=== PATIENT | female | born 1995 | race American Indian/Alaskan Native ===

== ENCOUNTER 2023-10-20 09:48 | Outpatient (OUT) | payer MEDICAID, SELFPAY ==
--- NOTE | 2023-10-20 | US_ITS ---
[address] [address] Patient Name: SERGIO JONES MRN: [id number] date: 1995 Sex: F Assigned Patient Location: [facility] Current Patient Location: [facility] Accession/Order Number: [id number] Exam Date: 10/20/2023 09:55 Report Date: 10/20/2023 10:36 At the request of: FAMILIA LAWRENCE Procedure: US OB transvaginal EXAMINATION: US OB transvaginal HISTORY: MISSED MENSES COMPARISON: No relevant comparison available. FINDINGS: GESTATIONAL SAC: Present and normal appearing. YOLK SAC: Present and normal appearing. POLE: Present and normal appearing. CARDIAC: Present. UTERUS: Small subchorionic hematoma. OVARIES: Right: Normal. Left: Normal. CERVIX: 4.0 cm in length and closed. CUL-DE-SAC: Normal. OTHER: None. AGE BY LMP: 8 weeks 0 days ELVIE BY LMP: 05/31/2024 AGE BY US CRL: 8 weeks 4 days ELVIE BY US CRL: 05/27/2024 US/US OB transvaginal IMPRESSION: 1. Single live intrauterine . Electronically authenticated by: LUIS ENRIQUE JACKSON Date: 10/20/2023 10:36
== END 2023-10-20 09:49 | disposition home or self-care (01) ==
LOC: NOMS 09:49
PROVIDERS: PCP Family Medicine; Visit Provider Obstetrics & Gynecology
DX: Z34.91 Encounter for supervision of normal pregnancy, unspecified, first trimester (principal); Z3A.08 8 weeks gestation of pregnancy; N92.6 Irregular menstruation, unspecified
CPT/HCPCS: 76817

== ENCOUNTER 2023-10-27 15:45 | Outpatient (OUT) | payer MEDICAID, SELFPAY ==
--- OUTSIDE RECORDS SUMMARY | 2023-10-27 15:52 | XMS_ITS ---
Patient Summarization (C-CDA 2.1 CCD) Created on: October 27, 2023 ROBERTSERGIO : 1995 Sex: Female Author Organization Sample organization Care Team Providers Care Dog Raiser Name Role Phone PASTORA BARRON Admitting Unavailable PASTORA BARRON Attending Unavailable PASTORA BARRON Primary Care Unavailable PASTORA BARRON Consulting Unavailable Conrado Calle Attending Unavailab Conrado Jefferson Admitting Unavailab PASTORA Walsh Primary Care Unavailable LAWRENCE JOSE Attending Unavailable FLORA GUZMÁN Attending FLORA Singh Referring PASTORA Blancas Primary Care Unavailable Pastora Barron MD Primary Care Provider JORGE CAMARA Attending Unavailable PUMP, FLORA Attending Unavailable FAMILIA LAWRENCE Attending Unavailable PASTORA BARRON Attending Unavailable Allergies Allergy Classification Reported Allergen(s) Allergy Type Date of Onset Reaction(s) Facility (3 sources) Ethinyl Estradiol / norelgestromin Drug Allergy [facility] Encounters Encounter Date Encounter Type Care Provider Facility Start: 10-20-2023 End: 10-20-2023 ambulatory JORGE CAMARA Not Available Start: 10-16-2023 End: 10-16-2023 ambulatory PASTORA Ortiz WONDERLY Not Available Start: 07-10-2023 End: 07-10-2023 ambulatory FLORA PUMP Not Available Start: 06-26-2023 Telephone encounter Jorge Camara NP Work Phone: [facility] Comment on above: Results Start: 06-26-2023 End: 06-26-2023 ambulatory JORGE CAMARA Not Available Start: 06-26-2023 End: 06-26-2023 Office outpatient visit 25 minutes Jorge Camara NP Work Phone: [facility] Comment on above: Pyelonephritis (Prim nicko Dx); Elevated liver function tests; Hypokalemia; Diarrhea, unspecified type; Nausea; Left lower quadrant abdominal tenderness with rebound tenderness; Gastroesophageal reflux disease without esophagitis Start: 06-21-2023 End: 06-22-2023 Emergency department patient visit FLORA GUZMÁN [facility] Start: 06-21-2023 End: 06-21-2023 Emergency department patient visit PASTORA BARRON [facility] Start: 04-17-2023 End: 04-17-2023 ambulatory FAMILIA HOWARD Not Available Start: 12-28-2022 ambulatory Conrado Banks acility:[facility] Start: 11-14-2019 End: 11-15-2019 Patient encounter procedure PASTORA BARRON Facility:H1 Immunizations Immunization Date Immunization Notes Care Provider [facility] 03-11-2016 influenza, injectabl e, quadrivalent, preservative free Jorge Camara [employer] Work Phone: [facility] 03-11-2016 influenza virus vacc ine, unspecified formulation Jorge Camara [employer] Work Phone: [facility] 02-04-2015 tetanus toxoid, redu yenny diphtheria toxoid, and acellular pertussis vaccine, adsorbed Jorge Camara [employer] Work Phone: [facility] 12-17-2001 diphtheria, tetanus toxoids and acellular pertussis vaccine, unspecified formulation Jorge Camara [employer] Work Phone: [facility] 12-17-2001 measles, mumps and rubella virus vaccine Jorge Camara [employer] Work Phone: [facility] 12-17-2001 poliovirus vaccine, inactivated Jorge Camara [employer] Work Phone: [facility] 06-04-1997 diphtheria, tetanus toxoids and acellular pertussis vaccine, unspecified formulation Jorge Camara [employer] Work Phone: [facility] 06-04-1997 haemophilus influenz ae type b vaccine, conjugate unspecified formulation Jorge Camara [employer] Work Phone: [facility] 06-04-1997 measles, mumps and rubella virus vaccine Jorge Camara [employer] Work Phone: [facility] 1995 DTP-Haemophilus influenzae type b conjugate vaccine Jorge Camara [employer] Work Phone: [facility] 1995 hepatitis B vaccine, pediatric or pediatric/adolescent dosage Jorge Camara [employer] Work Phone: [facility] 1995 trivalent poliovirus vaccine, live, oral Jorge Camara [employer] Work Phone: [facility] 1995 DTP-Haemophilus influenzae type b conjugate vaccine Jorge Camara [employer] Work Phone: [facility] 1995 trivalent poliovirus vaccine, live, oral Jorge Camara [employer] Work Phone: [facility] 1995 DTP-Haemophilus influenzae type b conjugate vaccine Jorge Camara [employer] Work Phone: [facility] 1995 hepatitis B vaccine, pediatric or pediatric/adolescent dosage Jorge Camara [employer] Work Phone: [facility] 1995 trivalent poliovirus vaccine, live, oral Jorge Camara [employer] Work Phone: [facility] 1996 hepatitis B vaccine, pediatric or pediatric/adolescent dosage Jorge Camara [employer] Work Phone: [facility] Medications Current Medications Medication Drug Class(es) Dates Sig (Normalized) Sig (Original) sulfamethoxazole 800 mg / trimethoprim 160 mg oral tablet (3 sources) Dihydrofolate Reductase Inhibitor Antibacterial, Sulfonamide Antimicrobial Start: 06-21-2023 End: 06-28-2023 take 1 tablet by mouth once in the morning, then take 1 tablet by mouth once in the evening sulfamethoxazol e-trimethoprim (Bactrim DS) 800-160 MG per tablet Take 1 tablet by mouth in the morning and 1 tablet in the evening. 0 06/21/2023 06/28/2023 Active Payers Date Payer Category Payer Self-pay 2022 Medicaid [place] [id number] 2022-Present [address] [place] [address] [id number] 2019 Unknown [id number] 2019 Medicaid [id number] 1995 Unknown [id number] 1995 Unknown [id number] 1995 Unknown [id number] 1995 Unknown [id number] 1995 Unknown [id number] 1996 Unknown [id number] 1996 Unknown [id number] Plan of Treatment Date Care Activity Detail Author Start: 11-12-2023 Influenza vaccination Influenza Vacc ine (#1) [facility] Comment on above: Postponed from 01/13 (Patient Refused) Start: 07-25-2023 End: 06-26-2024 Hepatic function 2000 panel - Serum or Plasma Hepatic function panel Lab Routine Elevated liver function tests Pyelonephritis Expected: 07/25/2023 (Approximate), Expires: 06/26/2024 [facility] Work Phone: Comment on above: Expected: 07/25/2023 (Approximate), Expires: 06/26/2024 Start: 07-13-2023 End: 07-13-2023 Patient encounter procedure 07/13/2023 2:00 PM EST Office Visit [facility] [address] [place] [address] Jorge Camara, PAM [address] [facility] [place] [address] ZELDADeisy ELIECER Start: 06-26-2023 End: 06-26-2024 Comprehensive metabolic 2000 panel - Serum or Plasma Comprehensive metabolic panel Lab Routine Elevated liver function tests Pyelonephritis Hypokalemia Diarrhea, unspecified type Expected: 06/26/2023 (Approximate), Expires: 06/26/2024 [facility] Work Phone: Comment on above: Expected: 06/26/2023 (Approximate), Expires: 06/26/2024 Problems Problem Classification Problem Date Documented Da te Episodic/Chronic Abdominal pain (3 sources) Abdominal pain; Translations: [Abdominal tenderness of left lower quadrant] Onset: 4 06-26-2023 Episodic Anxiety disorders (3 sources) Anxiety; Translations: [Anxiety disorder, unspecified] Onset: 4 06-23-2023 Chronic Esophageal disorders (5 sources) Gastroesophageal reflux disease without esophagitis; Translations: [Gastro-esophageal reflux disease without esophagitis] Onset: 4 06-26-2023 Chronic Fluid and electrolyte disorders (2 sources) Hypokalemia; Translations: [Hypokalemia] 06-26-2023 Episodic Headache; including migraine (3 sources) Headache disorder; Translations: [Other headache syndrome] Onset: 4 06-23-2023 Episodic Immunizations and screening for infectious disease (4 sources) Contact with and (suspected) exposure to other viral communicable diseases; Translations: [CONTCT EXPS OTH VIRL COMMUNICABL DZ] Onset: 0 Episodic Nausea and vomiting (4 sources) Nausea; Translations: [Vomiting] Onset: 4 06-26-2023 Episodic Other gastrointestinal disorders (2 sources) Diarrhea; Translations: [Diarrhea, unspecified] 06-26-2023 Episodic Other nutritional; endocrine; and metabolic disorders (3 sources) Overweight; Translations: [Overweight] Onset: 4 06-23-2023 Episodic Other screening for suspected conditions (not mental disorders or infectious disease) (3 sources) Other specified abnormal findings of blood chemistry; Translations: [Other abnormal blood chemistry] 06-26-2023 Episodic Other upper respiratory infections (3 sources) Frontal sinusitis; Translations: [Chronic frontal sinusitis] Onset: 4 06-23-2023 Chronic Thyroid disorders (3 sources) Goiter; Translations: [Nontoxic goiter, unspecified] Onset: 4 06-23-2023 Chronic Urinary tract infections (4 sources) Tubulo-interstitial nephritis, not specified as acute or chronic; Translations: [Pyelonephritis] Onset: 4 06-26-2023 Episodic Results Test Name Value Interpretation Reference Range Facil ity CBC AND AUTO DIFFon 06-21-19 24 ABSOLUTE BASOPHIL 0.0 X10E9/L Normal 0.0-0.2 [facility] Comment on above: Performed By: #### Michelle SANCHEZ CMP, 32230-3 #### [facility] ([id number]) [address] [place] [address] 92472 ABSOLUTE NEUTROPHIL 5.2 X10E9/L Normal 1.5-6.6 [facility] Comment on above: Performed By: #### Michelle SANCHEZ CMP, 70233-7 #### [facility] ([id number]) [address] [place] [address] 50792 Basophils/100 WBC (Bld) 0.5 % Normal [facility] Comment on above: Performed By: #### Michelle SANCHEZ CMP, 10676-2 #### [facility] ([id number]) [address] [place] [address] 91188 Eosinophils (Bld) [#/Vol] 0.0 10*3/uL Normal 0.0-0.4 [facility] Comment on above: Performed By: #### Michelle SANCHEZ CMP, #### [facility] ([id number]) [address] [place] [address] 19201 Eosinophils/100 WBC (Bld) 0.4 % Normal [facility] Comment on above: Performed By: #### Michelle SANCHEZ CMP, #### [facility] ([id number]) [address] [place] [address] 11448 Erythrocyte distribution width (RBC) [Ratio] 12.7 % Normal 11.5-15.0 [facility] Comment on above: Performed By: #### Michelle SANCHEZ CMP, #### [facility] ([id number]) [address] [place] [address] 73257 Hematocrit (Bld) [Volume fraction] 41.4 % Normal 35-47 [facility] Comment on above: Performed By: #### Michelle SANCHEZ [facility], #### [facility] ([id number]) [address] [place] [address] 76921 Hemoglobin (Bld) [Mass/Vol] 14.2 g/dL Normal 11.7-15.5 [facility] Comment on above: Performed By: #### Michelle SANCHEZ [facility], #### [facility] ([id number]) [address] [place] [address] 55303 Lymphocytes (Bld) [#/Vol] 1.3 10*3/uL Normal 1.0-3.5 [facility] Comment on above: Performed By: #### Michelle SANCHEZ [facility], 11939-0 #### [facility] ([id number]) [address] [place] [address] 43450 Lymphocytes/100 WBC (Bld) 18.4 % Normal [facility] Comment on above: Performed By: #### Michelle SANCHEZ [facility], 24110-8 #### [facility] ([id number]) [address] [place] [address] 22276 MCH (RBC) [Entitic mass] 30.3 pg Normal 27-34 [facility] Comment on above: Performed By: #### Michelle SANCHEZ [facility], #### [facility] ([id number]) [address] [place] [address] 83648 MCHC (RBC) [Mass/Vol] 34.3 g/dL Normal 32-36 [facility] Comment on above: Performed By: #### Michelle SANCHEZ CMP, 18376-7 #### [facility] ([id number]) [address] [place] [address] 96906 MCV (RBC) [Entitic vol] 88 fL Normal 80-100 [facility] Comment on above: Performed By: #### Michelle SANCHEZ CMP, 45582-2 #### [facility] ([id number]) [address] [place] [address] 50558 Monocytes (Bld) [#/Vol] 0.6 10*3/uL Normal 0-0.9 [facility] Comment on above: Performed By: #### Michelle SANCHEZ CMP, #### [facility] ([id number]) [address] [place] [address] 26920 Monocytes/100 WBC (Bld) 8.8 % Normal [facility] Comment on above: Performed By: #### Michelle SANCHEZ [facility], 61059-9 #### [facility] ([id number]) [address] [place] [address] 90684 Neutrophils/100 WBC (Bld) 71.9 % Normal [facility] Comment on above: Performed By: #### Michelle SANCHEZ [facility], 56700-0 #### [facility] ([id number]) [address] [place] [address] 99915 Platelet mean volume (Bld) [Entitic vol] 8.9 fL Normal 7-12 [facility] Comment on above: Performed By: #### Michelle SANCHEZ CMP, 11128-0 #### [facility] ([id number]) [address] [place] [address] 59980 Platelets (Bld) [#/Vol] 267 10*3/uL Normal 150-450 [facility] Comment on above: Performed By: #### C BCA, CMP, 89773-8 #### [facility] ([id number]) [address] [place] [address] 15630 RBC COUNT 4.68 X10E12/L Normal 3.80-5.20 [facility] Comment on above: Performed By: #### C BCA, CMP, 00206-2 #### [facility] ([id number]) [address] [place] [address] 25246 WBC (Bld) [#/Vol] 7.2 10*3/uL Normal 4.0-11.0 [facility] Comment on above: Performed By: #### C BCA, CMP, 63633-4 #### [facility] ([id number]) [address] [place] [address] 65913 COMPREHENSIVE METABOLIC PANE Chucky 06-21-2023 Albumin [Mass/Vol] 4.2 g/dL Normal 3.2-5.3 [facility] Comment on above: Performed By: #### C BCA, CMP, 12133-8 #### [facility] ([id number]) [address] [place] [address] 49726 ALP [Catalytic activity/Vol] 76 U/L Normal 39-130 [facility] Comment on above: Performed By: #### C BCA, CMP, #### [facility] ([id number]) [address] [place] [address] 82126 ALT [Catalytic activity/Vol] 114 U/L High 0-31 [facility] Comment on above: Performed By: #### C BCA, CMP, 00923-0 #### [facility] ([id number]) [address] [place] [address] 87822 Anion gap [Moles/Vol] 11 mmol/L Normal 5-15 [facility] Comment on above: Performed By: #### C BCA, CMP, #### [facility] ([id number]) [address] [place] [address] 98824 AST [Catalytic activity/Vol] 83 U/L High 0-41 [facility] Comment on above: Performed By: #### C BCA, CMP, #### [facility] ([id number]) [address] [place] [address] 09995 Bilirubin [Mass/Vol] 1.1 mg/dL Normal 0.3-1.2 [facility] Comment on above: Performed By: #### C BCA, CMP, #### [facility] ([id number]) [address] [place] [address] 53914 Calcium [Mass/Vol] 8.9 mg/dL Normal 8.5-10.5 [facility] Comment on above: Performed By: #### C BCA, CMP, #### [facility] ([id number]) [address] [place] [address] 72845 Chloride [Moles/Vol] 98 mmol/L Normal 98-109 [facility] Comment on above: Performed By: #### C BCA, CMP, #### [facility] ([id number]) [address] [place] [address] 16137 CO2 [Moles/Vol] 23 mmol/L Normal 22-32 [facility] Comment on above: Performed By: #### C BCA, CMP, 41893-0 #### [facility] ([id number]) [address] [place] [address] 89581 Creatinine [Mass/Vol] 0.77 mg/dL Normal 0.40-1.00 [facility] Comment on above: Result Comment: METH OD TRACEABLE TO IDMS STANDARD Performed By: #### C BCA, CMP, #### [facility] ([id number]) [address] [place] [address] 75490 eGFR (CKD-EPI) NON-RACE DEPENDENT >90 Normal >59 [facility] Comment on above: Result Comment: Reported eGFR is based on the CKD-EPI 2020 equation that does not use a race coefficient. Performed By: #### C SONDRA SANCHEZ, 87958-6 #### [facility] ([id number]) [address] [place] [address] 56059 Glucose [Mass/Vol] 116 mg/dL High 65-99 [facility] Comment on above: Performed By: #### C SONDRA SANCHEZ, 10245-5 #### [facility] ([id number]) [address] [place] [address] 74505 Potassium [Moles/Vol] 3.1 mmol/L Low 3.5-5.0 [facility] Comment on above: Performed By: #### Michelle SANCHEZ [facility], #### [facility] ([id number]) [address] [place] [address] 05170 Protein [Mass/Vol] 8.1 g/dL High 6.0-8.0 [facility] Comment on above: Performed By: #### C DANIEL [facility], 31055-0 #### [facility] ([id number]) [address] [place] [address] 44360 Sodium [Moles/Vol] 132 mmol/L Low 134-146 [facility] Comment on above: Performed By: #### C SONDRA SANCHEZ, 36496-0 #### [facility] ([id number]) [address] [place] [address] 06610 Urea nitrogen [Mass/Vol] 10 mg/dL Normal 5-23 [facility] Comment on above: Performed By: #### C SONDRA SANCHEZ, 25191-0 #### [facility] ([id number]) [address] [place] [address] ABDOMEN AND PELVIS W CONT on 06-21-2023 CT ABDOMEN AND PELVIS W CONT CT ABDOMEN AND PELVIS W CONT CT ABDOMEN AND PELVIS HISTORY: Abdominal pain, acute, nonlocalized COMPARISON STUDY: r. TECHNIQUE: CT scan of the abdomen and pelvis performed with IV no oral contrast. 100 mL of Omnipaque 300 was injected intravenously without complication. Coronal and sagittal reformats generated and reviewed. FINDINGS: LOWER THORAX: Unremarkable. HEPATOBILIARY: Focal fatty infiltration about the falciform. No focal aggressive appearing hepatic lesions. Mild dilatation of the common bile duct, with upstream tapering of the intrahepatic biliary tree, in a pattern suggestive of reservoir effect. Gallbladder surgically absent. SPLEEN: Unremarkable. PANCREAS: No focal masses or ductal dilatation. ADRENALS: No large adrenal nodules. KIDNEYS/URETERS: Striated bilateral renal nephrograms No aggressive appearing mass lesion. Nonaggressive appearing subcentimeter hypodensities, too small for characterization. No obstructive renal calculus. No collecting system dilatation. Bladder: Within normal limits. PELVIC ORGANS: Within normal limits. GI TRACT: No acute bowel obstruction. The appendix is normal. PERITONEUM/RETROPERIT ONEUM: Small volume free pelvic fluid, likely physiologic. LYMPH NODES: No enlarged lymph nodes. VESSELS: No acute thrombus. No abdominal aortic aneurysm. BONES AND SOFT TISSUES: No suspicious osseous lesion. IMPRESSION: Striated bilateral renal nephrograms, suggestive of pyelonephritis in the appropriate clinical setting. All CT scans at this facility use dose modulation, iterative reconstruction, and/or weight based dosing when appropriate to reduce radiation dose to as low as reasonably achievable. Finalized by Bill Albrecht on 06/21/2023 3:57 PM Normal [facility] HCG ( test) Ql (U)o n 06-21-2023 Beta HCG ( test) Ql (U) Negative Normal NEG [facility] Comment on above: Performed By: #### 2 106-3 #### [facility] ([id number]) [address] [place] [address], [place] [address] MAGNESIUMon 06-21-2023 Magnesium [Mass/Vol] 2.1 mg/dL Normal 1.8-2.6 [facility] Comment on above: Performed By: #### C BANNER, [facility], 02430-8 #### [facility] ([id number]) [address] [facility] [place] [address] SARS/FLU A+B/RSV by NAAT/Mol ecularon 06-21-2023 SARS/FLU A+B/RSV by NAAT/Molecular FLU A PCR Negative (qualifier value) FLU B PCR Negative (qualifier value) RSV by PCR Negative (qualifier value) SARS CoV 2 Not detected (qualifier value) NOTE The Xpert Xpress SARS-CoV-2/Flu/RSV Plus test is a rapid, multiplexed real-time RT-PCR test intended for the simultaneous qualitative detection and differentiation of SARS-CoV-2, influenza A, influenza B and respiratory syncytial virus (RSV) viral RNA from individuals suspected of respiratory viral infection consistent with COVID-19 by their healthcare provider. This test has not been validated in asymptomatic patients. The Xpert Xpress SARS-CoV-2 test is intended for use by qualified and trained operators who are performing tests using either iyzico DX or Arrogene systems and is limited to laboratories that meet the CLIA requirements to perform high and moderate complexity tests. The Xpert Xpress SARS-CoV-2/Flu/RSV Plus is only for use under the Food and Drug Administration's Emergency Use Authorization. Results are for the simultaneous detection and differentiation of SARS-CoV-2, influenza A, influenza B and RSV nucleic acids in clinical specimens. SARS-CoV-2, influenza A, influenza B and RSV RNA identified by this test are generally detectable in upper respiratory samples during the acute phase of infection. Positive results are indicative of the presence of the identified virus, but do not rule out bacterial infection or co-infection with other pathogens not detected by this test. Clinical correlation with patient history and other diagnostic information is necessary to determine patient infection status. The agent detected may not be the definite cause of disease. Negative results do not preclude SARS-CoV-2, influenza A, influenza B and RSV infection and should not be used as the sole basis for treatment or other patient management decisions. Negative results must be combined with clinical observations, patient history and epidemiological information. An Invalid result may occur with specimen-associated inhibition unable to be resolved with specimen repeat. Fact Sheet for Healthcare Providers: https://www.fda.gov/m edia/970378/download Fact Sheet for Patients: https://www.fda.gov/m edia/834206/download Normal [facility] Comment on above: Performed By: #### C OVFLR #### [facility] ([id number]) [address] [place] [address] 96742 URINE CULTUREon 06-21-2023 Bacteria identified Cx Nom (U) CULTURE RESULTS 50,000 to 100,000 ORGANISMS/mL ESCHERICHIA COLI [ S = SUSCEPTIBLE R = RESISTANT I = INTERMEDIATE S-DO = Susceptible-dose dependent NS = Non-suscceptible NO = No Interpretation ] Organism: ESCHERICHIA COLI Antibiotic Interpretation RITA Status AMPICILLIN R >=32 F AMP/SULBACTAM I 16/8 F CEFAZOLIN S <=4 F CEFTRIAXONE S <=1 F CIPROFLOXACIN S <=0.25 F GENTAMICIN S <=1 F LEVOFLOXACIN S <=0.12 F NITROFURANTOIN S <=16 F PIPERACIL/TAZOBACTAM S <=4 F TOBRAMYCIN S <=1 F TRIMETH/SULFAMETHOXAZ OLE S <=1/19 F Susceptible [facility] Comment on above: Performed By: #### 6 30-4 #### [facility] ([id number]) [address], [address] [place] [address] URN MACROSCOPIC NURon 2023 BILIRUBIN ALMA Negative Normal NEG [facility] Comment on above: Performed By: #### N UM #### [facility] ([id number]) [address] [place] [address] 62525 BLOOD/HGB ALMA Trace Abnormal NEG [facility] Comment on above: Performed By: #### N UM #### [facility] ([id number]) [address] [place] [address] [id number] GLUCOSE ALMA Negative Normal NEG [facility] Comment on above: Performed By: #### N UM #### [facility] ([id number]) [address] [place] [address] 49279 KETONES ALMA Trace Abnormal NEG [facility] Comment on above: Performed By: #### N UM #### [facility] ([id number]) [address] [place] [address] [id number] LEUKOCYTE ESTERASE ALMA Negative Normal NEG [facility] Comment on above: Performed By: #### N UM #### [facility] ([id number]) [address] [place] [address] 46154 NITRITE ALMA Positive Abnormal NEG [facility] Comment on above: Performed By: #### N UM #### [facility] ([id number]) [address] [place] [address] 96638 PH ALMA 6.0 Normal 5.0-8.5 [facility] Comment on above: Performed By: #### N UM #### [facility] ([id number]) [address] [place] [address] 90932 PROTEIN ALMA Trace Abnormal NEG [facility] Comment on above: Performed By: #### N UM #### [facility] ([id number]) [address] [place] [address] 49287 SPECIFIC GRAVITY ALMA >=1.030 Normal 1.003-1.035 [facility] Comment on above: Performed By: #### N UM #### [facility] ([id number]) [address] [place] [address] 88460 UROBILINOGEN ALMA 0.2 eu/dL Normal <1.1 [facility] Comment on above: Performed By: #### N UM #### [facility] ([id number]) [address] [place] [address] [id number] COVID-19 PCRon 11-15-2019 SARS-CoV-2, RENETTA Not Detected Normal Not Detected [facility] Comment on above: Result Comment: This test was developed and its performance characteristics determined by [employer]. This test has not been FDA cleared or approved. This test has been authorized by FDA under an Emergency Use Authorization (EUA). This test is only authorized for the duration of time the declaration that circumstances exist justifying the authorization of the emergency use of in vitro diagnostic tests for detection of SARS-CoV-2 virus and/or diagnosis of COVID-19 infection under section 564(b)(1) of the Act, 21 U.S.C. 360bbb-3(b)(1), unless the authorization is terminated or revoked sooner. When diagnostic testing is negative, the possibility of a false negative result should be considered in the context of a patient's recent exposures and the presence of clinical signs and symptoms consistent with COVID-19. An individual without symptoms of COVID-19 and who is not shedding SARS-CoV-2 virus would expect to have a negative (not detected) result in this assay. Performed By: #### C VDPCR #### [facility] [address] [place] [address] Raymond Deleon Social History Date Type Detail Facility Start: 06-26-2023 Tobacco smoking status NHIS Ex-smoke r [facility] Start: 06-26-2023 Tobacco use and exposure Smoke less tobacco non-user [facility] Start: 06-26-2023 Alcohol intake Current drinke r of alcohol (finding) [facility] Start: 06-26-2023 Alcohol intake [facility] Start: 06-26-2023 Humiliation, Afraid, Rape, and Kick questionnaire [HARK] [facility] Start: 04-04-2023 Gender identity Identifies as female gender (finding) [facility] Start: 04-04-2023 Sexual orientation Heterosexual (fin ding) [facility] Start: 1995 Sex Assigned At Female [facility] History of tobacco use Current smoker [facility] History of tobacco use Cigarette Smoker [facility] Within the last year , have you been afraid of your partner or ex-partner? No [facility] Are you now , , , , never or living with a partner? Never [facility] How often to you hav e a drink containing alcohol? Monthly or less [facility] How many standard dr inks containing alcohol do you have on a typical day? 3 or 4 [facility] How often do you hav e 6 or more drinks on 1 occasion? Never [facility] How hard is it for y ou to pay for the very basics like food, housing, medical care, and heating Not very hard [facility] Do you feel stress - tense, restless, nervous, or anxious, or unable to sleep at night because your mind is troubled all the time - these days [OSQ] To some extent [facility] (I/We) worried [facility] (my/our) food would run out before (I/we) got money to buy more. Never true [facility] In the past 12 month s, has lack of transportation kept you from medical appointments or from getting medications? No [facility] Vital Signs Date Time Vital Sign Value Performing Clinician Faci imelda 06-26-2023 08:39-0500 Body mass index (BMI) [Ratio] 30.81 kg/m2 Jorge Camara NP Work Phone: [facility] 06-26-2023 08:39-0500 Body weight 77.66 kg Jorge Camara NP Work Phone: [facility] 06-26-2023 08:39-0500 Diastolic blood pressure 80 mm[Hg] Jorge Camara [employer] Work Phone: [facility] 06-26-2023 08:39-0500 Heart rate 72 /min Jorge Camara NP Work Phone: [facility] 06-26-2023 08:39-0500 Systolic blood pressure 102 mm[Hg] Jorge Camara [employer] Work Phone: [facility] Telephone encounter Note 06-26-2023 Telephone Encounter - Jorge Camara NP - 06/26/2023 3:59 PM EST Note Date & Type Note Facility 06-26-2023 Telephone encount er Note Please let patient know labs are improving. Potassium level is WNL. AST and ALT are still high but better compared to what it was in the hospital. I would like to repeat AST/ALT levels in 4 weeks. Order placed. AST 10 - 30 U/L 43 High ALT 6 - 29 U/L 86 High [facility] Note 06-26-2023 Telephone Encounter - Jorge Camara NP - 06/26/2023 3:59 PM EST Note Date & Type Note Facility 06-26-2023 Miscellaneous Notes Formattin g of this note is different from the original. Please let patient know labs are improving. Potassium level is WNL. AST and ALT are still high but better compared to what it was in the hospital. I would like to repeat AST/ALT levels in 4 weeks. Order placed. AST 10 - 30 U/L 43 High ALT 6 - 29 U/L 86 High documented in this encounter [facility] History of Present illness Narrative 06-26-2023 Jorge Camara NP - 06/26/2023 8:30 AM EST Note Date & Type Note Facility 06-26-2023 History of Presen t illness Narrative Images from the original note were not included. Sergio Lisa is a 28 y.o. female presents with chief complaint of ER Follow-up (Abd pain,diarrhea. Left side pain comes and goes started this morning, nausea better, continued diarrhea.) HPI: HPI Patient presents to the office today for ER follow up. Patient had went to the ER on 06/21 for vomiting and diarrhea. UA was positive for nitrates and CT showed pyelonephritis. IV rocephin was given and Bactrim started. Labs are off, potassium was slightly low, ALT and AST elevated. Patient continues to have diarrhea. Nausea improving. Having some abdominal discomfort to her left side. Taking Bactrim for a total of 7 days. Woke up at 3am with left sided abdominal pain. Admits to having diarrhea when this occurred. Needed to walk around, felt like contractions. Pain is better now, it comes and goes. Has motrin if needed but has not taken since yesterday. Denies fever, body aches or chills. Does feel warm at times. Appetite has been decreased. Admits to drinking 2 bottles of water per day and sips of gatorade throughout the day. Has been drinking chicken noodle soup. Had hot wings and then developed worsening epigastric upset. Potassium was low in the ER which it was replaced. She admits that she is feeling better compared to last week. Planning to return to work tomorrow. SUBJECTIVE: MEDICATIONS: Current Outpatient Medications Medication Instructions sulfamethoxazole-trimethoprim (Bactrim DS) 800-160 MG per tablet 1 tablet, Oral, 2 times daily ALLERGIES: Allergies Allergen Reactions Norelgestromin-Eth Estradiol Other Reaction(s): GI upset REVIEW OF SYMPTOMS: Review of Systems Constitutional: Positive for appetite change. Negative for activity change and fatigue. HENT: Negative. Respiratory: Negative for cough, shortness of breath and wheezing. Cardiovascular: Negative for chest pain and palpitations. Gastrointestinal: Positive for abdominal pain (left side), diarrhea and nausea. Negative for vomiting. Genitourinary: Negative. Musculoskeletal: Negative. Skin: Negative for color change, rash and wound. Psychiatric/Behavioral: Negative. OBJECTIVE: Predictive Model Details Model is not released. No score information can be retrieved 04/24/2019 12:00 PM 07/29/2019 12:00 PM 01/25/2021 12:00 PM 06/16/2021 12:00 PM 06/30/2021 12:00 PM 04/17/2023 3:03 PM 06/26/2023 8:39 AM Vitals BMI 27.54 kg/m2 28.01 kg/m2 28.01 kg/m2 28.94 kg/m2 29.01 kg/m2 31.1 kg/m2 30.81 kg/m2 BSA (m2) 1.75 m2 1.76 m2 1.76 m2 1.79 m2 1.8 m2 1.86 m2 1.85 m2 Systolic 92 122 104 100 110 102 Diastolic 60 84 70 60 78 80 Heart Rate 72 Height (in) 5' 2.5 5' 2.5 5' 2.5 5' 2.5 5' 2.5 Weight (lb) 153 155.6 160.8 161.2 172.8 171.2 Visit Report Report COMPREHENSIVE METABOLIC PANEL Order: [id number] Component Ref Range & Units 5 d ago Sodium 134 - 146 mmol/L 132 Low Potassium, Bld 3.5 - 5.0 mmol/L 3.1 Low Chloride 98 - 109 mmol/L 98 CO2 22 - 32 mmol/L 23 Anion gap 5 - 15 mmol/L 11 BUN 5 - 23 mg/dL 10 Creatinine 0.40 - 1.00 mg/dL 0.77 Comment: METHOD TRACEABLE TO IDMS STANDARD Glucose 65 - 99 mg/dL 116 High Calcium 8.5 - 10.5 mg/dL 8.9 Total Protein 6.0 - 8.0 g/dL 8.1 High Albumin 3.2 - 5.3 g/dL 4.2 Alkaline Phosphatase 39 - 130 U/L 76 AST 0 - 41 U/L 83 High ALT 0 - 31 U/L 114 High Total bilirubin 0.3 - 1.2 mg/dL 1.1 eGFR (CKD-EPI)non-race dependent >59 ml/min/1.73sq.m >90 Comment: Reported eGFR is based on the CKD-EPI 2020 equation that does not use a race coefficient. CT abdomen pelvis w IV contrast Order: [id number] Narrative CT ABDOMEN AND PELVIS HISTORY: Abdominal pain, acute, nonlocalized COMPARISON STUDY: r. TECHNIQUE: CT scan of the abdomen and pelvis performed with IV no oral contrast. 100 mL of Omnipaque 300 was injected intravenously without complication. Coronal and sagittal reformats generated and reviewed. FINDINGS: LOWER THORAX: Unremarkable. HEPATOBILIARY: Focal fatty infiltration about the falciform. No focal aggressive appearing hepatic lesions. Mild dilatation of the common bile duct, with upstream tapering of the intrahepatic biliary tree, in a pattern suggestive of reservoir effect. Gallbladder surgically absent. SPLEEN: Unremarkable. PANCREAS: No focal masses or ductal dilatation. ADRENALS: No large adrenal nodules. KIDNEYS/URETERS: Striated bilateral renal nephrograms No aggressive appearing mass lesion. Nonaggressive appearing subcentimeter hypodensities, too small for characterization. No obstructive renal calculus. No collecting system dilatation. Bladder: Within normal limits. PELVIC ORGANS: Within normal limits. GI TRACT: No acute bowel obstruction. The appendix is normal. PERITONEUM/RETROPERITONEUM: Small volume free pelvic fluid, likely physiologic. LYMPH NODES: No enlarged lymph nodes. VESSELS: No acute thrombus. No abdominal aortic aneurysm. BONES AND SOFT TISSUES: No suspicious osseous lesion. IMPRESSION: Striated bilateral renal nephrograms, suggestive of pyelonephritis in the appropriate clinical setting. All CT scans at this facility use dose modulation, iterative reconstruction, and/or weight based dosing when appropriate to reduce radiation dose to as low as reasonably achievable. Physical Exam Vitals reviewed. Constitutional: General: She is not in acute distress. Appearance: Normal appearance. Cardiovascular: Rate and Rhythm: Normal rate and regular rhythm. Heart sounds: No murmur heard. Pulmonary: Effort: Pulmonary effort is normal. No respiratory distress. Breath sounds: Normal breath sounds. No wheezing or rhonchi. Abdominal: General: Bowel sounds are normal. There is no distension. Palpations: Abdomen is soft. Tenderness: There is abdominal tenderness (to LLQ). Musculoskeletal: Right lower leg: No edema. Left lower leg: No edema. Skin: General: Skin is warm and dry. Findings: No rash. Neurological: Mental Status: She is alert. Psychiatric: Mood and Affect: Mood normal. Behavior: Behavior normal. ASSESSMENT AND PLAN: Assessment/Plan Diagnoses and all orders for this visit: Pyelonephritis Comments: Doing well overall. Finish bactrim and increase water intake to at least 5 bottles or water per day. Follow up if symptoms do not continue to improve. Orders: - Comprehensive metabolic panel; Future Elevated liver function tests Comments: Likely related to pyelo, will repeat labs today. Orders: - Comprehensive metabolic panel; Future Hypokalemia Comments: Replaced in ER, will repeat labs today. Orders: - Comprehensive metabolic panel; Future Diarrhea, unspecified type Comments: Recommended BRAT diet, avoiding foods that are irritating like spicy foods and increasing water intake. Orders: - Comprehensive metabolic panel; Future Nausea Comments: Improving. Left lower quadrant abdominal tenderness with rebound tenderness Comments: Correlates to having diarrhea. Will continue to monitor and notify if pain does not improve or if pain worsens. PVU. Gastroesophageal reflux disease without esophagitis Comments: Discussed triggers and handout given to patient. Recommend TUMs PRN. If not improving, may need to discuss daily antacid. Increase water intake. PVU. Follow up if symptoms worsen or fail to improve, for due for wellness to schedule - PLEASE provide work note monday and today . documented in this encounter [facility] Evaluation note Note Date & Type Note Facility Evaluation note Diagnosis Pyelonephritis- Primary Unspecified pyelonephritis Elevated liver function tests Other abnormal blood chemistry Hypokalemia Hypopotassemia Diarrhea, unspecified type Nausea Nausea alone Left lower quadrant abdominal tenderness with rebound tenderness Gastroesophageal reflux disease without esophagitis Esophageal reflux documented in this encounter [facility] Evaluation note Note Date & Type Note Facility Evaluation note Diagnosis Elevated liver function tests- Primary Other abnormal blood chemistry Pyelonephritis Unspecified pyelonephritis documented in this encounter [facility] Summary Purpose Family History No Family History Records FoundNo Family History Records FoundNo Family History Records FoundNo Family History Records Found Advance Directives No Advanced Directives Records FoundNo Advanced Directives Records FoundNo Advanced Directives Records FoundNo Advanced Directives Records Found Additional Source Comments INFORMATION SOURCE (unrecogn ized section and content) DATE CREATED AUTHOR [facility]2019 [facility] DATE CREATED AUTHOR AUTHOR'S ORGANIZ ATION 04/21/2023 [facility] DATE CREATED AUTHOR AUTHOR'S ORGANIZ ATION 06/26/2023 [facility] DATE CREATED AUTHOR AUTHOR'S ORGANIZ ATION 10/21/2023 [facility] EPIC Reason for Visit (unrecogniz ed section and content) Reason Comments ER Follow-up Abd pain,diarrhea. L eft side pain comes and goes started this morning, nausea better, continued diarrhea. Reason Onset Date Comments Results 06/26/2023 Care Teams (unrecognized sec tion and content) [facility] [employer] Relationship Specialty Start Date End Date Pastora Barron MD [address] [place] [address] PCP - General Family Medicine 09/20/22 [employer] Relationship Specialty Start Date End Date Pastora Barron MD [address] [place] [address] PCP - General Family Medicine 09/20/22 FOR RECORDS PERTAINING TO PATIENTS WHO ARE OR HAVE BEEN ENROLLED IN A CHEMICAL DEPENDENCY/SUBSTANCEABUSE PROGRAM, SOME INFORMATION MAY BE OMITTED. This clinical summary was aggregated from multiple sources. Caution should be exercised in using it in the provision of clinical care. This summary normalizes information from multiple sources, and as a consequence, information in this document may materially change the coding, format and clinical context of patient data. In addition, data may be omitted in some cases. CLINICAL DECISIONS SHOULD BE BASED ON THE PRIMARY CLINICAL RECORDS. [facility] [facility]. provides no warranty or guarantee of the accuracy or completeness of information in this document.
[2023-10-27 16:17] LABS: Basophils Percent Auto 0.3 % (0.2-2.0); Eosinophils Absolute Auto 0.1 10^3/uL (0.0-0.7); Eosinophils Percent Auto 0.5 % (0.9-7.0); Hematocrit 34.6 % (36.0-48.0); Hemoglobin 11.7 g/dL (12.0-16.0); Immature Granulocytes Abs Auto 0.03 10^3/uL (0.00-0.03); Immature Granulocytes Pct Auto 0.3 % (0.0-0.5); Lymphocytes Absolute Auto 3.2 10^3/uL (1.2-3.8); Lymphocytes Percent Auto 27.8 % (20.5-60.0); Mean Corpuscular HGB Conc 33.8 g/dL (29.9-35.2); Mean Corpuscular Hemoglobin 29.8 pg (26.7-34.0); Mean Corpuscular Volume 88.3 fL (81.0-99.0); Mean Platelet Volume 11.3 fL (9.5-13.5); Monocytes Absolute Auto 0.5 10^3/uL (0.3-0.8); Monocytes Percent Auto 4.5 % (1.7-12.0); Neutrophils Absolute Auto 7.7 10^3/uL (1.4-6.5); Neutrophils Percent Auto 66.6 % (43.0-75.0); Platelet Count 297 10^3/uL (150-450); Red Blood Count 3.92 10^6/uL (4.20-5.40); Red Cell Distribution Width 12.3 % (11.0-15.0); White Blood Count 11.6 10^3/uL (4.0-11.0)
[2023-10-27 16:42] LABS: Estimated Average Glucose 108 mg/dL; Glycohemoglobin A1C 5.4 % (4.5-6.2)
[2023-10-27 17:05] LABS: BOX Test Sent Out Y
[2023-10-29 08:08] LABS: HBsAg Screen Negative (Negative); HCV Ab Non Reactive (Non Reactive); HIV Ab/p24 Ag Screen Non Reactive (Non Reactive); Rubella Antibodies, IgG <0.90 index (Immune >0.99)
[2023-10-29 11:16] LABS: Rapid Plasma Reagin, Quant Non Reactive titer (NonRea<1:1)
== END 2023-10-27 15:46 | disposition home or self-care (01) ==
LOC: LAB 15:45
PROVIDERS: PCP Family Medicine; Visit Provider Obstetrics & Gynecology
DX: Z36.0 Encounter for antenatal screening for chromosomal anomalies (principal); N92.6 Irregular menstruation, unspecified
CPT/HCPCS: 36415; 83036; 85025; 86592; 86762; 86803; 86850; 86900; 86901; 87086; 87340; 87389

== ENCOUNTER 2023-11-03 16:26 | Outpatient (OUT) | payer MEDICAID, SELFPAY ==
--- OUTSIDE RECORDS SUMMARY | 2023-11-03 16:45 | XMS_ITS | CCD ---
Author Organization [facility] Care Team Providers Care Tensioning Machine Operator Name Role Phone PASTORA BARRON Admitting Unavailable PASTORA BARRON Attending Unavailable PASTORA BARRON Primary Care Unavailable PASTORA BARRON Consulting Unavailable Conrado Calle Attending Unavailab Conrado Jefferson Admitting UnavailPASTORA Doe Primary Care Unavailable LAWRENCE JOSE Attending Unavailable FLORA GUZMÁN Attending Unavailable FLORA GUZMÁN Referring PASTORA Blancas Primary Care Unavailable Pastora Barron MD Primary Care Provider JORGE CAMARA Attending Unavailable PUMP, FLORA Attending Unavailable FAMILIA LAWRENCE Attending Unavailable PASTORA BARRON Attending Unavailable Allergies Allergy Classification Reported Allergen(s) Allergy Type Date of Onset Reaction(s) Facility (3 sources) Ethinyl Estradiol / norelgestromin Drug Allergy 4 [facility] Medications Current Medications Medication Drug Class(es) Dates [...] in the evening. 0 06/21/2023 06/28/2023 Active Problems Problem Classification Problem Date Documented Da [...] 24 ABSOLUTE BASOPHIL 0.0 X10E9/L Normal 0.0-0.2 [facility] Comment on above: Performed By: #### C BCA, CMP, 96996-2 #### [facility] ([id number]) [address] [place] [address] 70070 ABSOLUTE NEUTROPHIL 5.2 X10E9/L Normal 1.5-6.6 [facility] Comment on above: Performed By: #### Michelle SANCHEZ CMP, 01089-2 #### [facility] ([id number]) [address] [place] [address] 30316 Basophils/100 WBC (Bld) 0.5 % Normal [facility] Comment on above: Performed By: #### Michelle SANCHEZ CMP, 89554-1 #### [facility] ([id number]) [address] [place] [address] 25726 Eosinophils (Bld) [#/Vol] 0.0 10*3/uL Normal 0.0-0.4 [facility] Comment on above: Performed By: #### Michelle SANCHEZ CMP, #### [facility] ([id number]) [address] [place] [address] 51896 Eosinophils/100 WBC (Bld) 0.4 % Normal [facility] Comment on above: Performed By: #### Michelle SANCHEZ [facility], 85062-7 #### [facility] ([id number]) [address] [place] [address] 40978 Erythrocyte distribution width (RBC) [Ratio] 12.7 % Normal 11.5-15.0 [facility] Comment on above: Performed By: #### Michelle SANCHEZ CMP, 28128-3 #### [facility] ([id number]) [address] [place] [address] 23974 Hematocrit (Bld) [Volume fraction] 41.4 % Normal 35-47 [facility] Comment on above: Performed By: #### Michelle SANCHEZ CMP, 59654-5 #### [facility] ([id number]) [address] [place] [address] 24803 Hemoglobin (Bld) [Mass/Vol] 14.2 g/dL Normal 11.7-15.5 [facility] Comment on above: Performed By: #### C SONDRA SANCHEZ, #### [facility] ([id number]) [address] [place] [address] 84962 Lymphocytes (Bld) [#/Vol] 1.3 10*3/uL Normal 1.0-3.5 [facility] Comment on above: Performed By: #### Michelle SANCHEZ CMP, #### [facility] ([id number]) [address] [place] [address] 46085 Lymphocytes/100 WBC (Bld) 18.4 % Normal [facility] Comment on above: Performed By: #### Michelle SANCHEZ CMP, #### [facility] ([id number]) [address] [place] [address] 57520 MCH (RBC) [Entitic mass] 30.3 pg Normal 27-34 [facility] Comment on above: Performed By: #### Michelle SANCHEZ CMP, #### [facility] ([id number]) [address] [place] [address] 63976 MCHC (RBC) [Mass/Vol] 34.3 g/dL Normal 32-36 [facility] Comment on above: Performed By: #### Michelle SANCHEZ CMP, #### [facility] ([id number]) [address] [place] [address] 20816 MCV (RBC) [Entitic vol] 88 fL Normal 80-100 [facility] Comment on above: Performed By: #### Michelle SANCHEZ CMP, #### [facility] ([id number]) [address] [place] [address] 95524 Monocytes (Bld) [#/Vol] 0.6 10*3/uL Normal 0-0.9 [facility] Comment on above: Performed By: #### C DANIEL CMP, 97129-5 #### [facility] ([id number]) [address] [place] [address] 85947 Monocytes/100 WBC (Bld) 8.8 % Normal [facility] Comment on above: Performed By: #### C BCA, CMP, 52711-0 #### [facility] ([id number]) [address] [place] [address] 38091 Neutrophils/100 WBC (Bld) 71.9 % Normal [facility] Comment on above: Performed By: #### C BCA, CMP, 91646-1 #### [facility] ([id number]) [address] [place] [address] 72671 Platelet mean volume (Bld) [Entitic vol] 8.9 fL Normal 7-12 [facility] Comment on above: Performed By: #### Michelle BCA, CMP, 07484-0 #### [facility] ([id number]) [address] [place] [address] 98951 Platelets (Bld) [#/Vol] 267 10*3/uL Normal 150-450 [facility] Comment on above: Performed By: #### Michelle BCA, CMP, 71906-0 #### [facility] ([id number]) [address] [place] [address] 99371 RBC COUNT 4.68 X10E12/L Normal 3.80-5.20 [facility] Comment on above: Performed By: #### C BCA, CMP, 27073-8 #### [facility] ([id number]) [address] [place] [address] 16709 WBC (Bld) [#/Vol] 7.2 10*3/uL Normal 4.0-11.0 [facility] Comment on above: Performed By: #### C BCA, CMP, 74347-9 #### [facility] ([id number]) [address] [place] [address] 37655 COMPREHENSIVE METABOLIC PANE Chucky 06-21-2023 Albumin [Mass/Vol] 4.2 g/dL Normal 3.2-5.3 [facility] Comment on above: Performed By: #### C BCA, CMP, 56881-2 #### [facility] ([id number]) [address] [place] [address] 55098 ALP [Catalytic activity/Vol] 76 U/L Normal 39-130 [facility] Comment on above: Performed By: #### C DANIEL, CMP, #### [facility] ([id number]) [address] [place] [address] 96408 ALT [Catalytic activity/Vol] 114 U/L High 0-31 [facility] Comment on above: Performed By: #### C DANIEL, CMP, #### [facility] ([id number]) [address] [place] [address] 00889 Anion gap [Moles/Vol] 11 mmol/L Normal 5-15 [facility] Comment on above: Performed By: #### C DANIEL, CMP, #### [facility] ([id number]) [address] [place] [address] 29114 AST [Catalytic activity/Vol] 83 U/L High 0-41 [facility] Comment on above: Performed By: #### C BCA, CMP, 77451-7 #### [facility] ([id number]) [address] [place] [address] 18064 Bilirubin [Mass/Vol] 1.1 mg/dL Normal 0.3-1.2 [facility] Comment on above: Performed By: #### C BCA, CMP, 90232-1 #### [facility] ([id number]) [address] [place] [address] 54076 Calcium [Mass/Vol] 8.9 mg/dL Normal 8.5-10.5 [facility] Comment on above: Performed By: #### C SONDRA SANCHEZ, 84680-2 #### [facility] ([id number]) [address] [place] [address] 69180 Chloride [Moles/Vol] 98 mmol/L Normal 98-109 [facility] Comment on above: Performed By: #### C DANIEL [facility], 48654-3 #### [facility] ([id number]) [address] [place] [address] 39688 CO2 [Moles/Vol] 23 mmol/L Normal 22-32 [facility] Comment on above: Performed By: #### C SONDRA SANCHEZ, 14263-8 #### [facility] ([id number]) [address] [place] [address] 58448 Creatinine [Mass/Vol] 0.77 mg/dL Normal 0.40-1.00 [facility] Comment on above: Result Comment: METH OD TRACEABLE TO IDMS STANDARD Performed By: #### C DANIEL [facility], 39601-7 #### [facility] ([id number]) [address] [place] [address] 85070 eGFR (CKD-EPI) NON-RACE DEPENDENT >90 Normal >59 [facility] Comment on above: Result Comment: Reported eGFR is based on the CKD-EPI 2020 equation that does not use a race coefficient. Performed By: #### C SONDRA SANCHEZ, 00977-1 #### [facility] ([id number]) [address] [place] [address] 65830 Glucose [Mass/Vol] 116 mg/dL High 65-99 [facility] Comment on above: Performed By: #### C SONDRA SANCHEZ, 37459-8 #### [facility] ([id number]) [address] [place] [address] 87828 Potassium [Moles/Vol] 3.1 mmol/L Low 3.5-5.0 [facility] Comment on above: Performed By: #### C BCA, [facility], 46234-0 #### [facility] ([id number]) [address] [place] [address] 94303 Protein [Mass/Vol] 8.1 g/dL High 6.0-8.0 [facility] Comment on above: Performed By: #### C BCA, [facility], 18981-8 #### [facility] ([id number]) [address] [place] [address] 00865 Sodium [Moles/Vol] 132 mmol/L Low 134-146 [facility] Comment on above: Performed By: #### C BCA, [facility], 61148-8 #### [facility] ([id number]) [address] [place] [address] 83048 Urea nitrogen [Mass/Vol] 10 mg/dL Normal 5-23 [facility] Comment on above: Performed By: #### C BCA, [facility], 05630-3 #### [facility] ([id number]) [address] [place] [address] ABDOMEN AND PELVIS W CONT on [...] Bill Albrecht on 06/21/2023 3:57 PM Normal [facility] HCG ( test) Ql (U)o n 06-21-2023 Beta HCG ( test) Ql (U) Negative Normal NEG [facility] Comment on above: Performed By: #### 2 106-3 #### [facility] ([id number]) [address] [place] [address] 58448 MAGNESIUMon 06-21-2023 Magnesium [Mass/Vol] 2.1 mg/dL Normal 1.8-2.6 [facility] Comment on above: Performed By: #### C BCA, CMP, 58275-9 #### [facility] ([id number]) [address] [place] [address] 73830 SARS/FLU A+B/RSV by NAAT/Mol ecularon 06-21-2023 SARS/FLU [...] operators who are performing tests using either [facility] or [employer] systems and is limited to laboratories that [...] repeat. Fact Sheet for Healthcare Providers: https://www.fda.gov/m edia/077870/download Fact Sheet for Patients: https://www.fda.gov/m edia/117222/download Normal [facility] Comment on above: Performed By: #### C OVFLR #### [facility] ([id number]) [address] [place] [address], [place] [address] URINE CULTUREon 06-21-2023 Bacteria identified Cx Nom [...] F TRIMETH/SULFAMETHOXAZ OLE S <=1/19 F Susceptible [facility] Comment on above: Performed By: #### 6 30-4 #### [facility] ([id number]) [address] [place] [address], [address] [place] [address] URN MACROSCOPIC NURon 2023 BILIRUBIN ALMA Negative Normal NEG [facility] Comment on above: Performed By: #### N UM #### [facility] ([id number]) [address] [place] [address] 11420 BLOOD/HGB ALMA Trace Abnormal NEG [facility] Comment on above: Performed By: #### N UM #### [facility] ([id number]) [address] [place] [address] 55454 GLUCOSE ALMA Negative Normal NEG [facility] Comment on above: Performed By: #### N UM #### [facility] ([id number]) [address] [place] [address] 28838 KETONES ALMA Trace Abnormal NEG [facility] Comment on above: Performed By: #### N UM #### [facility] ([id number]) [address] [place] [address] 14132 LEUKOCYTE ESTERASE ALMA Negative Normal NEG [facility] Comment on above: Performed By: #### N UM #### [facility] ([id number]) [address] [place] [address] 40692 NITRITE ALMA Positive Abnormal NEG [facility] Comment on above: Performed By: #### N UM #### [facility] ([id number]) [address] [place] [address] 08108 PH ALMA 6.0 Normal 5.0-8.5 [facility] Comment on above: Performed By: #### N UM #### [facility] ([id number]) [address] [place] [address] PROTEIN ALMA Trace Abnormal NEG [facility] Comment on above: Performed By: #### N UM #### [facility] ([id number]) [address] [place] [address] SPECIFIC GRAVITY ALMA >=1.030 Normal 1.003-1.035 [facility] Comment on above: Performed By: #### N UM #### [facility] ([id number]) [address] [place] [address] UROBILINOGEN ALMA 0.2 eu/dL Normal <1.1 [facility] Comment on above: Performed By: #### N UM #### [facility] ([id number]) [address] [place] [address] 05160 COVID-19 PCRon 11-15-2019 SARS-CoV-2, RENETTA Not Detected Normal Not Detected [facility] Comment on above: Result Comment: This test was developed and its performance characteristics determined by [employer]. This test has not been FDA cleared [...] assay. Performed By: #### C VDPCR #### [facility] [address] [address] Raymond Deleon Vital Signs Date Time Vital Sign Value Performing Clinician James imelda 06-26-2023 08:39-0500 Body mass index (BMI) [Ratio] 30.81 kg/m2 Jorge Camara NP Work Phone: [facility] 06-26-2023 08:39-0500 Body weight 77.66 kg Jorge Camara NP Work Phone: [facility] 06-26-2023 08:39-0500 Diastolic blood pressure 80 mm[Hg] Jorge Camara NP Work Phone: [facility] 06-26-2023 08:39-0500 Heart rate 72 /min Jorge Camara REVENUE SPECIALIST Work Phone: [facility] 06-26-2023 08:39-0500 Systolic blood pressure 102 mm[Hg] Jorge Camara NP Work Phone: [facility] Healthcare Encounters Encounter Date Encounter Type Care Provider Facility Start: 10-20-2023 End: 10-20-2023 ambulatory JORGE CAMARA Not Available Start: 10-16-2023 End: 10-16-2023 ambulatory PASTORA Ortiz WONDERLY Not Available Start: 07-10-2023 End: 07-10-2023 ambulatory FLORA PUMP Not Available Start: 06-26-2023 Telephone encounter Jorge Camara NP Work Phone: [facility] Comment on above: Results Start: 06-26-2023 End: 06-26-2023 ambulatory JORGE CAMARA Not Available Start: 06-26-2023 End: 06-26-2023 Office outpatient visit 25 minutes Jorge Camara NP Work Phone: [facility] Comment on above: Pyelonephritis (Prim nicko Dx); Elevated liver function tests; Hypokalemia; Diarrhea, unspecified type; Nausea; Left lower quadrant abdominal tenderness with rebound tenderness; Gastroesophageal reflux disease without esophagitis Start: 06-21-2023 End: 06-22-2023 Emergency department patient visit FLORA GUZMÁN [facility] Start: 06-21-2023 End: 06-21-2023 Emergency department patient visit PASTORA BARRON [facility] Start: 04-17-2023 End: 04-17-2023 ambulatory FAMILIA LAWRENCE Not Available Start: 12-28-2022 ambulatory Conrado Calle Darren acility:[facility] Start: 11-14-2019 End: 11-15-2019 Patient encounter procedure PASTORA BARRON Facility:H1 Plan of Treatment Date Care Activity Detail Author Start: 11-12-2023 Influenza vaccination Influenza Vacc ine (#1) [facility] Comment on above: Postponed from 01/13 (Patient Refused) Start: 07-25-2023 End: 06-26-2024 Hepatic function 2000 panel - Serum or Plasma Hepatic function panel Lab Routine Elevated liver function tests Pyelonephritis Expected: 07/25/2023 (Approximate), Expires: 06/26/2024 [facility] Work Phone: Comment on above: Expected: 07/25/2023 (Approximate), Expires: 06/26/2024 Start: 07-13-2023 End: 07-13-2023 Patient encounter procedure 07/13/2023 2:00 PM EST [facility] [address] [place] [id number] Jorge Camara NP [address] [place] [address] [facility] Start: 06-26-2023 End: 06-26-2024 Comprehensive metabolic 2000 panel - Serum or Plasma Comprehensive metabolic panel Lab Routine Elevated liver function tests Pyelonephritis Hypokalemia Diarrhea, unspecified type Expected: 06/26/2023 (Approximate), Expires: 06/26/2024 [facility] Work Phone: Comment on above: Expected: 06/26/2023 (Approximate), Expires: 06/26/2024 Immunizations Immunization Date Immunization Notes Care Provider Fa cili 03-11-2016 influenza, injectabl e, quadrivalent, preservative free Jorge Camara REVENUE SPECIALIST Work Phone: [facility] 03-11-2016 influenza virus vacc ine, unspecified formulation Jorge Camara REVENUE SPECIALIST Work Phone: [facility] 02-04-2015 tetanus toxoid, redu yenny diphtheria toxoid, and acellular pertussis vaccine, adsorbed Jorge Camara REVENUE SPECIALIST Work Phone: [facility] 12-17-2001 diphtheria, tetanus toxoids and acellular pertussis vaccine, unspecified formulation Jorge Camara REVENUE SPECIALIST Work Phone: [facility] 12-17-2001 measles, mumps and rubella virus vaccine Jorge Magdy REVENUE SPECIALIST Work Phone: [facility] 12-17-2001 poliovirus vaccine, inactivated Jorge Camara REVENUE SPECIALIST Work Phone: [facility] 06-04-1997 diphtheria, tetanus toxoids and acellular pertussis vaccine, unspecified formulation Jorge Camara REVENUE SPECIALIST Work Phone: [facility] 06-04-1997 haemophilus influenz ae type b vaccine, conjugate unspecified formulation Jorge Camara REVENUE SPECIALIST Work Phone: [facility] 06-04-1997 measles, mumps and rubella virus vaccine Jorge Camara REVENUE SPECIALIST Work Phone: [facility] 1996 DTP-Haemophilus influenzae type b conjugate vaccine Jorge Camara REVENUE SPECIALIST Work Phone: [facility] 1996 hepatitis B vaccine, pediatric or pediatric/adolescent dosage Jorge Camara REVENUE SPECIALIST Work Phone: [facility] 1996 trivalent poliovirus vaccine, live, oral Jorge Camara REVENUE SPECIALIST Work Phone: [facility] 1996 DTP-Haemophilus influenzae type b conjugate vaccine Jorge Camara REVENUE SPECIALIST Work Phone: [facility] 1996 trivalent poliovirus vaccine, live, oral Jorge Camara REVENUE SPECIALIST Work Phone: [facility] 1996 DTP-Haemophilus influenzae type b conjugate vaccine Jorge Camara REVENUE SPECIALIST Work Phone: [facility] Healthcare 1996 hepatitis B vaccine, pediatric or pediatric/adolescent dosage Jorge Camara NP Work Phone: [facility] 1996 trivalent poliovirus vaccine, live, oral Jorge Camara NP Work Phone: [facility] 1996 hepatitis B vaccine, pediatric or pediatric/adolescent dosage Jorge Camara NP Work Phone: [facility] Healthcare Payers Date Payer Category Payer Self-pay 2022 Medicaid [place] [id number] 2022-Present [address] [place] [address] [id number] 2019 Unknown [id number] 2019 Medicaid [id number] 1996 Unknown [id number] 1996 Unknown [id number] 1996 Unknown [id number] 1996 Unknown [id number] 1996 Unknown [id number] 1996 Unknown [id number] 1996 Unknown [id number] Social History Date Type Detail Facility Start: 06-26-2023 Tobacco smoking status NHIS Ex-smoke r [facility] History of tobacco use Current smoker [facility] History of tobacco use Cigarette Smoker [facility] Start: 06-26-2023 Tobacco use and exposure Smoke less tobacco non-user [facility] Start: 06-26-2023 Alcohol intake Current drinke r of alcohol (finding) [facility] Start: 06-26-2023 Alcohol intake [facility] Start: 06-26-2023 Humiliation, Afraid, Rape, and Kick questionnaire [HARK] [facility] Within the last year , have [...] To some extent [facility] (I/We) worried whe er (my/our) food would run out before (I/we) got money to buy more. Never true [facility] In the past 12 month s, has lack of transportation kept you from medical appointments or from getting medications? No [facility] Start: 1995 Sex Assigned At Female [facility] Start: 04-04-2023 Gender identity Identifies as female gender (finding) [facility] Start: 04-04-2023 Sexual orientation Heterosexual (fredis sexton) [facility] Telephone encounter Note 06-26-2023 Telephone Encounter - [...] U/L 86 High documented in this encounter [facility] Healthcare History of Present illness Narrative 06-26-2023 [...] Visit Report Report COMPREHENSIVE METABOLIC PANEL Order: [id number] Component Ref Range & Units 5 d [...] Reported eGFR is based on the CKD-EPI 2021 equation that does not use a race coefficient. CT abdomen pelvis w IV contrast Order: [id number] Narrative CT ABDOMEN AND PELVIS HISTORY: Abdominal [...] and content) DATE CREATED AUTHOR 12/13/2019 [facility] DATE CREATED AUTHOR AUTHOR'S ORGANIZ ATION 04/21/2023 [facility] DATE CREATED AUTHOR AUTHOR'S ORGANIZ ATION 06/26/2023 [facility] DATE CREATED AUTHOR AUTHOR'S ORGANIZ ATION 10/21/2023 [facility] EPIC Reason for Visit (unrecogniz ed section and content) Reason Comments ER Follow-up Abd pain,diarrhea. L eft side pain comes and goes started this morning, nausea better, continued diarrhea. Reason Onset Date Comments Results 06/26/2023 Care Teams (unrecognized sec tion and content) Tensioning Machine Operator Relationship Specialty Start Date End Date Pastora Barron MD [address] [place] [address] PCP - General Family Medicine 09/20/22 Tensioning Machine Operator Relationship Specialty Start Date End Date Pastora Barron MD [address] [place] [address] PCP - General Family Medicine 09/20/22 FOR [...] BE BASED ON THE PRIMARY CLINICAL RECORDS. [facility]. provides no warranty or guarantee of the accuracy or completeness of information in this document.
== END 2023-11-03 16:27 | disposition home or self-care (01) ==
LOC: LAB 16:27
PROVIDERS: PCP Family Medicine; Visit Provider Obstetrics & Gynecology
DX: Z34.80 Encounter for supervision of other normal pregnancy, unspecified trimester (principal)
CPT/HCPCS: 36415

== ENCOUNTER 2023-12-20 21:35 | Outpatient (REF) | payer MEDICAID, SELFPAY ==
--- OUTSIDE RECORDS SUMMARY | 2023-12-20 21:41 | XMS_ITS | CCD ---
Author Organization [facility] Care Team Providers Care Sheet Metal Duct Installer Apprentice Name Role Phone PASTORA BARRON Admitting Unavailable [...] Ethinyl Estradiol / norelgestromin Drug Allergy 4 [employer] Healthcare Medications Current Medications Medication Drug Class(es) [...] ABSOLUTE BASOPHIL 0.0 X10E9/L Normal 0.0-0.2 [facility] Comment on above: Performed By: #### C BCA, CMP, 33589-2 #### [facility] ([id number]) [address] [place] [address] 91268 ABSOLUTE NEUTROPHIL 5.2 X10E9/L Normal 1.5-6.6 [facility] Comment on above: Performed By: #### Michelle SANCHEZ CMP, 84863-3 #### [facility] ([id number]) [address] [place] [address] 65330 Basophils/100 WBC (Bld) 0.5 % Normal [facility] Comment on above: Performed By: #### Michelle SANCHEZ CMP, 45770-0 #### [facility] ([id number]) [address] [place] [address] 13476 Eosinophils (Bld) [#/Vol] 0.0 10*3/uL Normal 0.0-0.4 [facility] Comment on above: Performed By: #### Michelle SANCHEZ CMP, #### [facility] ([id number]) [address] [place] [address] 87480 Eosinophils/100 WBC (Bld) 0.4 % Normal [facility] Comment on above: Performed By: #### Michelle SANCHEZ [facility], 46205-6 #### [facility] ([id number]) [address] [place] [address] 93151 Erythrocyte distribution width (RBC) [Ratio] 12.7 % Normal 11.5-15.0 [facility] Comment on above: Performed By: #### Michelle SANCHEZ CMP, 18687-7 #### [facility] ([id number]) [address] [place] [address] 94431 Hematocrit (Bld) [Volume fraction] 41.4 % Normal 35-47 [facility] Comment on above: Performed By: #### Michelle SANCHEZ CMP, 71448-5 #### [facility] ([id number]) [address] [place] [address] 59703 Hemoglobin (Bld) [Mass/Vol] 14.2 g/dL Normal 11.7-15.5 [facility] Comment on above: Performed By: #### C SONDRA SANCHEZ, #### [facility] ([id number]) [address] [place] [address] 21497 Lymphocytes (Bld) [#/Vol] 1.3 10*3/uL Normal 1.0-3.5 [facility] Comment on above: Performed By: #### Michelle SANCHEZ CMP, #### [facility] ([id number]) [address] [place] [address] 74035 Lymphocytes/100 WBC (Bld) 18.4 % Normal [facility] Comment on above: Performed By: #### Michelle SANCHEZ CMP, #### [facility] ([id number]) [address] [place] [address] 16897 MCH (RBC) [Entitic mass] 30.3 pg Normal 27-34 [facility] Comment on above: Performed By: #### Michelle SANCHEZ CMP, #### [facility] ([id number]) [address] [place] [address] 79896 MCHC (RBC) [Mass/Vol] 34.3 g/dL Normal 32-36 [facility] Comment on above: Performed By: #### Michelle SANCHEZ CMP, #### [facility] ([id number]) [address] [place] [address] 30359 MCV (RBC) [Entitic vol] 88 fL Normal 80-100 [facility] Comment on above: Performed By: #### Michelle SANCHEZ CMP, #### [facility] ([id number]) [address] [place] [address] 33470 Monocytes (Bld) [#/Vol] 0.6 10*3/uL Normal 0-0.9 [facility] Comment on above: Performed By: #### C DANIEL CMP, 13070-8 #### [facility] ([id number]) [address] [place] [address] 51965 Monocytes/100 WBC (Bld) 8.8 % Normal [facility] Comment on above: Performed By: #### C BCA, CMP, 32933-2 #### [facility] ([id number]) [address] [place] [address] 75188 Neutrophils/100 WBC (Bld) 71.9 % Normal [facility] Comment on above: Performed By: #### C BCA, CMP, 42617-8 #### [facility] ([id number]) [address] [place] [address] 18400 Platelet mean volume (Bld) [Entitic vol] 8.9 fL Normal 7-12 [facility] Comment on above: Performed By: #### Michelle BCA, CMP, 59524-8 #### [facility] ([id number]) [address] [place] [address] 43413 Platelets (Bld) [#/Vol] 267 10*3/uL Normal 150-450 [facility] Comment on above: Performed By: #### Michelle BCA, CMP, 78514-6 #### [facility] ([id number]) [address] [place] [address] 17131 RBC COUNT 4.68 X10E12/L Normal 3.80-5.20 [facility] Comment on above: Performed By: #### C BCA, CMP, 32297-5 #### [facility] ([id number]) [address] [place] [address] 71421 WBC (Bld) [#/Vol] 7.2 10*3/uL Normal 4.0-11.0 [facility] Comment on above: Performed By: #### C BCA, CMP, 10118-3 #### [facility] ([id number]) [address] [place] [address] 87484 COMPREHENSIVE METABOLIC PANE Chucky 06-21-2023 Albumin [Mass/Vol] 4.2 g/dL Normal 3.2-5.3 [facility] Comment on above: Performed By: #### C BCA, CMP, 73103-7 #### [facility] ([id number]) [address] [place] [address] 23285 ALP [Catalytic activity/Vol] 76 U/L Normal 39-130 [facility] Comment on above: Performed By: #### C DANIEL, CMP, #### [facility] ([id number]) [address] [place] [address] 79342 ALT [Catalytic activity/Vol] 114 U/L High 0-31 [facility] Comment on above: Performed By: #### C DANIEL, CMP, #### [facility] ([id number]) [address] [place] [address] 55594 Anion gap [Moles/Vol] 11 mmol/L Normal 5-15 [facility] Comment on above: Performed By: #### C DANIEL, CMP, #### [facility] ([id number]) [address] [place] [address] 07212 AST [Catalytic activity/Vol] 83 U/L High 0-41 [facility] Comment on above: Performed By: #### C BCA, CMP, 11535-8 #### [facility] ([id number]) [address] [place] [address] 48584 Bilirubin [Mass/Vol] 1.1 mg/dL Normal 0.3-1.2 [facility] Comment on above: Performed By: #### C BCA, CMP, 44483-8 #### [facility] ([id number]) [address] [place] [address] 34502 Calcium [Mass/Vol] 8.9 mg/dL Normal 8.5-10.5 [facility] Comment on above: Performed By: #### C SONDRA SANCHEZ, 10554-0 #### [facility] ([id number]) [address] [place] [address] 82908 Chloride [Moles/Vol] 98 mmol/L Normal 98-109 [facility] Comment on above: Performed By: #### C DANIEL [facility], 68381-0 #### [facility] ([id number]) [address] [place] [address] 44560 CO2 [Moles/Vol] 23 mmol/L Normal 22-32 [facility] Comment on above: Performed By: #### C SONDRA SANCHEZ, 81517-9 #### [facility] ([id number]) [address] [place] [address] 88278 Creatinine [Mass/Vol] 0.77 mg/dL Normal 0.40-1.00 [facility] Comment on above: Result Comment: METH OD TRACEABLE TO IDMS STANDARD Performed By: #### C DANIEL [facility], 36233-5 #### [facility] ([id number]) [address] [place] [address] 68054 eGFR (CKD-EPI) NON-RACE DEPENDENT >90 Normal >59 [facility] Comment on above: Result Comment: Reported eGFR is based on the CKD-EPI 2020 equation that does not use a race coefficient. Performed By: #### C SONDRA SANCHEZ, 21070-8 #### [facility] ([id number]) [address] [place] [address] 85468 Glucose [Mass/Vol] 116 mg/dL High 65-99 [facility] Comment on above: Performed By: #### C SONDRA SANCHEZ, 77641-2 #### [facility] ([id number]) [address] [place] [address] 60527 Potassium [Moles/Vol] 3.1 mmol/L Low 3.5-5.0 [facility] Comment on above: Performed By: #### C BCA, [facility], 42162-7 #### [facility] ([id number]) [address] [place] [address] 67950 Protein [Mass/Vol] 8.1 g/dL High 6.0-8.0 [facility] Comment on above: Performed By: #### C BCA, [facility], 59093-0 #### [facility] ([id number]) [address] [place] [address] 29469 Sodium [Moles/Vol] 132 mmol/L Low 134-146 [facility] Comment on above: Performed By: #### C BCA, [facility], 23275-4 #### [facility] ([id number]) [address] [place] [address] 96654 Urea nitrogen [Mass/Vol] 10 mg/dL Normal 5-23 [facility] Comment on above: Performed By: #### C BCA, [facility], 07324-1 #### [facility] ([id number]) [address] [place] [address] ABDOMEN AND PELVIS W CONT on [...] Bill Albrecht on 06/21/2023 3:57 PM Normal [facility] HCG ( test) Ql (U)o n 06-21-2023 Beta HCG ( test) Ql (U) Negative Normal NEG [facility] Comment on above: Performed By: #### 2 106-3 #### [facility] ([id number]) [address] [place] [address] 27887 MAGNESIUMon 06-21-2023 Magnesium [Mass/Vol] 2.1 mg/dL Normal 1.8-2.6 [facility] Comment on above: Performed By: #### C BCA, CMP, 27947-9 #### [facility] ([id number]) [address] [place] [address] 92515 SARS/FLU A+B/RSV by NAAT/Mol ecularon 06-21-2023 SARS/FLU [...] operators who are performing tests using either [employer] or [employer] systems and is limited to laboratories that [...] repeat. Fact Sheet for Healthcare Providers: https://www.fda.gov/m edia/909604/download Fact Sheet for Patients: https://www.fda.gov/m edia/541160/download Normal [facility] Comment on above: Performed By: #### C OVFLR #### [facility] ([id number]) [address] [place] [address], [place] [address] URINE CULTUREon 06-21-2023 Bacteria identified Cx Nom [...] F TRIMETH/SULFAMETHOXAZ OLE S <=1/19 F Susceptible [facility] Comment on above: Performed By: #### 6 30-4 #### [facility] ([id number]) [address] [place] [address], [address] [place] [address] URN MACROSCOPIC NURon 2023 BILIRUBIN ALMA Negative Normal NEG [facility] Comment on above: Performed By: #### N UM #### [facility] ([id number]) [address] [place] [address] 57855 BLOOD/HGB ALMA Trace Abnormal NEG [facility] Comment on above: Performed By: #### N UM #### [facility] ([id number]) [address] [place] [address] 48680 GLUCOSE ALMA Negative Normal NEG [facility] Comment on above: Performed By: #### N UM #### [facility] ([id number]) [address] [place] [address] 63773 KETONES ALMA Trace Abnormal NEG [facility] Comment on above: Performed By: #### N UM #### [facility] ([id number]) [address] [place] [address] 43393 LEUKOCYTE ESTERASE ALMA Negative Normal NEG [facility] Comment on above: Performed By: #### N UM #### [facility] ([id number]) [address] [place] [address] 82590 NITRITE ALMA Positive Abnormal NEG [facility] Comment on above: Performed By: #### N UM #### [facility] ([id number]) [address] [place] [address] 73062 PH ALMA 6.0 Normal 5.0-8.5 [facility] Comment on above: Performed By: #### N UM #### [facility] ([id number]) [address] [place] [address] PROTEIN ALMA Trace Abnormal NEG [facility] Comment on above: Performed By: #### N UM #### [facility] ([id number]) [address] [place] [address] SPECIFIC GRAVITY ALMA >=1.030 Normal 1.003-1.035 [facility] Comment on above: Performed By: #### N UM #### [facility] ([id number]) [address] [place] [address] UROBILINOGEN ALMA 0.2 eu/dL Normal <1.1 [facility] Comment on above: Performed By: #### N UM #### [facility] ([id number]) [address] [place] [address] 36376 COVID-19 PCRon 11-15-2019 SARS-CoV-2, RENETTA Not Detected Normal Not Detected [facility] Comment on above: Result Comment: This test was developed and its performance characteristics determined by [employer]. This test has not been FDA cleared [...] assay. Performed By: #### C VDPCR #### [facility] [address] [address] Raymond Deleon Vital Signs Date Time Vital Sign Value Performing Clinician James segura 06-26-2023 08:39-0500 Body mass index (BMI) [Ratio] 30.81 kg/m2 Jorge Camara NP Work Phone: [facility] 06-26-2023 08:39-0500 Body weight 77.66 kg Jorge Camara NP Work Phone: [facility] 06-26-2023 08:39-0500 Diastolic blood pressure 80 mm[Hg] Jorge Camara NP Work Phone: [facility] 06-26-2023 08:39-0500 Heart rate 72 /min Jorge Camara REVERSE UNIT OPERATOR Work Phone: [facility] 06-26-2023 08:39-0500 Systolic blood pressure 102 mm[Hg] Jorge Camara NP Work Phone: [facility] Encounters Encounter Date Encounter Type Care Provider Facility Start: 11-07-2023 End: 11-07-2023 ambulatory JORGE CAMARA Not Available Start: 10-20-2023 End: 10-20-2023 ambulatory JORGE CAMARA Not Available Start: 10-16-2023 End: 10-16-2023 ambulatory PASTORA Ortiz WONDERLY Not Available Start: 07-10-2023 End: 07-10-2023 ambulatory FLORA PUMP Not Available Start: 06-26-2023 Telephone encounter Jorge Camara REVERSE UNIT OPERATOR Work Phone: [facility] Comment on above: Results Start: 06-26-2023 End: 06-26-2023 ambulatory JORGE CAMARA Not Available Start: 06-26-2023 End: 06-26-2023 Office outpatient visit 25 minutes Jorge Camara REVERSE UNIT OPERATOR Work Phone: [facility] Comment on above: Pyelonephritis (Prim nicko Dx); Elevated liver function tests; Hypokalemia; Diarrhea, unspecified type; Nausea; Left lower quadrant abdominal tenderness with rebound tenderness; Gastroesophageal reflux disease without esophagitis Start: 06-21-2023 End: 06-22-2023 Emergency department patient visit FLORA GUZMÁN [facility] Start: 06-21-2023 End: 06-21-2023 Emergency department patient visit PASTORA BARRON [facility] Start: 04-17-2023 End: 04-17-2023 ambulatory FAMILIA HOWARD Not Available Start: 12-28-2022 ambulatory Conrado Banks acility:[facility] Start: 11-14-2019 End: 11-15-2019 Patient encounter procedure PASTORA BARRON Facility:[facility]1 Plan of Treatment Date Care Activity Detail Author Start: 11-12-2023 Influenza vaccination Influenza Vacc ine (#1) [facility] Comment on above: Postponed from 01/13 (Patient Refused) Start: 07-25-2023 End: 06-26-2024 Hepatic function 2000 panel - Serum or Plasma Hepatic function panel Lab Routine Elevated liver function tests Pyelonephritis Expected: 07/25/2023 (Approximate), Expires: 06/26/2024 [facility] Work Phone: Comment on above: Expected: 07/25/2023 (Approximate), Expires: 06/26/2024 Start: 07-13-2023 End: 07-13-2023 Patient encounter procedure 07/13/2023 2:00 PM EST Office Visit [facility] [address] [place] [id number] Jorge Camara, PAM [address] [place] [address] [facility] Start: 06-26-2023 End: 06-26-2024 Comprehensive metabolic 2000 panel - Serum or Plasma Comprehensive metabolic panel Lab Routine Elevated liver function tests Pyelonephritis Hypokalemia Diarrhea, unspecified type Expected: 06/26/2023 (Approximate), Expires: 06/26/2024 [facility] Work Phone: Comment on above: Expected: 06/26/2023 (Approximate), Expires: 06/26/2024 Immunizations Immunization Date Immunization Notes Care Provider Fa briseida 03-11-2016 influenza, injectabl e, quadrivalent, preservative free Jorge Camara REVERSE UNIT OPERATOR Work Phone: [facility] 03-11-2016 influenza virus vacc ine, unspecified formulation Jorge Camara REVERSE UNIT OPERATOR Work Phone: [facility] 02-04-2015 tetanus toxoid, redu yenny diphtheria toxoid, and acellular pertussis vaccine, adsorbed Jorge Camara REVERSE UNIT OPERATOR Work Phone: [facility] 12-17-2001 diphtheria, tetanus toxoids and acellular pertussis vaccine, unspecified formulation Jorge Camara REVERSE UNIT OPERATOR Work Phone: [facility] 12-17-2001 measles, mumps and rubella virus vaccine Jorge Camara REVERSE UNIT OPERATOR Work Phone: [facility] 12-17-2001 poliovirus vaccine, inactivated Jorge Camara REVERSE UNIT OPERATOR Work Phone: [facility] 06-04-1997 diphtheria, tetanus toxoids and acellular pertussis vaccine, unspecified formulation Jorge Camara REVERSE UNIT OPERATOR Work Phone: [facility] 06-04-1997 haemophilus influenz ae type b vaccine, conjugate unspecified formulation Jorge Camara REVERSE UNIT OPERATOR Work Phone: [facility] 06-04-1997 measles, mumps and rubella virus vaccine Jorge Camara REVERSE UNIT OPERATOR Work Phone: [facility] 1996 DTP-Haemophilus influenzae type b conjugate vaccine Jorge Camara REVERSE UNIT OPERATOR Work Phone: [facility] 1996 hepatitis B vaccine, pediatric or pediatric/adolescent dosage Jorge Camara REVERSE UNIT OPERATOR Work Phone: [facility] 1996 trivalent poliovirus vaccine, live, oral Jorge Camara REVERSE UNIT OPERATOR Work Phone: [facility] 1996 DTP-Haemophilus influenzae type b conjugate vaccine Jorge Camara REVERSE UNIT OPERATOR Work Phone: [facility] 1996 trivalent poliovirus vaccine, live, oral Jorge Camara REVERSE UNIT OPERATOR Work Phone: [facility] 1996 DTP-Haemophilus influenzae type b conjugate vaccine Jorge Camara NP Work Phone: [facility] 1996 hepatitis B vaccine, pediatric or pediatric/adolescent dosage Jorge Camara NP Work Phone: [facility] 1996 trivalent poliovirus vaccine, live, oral Jorge Camara NP Work Phone: [facility] 1996 hepatitis B vaccine, pediatric or pediatric/adolescent dosage Jorge Camara NP Work Phone: [facility] Payers Date Payer Category Payer Self-pay 2022 Medicaid [employer] [employer] [id number] 2022-Present [address] [place] [address] [id number] 2019 Unknown [id number] 2019 Medicaid [id number] 1996 Unknown [id number] 1996 Unknown [id number] 1996 Unknown [id number] 1996 Unknown [id number] 1996 Unknown [id number] 1996 Unknown [id number] 1996 Unknown [id number] 1996 Unknown [id number] Social History Date Type Detail Facility Start: 06-26-2023 Tobacco smoking status NHIS Ex-smoke r [facility] History of tobacco use Current smoker [...] To some extent [facility] (I/We) worried wheth er (my/our) food would run out before [...] ALT 6 - 29 U/L 86 High [facility] Healthcare Note 06-26-2023 Telephone Encounter - Jorge [...] U/L 86 High documented in this encounter [facility] History of Present illness Narrative 06-26-2023 Jorge Camara NP - 06/26/2023 8:30 AM EST Note Date & Type Note Facility 06-26-2023 History of Presen t illness Narrative Images from the original note were not included. Sergio Jones is a 28 y.o. female presents with [...] Visit Report Report COMPREHENSIVE METABOLIC PANEL Order: [id number] Component Ref Range & Units 5 d [...] Reported eGFR is based on the CKD-EPI 1 equation that does not use a race coefficient. CT abdomen pelvis w IV contrast Order: [id number] Narrative CT ABDOMEN AND PELVIS HISTORY: Abdominal [...] and content) DATE CREATED AUTHOR 12/13/[address] [facility] DATE CREATED AUTHOR AUTHOR'S ORGANIZ ATION 04/21/2023 [facility] DATE CREATED AUTHOR AUTHOR'S ORGANIZ ATION 06/26/2023 [facility] DATE CREATED AUTHOR AUTHOR'S ORGANIZ ATION 11/08/2023 [facility] EPIC Reason for Visit (unrecogniz ed section and content) Reason Comments ER Follow-up Abd pain,diarrhea. L eft side pain comes and goes started this morning, nausea better, continued diarrhea. Reason Onset Date Comments Results 06/26/2023 Care Teams (unrecognized sec tion and content) Sheet Metal Duct Installer Apprentice Relationship Specialty Start Date End Date Pastora Barron MD [address] [place] [address] PCP - General Family Medicine 09/20/22 Sheet Metal Duct Installer Apprentice Relationship Specialty Start Date End Date Pastora Barron MD [address] [place] [address] PCP - General Family Medicine 09/20/22 FOR [...] BE BASED ON THE PRIMARY CLINICAL RECORDS. [facility]. provides no warranty or guarantee of the accuracy or completeness of information in this document.
[2023-12-26 14:10] LABS: Age Gdln ACOG Testing Note (.); IGP, rfx Aptima HPV ASCU Note (.)
== END 2023-12-20 21:36 | disposition home or self-care (01) ==
LOC: LAB 21:35
PROVIDERS: PCP Family Medicine; Visit Provider Physician Assistant
DX: Z01.419 Encounter for gynecological examination (general) (routine) without abnormal findings (principal)
CPT/HCPCS: 88175

== ENCOUNTER 2024-01-08 16:17 | Outpatient (OUT) | payer MEDICAID, SELFPAY ==
[2024-01-11 02:07] LABS: AFP Value 104.8 ng/mL (.); Gest. Age on Collection Date 19.4 weeks (.); Insulin Dep Diabetes No (.); Maternal Age At EDD 28.3 yr (.); OSBR Risk 1 IN 569 (.); Results Report (.)
== END 2024-01-08 16:18 | disposition home or self-care (01) ==
LOC: LAB 16:18
PROVIDERS: PCP Family Medicine; Visit Provider Obstetrics & Gynecology
DX: Z34.92 Encounter for supervision of normal pregnancy, unspecified, second trimester (principal); Z36.1 Encounter for antenatal screening for raised alphafetoprotein level
CPT/HCPCS: 36415; 82105

== ENCOUNTER 2024-01-16 13:39 | Outpatient (OUT) | payer MEDICAID, SELFPAY ==
--- NOTE | 2024-01-16 13:42 | US_ITS ---
[address] [address] Patient Name: SERGIO JONES MRN: [id number] date: 1995 Sex: F Assigned Patient Location: [facility] Current Patient Location: [facility] Accession/Order Number: [id number] Exam Date: 01/16/2024 13:50 Report Date: 01/16/2024 15:01 At the request of: FAMILIA LAWRENCE Procedure: US OB anatomy EXAMINATION: US OB anatomy, US OB cervical length HISTORY: anatomic survey COMPARISON: No relevant comparison available. TECHNIQUE: Transabdominal sonographic examination was performed for obstetrical and evaluation. FINDINGS: Number: 1 Heart Rate: 161.68 bpm H.B. /min Amniotic Fluid Volume: Subjectively normal Placental Location: Posterior with lower margin 3.1 cm from os. Cervix Length: 4.95 cm , closed. ANATOMY: Normal Structures -cerebellum, choroid plexus, cisterna magna, lateral cerebral ventricles, orbits, midline falx, hard palate, four-chamber heart, RVOT, LVOT, stomach, kidneys, bladder, umbilical cord insertion into abdomen, three-vessel cord, right upper extremity, left upper extremity, right lower extremity, left lower extremity. SUBOPTIMALLY SEEN: Spine ABNORMALITIES: None BIOMETRY: BPD: 4.59 cm; 19 weeks 6 days; 22.30 % HC: 18.17 cm; 20 weeks 4 days; 41.10 % AC: 15.72 cm; 20 weeks 6 days; 53.70 % FL: 3.19 cm; 19 weeks 6 days; 21 % EFW:353.47 g; 37.30 % FL/AC: 20.31 FL/BPD: 69.50 HC/AC: 1.16 GESTATIONAL AGE: Age by EDC: 20 weeks 4 days Age by current US: 20 weeks 2 days ELVIE by current US: 2024-06-02 ELVIE by EDC: 2024-05-31 US/US OB anatomy IMPRESSION: 1. Single live intrauterine with growth detailed above. 2. Suboptimal visualization of the spine due to position. 3. Posterior placenta bordering on low-lying (3.1 cm from os). Electronically authenticated by: LUIS ENRIQUE JACKSON Date: 01/16/2024 15:01
--- NOTE | 2024-01-16 13:42 | US_ITS ---
[address] [address] Patient Name: SERGIO JONES MRN: [id number] date: 1995 Sex: F Assigned Patient Location: [facility] Current Patient Location: [facility] Accession/Order Number: [id number] Exam Date: 01/16/2024 13:50 Report Date: 01/16/2024 15:01 At the request of: FAMILIA LAWRENCE Procedure: US OB cervical length EXAMINATION: US OB anatomy, US OB cervical length HISTORY: anatomic survey COMPARISON: No relevant comparison available. TECHNIQUE: Transabdominal sonographic examination was performed for obstetrical and evaluation. FINDINGS: Number: 1 Heart Rate: 161.68 bpm H.B. /min Amniotic Fluid Volume: Subjectively normal Placental Location: Posterior with lower margin 3.1 cm from os. Cervix Length: 4.95 cm , closed. ANATOMY: Normal Structures -cerebellum, choroid plexus, cisterna magna, lateral cerebral ventricles, orbits, midline falx, hard palate, four-chamber heart, RVOT, LVOT, stomach, kidneys, bladder, umbilical cord insertion into abdomen, three-vessel cord, right upper extremity, left upper extremity, right lower extremity, left lower extremity. SUBOPTIMALLY SEEN: Spine ABNORMALITIES: None BIOMETRY: BPD: 4.59 cm; 19 weeks 6 days; 22.30 % HC: 18.17 cm; 20 weeks 4 days; 41.10 % AC: 15.72 cm; 20 weeks 6 days; 53.70 % FL: 3.19 cm; 19 weeks 6 days; 21 % EFW:353.47 g; 37.30 % FL/AC: 20.31 FL/BPD: 69.50 HC/AC: 1.16 GESTATIONAL AGE: Age by EDC: 20 weeks 4 days Age by current US: 20 weeks 2 days ELVIE by current US: 2024-06-02 ELVIE by EDC: 2024-05-31 US/US OB cervical length IMPRESSION: 1. Single live intrauterine with growth detailed above. 2. Suboptimal visualization of the spine due to position. 3. Posterior placenta bordering on low-lying (3.1 cm from os). Electronically authenticated by: LUIS ENRIQUE JACKSON Date: 01/16/2024 15:01
== END 2024-01-16 13:40 | disposition home or self-care (01) ==
LOC: NOMS 13:40
PROVIDERS: PCP Family Medicine; Visit Provider Obstetrics & Gynecology
DX: Z36.89 Encounter for other specified antenatal screening (principal); Z3A.20 20 weeks gestation of pregnancy
CPT/HCPCS: 76805; 76817

== ENCOUNTER 2024-02-19 08:05 | Outpatient (OUT) | payer MEDICAID, SELFPAY ==
--- NOTE | 2024-02-19 | US_ITS ---
[address] [address] Patient Name: SERGIO JONES MRN: [id number] date: 1995 Sex: F Assigned Patient Location: [facility] Current Patient Location: [facility] Accession/Order Number: [id number] Exam Date: 02/19/2024 08:09 Report Date: 02/19/2024 09:05 At the request of: JIMY DILLARD Procedure: US OB follow up EXAMINATION: US OB follow up HISTORY: INCOMPLETE ANATOMY COMPARISON: No relevant comparison available. FINDINGS: Heart Rate: 134 bpm Amniotic Fluid Volume: Subjectively normal Number: 1 Position: Breech presentation, longitudinal lie Normal observed anatomy: Spine GESTATIONAL AGE: Age by EDC: 25 weeks 3 days ELVIE by EDC: 2024-05-31 US/US OB follow up IMPRESSION: Normal spine Electronically authenticated by: DAJUAN LORENZANA Date: 02/19/2024 09:05
--- OUTSIDE RECORDS SUMMARY | 2024-02-19 08:09 | XMS_ITS | CCD ---
Author Organization [facility] Care Team Providers Care Semiconductor Manufacturing Technician Name Role Phone PASTORA BARRON Admitting Unavailable PASTORA BARRON Attending Unavailable PASTORA BARRON Primary Care Unavailable PASTORA BARRON Consulting Unavailable Conrado Calle Attending Unavailab Conrado Jefferson Admitting Unavailab PASTORA Walsh Primary Care Unavailable LAWRENCE JOSE Attending Unavailable FLORA GUZMÁN Attending Unavailable FLORA GUZMÁN Referring Unavailable PASTORA BARRON Primary Care Unavailable Pastora Barron MD Primary Care Provider JORGE CAMARA Attending Unavailable FLORA JEAN BAPTISTE Attending Unavailable FAMILIA LAWRENCE Attending Unavailable PASTORA BARRON Attending Unavailable FAMILIA LAWRENCE Attending Unavailable JIMY DILLARD Attending Unavailable PASTORA BARRON Attending Unavailable JORGE CAMARA Attending Unavailable PASTORA BARRON Referring Unavailable FAMILIA LAWRENCE Attending Unavailable JIMY DILLARD Attending Unavailable Allergies Allergy Classification Reported Allergen(s) Allergy Type Date of Onset Reaction(s) Facility (3 sources) Ethinyl Estradiol / norelgestromin Drug Allergy 4 [facility] Medications Current Medications Medication Drug Class(es) [...] Name Value Interpretation Reference Range Facil ity US RENAL COMPLETEon 12-27-19 US RENAL COMPLETE EXAM: Renal Ultrasound: REASON FOR EXAM: Left flank pain. COMPARISON: None. TECHNIQUE: Transabdominal scanning was performed, including color Doppler. FINDINGS: Right kidney: Normal renal cortical echogenicity. No stone, mass or hydronephrosis. Blood flow is intact with color Doppler. No cysts are identified. Left kidney: Normal renal cortical echogenicity. No stone, mass or hydronephrosis. Blood flow is intact with color Doppler. No cysts are identified. Bladder: No wall thickening or mass. Bilateral ureteral jets are noted with color Doppler. Aorta: Normal. Inferior vena cava: Normal. Other: Hyperdense hepatic parenchyma consistent with fatty infiltration. Measurements: Right Kidney: 10.42 x 5.20 x 4.94 cm Left Kidney: 12.48 x 6.12 x 6.38 cm Bladder Pre-void: 475.25 mL Postvoid: 56.66 mL IMPRESSION: Normal retroperitoneal ultrasound. Hepatic steatosis is incidentally noted. *This report is generated using voice recognition reporting (Thounds). On occasion Thounds erroneously drops words from the report or replaces the spoken word with similar sounding words. Please call with any questions/concerns regarding this report.* Dictated and transcribed 12/29/2023/carine This report has been electronically signed and approved by the interpreting radiologist. Electronically Signed Kevin Garland M.D. 2023-12-29 16:01:12 Normal Not Available CBC AND AUTO DIFFon 06-21-19 24 ABSOLUTE BASOPHIL 0.0 X10E9/L Normal 0.0-0.2 [facility] Comment on above: Performed By: #### C SONDRA SANCHEZ, 11359-7 #### [facility] ([id number]) [address] [place] [address] 66909 ABSOLUTE NEUTROPHIL 5.2 X10E9/L Normal 1.5-6.6 [facility] Comment on above: Performed By: #### C SONDRA SANCHEZ, 10695-7 #### [facility] ([id number]) [address] [place] [address] 55553 Basophils/100 WBC (Bld) 0.5 % Normal [facility] Comment on above: Performed By: #### C SONDRA SANCHEZ, #### [facility] ([id number]) [address] [place] [address] 58463 Eosinophils (Bld) [#/Vol] 0.0 10*3/uL Normal 0.0-0.4 [facility] Comment on above: Performed By: #### Michelle SANCHEZ CMP, #### [facility] ([id number]) [address] [place] [address] 24024 Eosinophils/100 WBC (Bld) 0.4 % Normal [facility] Comment on above: Performed By: #### Michelle SANCHEZ CMP, #### [facility] ([id number]) [address] [place] [address] 55629 Erythrocyte distribution width (RBC) [Ratio] 12.7 % Normal 11.5-15.0 [facility] Comment on above: Performed By: #### Michelle SANCHEZ [facility], #### [facility] ([id number]) [address] [place] [address] 64039 Hematocrit (Bld) [Volume fraction] 41.4 % Normal 35-47 [facility] Comment on above: Performed By: #### Michelle SANCHEZ CMP, #### [facility] ([id number]) [address] [place] [address] 77559 Hemoglobin (Bld) [Mass/Vol] 14.2 g/dL Normal 11.7-15.5 [facility] Comment on above: Performed By: #### Michelle SANCHEZ CMP, #### [facility] ([id number]) [address] [place] [address] 82057 Lymphocytes (Bld) [#/Vol] 1.3 10*3/uL Normal 1.0-3.5 [facility] Comment on above: Performed By: #### Michelle SANCHEZ CMP, #### [facility] ([id number]) [address] [place] [address] 98073 Lymphocytes/100 WBC (Bld) 18.4 % Normal [facility] Comment on above: Performed By: #### Michelle SANCHEZ CMP, #### [facility] ([id number]) [address] [place] [address] 38648 MCH (RBC) [Entitic mass] 30.3 pg Normal 27-34 [facility] Comment on above: Performed By: #### C SONDRA SANCHEZ, #### [facility] ([id number]) [address] [place] [address] 59679 MCHC (RBC) [Mass/Vol] 34.3 g/dL Normal 32-36 [facility] Comment on above: Performed By: #### Michelle SANCHEZ CMP, #### [facility] ([id number]) [address] [place] [address] 45969 MCV (RBC) [Entitic vol] 88 fL Normal 80-100 [facility] Comment on above: Performed By: #### Michelle SANCHEZ, SONDRA, #### [facility] ([id number]) [address] [place] [address] 17527 Monocytes (Bld) [#/Vol] 0.6 10*3/uL Normal 0-0.9 [facility] Comment on above: Performed By: #### Michelle SANCHEZ, CMP, #### [facility] ([id number]) [address] [place] [address] 18451 Monocytes/100 WBC (Bld) 8.8 % Normal [facility] Comment on above: Performed By: #### Michelle SANCHEZ, CMP, #### [facility] ([id number]) [address] [place] [address] 71247 Neutrophils/100 WBC (Bld) 71.9 % Normal [facility] Comment on above: Performed By: #### Michelle SANCHEZ CMP, 68863-6 #### [facility] ([id number]) [address] [place] [address] 40513 Platelet mean volume (Bld) [Entitic vol] 8.9 fL Normal 7-12 [facility] Comment on above: Performed By: #### Michelle SANCHEZ CMP, 73157-9 #### [facility] ([id number]) [address] [place] [address] 36179 Platelets (Bld) [#/Vol] 267 10*3/uL Normal 150-450 [facility] Comment on above: Performed By: #### Michelle SANCHEZ, CMP, 30606-3 #### [facility] ([id number]) [address] [place] [address] 74037 RBC COUNT 4.68 X10E12/L Normal 3.80-5.20 [facility] Comment on above: Performed By: #### Michelle SANCHEZ, CMP, 05382-9 #### [facility] ([id number]) [address] [place] [address] 08082 WBC (Bld) [#/Vol] 7.2 10*3/uL Normal 4.0-11.0 [facility] Comment on above: Performed By: #### Michelle SANCHEZ, CMP, 07581-2 #### [facility] ([id number]) [address] [place] [address] 87182 COMPREHENSIVE METABOLIC PANE Chucky 06-21-2023 Albumin [Mass/Vol] 4.2 g/dL Normal 3.2-5.3 [facility] Comment on above: Performed By: #### Michelle BCA, CMP, 60686-6 #### [facility] ([id number]) [address] [place] [address] 94870 ALP [Catalytic activity/Vol] 76 U/L Normal 39-130 [facility] Comment on above: Performed By: #### C BCA, CMP, #### [facility] ([id number]) [address] [place] [address] 45411 ALT [Catalytic activity/Vol] 114 U/L High 0-31 [facility] Comment on above: Performed By: #### C BCA, CMP, #### [facility] ([id number]) [address] [place] [address] 99873 Anion gap [Moles/Vol] 11 mmol/L Normal 5-15 [facility] Comment on above: Performed By: #### C BCA, CMP, #### [facility] ([id number]) [address] [place] [address] 23789 AST [Catalytic activity/Vol] 83 U/L High 0-41 [facility] Comment on above: Performed By: #### C BCA, CMP, #### [facility] ([id number]) [address] [place] [address] 39991 Bilirubin [Mass/Vol] 1.1 mg/dL Normal 0.3-1.2 [facility] Comment on above: Performed By: #### C BCA, CMP, #### [facility] ([id number]) [address] [place] [address] 71185 Calcium [Mass/Vol] 8.9 mg/dL Normal 8.5-10.5 [facility] Comment on above: Performed By: #### C BCA, CMP, #### [facility] ([id number]) [address] [place] [address] 97770 Chloride [Moles/Vol] 98 mmol/L Normal 98-109 [facility] Comment on above: Performed By: #### C BCA, CMP, #### [facility] ([id number]) [address] [place] [address] 43778 CO2 [Moles/Vol] 23 mmol/L Normal 22-32 [facility] Comment on above: Performed By: #### C DANIEL [facility], 00731-6 #### [facility] ([id number]) [address] [place] [address] 45444 Creatinine [Mass/Vol] 0.77 mg/dL Normal 0.40-1.00 [facility] Comment on above: Result Comment: METH OD TRACEABLE TO IDMS STANDARD Performed By: #### C SONDRA SANCHEZ, 40425-1 #### [facility] ([id number]) [address] [place] [address] 91801 eGFR (CKD-EPI) NON-RACE DEPENDENT >90 Normal >59 [facility] Comment on above: Result Comment: Reported eGFR is based on the CKD-EPI 2020 equation that does not use a race coefficient. Performed By: #### C DANIEL [facility], 30703-3 #### [facility] ([id number]) [address] [place] [address] 38731 Glucose [Mass/Vol] 116 mg/dL High 65-99 [facility] Comment on above: Performed By: #### C DANIEL [facility], 71392-3 #### [facility] ([id number]) [address] [place] [address] 83931 Potassium [Moles/Vol] 3.1 mmol/L Low 3.5-5.0 [facility] Comment on above: Performed By: #### C DANIEL [facility], 06116-8 #### [facility] ([id number]) [address] [place] [address] 95230 Protein [Mass/Vol] 8.1 g/dL High 6.0-8.0 [facility] Comment on above: Performed By: #### C SONDRA SANCHEZ, 02031-3 #### [facility] ([id number]) [address] [place] [address] [place] [address] Sodium [Moles/Vol] 132 mmol/L Low 134-146 [facility] Comment on above: Performed By: #### C DANIEL [facility], 44372-2 #### [facility] ([id number]) [address] [place] [address] Urea nitrogen [Mass/Vol] 10 mg/dL Normal 5-23 [facility] Comment on above: Performed By: #### C DANIEL [facility], 28739-5 #### [facility] ([id number]) [address] [place] [address] CT ABDOMEN AND PELVIS W CONT on [...] Bill Albrecht on 06/21/2023 3:57 PM Normal [facility] HCG ( test) Ql (U)o n 06-21-2023 Beta HCG ( test) Ql (U) Negative Normal NEG [facility] Comment on above: Performed By: #### 2 106-3 #### [facility] ([id number]) [address] [place] [address] MAGNESIUMon 06-21-2023 Magnesium [Mass/Vol] 2.1 mg/dL Normal 1.8-2.6 [facility] Comment on above: Performed By: #### C BCA, CMP, 64442-3 #### [facility] ([id number]) [address] [place] [address] 27260 SARS/FLU A+B/RSV by NAAT/Mol ecularon 06-21-2023 SARS/FLU [...] operators who are performing tests using either [employer] or [employer] systems and is limited to laboratories that [...] repeat. Fact Sheet for Healthcare Providers: https://www.fda.gov/m edia/523482/download Fact Sheet for Patients: https://www.fda.gov/m edia/501390/download Normal [facility] Comment on above: Performed By: #### C OVFLR #### [facility] ([id number]) [address] [place] [address], [place] [address] URINE CULTUREon 06-21-2023 Bacteria identified Cx Nom [...] F TRIMETH/SULFAMETHOXAZ OLE S <=1/19 F Susceptible [facility] Comment on above: Performed By: #### 6 30-4 #### [facility] ([id number]) [address] [place] [address], [address] [place] [address] URN MACROSCOPIC NURon 2023 BILIRUBIN ALMA Negative Normal NEG [facility] Comment on above: Performed By: #### N UM #### [facility] ([id number]) [address] [place] [address] [place] [address] BLOOD/HGB ALMA Trace Abnormal NEG [facility] Comment on above: Performed By: #### N UM #### [facility] ([id number]) [address] [place] [address] [place] [address] GLUCOSE ALMA Negative Normal NEG [facility] Comment on above: Performed By: #### N UM #### [facility] ([id number]) [address] [place] [address] [place] [address] KETONES ALMA Trace Abnormal NEG [facility] Comment on above: Performed By: #### N UM #### [facility] ([id number]) [address] [place] [address] [place] [address] LEUKOCYTE ESTERASE ALMA Negative Normal NEG [facility] Comment on above: Performed By: #### N UM #### [facility] ([id number]) [address] [place] [address] [place] [address] NITRITE ALMA Positive Abnormal NEG [facility] Comment on above: Performed By: #### N UM #### [facility] ([id number]) [address] [place] [address] [place] [address] PH ALMA 6.0 Normal 5.0-8.5 [facility] Comment on above: Performed By: #### N UM #### [facility] ([id number]) [address] [place] [address] [place] [address] PROTEIN ALMA Trace Abnormal NEG [facility] Comment on above: Performed By: #### N UM #### [facility] ([id number]) [address] [place] [address] [place] [address] SPECIFIC GRAVITY ALMA >=1.030 Normal 1.003-1.035 [facility] Comment on above: Performed By: #### N UM #### [facility] ([id number]) [address] [facility] [facility], [place] [address] UROBILINOGEN ALMA 0.2 eu/dL Normal <1.1 [facility] Comment on above: Performed By: #### N UM #### [facility] ([id number]) [address] [place] [address] COVID-19 PCRon 11-15-2019 SARS-CoV-2, RENETTA Not Detected Normal Not Detected [facility] Comment on above: Result Comment: This test was developed and its performance characteristics determined by [employer]. This test has not been FDA cleared [...] assay. Performed By: #### C VDPCR #### [facility] [address] [place] [address] Raymond Deleon Vital Signs Date Time Vital Sign Value Performing Clinician James segura 06-26-2023 08:39-0500 Body mass index (BMI) [Ratio] 30.81 kg/m2 Jorge Camara NP Work Phone: [facility] 06-26-2023 08:39-0500 Body weight 77.66 kg Jorge Camara NP Work Phone: [facility] 06-26-2023 08:39-0500 Diastolic blood pressure 80 mm[Hg] Jorge Camara [employer]ER Work Phone: [facility] 06-26-2023 08:39-0500 Heart rate 72 /min Jorge Camara [employer] Work Phone: [facility] 06-26-2023 08:39-0500 Systolic blood pressure 102 mm[Hg] Jorge Camara [employer] LEADER Work Phone: [facility] Healthcare Encounters Encounter Date Encounter Type Care Provider Facility Start: 02-14-2024 End: 02-14-2024 ambulatory JIMY NISHANT Not Available Start: 01-16-2024 End: 01-16-2024 ambulatory FAMILIA HOWARD Not Available Start: 12-27-2023 End: 12-27-2023 ambulatory PASTORA B WONDERLY Not Available Start: 12-25-2023 End: 12-25-2023 ambulatory JORGE Chay CAMARA Not Available Start: 12-21-2023 End: 12-21-2023 ambulatory PASTORA B WONDERLY Not Available Start: 12-20-2023 End: 12-20-2023 ambulatory JIMY NISHANT Not Available Start: 11-21-2023 End: 11-21-2023 ambulatory FAMILIA HOWARD Not Available Start: 11-07-2023 End: 11-07-2023 ambulatory JORGE HOA Not Available Start: 10-20-2023 End: 10-20-2023 ambulatory JORGE HOA Not Available Start: 10-16-2023 End: 10-16-2023 ambulatory PASTORA B WONDERLY Not Available Start: 07-10-2023 End: 07-10-2023 ambulatory FLORA PUMP Not Available Start: 06-26-2023 Telephone encounter Jorge Camara [employer] Work Phone: [facility] Comment on above: Results Start: 06-26-2023 End: 06-26-2023 ambulatory JORGE CAMARA Not Available Start: 06-26-2023 End: 06-26-2023 Office outpatient visit 25 minutes Jorge Camara [employer]ER Work Phone: [facility] Comment on above: Pyelonephritis (Prim nicko Dx); Elevated liver function tests; Hypokalemia; Diarrhea, unspecified type; Nausea; Left lower quadrant abdominal tenderness with rebound tenderness; Gastroesophageal reflux disease without esophagitis Start: 06-21-2023 End: 06-22-2023 Emergency department patient visit FLORA GUZMÁN [facility] Start: 06-21-2023 End: 06-21-2023 Emergency department patient visit PASTORA BARRON [facility] Start: 04-17-2023 End: 04-17-2023 ambulatory FAMILIA LAWRENCE Not Available Start: 12-28-2022 ambulatory Conrado Banks acility:[facility] Start: 11-14-2019 End: 11-15-2019 Patient encounter procedure PASTORA BARRON Facility:H1 Plan of Treatment Date Care Activity Detail Author Start: 11-12-2023 Influenza vaccination Influenza Vacc ine (#1) [facility] Comment on above: Postponed from 01/13 (Patient Refused) Start: 07-25-2023 End: 06-26-2024 Hepatic function 2000 panel - Serum or Plasma Hepatic function panel Lab Routine Elevated liver function tests Pyelonephritis Expected: 07/25/2023 (Approximate), Expires: 06/26/2024 [facility] Work Phone: Comment on above: Expected: 07/25/2023 (Approximate), Expires: 06/26/2024 Start: 07-13-2023 End: 07-13-2023 Patient encounter procedure 07/13/2023 2:00 PM EST Office Visit [facility] [address] [place] [id number] Jorge Camara NP [address] [place] [address] [facility] Start: 06-26-2023 End: 06-26-2024 Comprehensive metabolic 2000 panel - Serum or Plasma Comprehensive metabolic panel Lab Routine Elevated liver function tests Pyelonephritis Hypokalemia Diarrhea, unspecified type Expected: 06/26/2023 (Approximate), Expires: 06/26/2024 [facility] Work Phone: Comment on above: Expected: 06/26/2023 (Approximate), Expires: 06/26/2024 Immunizations Immunization Date Immunization Notes Care Provider Fa jessica 03-11-2016 influenza, injectabl e, quadrivalent, preservative free Jorge Camara [employer]ER Work Phone: [facility] 03-11-2016 influenza virus vacc ine, unspecified formulation Jorge Camara [employer] LE[employer]ER Work Phone: [facility] 02-04-2015 tetanus toxoid, redu yenny diphtheria toxoid, and acellular pertussis vaccine, adsorbed Jorge Camara [employer] LEADER Work Phone: [facility] 12-17-2001 diphtheria, tetanus toxoids and acellular pertussis vaccine, unspecified formulation Jorge Camara [employer]ER Work Phone: [facility] 12-17-2001 measles, mumps and rubella virus vaccine Jorge Camara [employer] LEADER Work Phone: [facility] 12-17-2001 poliovirus vaccine, inactivated Jorge Camara [employer] LEADER Work Phone: [facility] 06-04-1997 diphtheria, tetanus toxoids and acellular pertussis vaccine, unspecified formulation Jorge Camara [employer] LE[employer]ER Work Phone: [facility] 06-04-1997 haemophilus influenz ae type b vaccine, conjugate unspecified formulation Jorge Camara [employer] LEADER Work Phone: [facility] 06-04-1997 measles, mumps and rubella virus vaccine Jorge Camara [employer] LEADER Work Phone: [facility] 1996 DTP-Haemophilus influenzae type b conjugate vaccine Jorge Camara [employer] LEADER Work Phone: [facility] 1996 hepatitis B vaccine, pediatric or pediatric/adolescent dosage Jorge Camara [employer] LEADER Work Phone: [facility] 1996 trivalent poliovirus vaccine, live, oral Jorge Camara RET[employer] LEADER Work Phone: [facility] 1996 DTP-Haemophilus influenzae type b conjugate vaccine Jorge Camara RET[employer] SH[employer] LEADER Work Phone: [facility] 1996 trivalent poliovirus vaccine, live, oral Jorge Camara RET[employer] LEADER Work Phone: [facility] 1996 DTP-Haemophilus influenzae type b conjugate vaccine Jorge Dooleyman RET[employer] LEADER Work Phone: [facility] 1996 hepatitis B vaccine, pediatric or pediatric/adolescent dosage Jorge Camara RET[employer] LEADER Work Phone: [facility] 1996 trivalent poliovirus vaccine, live, oral Jorge Camara RET[employer] LEADER Work Phone: [facility] 1996 hepatitis B vaccine, pediatric or pediatric/adolescent dosage Jorge Camara RETAIL SH[employer] LEADER Work Phone: [facility] Payers Date Payer Category Payer Self-pay 2022 Medicaid [place] [employer] [id number] 2022-Present [address] [place] [address] [id number] 2019 Unknown [id number] 2019 Medicaid [id number] 1996 Unknown [id number] [id number] 1996 Unknown [id number] 2.16.840.1.084968.3.579.2.1286 1996 Unknown [id number] 2.16.840.1.596767.3.579.2.1259 1996 Unknown [id number] 2.16.840.1.983846.3.579.2.1259 1996 Unknown [id number] 2.16.840.1.039343.3.579.2.1259 1996 Unknown [id number] 2.16.840.1.734879.3.579.2.1259 1996 Unknown [id number] 2.16.840.1.372772.3.579.2.1259 1996 Unknown [id number] 2.16.840.1.769787.3.579.2.1258 1996 Unknown [id number] 2.16.840.1.205359.3.579.2.1258 1996 Unknown [id number] 2.16840.1.035082.3.579.2.1258 1996 Unknown [id number] 2.16.840.1.262982.3.579.2.1258 1996 Unknown [id number] 2.16840.1.024958.3.579.2.1258 1996 Unknown [id number] 2.16840.1.714873.3.579.2.1258 1996 Unknown [id number] 2.16840.1.068204.3.579.2.1258 1996 Unknown [id number] 2.16840.1.174786.3.579.2.9 Social History Date Type Detail Facility Start: 06-26-2023 Tobacco smoking status MIIS Ex-smoke r [facility] History of tobacco [...] To some extent [facility] (I/We) worried [facility] (my/our) food would run out before [...] U/L 86 High documented in this encounter [facility] History of Present illness Narrative 06-26-2023 Jorge Camara, PAM - 06/26/2023 8:30 AM EST Note Date [...] Visit Report Report COMPREHENSIVE METABOLIC PANEL Order: [id number] Component Ref Range & Units 5 d [...] CT abdomen pelvis w IV contrast Order: [id number] Narrative CT ABDOMEN AND PELVIS HISTORY: Abdominal [...] and today . documented in this encounter [facility] Healthcare Evaluation note Note Date & Type [...] Pyelonephritis Unspecified pyelonephritis documented in this encounter [facility] Healthcare Summary Purpose Family History No Family History Records FoundNo Family History Records FoundNo Family History Records FoundNo Family History Records Found Advance Directives No Advanced Directives Records FoundNo Advanced Directives Records FoundNo Advanced Directives Records FoundNo Advanced Directives Records Found Additional Source Comments INFORMATION SOURCE (unrecogn ized section and content) DATE CREATED AUTHOR 12/13/2019 [facility] DATE CREATED AUTHOR AUTHOR'S ORGANIZ ATION 04/21/2023 [facility] DATE CREATED AUTHOR AUTHOR'S ORGANIZ ATION 06/26/2023 [facility] DATE CREATED AUTHOR AUTHOR'S ORGANMARY LOU ATION 02/16/2024 [facility] EPIC Reason for Visit (unrecogniz ed section and content) Reason Comments ER Follow-up Abd pain,diarrhea. L eft side pain comes and goes started this morning, nausea better, continued diarrhea. Reason Onset Date Comments Results 06/26/2023 Care Teams (unrecognized sec tion and content) [employer] Relationship Specialty Start Date End Date WonderPastora rolon MD [address] [place] [address] PCP - General Family Medicine 09/20/22 [employer] Relationship Specialty Start Date End Date Namanly, Pastora Ortiz MD [address] [place] [address] PCP - General Family Medicine 09/20/22 FOR [...] BE BASED ON THE PRIMARY CLINICAL RECORDS. [facility]. provides no warranty or guarantee of the accuracy or completeness of information in this document.
== END 2024-02-19 08:06 | disposition home or self-care (01) ==
LOC: NOMS 08:06
PROVIDERS: PCP Family Medicine; Visit Provider Physician Assistant
DX: Z36.2 Encounter for other antenatal screening follow-up (principal); Z3A.25 25 weeks gestation of pregnancy
CPT/HCPCS: 76816

== ENCOUNTER 2024-02-26 13:03 | Outpatient (OUT) | payer MEDICAID, SELFPAY ==
--- OUTSIDE RECORDS SUMMARY | 2024-02-26 13:23 | XMS_ITS | CCD ---
Author Organization [facility] Care Team Providers Care Cleaning Maid Name Role Phone PASTORA BARRON Admitting Unavailable PASTORA BARRON Attending Unavailable PASTORA BARRON Primary Care Unavailable PASTORA BARRON Consulting Unavailable Conrado Calle Attending Unavailab Conrado Jefferson Admitting Unavailab PASTORA Walsh Primary Care Unavailable LAWRENCE JOSE Attending Unavailable FLORA GUZMÁN Attending Unavailable FLORA GUZMÁN Referring Unavailable PASTORA BARRON Primary Care Unavailable Pastora Barron MD Primary Care Provider JORGE CAMARA Attending Unavailable ITA, FLORA Attending Unavailable FAMILIA LAWRENCE Attending Unavailable PASTORA BARRON Attending Unavailable FAMILIA LAWRENCE Attending Unavailable MIKAYLA DILLARD Attending Unavailable PASTORA BARRON Attending Unavailable JORGE CAMARA Attending Unavailable PASTORA BARRON Referring Unavailable FAMILIA LAWRENCE Attending Unavailable MIKAYLA DILLARD Attending Unavailable Allergies Allergy Classification Reported Allergen(s) Allergy Type Date of Onset Reaction(s) Facility (6 sources) Ethinyl Estradiol / norelgestromin Drug Allergy 4 [facility] Healthcare Medications Current Medications Medication Drug Class(es) Dates Sig (Normalized) Sig (Original) metoclopramide 10 mg oral tablet (3 sources) Dopamine-2 Receptor Antagonist Start: 11-21-2023 metoclopramide (Reglan) 10 MG tablet Indications: Nausea and vomiting in Take 1 tablet (10 mg) by mouth 3 (three) times a day as needed (30 min prior to meals) for up to 10 days 1 tablet 11/21/2023 Active omeprazole 20 mg delayed release oral capsule (2 sources) Proton Pump Inhibitor Start: 02-14-2024 End: 06-13-2024 take 1 capsule by mouth before mealtime omeprazole (PriLOSEC) [address] capsule Indications: Gastroesophageal Reflux Disease , Heartburn Take 1 capsule (20 mg) by mouth in the morning. Take before meals. Do not crush or chew.. 30 capsule 3 02/14/2024 06/13/2024 Active ondansetron 4 mg oral tablet (3 sources) Serotonin-3 Receptor Antagonist End: 02-14-2024 ondansetron (Zofran) 4 MG tablet Take by mouth 02/14/2024 Discontinued MV-Min-Fe Fum-FA-DHA ( 1 PO) (3 sources) MV-Min- Fe Fum-FA-DHA ( 1 PO) Take by mouth Active sulfamethoxazole 800 mg / trimethoprim 160 mg oral tablet (3 sources) Dihydrofolate Reductase Inhibitor Antibacterial, Sulfonamide Antimicrobial Start: 06-21-2023 End: 06-28-2023 take 1 tablet by mouth once in the morning, then take 1 tablet by mouth once in the evening sulfamethoxazole-tri methoprim (Bactrim DS) 800-160 MG per tablet Take 1 tablet by mouth in the morning and 1 tablet in the evening. 0 06/21/2023 06/28/2023 Active Problems Active Problems Problem Classification Problem Date Documented Da te Episodic/Chronic Abdominal pain (3 sources) Abdominal pain; Translations: [Abdominal tenderness of left lower quadrant] Onset: 4 06-26-2023 Episodic Anxiety disorders (6 sources) Anxiety; Translations: [Anxiety disorder, unspecified] Onset: 4 06-23-2023 Chronic Esophageal disorders (8 sources) Gastroesophageal reflux disease without esophagitis; Translations: [Gastro-esophageal reflux disease without esophagitis] Onset: 4 06-26-2023 Chronic Fluid and electrolyte disorders (2 sources) Hypokalemia; Translations: [Hypokalemia] 06-26-2023 Episodic Immunizations and screening for infectious disease (4 sources) Contact with and (suspected) exposure to other viral communicable diseases; Translations: [CONTCT EXPS OTH VIRL COMMUNICABL DZ] Onset: 0 Episodic Nausea and vomiting (4 sources) Nausea; Translations: [Vomiting] Onset: 4 06-26-2023 Episodic Other complications of (3 sources) Steatosis of liver; Translations: [Liver and biliary tract disorders in , unspecified trimester] Onset: 4 01-01-2024 Episodic Other complications of (2 sources) Gastroesophageal reflux disease in ; Translations: [Diseases of the digestive system complicating , unspecified trimester] 02-14-2024 Episodic Other diseases of kidney and ureters (3 sources) Infectious disorder of kidney; 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, unspecified] Onset: 4 07-11-2023 Chronic Other gastrointestinal disorders (2 sources) Diarrhea; Translations: [Diarrhea, unspecified] 06-26-2023 Episodic Other liver diseases (3 sources) Steatosis of liver; Translations: [Fatty (change of) liver, not elsewhere classified] Onset: 4 01-01-2024 Chronic Other and delivery including normal (2 sources) Second trimester ; Translations: [Encounter for supervision of normal , unspecified, second trimester] 02-14-2024 Episodic Other screening for suspected conditions (not mental disorders or infectious disease) (7 sources) Other specified abnormal findings of blood chemistry; Translations: [Other abnormal blood chemistry] 06-26-2023 Episodic Residual codes; unclassified (2 sources) Gestation period, 24 weeks; Translations: [24 weeks gestation of ] 02-14-2024 Episodic Thyroid disorders (6 sources) Goiter; Translations: [Nontoxic goiter, unspecified] Onset: 4 06-23-2023 Chronic Unclassified (3 sources) OB Reminders Onset: 4 12-29-2023 Urinary tract infections (4 sources) Tubulo-interstitial nephritis, not specified as acute or chronic; Translations: [Pyelonephritis] Onset: 4 06-26-2023 Episodic Past or Other Problems Problem Classification Problem Date Documented Da te Episodic/Chronic Headache; including migraine (6 sources) Headache disorder; Translations: [Other headache syndrome] Onset: 06-23-2023 06-23-2023 Episodic Other nutritional; endocrine; and metabolic disorders (6 sources) Overweight; Translations: [Overweight] Onset: 06-23-2023 06-23-2023 Episodic Other upper respiratory infections (6 sources) Frontal sinusitis; Translations: [Chronic frontal sinusitis] Onset: 06-23-2023 Resolved: 12-25-2023 06-23-2023 Chronic Results Test Name Value Interpretation Reference Range Facility Urinalysis macro (dipstick) panel (U)on 02-14-2024 Bilirubin, UA Positive Negative - 4(70) +++ mg/dL [facility] Comment on above: small Blood, UA Negative Negative - 50 Robson/mcL [facility] Clarity, UA Clear [facility], [facility]A Yellow [facility] Glucose, UA Negative Negative - 2000(110) ++++ mg/dL [facility] Interpretation and review of laboratory results Abnormal [facility] Ketones, UA Positive Negative - 160(16) ++++ mg/dL [facility] Comment on above: 15 Leukocytes, UA Negative Negative - 500+++ Jesus Manuel/mcL [facility] Nitrite, UA Negative Negative - Positive [facility] pH, UA 6.0 5 - 9 [facility] e Protein, UA Negative Negative - 2000(20) ++++ mg/dL [facility] Spec Grav, UA 1.030 1 - 1.03 [facility] Urobilinogen, UA 0.2 0.2 - 12 mg/dL [facility] RENAL COMPLETEon 12-27-19 24 US RENAL COMPLETE EXAM: Renal Ultrasound: REASON [...] report is generated using voice recognition reporting (Sympoz (dba Craft[employer])). On occasion Volof[employer] erroneously drops words from the report or replaces the spoken word with similar sounding words. Please call with any questions/concerns regarding this report.* Dictated and transcribed 12/29/2023/ This report has been electronically signed and approved by the interpreting radiologist. Electronically Signed Kevin Garland M.D. 2023-12-29 16:01:12 Normal Not Available CBC AND AUTO DIFFon 06-21-19 24 ABSOLUTE BASOPHIL 0.0 X10E9/L Normal 0.0-0.2 [facility] Comment on above: Performed By: #### Michelle SANCHEZ [facility], 13752-1 #### [facility] ([id number]) [address] [place] [address] 44727 ABSOLUTE NEUTROPHIL 5.2 X10E9/L Normal 1.5-6.6 [facility] Comment on above: Performed By: #### Michelle SANCHEZ [facility], 40859-4 #### [facility] ([id number]) [address] [place] [address] 94809 Basophils/100 WBC (Bld) 0.5 % Normal [facility] Comment on above: Performed By: #### Michelle SANCHEZ [facility], 02444-6 #### [facility] ([id number]) [address] [place] [address] 56410 Eosinophils (Bld) [#/Vol] 0.0 10*3/uL Normal 0.0-0.4 [facility] Comment on above: Performed By: #### Michelle SANCHEZ [facility], 55424-5 #### [facility] ([id number]) [address] [place] [address] 15874 Eosinophils/100 WBC (Bld) 0.4 % Normal [facility] Comment on above: Performed By: #### Michelle SANCHEZ [facility], 24788-6 #### [facility] ([id number]) [address] [place] [address] 47496 Erythrocyte distribution width (RBC) [Ratio] 12.7 % Normal 11.5-15.0 [facility] Comment on above: Performed By: #### C SONDRA SANCHEZ, #### [facility] ([id number]) [address] [place] [address] 48180 Hematocrit (Bld) [Volume fraction] 41.4 % Normal 35-47 [facility] Comment on above: Performed By: #### Michelle SANCHEZ CMP, #### [facility] ([id number]) [address] [place] [address] 10609 Hemoglobin (Bld) [Mass/Vol] 14.2 g/dL Normal 11.7-15.5 [facility] Comment on above: Performed By: #### Michelle SANCHEZ CMP, #### [facility] ([id number]) [address] [place] [address] 87388 Lymphocytes (Bld) [#/Vol] 1.3 10*3/uL Normal 1.0-3.5 [facility] Comment on above: Performed By: #### Michelle SANCHEZ [facility], #### [facility] ([id number]) [address] [place] [address] 22263 Lymphocytes/100 WBC (Bld) 18.4 % Normal [facility] Comment on above: Performed By: #### Michelle SANCHEZ CMP, #### [facility] ([id number]) [address] [place] [address] 38739 MCH (RBC) [Entitic mass] 30.3 pg Normal 27-34 [facility] Comment on above: Performed By: #### Michelle SANCHEZ CMP, #### [facility] ([id number]) [address] [place] [address] 94878 MCHC (RBC) [Mass/Vol] 34.3 g/dL Normal 32-36 [facility] Comment on above: Performed By: #### Michelle SANCHEZ CMP, #### [facility] ([id number]) [address] [place] [address] 11962 MCV (RBC) [Entitic vol] 88 fL Normal 80-100 [facility] Comment on above: Performed By: #### Michelle SANCHEZ CMP, 80733-5 #### [facility] ([id number]) [address] [place] [address] 22658 Monocytes (Bld) [#/Vol] 0.6 10*3/uL Normal 0-0.9 [facility] Comment on above: Performed By: #### Michelle SANCHEZ CMP, 17719-4 #### [facility] ([id number]) [address] [place] [address] 90402 Monocytes/100 WBC (Bld) 8.8 % Normal [facility] Comment on above: Performed By: #### Michelle SANCHEZ CMP, 33378-2 #### [facility] ([id number]) [address] [place] [address] 68624 Neutrophils/100 WBC (Bld) 71.9 % Normal [facility] Comment on above: Performed By: #### Michelle SANCHEZ, [facility], 78774-8 #### [facility] ([id number]) [address] [place] [address] 46588 Platelet mean volume (Bld) [Entitic vol] 8.9 fL Normal 7-12 [facility] Comment on above: Performed By: #### Michelle SANCHEZ, CMP, 80144-7 #### [facility] ([id number]) [address] [place] [address] 11363 Platelets (Bld) [#/Vol] 267 10*3/uL Normal 150-450 [facility] Comment on above: Performed By: #### Michelle SANCHEZ, CMP, #### [facility] ([id number]) [address] [place] [address] 65410 RBC COUNT 4.68 X10E12/L Normal 3.80-5.20 [facility] Comment on above: Performed By: #### C DANIEL CMP, 39704-4 #### [facility] ([id number]) [address] [place] [address] 18009 WBC (Bld) [#/Vol] 7.2 10*3/uL Normal 4.0-11.0 [facility] Comment on above: Performed By: #### C DANIEL, CMP, 90736-1 #### [facility] ([id number]) [address] [place] [address] 60997 COMPREHENSIVE METABOLIC PANE Chucky 06-21-2023 Albumin [Mass/Vol] 4.2 g/dL Normal 3.2-5.3 [facility] Comment on above: Performed By: #### C DANIEL, CMP, 73677-5 #### [facility] ([id number]) [address] [place] [address] 62788 ALP [Catalytic activity/Vol] 76 U/L Normal 39-130 [facility] Comment on above: Performed By: #### C DANIEL CMP, 45072-0 #### [facility] ([id number]) [address] [place] [address] 58683 ALT [Catalytic activity/Vol] 114 U/L High 0-31 [facility] Comment on above: Performed By: #### C DANIEL CMP, 20562-7 #### [facility] ([id number]) [address] [place] [address] 45411 Anion gap [Moles/Vol] 11 mmol/L Normal 5-15 [facility] Comment on above: Performed By: #### C DANIEL CMP, 49119-9 #### [facility] ([id number]) [address] [place] [address] 71299 AST [Catalytic activity/Vol] 83 U/L High 0-41 [facility] Comment on above: Performed By: #### C DANIEL [facility], 96807-9 #### [facility] ([id number]) [address] [place] [address] 94519 Bilirubin [Mass/Vol] 1.1 mg/dL Normal 0.3-1.2 [facility] Comment on above: Performed By: #### C DANIEL [facility], #### [facility] ([id number]) [address] [place] [address] 29265 Calcium [Mass/Vol] 8.9 mg/dL Normal 8.5-10.5 [facility] Comment on above: Performed By: #### C DANIEL [facility], #### [facility] ([id number]) [address] [place] [address] 23738 Chloride [Moles/Vol] 98 mmol/L Normal 98-109 [facility] Comment on above: Performed By: #### C DANIEL [facility], 95110-9 #### [facility] ([id number]) [address] [place] [address] 20807 CO2 [Moles/Vol] 23 mmol/L Normal 22-32 [facility] Comment on above: Performed By: #### C DANIEL [facility], 85678-1 #### [facility] ([id number]) [address] [place] [address] 56405 Creatinine [Mass/Vol] 0.77 mg/dL Normal 0.40-1.00 [facility] Comment on above: Result Comment: METH OD TRACEABLE TO IDMS STANDARD Performed By: #### C DANIEL [facility], 57867-6 #### [facility] ([id number]) [address] [place] [address] 24993 eGFR (CKD-EPI) NON-RACE DEPENDENT >90 Normal >59 [facility] Comment on above: Result Comment: Reported eGFR is based on the CKD-EPI 2020 equation that does not use a race coefficient. Performed By: #### C DANIEL [facility], 74645-2 #### [facility] ([id number]) [address] [place] [address] 72331 Glucose [Mass/Vol] 116 mg/dL High 65-99 [facility] Comment on above: Performed By: #### C DANIEL, [facility], 53370-9 #### [facility] ([id number]) [address] [place] [address] 50605 Potassium [Moles/Vol] 3.1 mmol/L Low 3.5-5.0 [facility] Comment on above: Performed By: #### C DANIEL, [facility], 34516-6 #### [facility] ([id number]) [address] [place] [address] 11930 Protein [Mass/Vol] 8.1 g/dL High 6.0-8.0 [facility] Comment on above: Performed By: #### C DANIEL, [facility], 32141-6 #### [facility] ([id number]) [address] [place] [address] 48070 Sodium [Moles/Vol] 132 mmol/L Low 134-146 [facility] Comment on above: Performed By: #### C DANIEL, [facility], 67447-0 #### [facility] ([id number]) [address] [place] [address] 43457 Urea nitrogen [Mass/Vol] 10 mg/dL Normal 5-23 [facility] Comment on above: Performed By: #### C BCA, [facility], 34677-8 #### [facility] ([id number]) [address] [place] [address] ABDOMEN AND PELVIS W CONT on [...] Bill Albrecht on 06/21/2023 3:57 PM Normal [facility] HCG ( test) Ql (U)o n 06-21-2023 Beta HCG ( test) Ql (U) Negative Normal NEG [facility] Comment on above: Performed By: #### 2 106-3 #### [facility] ([id number]) [address] [place] [address] MAGNESIUMon 06-21-2023 Magnesium [Mass/Vol] 2.1 mg/dL Normal 1.8-2.6 [facility] Comment on above: Performed By: #### C BCA, CMP, 54172-1 #### [facility] ([id number]) [address] [place] [address] SARS/FLU A+B/RSV by NAAT/Mol ecularon 06-21-2023 SARS/FLU [...] operators who are performing tests using either [employer] or [employer] systems and is limited to laboratories that [...] repeat. Fact Sheet for Healthcare Providers: https://www.fda.gov/m edia/705000/download Fact Sheet for Patients: https://www.fda.gov/m edia/181868/download [facility] Comment on above: Performed By: #### C OVFLR #### [facility] ([id number]) [address] [place] [address] 80975 URINE CULTUREon 06-21-2023 Bacteria identified Cx Nom [...] F TRIMETH/SULFAMETHOXAZ OLE S <=1/19 F Susceptible [facility] Comment on above: Performed By: #### 6 30-4 #### [facility] ([id number]) [address] [place] [address], [address] [place] [address] URN MACROSCOPIC NURon 2023 BILIRUBIN ALMA Negative Normal [facility] Comment on above: Performed By: #### N UM #### [facility] ([id number]) [address] [place] [address] 61453 BLOOD/HGB ALMA Trace Abnormal NEG [facility] Comment on above: Performed By: #### N UM #### [facility] ([id number]) [address] [place] [address] 33037 GLUCOSE ALMA Negative Normal [facility] Comment on above: Performed By: #### N UM #### [facility] ([id number]) [address] [place] [address] 19197 KETONES ALMA Trace Abnormal [facility] Comment on above: Performed By: #### N UM #### [facility] ([id number]) [address] [place] [address] 30989 LEUKOCYTE ESTERASE ALMA Negative Normal NEG [facility] Comment on above: Performed By: #### N UM #### [facility] ([id number]) [address] [place] [address] 99380 NITRITE ALMA Positive Abnormal NEG [facility] Comment on above: Performed By: #### N UM #### [facility] ([id number]) [address] [place] [address] 56513 PH ALMA 6.0 Normal 5.0-8.5 [facility] Comment on above: Performed By: #### N UM #### [facility] ([id number]) [address] [place] [address] 92127 PROTEIN ALMA Trace Abnormal NEG [facility] Comment on above: Performed By: #### N UM #### [facility] ([id number]) [address] [place] [address] 15971 SPECIFIC GRAVITY ALMA >=1.030 Normal 1.003-1.035 [facility] Comment on above: Performed By: #### N UM #### [facility] ([id number]) [address] [place] [address] 31916 UROBILINOGEN ALMA 0.2 eu/dL Normal <1.1 [facility] Comment on above: Performed By: #### N UM #### [facility] ([id number]) [address] [place] [address] 51945 COVID-19 PCRon 11-15-2019 SARS-CoV-2, RENETTA Not Detected Normal Not Detected [facility] Comment on above: Result Comment: This test was developed and its performance characteristics determined by [employer]. This test has not been FDA cleared [...] assay. Performed By: #### C VDPCR #### [facility] [address] [place] [address] Raymond Deleon Vital Signs Date Time Vital Sign Value Performing Clinician James segura 02-14-2024 10:27-0400 Body mass index (BMI) [Ratio] 29.83 kg/m2 Mikayla COTTO Work Phone: [facility] 02-14-2024 10:27-0400 Body weight 75.18 kg Mikayla COTTO Work Phone: [facility] 02-14-2024 10:27-0400 Diastolic blood pressure 76 mm[Hg] Mikayla COTTO Work Phone: [facility] 02-14-2024 10:27-0400 Systolic blood pressure 106 mm[Hg] Mikayla COTTO Work Phone: [facility] 06-26-2023 08:39-0500 Body mass index (BMI) [Ratio] 30.81 kg/m2 Jorge Camraa NP Work Phone: [facility] 06-26-2023 08:39-0500 Body weight 77.66 kg Jorge Camara NP Work Phone: [facility] 06-26-2023 08:39-0500 Diastolic blood pressure 80 mm[Hg] Jorge Camara NP Work Phone: [facility] 06-26-2023 08:39-0500 Heart rate 72 /min Jorge Camara NP Work Phone: [facility] 06-26-2023 08:39-0500 Systolic blood pressure 102 mm[Hg] Jorge Camara NP Work Phone: [facility] Encounters Encounter Date Encounter Type Care Provider Facility Start: 02-14-2024 End: 02-14-2024 Bamboo flowsheet Mikayla COTTO Work Phone: [facility] Start: 02-14-2024 End: 02-14-2024 Bamboo flowsheet Mikayla COTTO Work Phone: [facility] Start: 02-14-2024 End: 02-14-2024 Office outpatient visit 15 minutes Mikayla COTTO Work Phone: [facility] Comment on above: 24 weeks gestation o f ; Second trimester ; Diabetes mellitus screening; Encounter for follow-up ultrasound of anatomy; Gastroesophageal reflux in Start: 02-14-2024 End: 02-14-2024 ambulatory MIKAYLA DILLARD Not Available Start: 01-16-2024 End: 01-16-2024 ambulatory FAMILIA HOWARD Not Available Start: 12-27-2023 End: 12-27-2023 ambulatory PASTORA B WONDERLY Not Available Start: 12-25-2023 End: 12-25-2023 ambulatory JORGE CAMARA Not Available Start: 12-21-2023 End: 12-21-2023 ambulatory PASTORA B WONDERLY Not Available Start: 12-20-2023 End: 12-20-2023 ambulatory MIKAYLA DILLARD Not Available Start: 11-21-2023 End: 11-21-2023 ambulatory FAMILIA HOWARD Not Available Start: 11-07-2023 End: 11-07-2023 ambulatory JORGE CAMARA Not Available Start: 10-20-2023 End: 10-20-2023 ambulatory JORGE CAMARA Not Available Start: 10-16-2023 End: 10-16-2023 ambulatory PASTORA B WONDERLY Not Available Start: 07-10-2023 End: 07-10-2023 ambulatory FLORA PUMP Not Available Start: 06-26-2023 Telephone encounter Jorge Camara LINE [employer]AD Work Phone: [facility] Comment on above: Results Start: 06-26-2023 End: 06-26-2023 ambulatory JORGE CAMARA Not Available Start: 06-26-2023 End: 06-26-2023 Office outpatient visit 25 minutes Jorge Camara LINE LEAD Work Phone: [facility] Comment on above: Pyelonephritis (Prim nicko Dx); Elevated liver function tests; Hypokalemia; Diarrhea, unspecified type; Nausea; Left lower quadrant abdominal tenderness with rebound tenderness; Gastroesophageal reflux disease without esophagitis Start: 06-21-2023 End: 06-22-2023 Emergency department patient visit FLORA GUZMÁN [facility] Start: 06-21-2023 End: 06-21-2023 Emergency department patient visit PASTORA BARRON [facility] Start: 04-17-2023 End: 04-17-2023 ambulatory FAMILIA HOWARD Not Available Start: 12-28-2022 ambulatory Conrado Banks acility:[facility] Start: 11-14-2019 End: 11-15-2019 Patient encounter procedure PASTORA BARRON Facility:[facility]1 Procedures Date Procedure Procedure Detail Performing Clinician Start: 02-14-2024 Urnls dip stick/tabl et rgnt non-auto w/o micrscp Mikayla COTTO Work Phone: Plan of Treatment Date Care Activity Detail Author Start: 03-13-2024 End: 03-13-2024 Patient encounter procedure 03/13/2024 10:30 AM EDT Routine [facility] [address] [place] [address] Mikayla Dillard PA [address] [place] [address] [facility] Start: 02-19-2024 End: 02-19-2024 Professional / ancillary services management 02/19/2024 8:00 AM EDT Ancillary Procedure [facility] [address] [place] [address] [facility] Start: 02-14-2024 End: 02-13-2025 CBC panel - Blood by Automated count CBC Lab Routine Diabetes mellitus screening Expected: 02/14/2024 (Approximate), Expires: 02/13/2025 [facility] Work Phone: Comment on above: Expected: 02/14/2024 (Approximate), Expires: 02/13/2025 Start: 02-14-2024 End: 02-13-2025 Measurement of glucose 1 hour after glucose challenge for glucose tolerance test Glucose tolerance, 1 hour Lab Routine Diabetes mellitus screening Expected: 02/14/2024 (Approximate), Expires: 02/13/2025 [facility] Comment on above: Expected: 02/14/2024 (Approximate), Expires: 02/13/2025 Start: 02-14-2024 End: 02-13-2025 US for US OB INCOMPLETE ANATOMY Imaging Routine Encounter for follow-up ultrasound of anatomy Expected: 02/14/2024 (Approximate), Expires: 02/13/2025 [facility] Comment on above: Expected: 02/14/2024 (Approximate), Expires: 02/13/2025 Start: 02-14-2024 End: 02-14-2024 Patient encounter procedure 02/14/2024 10:30 AM EDT Routine [facility] [address] [place] [address] Mikayla Dillard PA [address] [facility] [address] [place], [place] [id number] Arrived [facility] Comment on above: Arrived Start: 01-14-2024 Influenza vaccination Influenza Vacc ine (#1) [facility] Start: 11-12-2023 Influenza vaccination Influenza Vacc ine (#1) [facility] Comment on above: Postponed from 01/13 (Patient Refused) Start: 07-25-2023 End: 06-26-2024 Hepatic function 2000 panel - Serum or Plasma Hepatic function panel Lab Routine Elevated liver function tests Pyelonephritis Expected: 07/25/2023 (Approximate), Expires: 06/26/2024 [facility] Work Phone: Comment on above: Expected: 07/25/2023 (Approximate), Expires: 06/26/2024 Start: 07-13-2023 End: 07-13-2023 Patient encounter procedure 07/13/2023 2:00 PM EST Office Visit [facility] [address] [place] [address] Jorge Camara NP [address] [place] [address] [facility] Start: 06-26-2023 End: 06-26-2024 Comprehensive metabolic 2000 panel - Serum or Plasma Comprehensive metabolic panel Lab Routine Elevated liver function tests Pyelonephritis Hypokalemia Diarrhea, unspecified type Expected: 06/26/2023 (Approximate), Expires: 06/26/2024 [facility] Work Phone: Comment on above: Expected: 06/26/2023 (Approximate), Expires: 06/26/2024 Immunizations Immunization Date Immunization Notes Care Provider Fa cili 03-11-2016 influenza, injectabl e, quadrivalent, preservative free Jorge Camara LINE LEAD Work Phone: [facility] 03-11-2016 influenza virus vacc ine, unspecified formulation Jorge Camara LINE LEAD Work Phone: [facility] 02-04-2015 tetanus toxoid, redu yenny diphtheria toxoid, and acellular pertussis vaccine, adsorbed Jorge Camara LINE LEAD Work Phone: [facility] 12-17-2001 diphtheria, tetanus toxoids and acellular pertussis vaccine, unspecified formulation Jorge Camara LINE LEAD Work Phone: [facility] 12-17-2001 measles, mumps and rubella virus vaccine Jorge Magdy LINE LEAD Work Phone: [facility] 12-17-2001 poliovirus vaccine, inactivated Jorge Camara LINE LEAD Work Phone: [facility] 06-04-1997 diphtheria, tetanus toxoids and acellular pertussis vaccine, unspecified formulation Jorge Camara LINE LEAD Work Phone: [facility] 06-04-1997 haemophilus influenz ae type b vaccine, conjugate unspecified formulation Jorge Camara LINE LEAD Work Phone: [facility] 06-04-1997 measles, mumps and rubella virus vaccine Jorge Camara LINE LEAD Work Phone: [facility] 1996 DTP-Haemophilus influenzae type b conjugate vaccine Jorge Camara LINE LEAD Work Phone: [facility] 1996 hepatitis B vaccine, pediatric or pediatric/adolescent dosage Jorge Camara LINE LEAD Work Phone: [facility] 1996 trivalent poliovirus vaccine, live, oral Jorge Camara LINE LEAD Work Phone: [facility] 1996 DTP-Haemophilus influenzae type b conjugate vaccine Jorge Dooleyman LINE LEAD Work Phone: [facility] 1996 trivalent poliovirus vaccine, live, oral Jorge Camara LINE LEAD Work Phone: [facility] 1996 DTP-Haemophilus influenzae type b conjugate vaccine Jorge Camara LINE LEAD Work Phone: [facility] 1996 hepatitis B vaccine, pediatric or pediatric/adolescent dosage Jorge Camara LINE LEAD Work Phone: [facility] 1996 trivalent poliovirus vaccine, live, oral Jorge Dooleyman LINE LEAD Work Phone: [facility] 1996 hepatitis B vaccine, pediatric or pediatric/adolescent dosage Jorge Camara LINE LEAD Work Phone: [facility] Payers Date Payer Category Payer Self-pay 2022 Medicaid [id number] 2019 Unknown [id number] 2019 Medicaid [id number] 1996 Unknown [id number] 2.16.84 [id number] 1996 Unknown [id number] 2.16.8 [id number] 1996 Unknown [id number] 2.16.84 [id number] 1996 Unknown [id number] 2.16.84 0.1.631351.3.579.2.1258 1996 Unknown [id number] 2.16.84 0.1.035946.3.579.2.1258 1996 Unknown [id number] 2.16.84 0.1.590591.3.579.2.1258 1996 Unknown [id number] 2.16.84 0.1.711304.3.579.2.1258 1996 Unknown [id number] 2.16.84 0.1.058152.3.579.2.1258 1996 Unknown [id number] 2.16.84 0.1.121587.3.579.2.1258 1996 Unknown [id number] 2.16.84 0.1.975575.3.579.2.1258 1996 Unknown [id number] 2.16.84 0.1.398572.3.579.2.1258 1996 Unknown [id number] 2.16.84 0.1.501463.3.579.2.1258 1996 Unknown [id number] 2.16.84 0.1.775580.3.579.2.1258 1996 Unknown [id number] 2.16.84 0.1.286165.3.579.2.1258 1996 Unknown [id number] 2.16.840 .[id number] Social History Date Type Detail Facility Start: 06-26-2023 End: 12-25-2023 Tobacco smoking status MSIS Ex-smoker [facility] History of tobacco use Current smoker [facility] History of tobacco use Cigarette Smoker N [facility] Start: 06-26-2023 End: 12-25-2023 Tobacco use and exposure Smokeless tobacco non-user [facility] Start: 06-26-2023 End: 02-14-2024 Alcohol intake Current drinker of alcohol (finding) [facility] Start: 06-26-2023 End: 12-25-2023 Alcohol intake [facility] Start: 06-26-2023 End: 12-25-2023 Humiliation, Afraid, Rape, and Kick questionnaire [HARK] [...] Start: 04-04-2023 Sexual orientation Heterosexual (fin ding) [facility] Start: 09-08-2023 [facility] Goals Date Patient Goal Desired Activity /State Personal health goal History of Present illness Narrative 02-14-2024 KIRTI Beltrán - 02/14/2024 10:30 AM EDT Note Date & Type Note Facility 02-14-2024 History of Presen t illness Narrative Reason for Appointment: Patient ID: Jaja Lisa is a 29 y.o. female who presents for Routine Visit Patient presents today for Return OB appointment. MEDICATIONS Current Outpatient Medications Medication Instructions metoclopramide (REGLAN) 10 mg, Oral, 3 times daily PRN omeprazole (PRILOSEC) 20 mg, Oral, Daily before breakfast, Do not crush or chew. MV-Min-Fe Fum-FA-DHA ( 1 PO) Oral ALLERGIES Allergies Allergen Reactions Norelgestromin-Eth Estradiol Other Reaction(s): GI upset PROBLEMS Active Ambulatory Problems Diagnosis Date Noted Anxiety 06/23/2023 Gastroesophageal reflux disease 06/23/2023 Goiter (CMS/HCC) 06/23/2023 Other headache syndrome 06/23/2023 Overweight 06/23/2023 Kidney infection 07/11/2023 Fatty liver 01/01/2024 Hepatic steatosis during 01/01/2024 Resolved Ambulatory Problems Diagnosis Date Noted Frontal sinusitis 06/23/2023 Past Medical History: Diagnosis Date Disease of gallbladder GERD (gastroesophageal reflux disease) Headache Irregular menses Menorrhagia Other chronic pain Urinary tract infection HISTORY PAST MEDICAL HISTORY SOCIAL HISTORY Past Medical History: Diagnosis Date Anxiety Disease of gallbladder GERD (gastroesophageal reflux disease) Headache Irregular menses Menorrhagia Other chronic pain Urinary tract infection Social History Tobacco Use Smoking status: Former Current packs/day: 0.00 Types: Cigarettes Smokeless tobacco: Never Vaping Use Vaping status: Some Days Substances: Nicotine Devices: Disposable Substance Use Topics Alcohol use: Yes Alcohol/week: 6.0 standard drinks of alcohol Types: 3 Cans of beer, 3 Shots of liquor per week Drug use: Never FAMILY HISTORY No family history on file. SURGICAL HISTORY Past Surgical History: Procedure Laterality Date CHOLECYSTECTOMY 2011 REVIEW OF SYSTEMS Review of Systems: Review of Systems Constitutional: Negative. HENT: Negative. Eyes: Negative. Respiratory: Negative. Cardiovascular: Negative. Gastrointestinal: Negative. Genitourinary: Negative. Musculoskeletal: Negative. Skin: Negative. Neurological: Negative. All other systems reviewed and are negative. Hematological: Negative. Endocrine: Negative. Allergic/Immunologic: Negative. OBJECTIVE Objective: Physical Exam Constitutional: Appearance: Normal appearance. She is normal weight. HENT: Head: Normocephalic. Cardiovascular: Rate and Rhythm: Normal rate. Pulses: Normal pulses. Pulmonary: Effort: Pulmonary effort is normal. Breath sounds: Normal breath sounds. Abdominal: Palpations: Abdomen is soft. Musculoskeletal: General: Normal range of motion. Neurological: General: No focal deficit present. Mental Status: She is alert and oriented to person, place, and time. Psychiatric: Mood and Affect: Mood normal. Behavior: Behavior normal. Thought Content: Thought content normal. Judgment: Judgment normal. Vitals and nursing note reviewed. Vitals: Estimated body mass index is 29.83 kg/m as calculated from the following: Height as of 22: 5' 2.5 . Weight as of this encounter: 165 lb 12 oz. BP: 106/76 Patient's last menstrual period was 08/25/2023. ASSESSMENT & PLAN ICD-10-CM 1. 24 weeks gestation of Z3A.24 POCT urinalysis dipstick manually resulted 2. Second trimester Z34.92 POCT urinalysis dipstick manually resulted 3. Diabetes mellitus screening Z13.1 CBC Glucose tolerance, 1 hour 4. Encounter for follow-up ultrasound of anatomy Z36.2 US OB INCOMPLETE ANATOMY 5. Gastroesophageal reflux in O99.619 omeprazole (PriLOSEC) [address] capsule K21.9 Return OB: Patient presents today for a routine obstetrics appointment. Patient is currently 24w5d . Patient states she is doing well but has complaints of being tired due to current . Patient has verbalizes frequent movement. Orders Placed This Encounter Procedures US OB INCOMPLETE ANATOMY CBC Glucose tolerance, 1 hour POCT urinalysis dipstick manually resulted Follow Up: Patient is to return to office in 4 week for routine OB appointment. Documented by KIRTI Beltrán on behalf of: KIRTI Beltrán documented in this encounter [facility] Telephone encounter Note 06-26-2023 Telephone Encounter - [...] U/L 86 High documented in this encounter [facility] History of Present illness Narrative 06-26-2023 Jorge Camara NP - 06/26/2023 8:30 AM EST Note Date & Type Note Facility 06-26-2023 History of Presen t illness Narrative Images from the original note were not included. Jaja Lisa is a 28 y.o. female presents [...] Visit Report Report COMPREHENSIVE METABOLIC PANEL Order: [id number] Component Ref Range & Units 5 d [...] CT abdomen pelvis w IV contrast Order: [id number] Narrative CT ABDOMEN AND PELVIS HISTORY: Abdominal [...] esophagitis Esophageal reflux documented in this encounter [facility] Evaluation note Note Date & Type Note Facility Evaluation note Diagnosis Elevated liver function tests- Primary Other abnormal blood chemistry Pyelonephritis Unspecified pyelonephritis documented in this encounter [facility] Evaluation note Note Date & Type Note Facility Evaluation note Diagnosis 24 weeks gestation of Second trimester state, incidental Diabetes mellitus screening Screening for diabetes mellitus Encounter for follow-up ultrasound of anatomy Gastroesophageal reflux in documented in this encounter [facility] Summary Purpose Family History No Family History Records FoundNo Family History Records FoundNo Family History Records FoundNo Family History Records Found Advance Directives No Advanced Directives Records FoundNo Advanced Directives Records FoundNo Advanced Directives Records FoundNo Advanced Directives Records Found Additional Source Comments INFORMATION SOURCE (unrecogn ized section and content) DATE CREATED AUTHOR 12/13/2019 [facility] DATE CREATED AUTHOR AUTHOR'S ORGANIZ ATION 04/21/2023 [facility] DATE CREATED AUTHOR AUTHOR'S ORGANIZ ATION 06/26/2023 [facility] DATE CREATED AUTHOR AUTHOR'S ORGANIZ ATION 02/19/2024 [facility] EPIC Reason for Visit (unrecogniz ed section and content) Reason Comments ER Follow-up Abd pain,diarrhea. L eft side pain comes and goes started this morning, nausea better, continued diarrhea. Reason Onset Date Comments Results 06/26/2023 Reason Comments Routine Visit Care Teams (unrecognized sec tion and content) Cleaning Maid Relationship Specialty Start Date End Date Pastora Barron MD [address] [place] [address] PCP - General Family Medicine 09/20/22 Cleaning Maid Relationship Specialty Start Date End Date Pastora Barron MD [address] [facility] [place] [address] PCP - General Family Medicine 09/20/22 Cleaning Maid Relationship Specialty Start Date End Date Pastora Barron MD [address] [facility] [place] [address] PCP - General Family Medicine 09/20/22 Cleaning Maid Relationship Specialty Start Date End Date NamangonzalesPastora MD [address] [place] [address] PCP - General Family Medicine 09/20/22 FOR [...] BE BASED ON THE PRIMARY CLINICAL RECORDS. [employer] provides no warranty or guarantee of the accuracy or completeness of information in this document.
[2024-02-26 14:30] LABS: Glucose 1 Hour 126 mg/dL (<130)
[2024-02-26 14:32] LABS: Basophils Percent Auto 0.1 % (0.2-2.0); Eosinophils Percent Auto 0.3 % (0.9-7.0); Hematocrit 35.4 % (36.0-48.0); Hemoglobin 11.8 g/dL (12.0-16.0); Immature Granulocytes Abs Auto 0.03 10^3/uL (0.00-0.03); Immature Granulocytes Pct Auto 0.3 % (0.0-0.5); Lymphocytes Percent Auto 18.7 % (20.5-60.0); Mean Corpuscular HGB Conc 33.3 g/dL (29.9-35.2); Mean Corpuscular Hemoglobin 30.1 pg (26.7-34.0); Mean Corpuscular Volume 90.3 fL (81.0-99.0); Mean Platelet Volume 11.7 fL (9.5-13.5); Monocytes Absolute Auto 0.4 10^3/uL (0.3-0.8); Monocytes Percent Auto 3.5 % (1.7-12.0); Neutrophils Absolute Auto 8.1 10^3/uL (1.4-6.5); Neutrophils Percent Auto 77.1 % (43.0-75.0); Platelet Count 244 10^3/uL (150-450); Red Blood Count 3.92 10^6/uL (4.20-5.40); White Blood Count 10.4 10^3/uL (4.0-11.0)
== END 2024-02-26 13:04 | disposition home or self-care (01) ==
LOC: LAB 13:03
PROVIDERS: PCP Family Medicine; Visit Provider Physician Assistant
DX: Z13.1 Encounter for screening for diabetes mellitus (principal)
CPT/HCPCS: 36415; 82950; 85025

== ENCOUNTER 2024-02-27 12:59 | Observation (INO) | payer MEDICAID, SELFPAY ==
--- OUTSIDE RECORDS SUMMARY | 2024-02-27 13:19 | XMS_ITS | CCD ---
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 Role Phone PASTORA BARRON Admitting [...] Ethinyl Estradiol / norelgestromin Drug Allergy 4 [facility] Medications Current Medications Medication Drug [...] UA Positive Negative - 4(70) +++ mg/dL [facility] Comment on above: small Blood, UA Negative Negative - 50 Robson/mcL [facility] Clarity, [facility]A Clear [facility], [facility] Yellow [facility] Glucose, UA Negative Negative - 2000(110) ++++ mg/dL [facility] Interpretation and review of laboratory results Abnormal [facility] Ketones, UA Positive Negative - 160(16) ++++ mg/dL [facility] Comment on above: 15 Leukocytes, UA Negative Negative - 500+++ Jesus Manuel/mcL [facility] Nitrite, UA Negative Negative - Positive [facility] pH, UA 6.0 5 - 9 [facility] e Protein, UA Negative Negative - 2000(20) ++++ mg/dL [facility] Spec Grav, UA 1.030 1 - 1.03 [facility] Urobilinogen, UA 0.2 0.2 - 12 mg/dL [facility] US RENAL COMPLETEon 12-27-19 [...] report is generated using voice recognition reporting ([employer]). On occasion [employer] erroneously drops words from the report or replaces the spoken word with similar sounding words. Please call with any questions/concerns regarding this report.* Dictated and transcribed 12/29/2023/ This report has been electronically signed and approved by the interpreting radiologist. Electronically Signed Kevin Garland M.D. 2023-12-29 16:01:12 Normal Not Available CBC AND AUTO DIFFon 06-21-19 24 ABSOLUTE BASOPHIL 0.0 X10E9/L Normal 0.0-0.2 [facility] Comment on above: Performed By: #### Michelle SANCHEZ [facility], 48784-5 #### [facility] ([id number]) [address] [place] [address] 47870 ABSOLUTE NEUTROPHIL 5.2 X10E9/L Normal 1.5-6.6 [facility] Comment on above: Performed By: #### Michelle SANCHEZ [facility], 42160-4 #### [facility] ([id number]) [address] [place] [address] 54931 Basophils/100 WBC (Bld) 0.5 % Normal [facility] Comment on above: Performed By: #### Michelle SANCHEZ [facility], 08738-7 #### [facility] ([id number]) [address] [place] [address] 56150 Eosinophils (Bld) [#/Vol] 0.0 10*3/uL Normal 0.0-0.4 [facility] Comment on above: Performed By: #### Michelle SANCHEZ [facility], 32025-6 #### [facility] ([id number]) [address] [place] [address] 68891 Eosinophils/100 WBC (Bld) 0.4 % Normal [facility] Comment on above: Performed By: #### Michelle SANCHEZ [facility], 42092-3 #### [facility] ([id number]) [address] [place] [address] 11989 Erythrocyte distribution width (RBC) [Ratio] 12.7 % Normal 11.5-15.0 [facility] Comment on above: Performed By: #### C SONDRA SANCHEZ, #### [facility] ([id number]) [address] [place] [address] 40442 Hematocrit (Bld) [Volume fraction] 41.4 % Normal 35-47 [facility] Comment on above: Performed By: #### Michelle SANCHEZ CMP, #### [facility] ([id number]) [address] [place] [address] 14995 Hemoglobin (Bld) [Mass/Vol] 14.2 g/dL Normal 11.7-15.5 [facility] Comment on above: Performed By: #### Michelle SANCHEZ CMP, #### [facility] ([id number]) [address] [place] [address] 99309 Lymphocytes (Bld) [#/Vol] 1.3 10*3/uL Normal 1.0-3.5 [facility] Comment on above: Performed By: #### Michelle SANCHEZ [facility], #### [facility] ([id number]) [address] [place] [address] 66150 Lymphocytes/100 WBC (Bld) 18.4 % Normal [facility] Comment on above: Performed By: #### Michelle SANCHEZ CMP, #### [facility] ([id number]) [address] [place] [address] 93385 MCH (RBC) [Entitic mass] 30.3 pg Normal 27-34 [facility] Comment on above: Performed By: #### Michelle SANCHEZ CMP, #### [facility] ([id number]) [address] [place] [address] 31779 MCHC (RBC) [Mass/Vol] 34.3 g/dL Normal 32-36 [facility] Comment on above: Performed By: #### Michelle SANCHEZ CMP, #### [facility] ([id number]) [address] [place] [address] 75124 MCV (RBC) [Entitic vol] 88 fL Normal 80-100 [facility] Comment on above: Performed By: #### Michelle SANCHEZ CMP, 97717-4 #### [facility] ([id number]) [address] [place] [address] 97961 Monocytes (Bld) [#/Vol] 0.6 10*3/uL Normal 0-0.9 [facility] Comment on above: Performed By: #### Michelle SANCHEZ CMP, 62770-0 #### [facility] ([id number]) [address] [place] [address] 00528 Monocytes/100 WBC (Bld) 8.8 % Normal [facility] Comment on above: Performed By: #### Michelle SANCHEZ CMP, 74514-4 #### [facility] ([id number]) [address] [place] [address] 47753 Neutrophils/100 WBC (Bld) 71.9 % Normal [facility] Comment on above: Performed By: #### Michelle SANCHEZ, [facility], 20534-2 #### [facility] ([id number]) [address] [place] [address] 08455 Platelet mean volume (Bld) [Entitic vol] 8.9 fL Normal 7-12 [facility] Comment on above: Performed By: #### Michelle SANCHEZ, CMP, 89161-1 #### [facility] ([id number]) [address] [place] [address] 19003 Platelets (Bld) [#/Vol] 267 10*3/uL Normal 150-450 [facility] Comment on above: Performed By: #### Michelle SANCHEZ, CMP, #### [facility] ([id number]) [address] [place] [address] 51714 RBC COUNT 4.68 X10E12/L Normal 3.80-5.20 [facility] Comment on above: Performed By: #### C DANIEL CMP, 49323-1 #### [facility] ([id number]) [address] [place] [address] 64615 WBC (Bld) [#/Vol] 7.2 10*3/uL Normal 4.0-11.0 [facility] Comment on above: Performed By: #### C DANIEL, CMP, 86718-9 #### [facility] ([id number]) [address] [place] [address] 37235 COMPREHENSIVE METABOLIC PANE Chucky 06-21-2023 Albumin [Mass/Vol] 4.2 g/dL Normal 3.2-5.3 [facility] Comment on above: Performed By: #### C DANIEL, CMP, 92437-1 #### [facility] ([id number]) [address] [place] [address] 46662 ALP [Catalytic activity/Vol] 76 U/L Normal 39-130 [facility] Comment on above: Performed By: #### C DANIEL CMP, 90020-4 #### [facility] ([id number]) [address] [place] [address] 90722 ALT [Catalytic activity/Vol] 114 U/L High 0-31 [facility] Comment on above: Performed By: #### C DANIEL CMP, 74480-6 #### [facility] ([id number]) [address] [place] [address] 61021 Anion gap [Moles/Vol] 11 mmol/L Normal 5-15 [facility] Comment on above: Performed By: #### C DANIEL CMP, 53453-7 #### [facility] ([id number]) [address] [place] [address] 57521 AST [Catalytic activity/Vol] 83 U/L High 0-41 [facility] Comment on above: Performed By: #### C DANIEL [facility], 37744-6 #### [facility] ([id number]) [address] [place] [address] 78400 Bilirubin [Mass/Vol] 1.1 mg/dL Normal 0.3-1.2 [facility] Comment on above: Performed By: #### C DANIEL [facility], #### [facility] ([id number]) [address] [place] [address] 49365 Calcium [Mass/Vol] 8.9 mg/dL Normal 8.5-10.5 [facility] Comment on above: Performed By: #### C DANIEL [facility], #### [facility] ([id number]) [address] [place] [address] 43941 Chloride [Moles/Vol] 98 mmol/L Normal 98-109 [facility] Comment on above: Performed By: #### C DANIEL [facility], 99677-1 #### [facility] ([id number]) [address] [place] [address] 50125 CO2 [Moles/Vol] 23 mmol/L Normal 22-32 [facility] Comment on above: Performed By: #### C DANIEL [facility], 69839-7 #### [facility] ([id number]) [address] [place] [address] 33593 Creatinine [Mass/Vol] 0.77 mg/dL Normal 0.40-1.00 [facility] Comment on above: Result Comment: METH OD TRACEABLE TO IDMS STANDARD Performed By: #### C DANIEL [facility], 52003-5 #### [facility] ([id number]) [address] [place] [address] 88072 eGFR (CKD-EPI) NON-RACE DEPENDENT >90 Normal >59 [facility] Comment on above: Result Comment: Reported eGFR is based on the CKD-EPI 2020 equation that does not use a race coefficient. Performed By: #### C DANIEL [facility], 99385-0 #### [facility] ([id number]) [address] [place] [address] 99285 Glucose [Mass/Vol] 116 mg/dL High 65-99 [facility] Comment on above: Performed By: #### C DANIEL, [facility], 15984-9 #### [facility] ([id number]) [address] [place] [address] 46520 Potassium [Moles/Vol] 3.1 mmol/L Low 3.5-5.0 [facility] Comment on above: Performed By: #### C DANIEL, [facility], 71716-5 #### [facility] ([id number]) [address] [place] [address] 25713 Protein [Mass/Vol] 8.1 g/dL High 6.0-8.0 [facility] Comment on above: Performed By: #### C DANIEL, [facility], 76910-6 #### [facility] ([id number]) [address] [place] [address] 26684 Sodium [Moles/Vol] 132 mmol/L Low 134-146 [facility] Comment on above: Performed By: #### C DANIEL, [facility], 29315-6 #### [facility] ([id number]) [address] [place] [address] 26972 Urea nitrogen [Mass/Vol] 10 mg/dL Normal 5-23 [facility] Comment on above: Performed By: #### C BCA, [facility], 98719-4 #### [facility] ([id number]) [address] [place] [address] ABDOMEN AND PELVIS W CONT on [...] Bill Albrecht on 06/21/2023 3:57 PM Normal [facility] HCG ( test) Ql (U)o n 06-21-2023 Beta HCG ( test) Ql (U) Negative Normal NEG [facility] Comment on above: Performed By: #### 2 106-3 #### [facility] ([id number]) [address] [place] [address] MAGNESIUMon 06-21-2023 Magnesium [Mass/Vol] 2.1 mg/dL Normal 1.8-2.6 [facility] Comment on above: Performed By: #### C BCA, CMP, 25225-5 #### [facility] ([id number]) [address] [place] [address] SARS/FLU A+B/RSV by NAAT/Mol ecularon 06-21-2023 SARS/FLU [...] operators who are performing tests using either Zm[employer] DX or Guvera systems and is limited to laboratories that [...] repeat. Fact Sheet for Healthcare Providers: https://www.fda.gov/m edia/377885/download Fact Sheet for Patients: https://www.fda.gov/m edia/618923/download [facility] Comment on above: Performed By: #### C OVFLR #### [facility] ([id number]) [address] [place] [address] 00957 URINE CULTUREon 06-21-2023 Bacteria identified Cx Nom [...] F TRIMETH/SULFAMETHOXAZ OLE S <=1/19 F Susceptible [facility] Comment on above: Performed By: #### 6 30-4 #### [facility] ([id number]) [address] [place] [address], [address] [place] [address] URN MACROSCOPIC NURon 2023 BILIRUBIN ALMA Negative Normal [facility] Comment on above: Performed By: #### N UM #### [facility] ([id number]) [address] [place] [address] 80696 BLOOD/HGB ALMA Trace Abnormal NEG [facility] Comment on above: Performed By: #### N UM #### [facility] ([id number]) [address] [place] [address] 00170 GLUCOSE ALMA Negative Normal [facility] Comment on above: Performed By: #### N UM #### [facility] ([id number]) [address] [place] [address] 95220 KETONES ALMA Trace Abnormal [facility] Comment on above: Performed By: #### N UM #### [facility] ([id number]) [address] [place] [address] 58574 LEUKOCYTE ESTERASE ALMA Negative Normal NEG [facility] Comment on above: Performed By: #### N UM #### [facility] ([id number]) [address] [place] [address] 70655 NITRITE ALMA Positive Abnormal NEG [facility] Comment on above: Performed By: #### N UM #### [facility] ([id number]) [address] [place] [address] 96335 PH ALMA 6.0 Normal 5.0-8.5 [facility] Comment on above: Performed By: #### N UM #### [facility] ([id number]) [address] [place] [address] 71500 PROTEIN ALMA Trace Abnormal NEG [facility] Comment on above: Performed By: #### N UM #### [facility] ([id number]) [address] [place] [address] 46418 SPECIFIC GRAVITY ALMA >=1.030 Normal 1.003-1.035 [facility] Comment on above: Performed By: #### N UM #### [facility] ([id number]) [address] [place] [address] 31522 UROBILINOGEN ALMA 0.2 eu/dL Normal <1.1 [facility] Comment on above: Performed By: #### N UM #### [facility] ([id number]) [address] [place] [address] 52601 COVID-19 PCRon 11-15-2019 SARS-CoV-2, RENETTA Not Detected Normal Not Detected [facility] Comment on above: Result Comment: This test was developed and its performance characteristics determined by [employer]. This test has not been FDA cleared [...] VDPCR #### [facility] [address] [place] [address] Raymond Deleon Vital Signs Date Time Vital Sign Value Performing Clinician James segura 02-14-2024 10:27-0400 Body mass index (BMI) [Ratio] 29.83 kg/m2 Mikayla COTTO Work Phone: [facility] 02-14-2024 10:27-0400 Body weight 75.18 kg Mikayla COTTO Work Phone: [facility] 02-14-2024 10:27-0400 Diastolic blood pressure 76 mm[Hg] Mikayla COTTO Work Phone: [facility] 02-14-2024 10:27-0400 Systolic blood pressure 106 mm[Hg] Mikayla COTTO Work Phone: [facility] 06-26-2023 08:39-0500 Body mass index (BMI) [Ratio] 30.81 kg/m2 Jorge Camara NP Work Phone: [facility] 06-26-2023 08:39-0500 Body weight 77.66 kg Jorge Camara NP Work Phone: [facility] 06-26-2023 08:39-0500 Diastolic blood pressure 80 mm[Hg] Jorge Camara NP Work Phone: [facility] 06-26-2023 08:39-0500 Heart rate 72 /min Jorge Camara NP Work Phone: [facility] 06-26-2023 08:39-0500 Systolic blood pressure 102 mm[Hg] Jorge Camara NP Work Phone: [facility] Encounters Encounter Date Encounter Type Care Provider Facility Start: 02-14-2024 End: 02-14-2024 Bamboo flowsheet Mikayla COTTO Work Phone: [facility] Start: 02-14-2024 End: 02-14-2024 Bamboo flowsheet Mikayla COTTO Work Phone: [facility] Start: 02-14-2024 End: 02-14-2024 Office outpatient visit 15 minutes Mikayla COTTO Work Phone: [facility] Comment on above: 24 [...] Available Start: 06-26-2023 Telephone encounter Jorge Camara DROP MAN Work Phone: [facility] Comment on above: Results Start: 06-26-2023 End: 06-26-2023 ambulatory JORGE CAMARA Not Available Start: 06-26-2023 End: 06-26-2023 Office outpatient visit 25 minutes Jorge Camara [employer] Work Phone: [facility] Comment on above: Pyelonephritis (Prim nicko Dx); Elevated liver function tests; Hypokalemia; Diarrhea, unspecified type; Nausea; Left lower quadrant abdominal tenderness with rebound tenderness; Gastroesophageal reflux disease without esophagitis Start: 06-21-2023 End: 06-22-2023 Emergency department patient visit FLORA GUZMÁN [facility] Start: 06-21-2023 End: 06-21-2023 Emergency department patient visit PASTORA BARRON [facility] Start: 04-17-2023 End: 04-17-2023 ambulatory FAMILIA HOWARD Not Available Start: 12-28-2022 ambulatory Conrado Banks acility:[facility] Start: 11-14-2019 End: 11-15-2019 Patient encounter [...] [place] [address] Mikayla Dillard PA [address] [place] [address] [facility] Start: 02-19-2024 End: 02-19-2024 Professional / ancillary services management 02/19/2024 8:00 AM EDT Ancillary Procedure [facility] [address] [place] [address] [facility] Start: 02-14-2024 End: 02-13-2025 CBC panel - Blood by Automated count CBC Lab Routine Diabetes mellitus screening Expected: 02/14/2024 (Approximate), Expires: 02/13/2025 [facility] Work Phone: Comment on above: Expected: 02/14/2024 (Approximate), Expires: 02/13/2025 Start: 02-14-2024 End: 02-13-2025 Measurement of glucose 1 hour after glucose challenge for glucose tolerance test Glucose tolerance, 1 hour Lab Routine Diabetes mellitus screening Expected: 02/14/2024 (Approximate), Expires: 02/13/2025 [facility] Comment on above: Expected: 02/14/2024 (Approximate), Expires: 02/13/2025 Start: 02-14-2024 End: 02-13-2025 US for US OB INCOMPLETE ANATOMY Imaging Routine Encounter for follow-up ultrasound of anatomy Expected: 02/14/2024 (Approximate), Expires: 02/13/2025 [facility] Comment on above: Expected: 02/14/2024 (Approximate), Expires: 02/13/2025 Start: 02-14-2024 End: 02-14-2024 Patient encounter procedure 02/14/2024 10:30 AM EDT Routine [facility] [address] [place] [address] Mikayla Dillard PA [address] [place], [place] [id number] Arrived [facility] Comment on above: Arrived Start: 01-14-2024 Influenza vaccination Influenza Vacc ine (#1) [facility] Start: 11-12-2023 Influenza vaccination Influenza Vacc ine (#1) [facility] Comment on above: Postponed from 01/13 (Patient Refused) Start: 07-25-2023 End: 06-26-2024 Hepatic function 2000 panel - Serum or Plasma Hepatic function panel Lab Routine Elevated liver function tests Pyelonephritis Expected: 07/25/2023 (Approximate), Expires: 06/26/2024 [facility] Work Phone: Comment on above: Expected: 07/25/2023 (Approximate), Expires: 06/26/2024 Start: 07-13-2023 End: 07-13-2023 Patient encounter procedure 07/13/2023 2:00 PM EST Office Visit [facility] [address] [place] [address] Jorge Camara NP [address] [place] [address] [facility] Start: 06-26-2023 End: 06-26-2024 Comprehensive metabolic 2000 panel - Serum or Plasma Comprehensive metabolic panel Lab Routine Elevated liver function tests Pyelonephritis Hypokalemia Diarrhea, unspecified type Expected: 06/26/2023 (Approximate), Expires: 06/26/2024 [facility] Work Phone: Comment on above: Expected: 06/26/2023 (Approximate), Expires: 06/26/2024 Immunizations Immunization Date Immunization Notes Care Provider Fa cili 03-11-2016 influenza, injectabl e, quadrivalent, preservative free Jorge Camara [employer] Work Phone: [facility] 03-11-2016 influenza virus vacc ine, unspecified formulation Jorge Camara [employer] Work Phone: [facility] 02-04-2015 tetanus toxoid, redu yenny diphtheria toxoid, and acellular pertussis vaccine, adsorbed Jorge Camara [employer] Work Phone: [facility] 12-17-2001 diphtheria, tetanus toxoids and acellular pertussis vaccine, unspecified formulation Jorge Camara [employer] Work Phone: [facility] 12-17-2001 measles, mumps and rubella virus vaccine Jorge Magdy [employer] Work Phone: [facility] 12-17-2001 poliovirus vaccine, inactivated Jorge Camara [employer] Work Phone: [facility] 06-04-1997 diphtheria, tetanus toxoids and acellular pertussis vaccine, unspecified formulation Jorge Camara [employer] Work Phone: [facility] 06-04-1997 haemophilus influenz ae type b vaccine, conjugate unspecified formulation Jorge Camara [employer] Work Phone: [facility] 06-04-1997 measles, mumps and rubella virus vaccine Jorge Camara [employer] Work Phone: [facility] 1996 DTP-Haemophilus influenzae type b conjugate vaccine Jorge Camara [employer] Work Phone: [facility] 1996 hepatitis B vaccine, pediatric or pediatric/adolescent dosage Jorge Camara [employer] Work Phone: [facility] 1996 trivalent poliovirus vaccine, live, oral Jorge Camara [employer] Work Phone: [facility] 1996 DTP-Haemophilus influenzae type b conjugate vaccine Jorge Dooleyman [employer] Work Phone: [facility] 1996 trivalent poliovirus vaccine, live, oral Jorge Camara [employer] Work Phone: [facility] 1996 DTP-Haemophilus influenzae type b conjugate vaccine Jorge Camara [employer] Work Phone: [facility] 1996 hepatitis B vaccine, pediatric or pediatric/adolescent dosage Jorge Camara [employer] Work Phone: [facility] 1996 trivalent poliovirus vaccine, live, oral Jorge Dooleyman [employer] Work Phone: [facility] 1996 hepatitis B vaccine, pediatric or pediatric/adolescent dosage Jorge Camara [employer] Work Phone: [facility] Payers Date Payer Category Payer Self-pay 2022 Medicaid [id number] 2019 Unknown [id number] 2019 Medicaid [id number] 1996 Unknown [id number] 2.16.84 [id number] 1996 Unknown [id number] 2.16.8 40.1.284937.3.579.2.1286 1996 Unknown [id number] 2.16.84 0.1.069819.3.579.2.1258 1996 Unknown [id number] 2.16.84 0.1.502621.3.579.2.1258 1996 Unknown [id number] 2.16.84 0.1.524831.3.579.2.1258 1996 Unknown [id number] 2.16.84 0.1.910107.3.579.2.1258 1996 Unknown [id number] 2.16.84 0.1.830720.3.579.2.1258 1996 Unknown [id number] 2.16.84 0.1.198317.3.579.2.1258 1996 Unknown [id number] 2.16.84 0.1.473390.3.579.2.1258 1996 Unknown [id number] 2.16.84 0.1.640454.3.579.2.1258 1996 Unknown [id number] 2.16.84 0.1.022272.3.579.2.1258 1996 Unknown [id number] 2.16.84 0.1.078149.3.579.2.1258 1996 Unknown [id number] 2.16.84 0.1.273630.3.579.2.1258 1996 Unknown [id number] 2.16.84 0.1.806147.3.579.2.1258 1996 Unknown [id number] 2.16.840 .1.799728.3.579.2.1259 Social History Date Type Detail Facility Start: 06-26-2023 End: 12-25-2023 Tobacco smoking status NJIS Ex-smoker [facility] are History of tobacco use Current smoker [facility] History of tobacco use Cigarette Smoker N [facility] Start: 06-26-2023 End: 12-25-2023 Tobacco use and exposure Smokeless tobacco non-user [facility] Start: 06-26-2023 End: 02-14-2024 Alcohol [...] of: KIRTI Beltrán documented in this encounter [facility] Telephone encounter Note 06-26-2023 Telephone Encounter - [...] U/L 86 High documented in this encounter [facility] History of Present illness Narrative [...] Visit Report Report COMPREHENSIVE METABOLIC PANEL Order: [id number] Component Ref Range & Units 5 d [...] CT abdomen pelvis w IV contrast Order: [id number] Narrative CT ABDOMEN AND PELVIS HISTORY: Abdominal [...] esophagitis Esophageal reflux documented in this encounter [facility] Healthcare Evaluation note Note Date & [...] Gastroesophageal reflux in documented in this encounter [facility] Healthcare Summary Purpose Family History No Family History Records FoundNo Family History Records FoundNo Family History Records FoundNo Family History Records Found Advance Directives No Advanced Directives Records FoundNo Advanced Directives Records FoundNo Advanced Directives Records FoundNo Advanced Directives Records Found Additional Source Comments INFORMATION SOURCE (unrecogn ized section and content) DATE CREATED AUTHOR 12/13/2019 [facility] DATE CREATED AUTHOR AUTHOR'S ORGANIZ ATION 04/21/2023 [facility] DATE CREATED AUTHOR AUTHOR'S ORGANIZ ATION 06/26/2023 [facility] DATE CREATED AUTHOR AUTHOR'S ORGANIZ ATION 02/19/2024 [facility] EPIC Reason for Visit (unrecogniz ed section and content) Reason Comments ER Follow-up Abd pain,diarrhea. L eft side pain comes and goes started this morning, nausea better, continued diarrhea. Reason Onset Date Comments Results 06/26/2023 Reason Comments Routine Visit Care Teams (unrecognized sec tion and content) [employer] Relationship Specialty Start Date End Date Pastora Barron MD [address] [place] [address] PCP - General Family Medicine 09/20/22 [employer] Relationship Specialty Start Date End Date Pastora Barron MD [address] [facility] [place] [address] PCP - General Family Medicine 09/20/22 [employer] Operator Relationship Specialty Start Date End Date Pastora Barron MD [address] [facility] [place] [address] PCP - General Family Medicine 09/20/22 [employer]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 [employer] provides no warranty or guarantee of the accuracy or completeness of information in this document.
[2024-02-27 13:24] VITALS: BP 114/57; PULSE 71
[2024-02-27 13:39] LABS: Bilirubin Urine NEGATIVE (NEGATIVE); Blood Urine NEGATIVE (NEGATIVE); Clarity Urine CLEAR (CLEAR); Color Urine YELLOW (YELLOW); Glucose Urine UA NEGATIVE (NEGATIVE); Ketones Urine TRACE mg/dL (NEGATIVE); Leukocyte Esterase Urine TRACE (NEGATIVE); Nitrite Urine NEGATIVE (NEGATIVE); Protein Urine NEGATIVE (NEG/TRACE); Specific Gravity Urine >=1.030 (1.005-1.025); Urobilinogen Urine 0.2 EU/dL (0.2-1.0)
[2024-02-27 13:41] LABS: Urine Microscopic Indicated YES
[2024-02-27 13:50] LABS: Bacteria Urine MODERATE #/HPF (NONE SEEN); Mucus Urine MODERATE (NONE SEEN); Squamous Epithelial Cell Urine MANY #/LPF (NONE/RARE)
[2024-02-27 13:51] LABS: Cast Seen? NONE SEEN #/LPF (NONE SEEN); Crystals Seen? None Seen #/HPF (None Seen); Urine Culture Indicated YES
--- NOTE | 2024-02-27 14:07 | US_ITS ---
[address] [address] Patient Name: SERGIO JONES MRN: [id number] date: 1995 Sex: F Assigned Patient Location: [facility] Current Patient Location: [facility] Accession/Order Number: [id number] Exam Date: 02/27/2024 14:10 Report Date: 02/27/2024 14:56 At the request of: FAMILIA LAWRENCE Procedure: US OB placenta EXAM: US OB placenta, US OB cervical length HISTORY: cramping and spotting COMPARISON: None. TECHNIQUE: Grayscale, color and Doppler FINDINGS: position: Cephalic presentation, longitudinal lie Placenta: Posterior. The placental edge is 3.8 cm from the internal cervical os. Grade 0 Heart rate: 55 beats minute Cervix: 4.6 cm, closed Clinical age: 26 weeks 4 days Clinical ELVIE: 05/31/2024 US/US OB placenta IMPRESSION: The placental edge is 3.8 cm from the internal cervical os Closed cervix measuring 4.6 cm in length Electronically authenticated by: DAJUAN LORENZANA Date: 02/27/2024 14:56
--- NOTE | 2024-02-27 14:07 | US_ITS ---
[address] [address] Patient Name: SERGIO JONES MRN: [id number] date: 1995 Sex: F Assigned Patient Location: [facility] Current Patient Location: [facility] Accession/Order Number: [id number] Exam Date: 02/27/2024 14:10 Report Date: 02/27/2024 14:56 At the request of: FAMILIA LAWRENCE Procedure: US OB cervical length EXAM: US OB placenta, US OB cervical length HISTORY: cramping and spotting COMPARISON: None. TECHNIQUE: Grayscale, color and Doppler FINDINGS: position: Cephalic presentation, longitudinal lie Placenta: Posterior. The placental edge is 3.8 cm from the internal cervical os. Grade 0 Heart rate: 55 beats minute Cervix: 4.6 cm, closed Clinical age: 26 weeks 4 days Clinical ELVIE: 05/31/2024 US/US OB cervical length IMPRESSION: The placental edge is 3.8 cm from the internal cervical os Closed cervix measuring 4.6 cm in length Electronically authenticated by: DAJUAN LORENZANA Date: 02/27/2024 14:56
[2024-02-27] MEDS: 0.9 % SODIUM CHLORIDE 1,000 ML 1000 ML IV (14:23)
[2024-02-27] MEDS: CEFAZOLIN SODIUM/DEXTROSE,ISO 2 GM/50 ML PIGGYBACK IV (14:59)
--- NOTE | 2024-02-27 15:50 | PC.NURSE ---
1550 called and notified of US results placenta no abnormalities and cervical length 4.6 and closed. Order for discharge.
== END 2024-02-27 16:06 | disposition home or self-care (01) ==
PROVIDERS: Admitting Provider Obstetrics & Gynecology; PCP Family Medicine; Visit Provider Obstetrics & Gynecology
DX: O26.852 Spotting complicating pregnancy, second trimester (principal); O26.892 Other specified pregnancy related conditions, second trimester; R10.2 Pelvic and perineal pain; Z3A.26 26 weeks gestation of pregnancy
CPT/HCPCS: 76815; 76817; 81001; 87086; 96365; G0378; G0379; J0690

== ENCOUNTER 2024-04-15 13:06 | Observation (INO) | payer MEDICAID, SELFPAY ==
[2024-04-15 13:16] VITALS: BP 128/64; PULSE 78
--- OUTSIDE RECORDS SUMMARY | 2024-04-15 13:25 | XMS_ITS | CCD ---
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 Name Role Phone PASTORA BARRON Admitting Unavailable PASTORA BARRON Attending Unavailable PASTORA BARRON Primary Care Unavailable PASTORA BARRON Consulting Unavailable Conrado Calle Attending Unavailab Conrado [place] Admitting Unavailab PASTORA Walsh Primary Care Unavailable LAWRENCE JOSE Attending Unavailable PAZ GUZMÁN Attending Unavailable PAZ GUZMÁN Referring Unavailable PASTORA BARRON Primary Care Unavailable Pastora Barron MD Primary Care Provider Pastora Barron MD Primary Care Provider JORGE CAMARA Attending Unavailable PAZ JEAN BAPTISTE Attending Unavailable FAMILIA GARNETT Attending Unavailable PASTORA BARRON Attending Unavailable FAMILIA GARNETT Attending Unavailable MIKAYLA DILLARD Attending Unavailable PASTORA BARRON Attending Unavailable JORGE CAMARA Attending Unavailable PASTORA BARRON Referring Unavailable FAMILIA GARNETT Attending Unavailable MIKAYLA DILLARD Attending Unavailable MIKAYLA DILLARD Attending Unavailable FAMILIA GARNETT Attending Unavailable Allergies Allergy Classification Reported Allergen(s) Allergy Type Date of Onset Reaction(s) Facility (14 sources) Ethinyl Estradiol / norelgestromin Drug Allergy 4 [facility] Healthcare Medications Current Medications Medication Drug Class(es) Dates Sig (Normalized) Sig (Original) azithromycin 250 mg oral tablet (3 sources) Macrolide Antimicrobial Start: 03-19-2024 azithromycin (Zithromax Z-To) 250 MG tablet Indications: URI, acute As directed 6 tablet 03/19/2024 Active loratadine 10 mg oral tablet (3 sources) Start: 03-19-2024 End: 03-19-2025 take 1 tablet by mouth once daily loratadine (Claritin) 10 MG tablet Indications: URI, acute Take 1 tablet (10 mg) by mouth Daily 30 tablet 11 03/19/2024 03/19/2025 Active metoclopramide 10 mg oral tablet (11 sources) Dopamine-2 Receptor Antagonist Start: 11-21-2023 metoclopramide (Reglan) 10 MG tablet Indications: Nausea and vomiting in Take 1 tablet (10 mg) by mouth 3 (three) times a day as needed (30 min prior to meals) for up to 10 days 1 tablet 11/21/2023 Active omeprazole 20 mg delayed release oral capsule (10 sources) Proton Pump Inhibitor Start: 02-14-2024 End: [...] 02/14/2024 Discontinued MV-Min-Fe Fum-FA-DHA ( 1 PO) (11 sources) MV-Min- Fe Fum-FA-DHA ( 1 PO) [...] quadrant] Onset: 4 06-26-2023 Episodic Anxiety disorders (14 sources) Anxiety; Translations: [Anxiety disorder, unspecified] Onset: 4 06-23-2023 Chronic Esophageal disorders (16 sources) Gastroesophageal reflux disease without esophagitis; Translations: [...] Onset: 4 06-26-2023 Episodic Other complications of (2 sources) Gastroesophageal reflux disease in ; Translations: [Diseases of the digestive system complicating , unspecified trimester] 02-14-2024 Episodic Other complications of (5 sources) size does not accord with dates; Translations: [Uterine size-date discrepancy, unspecified trimester] Onset: 4 04-01-2024 Episodic Other diseases of kidney and ureters (11 sources) Infectious disorder of kidney; 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, unspecified] Onset: 4 07-11-2023 Chronic Other gastrointestinal disorders (2 sources) Diarrhea; Translations: [Diarrhea, unspecified] 06-26-2023 Episodic Other liver diseases (11 sources) Steatosis of liver; Translations: [Fatty (change of) liver, not elsewhere classified] Onset: 4 01-01-2024 Chronic Other and delivery including normal (9 sources) Second trimester ; Translations: [Encounter for supervision of normal , unspecified, second trimester] Onset: 4 02-14-2024 Episodic Other screening for suspected conditions (not mental disorders or infectious disease) (7 sources) Other specified abnormal findings of blood chemistry; Translations: [Other abnormal blood chemistry] 06-26-2023 Episodic Residual codes; unclassified (2 sources) Gestation period, 24 weeks; Translations: [24 weeks gestation of ] 02-14-2024 Episodic Residual codes; unclassified (2 sources) Gestation period, 28 weeks; Translations: [28 weeks gestation of ] 03-13-2024 Episodic Residual codes; unclassified (5 sources) Gestation period, 31 weeks; Translations: [31 weeks gestation of ] Onset: 4 04-01-2024 Episodic Thyroid disorders (14 sources) Goiter; Translations: [Nontoxic goiter, unspecified] Onset: 4 06-23-2023 Chronic Unclassified (11 sources) OB Reminders Onset: 4 12-29-2023 Urinary tract infections (4 sources) Tubulo-interstitial nephritis, not specified as acute or chronic; Translations: [Pyelonephritis] Onset: 4 06-26-2023 Episodic Past or Other Problems Problem Classification Problem Date Documented Da te Episodic/Chronic Headache; including migraine (14 sources) Headache disorder; Translations: [Other headache syndrome] Onset: 06-23-2023 06-23-2023 Episodic Other complications of (11 sources) Steatosis of liver; Translations: [Liver and biliary tract disorders in , unspecified trimester] Onset: 01-01-2024 01-01-2024 Episodic Other nutritional; endocrine; and metabolic disorders (14 sources) Overweight; Translations: [Overweight] Onset: 06-23-2023 06-23-2023 Episodic Other upper respiratory infections (14 sources) Frontal sinusitis; Translations: [Chronic frontal sinusitis] Onset: 06-23-2023 Resolved: 12-25-2023 06-23-2023 Chronic Results Test Name Value Interpretation Reference Range Facility Urinalysis macro (dipstick) panel (U)on 04-01-2024 Bilirubin, UA Negative Negative - 4(70) +++ mg/dL [facility] Blood, UA Negative Negative - 50 Robson/mcL [facility] Clarity, UA Clear [facility] re Color, UA Paz [facility] Glucose, UA Negative Negative - 1999(110) ++++ mg/dL [facility] Interpretation and review of laboratory results Normal [facility] Ketones, UA Negative Negative - 160(16) ++++ mg/dL [facility] Leukocytes, UA Negative Negative - 500+++ Jesus Manuel/mcL [facility] Nitrite, UA Negative Negative - Positive [facility] pH, UA 6.5 5 - 9 [facility], [facility]A Negative Negative - 1999(20) ++++ mg/dL [facility] Spec Grav, UA 1.025 1 - 1.03 [facility] Urobilinogen, UA 0.2 0.2 - 12 mg/dL [facility] Urinalysis macro (dipstick) panel (U)on 03-13-2024 Bilirubin, UA Negative Negative - 4(70) +++ mg/dL [facility] Blood, UA Negative Negative - 50 Robson/mcL [facility] Clarity, UA Clear [facility] re Color, UA Yellow [facility] Glucose, UA Negative Negative - 1999(110) ++++ mg/dL [facility] Interpretation and review of laboratory results Abnormal [facility] Ketones, UA Negative Negative - 160(16) ++++ mg/dL [facility] Leukocytes, UA Trace Negative - 500+++ Jesus Manuel/mcL [facility] Nitrite, UA Negative Negative - Positive [facility] pH, UA 6.5 5 - 9 [facility] Protein, UA Negative Negative - 1999(20) ++++ mg/dL [facility] Spec Grav, UA 1.03 1 - 1.03 [facility] Urobilinogen, UA 0.2 0.2 - 12 mg/dL [facility] TBH UA (CLEAN/CATCH) LUMBER MOVER/RITA RO IF IND.on 02-27-2024 BILIRUBIN URINE Negative NEGATIVE [facility] BLOOD URINE Negative NEGATIVE [facility] re Clarity (U) CLEAR CLEAR [facility] re Color (U) YELLOW YELLOW [facility] GLUCOSE URINE UA Negative NEGATIVE mg/dL [facility] Interpretation and review of laboratory results Abnormal [facility] Ketones Ql (U) TRACE Abnormal NEGATIVE mg/dL [facility] Leukocyte esterase Test strip Ql (U) TRACE Abnormal NEGATIVE [facility] NITRITE URINE Negative NEGATIVE [facility] care pH (U) 6.0 [pH] 5.0 - 9.0 [facility] PROTEIN URINE Negative NEG/TRACE mg/dL [facility] SPECIFIC GRAVITY URINE >=1.030 Abnormal 1.005 - 1.025 [facility] URINE MICROSCOPIC INDICATED YES [facility] UROBILINOGEN URINE 0.2 EU/dL 0.2 - 1.0 EU/dL [facility] GLUCOSE 1 HOURon 02-26-2024 Glucose [Mass/Vol] 126 mg/dL NINF - 13 0 mg/dL [facility] Urinalysis macro (dipstick) panel (U)on 02-14-2024 Bilirubin, UA Positive Negative - 4(70) +++ mg/dL [facility] Comment on above: small Blood, UA Negative Negative - 50 Robson/mcL [facility] Clarity, UA Clear [facility] [place] re Color, UA Yellow [facility] [employer] Glucose, UA Negative Negative - 1999(110) ++++ mg/dL [facility] Interpretation and review of laboratory results Abnormal [facility] Ketones, UA Positive Negative - 160(16) ++++ mg/dL [facility] Comment on above: 15 Leukocytes, UA Negative Negative - 500+++ Jesus Manuel/mcL [facility] Nitrite, UA Negative Negative - Positive [facility] pH, UA 6.0 5 - 9 [facility] e Protein, UA Negative Negative - 1999(20) ++++ mg/dL [facility] Spec Grav, UA 1.030 1 - 1.03 [facility] Urobilinogen, UA 0.2 0.2 - 12 mg/dL [facility] e US RENAL COMPLETEon 12-27-19 24 [place] [...] report is generated using voice recognition reporting (Benchling). On occasion [employer] erroneously drops words from the report or replaces the spoken word with similar sounding words. Please call with any questions/concerns regarding this report.* Dictated and transcribed 12/29/2023/carine This report has been electronically signed and approved by the interpreting radiologist. Electronically Signed Kevin Garland M.D. 2023-12-29 16:01:12 Normal Not Available Cytology Cervical or vaginal smear or scraping studyon 12-20-2023 [facility] CBC AND AUTO DIFFon 06-21-19 24 ABSOLUTE BASOPHIL 0.0 X10E9/L Normal 0.0-0.2 [facility] Comment on above: Performed By: #### Michelle SANCHEZ [facility], 30655-8 #### [facility] ([id number]) [address] [place] [address] 21846 ABSOLUTE NEUTROPHIL 5.2 X10E9/L Normal 1.5-6.6 [facility] Comment on above: Performed By: #### Michelle SANCHEZ [facility], 44163-8 #### [facility] ([id number]) [address] [place] [address] 65616 Basophils/100 WBC (Bld) 0.5 % Normal [facility] Comment on above: Performed By: #### Michelle SANCHEZ [facility], 59450-8 #### [facility] ([id number]) [address] [place] [address] 36489 Eosinophils (Bld) [#/Vol] 0.0 10*3/uL Normal 0.0-0.4 [facility] Comment on above: Performed By: #### Michelle SANCHEZ [facility], 22428-9 #### [facility] ([id number]) [address] [place] [address] 67221 Eosinophils/100 WBC (Bld) 0.4 % Normal [facility] Comment on above: Performed By: #### Michelle SANCHEZ [facility], 16176-9 #### [facility] ([id number]) [address] [place] [address] 93358 Erythrocyte distribution width (RBC) [Ratio] 12.7 % Normal 11.5-15.0 [facility] Comment on above: Performed By: #### Michelle SANCHEZ CMP, 96164-7 #### [facility] ([id number]) [address] [place] [address] 22082 Hematocrit (Bld) [Volume fraction] 41.4 % Normal 35-47 [facility] Comment on above: Performed By: #### Michelle SANCHEZ CMP, #### [facility] ([id number]) [address] [place] [address] 65483 Hemoglobin (Bld) [Mass/Vol] 14.2 g/dL Normal 11.7-15.5 [facility] Comment on above: Performed By: #### Michelle SANCHEZ CMP, #### [facility] ([id number]) [address] [place] [address] 35658 Lymphocytes (Bld) [#/Vol] 1.3 10*3/uL Normal 1.0-3.5 [facility] Comment on above: Performed By: #### Michelle SANCHEZ [facility], #### [facility] ([id number]) [address] [place] [address] 82718 Lymphocytes/100 WBC (Bld) 18.4 % Normal [facility] Comment on above: Performed By: #### Michelle SANCHEZ CMP, #### [facility] ([id number]) [address] [place] [address] 28043 MCH (RBC) [Entitic mass] 30.3 pg Normal 27-34 [facility] Comment on above: Performed By: #### Michelle SANCHEZ CMP, #### [facility] ([id number]) [address] [place] [address] 96673 MCHC (RBC) [Mass/Vol] 34.3 g/dL Normal 32-36 [facility] Comment on above: Performed By: #### Michelle SANCHEZ CMP, #### [facility] ([id number]) [address] [place] [address] 88587 MCV (RBC) [Entitic vol] 88 fL Normal 80-100 [facility] Comment on above: Performed By: #### C SONDRA SANCHEZ, 62380-9 #### [facility] ([id number]) [address] [place] [address] 71895 Monocytes (Bld) [#/Vol] 0.6 10*3/uL Normal 0-0.9 [facility] Comment on above: Performed By: #### Michelle SANCHEZ [facility], #### [facility] ([id number]) [address] [place] [address] 59751 Monocytes/100 WBC (Bld) 8.8 % Normal [facility] Comment on above: Performed By: #### Michelle SANCHEZ [facility], #### [facility] ([id number]) [address] [place] [address] 61252 Neutrophils/100 WBC (Bld) 71.9 % Normal [facility] Comment on above: Performed By: #### Michelle SANCHEZ [facility], #### [facility] ([id number]) [address] [place] [address] 30787 Platelet mean volume (Bld) [Entitic vol] 8.9 fL Normal 7-12 [facility] Comment on above: Performed By: #### Michelle SANCHEZ [facility], #### [facility] ([id number]) [address] [place] [address] 10302 Platelets (Bld) [#/Vol] 267 10*3/uL Normal 150-450 [facility] Comment on above: Performed By: #### Michelle SANCHEZ CMP, #### [facility] ([id number]) [address] [place] [address] 49089 RBC COUNT 4.68 X10E12/L Normal 3.80-5.20 [facility] Comment on above: Performed By: #### C DANIEL, CMP, 48849-7 #### [facility] ([id number]) [address] [place] [address] 18322 WBC (Bld) [#/Vol] 7.2 10*3/uL Normal 4.0-11.0 [facility] Comment on above: Performed By: #### C DANIEL, CMP, 66229-2 #### [facility] ([id number]) [address] [place] [address] 28423 COMPREHENSIVE METABOLIC PANE Chucky 06-21-2023 Albumin [Mass/Vol] 4.2 g/dL Normal 3.2-5.3 [facility] Comment on above: Performed By: #### C DANIEL, CMP, 32159-3 #### [facility] ([id number]) [address] [place] [address] 14772 ALP [Catalytic activity/Vol] 76 U/L Normal 39-130 [facility] Comment on above: Performed By: #### C DANIEL, CMP, 11192-4 #### [facility] ([id number]) [address] [place] [address] 70673 ALT [Catalytic activity/Vol] 114 U/L High 0-31 [facility] Comment on above: Performed By: #### C DANIEL, CMP, 77600-6 #### [facility] ([id number]) [address] [place] [address] 39954 Anion gap [Moles/Vol] 11 mmol/L Normal 5-15 [facility] Comment on above: Performed By: #### C BCA, CMP, 78011-1 #### [facility] ([id number]) [address] [place] [address] 68944 AST [Catalytic activity/Vol] 83 U/L High 0-41 [facility] Comment on above: Performed By: #### C DANIEL [facility], 97600-5 #### [facility] ([id number]) [address] [place] [address] 21121 Bilirubin [Mass/Vol] 1.1 mg/dL Normal 0.3-1.2 [facility] Comment on above: Performed By: #### C DANIEL [facility], #### [facility] ([id number]) [address] [place] [address] 73369 Calcium [Mass/Vol] 8.9 mg/dL Normal 8.5-10.5 [facility] Comment on above: Performed By: #### C DANIEL [facility], 14279-1 #### [facility] ([id number]) [address] [place] [address] 92563 Chloride [Moles/Vol] 98 mmol/L Normal 98-109 [facility] Comment on above: Performed By: #### Michelle SANCHEZ [facility], 80710-7 #### [facility] ([id number]) [address] [place] [address] 31283 CO2 [Moles/Vol] 23 mmol/L Normal 22-32 [facility] Comment on above: Performed By: #### Michelle SANCHEZ [facility], 38025-6 #### [facility] ([id number]) [address] [place] [address] 84680 Creatinine [Mass/Vol] 0.77 mg/dL Normal 0.40-1.00 [facility] Comment on above: Result Comment: METH OD TRACEABLE TO IDMS STANDARD Performed By: #### C DANIEL [facility], 15269-3 #### [facility] ([id number]) [address] [place] [address] 34149 eGFR (CKD-EPI) NON-RACE DEPENDENT >90 Normal >59 [facility] Comment on above: Result Comment: Reported eGFR is based on the CKD-EPI 2020 equation that does not use a race coefficient. Performed By: #### C BCA, [facility], 65658-9 #### [facility] ([id number]) [address] [place] [address] 72895 Glucose [Mass/Vol] 116 mg/dL High 65-99 [facility] Comment on above: Performed By: #### C BCA, [facility], 24249-3 #### [facility] ([id number]) [address] [place] [address] 36900 Potassium [Moles/Vol] 3.1 mmol/L Low 3.5-5.0 [facility] Comment on above: Performed By: #### C BCA, [facility], #### [facility] ([id number]) [address] [place] [address] 66102 Protein [Mass/Vol] 8.1 g/dL High 6.0-8.0 [facility] Comment on above: Performed By: #### C BCA, [facility], 65643-8 #### [facility] ([id number]) [address] [place] [address] 71888 Sodium [Moles/Vol] 132 mmol/L Low 134-146 [facility] Comment on above: Performed By: #### C BCA, [facility], 93485-2 #### [facility] ([id number]) [address] [place] [address] 81612 Urea nitrogen [Mass/Vol] 10 mg/dL Normal 5-23 [facility] Comment on above: Performed By: #### C BCA, [facility], 26703-0 #### [facility] ([id number]) [address] [place] [address] ABDOMEN AND PELVIS W CONT on [...] Bill Albrecht on 06/21/2023 3:57 PM Normal [facility] HCG ( test) Ql (U)o n 06-21-2023 Beta HCG ( test) Ql (U) Negative Normal NEG [facility] Comment on above: Performed By: #### 2 106-3 #### [facility] ([id number]) [address] [place] [address] 99435 MAGNESIUMon 06-21-2023 Magnesium [Mass/Vol] 2.1 mg/dL Normal 1.8-2.6 [facility] Comment on above: Performed By: #### C BCA, CMP, 33141-9 #### [facility] ([id number]) [address] [place], [place] [address], [place] [address] SARS/FLU A+B/RSV by NAAT/Mol ecularon 06-21-2023 SARS/FLU [...] operators who are performing tests using either [employer] or [employer] systems and is limited to laboratories that [...] repeat. Fact Sheet for Healthcare Providers: https://www.fda.gov/m edia/100020/download Fact Sheet for Patients: https://www.fda.gov/m edia/771273/download [facility] Comment on above: Performed By: #### C OVFLR #### [facility] ([id number]) [address] [place] [address] 91180 URINE CULTUREon 06-21-2023 Bacteria identified Cx Nom [...] F TRIMETH/SULFAMETHOXAZ OLE S <=1/19 F Susceptible [facility] Comment on above: Performed By: #### 6 30-4 #### [facility] ([id number]) [address] [place] [address], [address] [place] [address] URN MACROSCOPIC NURon 2023 BILIRUBIN ALMA Negative Normal [facility] Comment on above: Performed By: #### N UM #### [facility] ([id number]) [address] [place] [address] 50722 BLOOD/HGB ALMA Trace Abnormal NEG [facility] Comment on above: Performed By: #### N UM #### [facility] ([id number]) [address] [place] [address] 82289 GLUCOSE ALMA Negative Normal NEG [facility] Comment on above: Performed By: #### N UM #### [facility] ([id number]) [address] [place] [address] 83057 KETONES ALMA Trace Abnormal NEG [facility] Comment on above: Performed By: #### N UM #### [facility] ([id number]) [address] [place] [address] 60137 LEUKOCYTE ESTERASE ALMA Negative Normal NEG [facility] Comment on above: Performed By: #### N UM #### [facility] ([id number]) [address] [place] [address] 81695 NITRITE ALMA Positive Abnormal NEG [facility] Comment on above: Performed By: #### N UM #### [facility] ([id number]) [address] [place] [address] 35021 PH ALMA 6.0 Normal 5.0-8.5 [facility] Comment on above: Performed By: #### N UM #### [facility] ([id number]) [address] [place] [address] 46055 PROTEIN ALMA Trace Abnormal NEG [facility] Comment on above: Performed By: #### N UM #### [facility] ([id number]) [address] [place] [address] 11931 SPECIFIC GRAVITY ALMA >=1.030 Normal 1.003-1.035 [facility] Comment on above: Performed By: #### N UM #### [facility] ([id number]) [address] [place] [address] 42370 UROBILINOGEN ALMA 0.2 eu/dL Normal <1.1 [facility] Comment on above: Performed By: #### N UM #### [facility] ([id number]) [address] [place] [address] 96114 COVID-19 PCRon 11-15-2019 SARS-CoV-2, RENETTA Not Detected Normal Not Detected [facility] Comment on above: Result Comment: This test was developed and its performance characteristics determined by [facility]. This test has not been FDA cleared [...] assay. Performed By: #### C VDPCR #### [facility] [address] [place] [address] Raymondalex Rogersen Vital Signs Date Time Vital Sign Value Performing Clinician Faci lity 04-01-2024 08:51-0500 Body mass index (BMI) [Ratio] 29.52 kg/m2 [employer] Work Phone: [facility] 04-01-2024 08:51-0500 Body weight 74.39 kg [employer] Work Phone: [facility] 04-01-2024 08:51-0500 Diastolic blood pressure 68 mm[Hg] Familia Tamir DO Work Phone: [facility] 04-01-2024 08:51-0500 Systolic blood pressure 108 mm[Hg] [employer] Work Phone: [facility] 03-13-2024 10:29-0400 Body mass index (BMI) [Ratio] 29.74 kg/m2 Mikayla COTTO Work Phone: [facility] 03-13-2024 10:29-0400 Body weight 74.96 kg Mikayla COTTO Work Phone: [facility] 03-13-2024 10:29-0400 Diastolic blood pressure 68 mm[Hg] Mikayla COTTO Work Phone: [facility] 03-13-2024 10:29-0400 Systolic blood pressure 100 mm[Hg] Mikayla COTTO Work Phone: [facility] 02-14-2024 10:27-0400 Body mass index (BMI) [Ratio] 29.83 kg/m2 Mikayla Dillard PA Work Phone: [facility] 02-14-2024 10:27-0400 Body weight 75.18 kg Mikayla Dillard PA Work Phone: [facility] 02-14-2024 10:27-0400 Diastolic blood pressure 76 mm[Hg] Mikayla Dillard PA Work Phone: [facility] 02-14-2024 10:27-0400 Systolic blood pressure 106 mm[Hg] Mikayla Dillard PA Work Phone: [facility] 06-26-2023 08:39-0500 Body mass index (BMI) [Ratio] 30.81 kg/m2 Jorge Camara NP Work Phone: [facility] 06-26-2023 08:39-0500 Body weight 77.66 kg Jorge Camara NP Work Phone: [facility] 06-26-2023 08:39-0500 Diastolic blood pressure 80 mm[Hg] Jorge Camara NP Work Phone: [facility] 06-26-2023 08:39-0500 Heart rate 72 /min Jorge Camara NP Work Phone: [facility] 06-26-2023 08:39-0500 Systolic blood pressure 102 mm[Hg] Jorge Camara NP Work Phone: [facility] Encounters Encounter Date Encounter Type Care Provider Facility Start: 04-01-2024 End: 04-01-2024 Bamboo flowsheet Familia Tamir DO Work Phone: [facility] Start: 04-01-2024 End: 04-01-2024 Bamboo flowsheet Familia Tamir DO Work Phone: [facility] Start: 04-01-2024 End: 04-01-2024 ambulatory FAMILIA TAMIR Not Available Start: 04-01-2024 End: 04-01-2024 Office outpatient visit 15 minutes Familia Tamir DO Work Phone: [facility] Comment on above: Third trimester preg jeanette; 31 weeks gestation of ; size inconsistent with dates Start: 03-13-2024 End: 03-13-2024 Bamboo flowsheet Mikayla COTTO Work Phone: [facility] Start: 03-13-2024 End: 03-13-2024 Bamboo flowsheet Mikayla Dillard PA Work Phone: [facility] Start: 03-13-2024 End: 03-13-2024 Office outpatient visit 15 minutes Mikayla COTTO Work Phone: [facility] Comment on above: Third trimester preg jeanette; 28 weeks gestation of Start: 03-13-2024 End: 03-13-2024 ambulatory MIKAYLA DILLARD Not Available Start: 02-27-2024 End: 02-27-2024 Clinisync Result Encounter Familia Tamir DO Work Phone: [facility] Unsolicited Start: 02-27-2024 End: 02-27-2024 Clinisync Result Encounter Familia Tamir DO Work Phone: [facility] Unsolicited Start: 02-26-2024 End: 02-26-2024 Clinisync Result Encounter Generic External Data Provider [facility] Unsolicited Start: 02-26-2024 End: 02-26-2024 Clinisync Result Encounter Generic External Data Provider [facility] Unsolicited Start: 02-14-2024 End: 02-14-2024 Bamboo flowsheet Mikayla COTTO Work Phone: [facility] Start: 02-14-2024 End: 02-14-2024 Bamboo flowsheet Mikayla COTTO Work Phone: [facility] Start: 02-14-2024 End: 02-14-2024 Office outpatient visit 15 minutes Mikayla COTTO Work Phone: [facility] Comment on above: 24 weeks gestation o f ; Second trimester ; Diabetes mellitus screening; Encounter for follow-up ultrasound of anatomy; Gastroesophageal reflux in Start: 02-14-2024 End: 02-14-2024 ambulatory MIKAYLA DILLARD Not Available Start: 01-16-2024 End: 01-16-2024 ambulatory FAMILIA BECERRAZIO Not Available Start: 12-27-2023 End: 12-27-2023 ambulatory PASTORA Ortiz WONDERLY Not Available Start: 12-25-2023 End: 12-25-2023 ambulatory JORGE CAMARA Not Available Start: 12-21-2023 End: 12-21-2023 ambulatory PASTORA Ortiz WONDERLY Not Available Start: 12-20-2023 End: 12-20-2023 ambulatory MIKAYLA DILLARD Not Available Start: 11-21-2023 End: 11-21-2023 ambulatory FAMILIA MARTINSO Not Available Start: 11-07-2023 End: 11-07-2023 ambulatory JORGE CAMARA Not Available Start: 10-20-2023 End: 10-20-2023 ambulatory JORGE CAMARA Not Available Start: 10-16-2023 End: 10-16-2023 ambulatory PASTORA Ortiz WONDERLY Not Available Start: 07-10-2023 End: 07-10-2023 ambulatory PAZ PUMP Not Available Start: 06-26-2023 Telephone encounter Jorge Camara NP Work Phone: [facility] Comment on above: Results Start: 06-26-2023 End: 06-26-2023 ambulatory JORGE CAMARA Not Available Start: 06-26-2023 End: 06-26-2023 Office outpatient visit 25 minutes Jorge Camara NP Work Phone: [facility] Comment on above: Pyelonephritis (Prim nicko Dx); Elevated liver function tests; Hypokalemia; Diarrhea, unspecified type; Nausea; Left lower quadrant abdominal tenderness with rebound tenderness; Gastroesophageal reflux disease without esophagitis Start: 06-21-2023 End: 06-22-2023 Emergency department patient visit PAZ GUZMÁN [facility] Start: 06-21-2023 End: 06-21-2023 Emergency department patient visit PASTORA BARRON [facility] Start: 04-17-2023 End: 04-17-2023 ambulatory FAMILIA TAMIR Not Available Start: 12-28-2022 ambulatory Conrado Calle Darren acility:[facility] Start: 11-14-2019 End: 11-15-2019 Patient encounter procedure PASTORA BARRON Facility:H1 Procedures Date Procedure Procedure Detail Performing Clinician Start: 04-01-2024 Urnls dip stick/tabl et rgnt non-auto w/o micrscp Familia Tamir DO Work Phone: Start: 03-13-2024 Urnls dip stick/tabl et rgnt non-auto w/o micrscp Mikayla COTTO Work Phone: Start: 02-27-2024 [facility] UA (CLEAN/CATCH) LUMBER MOVER/MICRO IF IND. Familia Martisno DO Work Phone: Start: 02-26-2024 GLUCOSE 1 HOUR Mikayla Younger Work Phone: Start: 02-14-2024 Urnls dip stick/tabl et rgnt non-auto w/o micrscp Mikayla COTTO Work Phone: Start: 12-20-2023 Cytp cerv/vag auto t hin layer prep mnl screen Familia Garnett DO Work Phone: Plan of Treatment Date Care Activity Detail Author Start: 04-16-2024 End: 04-16-2024 Patient encounter procedure 04/16/2024 2:30 PM EST Routine [facility] [address] [place] [address] Mikayla Dillard PA [address] [place] [address] [facility] Start: 04-16-2024 End: 04-16-2024 Professional / ancillary services management 04/16/2024 2:00 PM EST Ancillary Procedure [facility] [address] [place] [address] [facility] Start: 04-01-2024 End: 04-01-2025 US for US OB SCAN FOR GROWTH Imaging Routine size inconsistent with dates Expected: 04/01/2024 (Approximate), Expires: 04/01/2025 [facility] Work Phone: Comment on above: Expected: 04/01/2024 (Approximate), Expires: 04/01/2025 Start: 03-28-2024 End: 03-28-2024 Patient encounter procedure 03/28/2024 11:50 AM EST Routine [facility] [address] [address] Familia Garnett, DO [address] [place], [place] [id number] [facility] Start: 03-13-2024 End: 03-13-2024 Patient encounter procedure [facility] Comment on above: Arrived Start: 02-19-2024 End: 02-19-2024 Professional / ancillary services management 02/19/2024 8:00 AM EDT Ancillary Procedure [facility] [address] [place] [address] [facility] Start: 02-14-2024 End: 02-13-2025 CBC panel - Blood by Automated count CBC Lab Routine Diabetes mellitus screening Expected: 02/14/2024 (Approximate), Expires: 02/13/2025 [facility] Work Phone: Comment on above: Expected: 02/14/2024 (Approximate), Expires: 02/13/2025 Start: 02-14-2024 End: 02-13-2025 Measurement of glucose 1 hour after glucose challenge for glucose tolerance test Glucose tolerance, 1 hour Lab Routine Diabetes mellitus screening Expected: 02/14/2024 (Approximate), Expires: 02/13/2025 [facility] Comment on above: Expected: 02/14/2024 (Approximate), Expires: 02/13/2025 Start: 02-14-2024 End: 02-13-2025 US for US OB INCOMPLETE ANATOMY Imaging Routine Encounter for follow-up ultrasound of anatomy Expected: 02/14/2024 (Approximate), Expires: 02/13/2025 [facility] Comment on above: Expected: 02/14/2024 (Approximate), Expires: 02/13/2025 Start: 02-14-2024 End: 02-14-2024 Patient encounter procedure 02/14/2024 10:30 AM EDT Routine [facility] [address] [place] [id number] Mikayla Dillard PA [address] [place], [place] [id number] Arrived [facility] Comment on above: Arrived Start: 01-14-2024 Influenza vaccination Influenza Vacc ine (#1) [facility] Start: 11-12-2023 Influenza vaccination Influenza Vacc ine (#1) [facility] Comment on above: Postponed from 01/13 (Patient Refused) Start: 07-25-2023 End: 06-26-2024 Hepatic function 2000 panel - Serum or Plasma Hepatic function panel Lab Routine Elevated liver function tests Pyelonephritis Expected: 07/25/2023 (Approximate), Expires: 06/26/2024 [facility] Work Phone: Comment on above: Expected: 07/25/2023 (Approximate), Expires: 06/26/2024 Start: 07-13-2023 End: 07-13-2023 Patient encounter procedure 07/13/2023 2:00 PM EST Office Visit [facility] [address] [place] [address] Jorge Camara NP [address] [place] [address] [facility] Start: 06-26-2023 End: 06-26-2024 Comprehensive metabolic 2000 panel - Serum or Plasma Comprehensive metabolic panel Lab Routine Elevated liver function tests Pyelonephritis Hypokalemia Diarrhea, unspecified type Expected: 06/26/2023 (Approximate), Expires: 06/26/2024 [facility] Work Phone: Comment on above: Expected: 06/26/2023 (Approximate), Expires: 06/26/2024 Immunizations Immunization Date Immunization Notes Care Provider Fa [facility] 03-11-2016 influenza, injectabl e, quadrivalent, preservative free Jorge Camara FINANCIAL ANALYST Work Phone: [facility] 03-11-2016 influenza virus vacc ine, unspecified formulation Jorge Camara FINANCIAL ANALYST Work Phone: [facility] 02-04-2015 tetanus toxoid, redu yenny diphtheria toxoid, and acellular pertussis vaccine, adsorbed Jorge Camara FINANCIAL ANALYST Work Phone: [facility] 12-17-2001 diphtheria, tetanus toxoids and acellular pertussis vaccine, unspecified formulation Jorge Camara FINANCIAL ANALYST Work Phone: [facility] 12-17-2001 measles, mumps and rubella virus vaccine Jorge Camara FINANCIAL ANALYST Work Phone: [facility] 12-17-2001 poliovirus vaccine, inactivated Jorge Camara FINANCIAL ANALYST Work Phone: [facility] 06-04-1997 diphtheria, tetanus toxoids and acellular pertussis vaccine, unspecified formulation Jorge Camara FINANCIAL ANALYST Work Phone: [facility] 06-04-1997 haemophilus influenz ae type b vaccine, conjugate unspecified formulation Jorge Camara FINANCIAL ANALYST Work Phone: [facility] 06-04-1997 measles, mumps and rubella virus vaccine Jorge Magdy FINANCIAL ANALYST Work Phone: [facility] 1996 DTP-Haemophilus influenzae type b conjugate vaccine Jorge Camara FINANCIAL ANALYST Work Phone: [facility] 1996 hepatitis B vaccine, pediatric or pediatric/adolescent dosage Jorge Camara FINANCIAL ANALYST Work Phone: [facility] 1996 trivalent poliovirus vaccine, live, oral Jorge Camara FINANCIAL ANALYST Work Phone: [facility] 1996 DTP-Haemophilus influenzae type b conjugate vaccine Jorge Camara FINANCIAL ANALYST Work Phone: [facility] 1996 trivalent poliovirus vaccine, live, oral Jorge Camara FINANCIAL ANALYST Work Phone: [facility] 1996 DTP-Haemophilus influenzae type b conjugate vaccine Jorge Camara FINANCIAL ANALYST Work Phone: [facility] 1996 hepatitis B vaccine, pediatric or pediatric/adolescent dosage Jorge Camara FINANCIAL ANALYST Work Phone: [facility] 1996 trivalent poliovirus vaccine, live, oral Jorge Camara FINANCIAL ANALYST Work Phone: [facility] 1996 hepatitis B vaccine, pediatric or pediatric/adolescent dosage Jorge Camara FINANCIAL ANALYST Work Phone: [facility] Payers Date Payer Category Payer Self-pay 2022 Medicaid [id number] 2019 Unknown [id number] 2019 Medicaid [id number] 1996 Unknown [id number] 2.16.84 [id number] 1996 Unknown [id number] 2.16.8 [id number] 1996 Unknown [id number] 2.16.84 0.1.609428.3.579.2.9 1996 Unknown [id number] 2.16.84 0.1.641024.3.579.2.1259 1996 Unknown [id number] 2.16.84 0.1.526967.3.579.2.1259 1996 Unknown [id number] 2.16.84 0.1.232912.3.579.2.1258 1996 Unknown [id number] 2.16.84 0.1.818512.3.579.2.1259 1996 Unknown [id number] 2.16.84 0.1.031681.3.579.2.9 1996 Unknown [id number] 2.16.84 0.1.147336.3.579.2.1259 1996 Unknown [id number] 2.16.84 0.1.057224.3.579.2.1258 1996 Unknown [id number] 2.16.84 0.1.340619.3.579.2.9 1996 Unknown [id number] 2.16.84 0.1.990488.3.579.2.1258 1996 Unknown [id number] 2.16.84 0.1.304217.3.579.2.1258 1996 Unknown [id number] 2.16.84 0.1.492919.3.579.2.1258 1996 Unknown [id number] 2.16.84 0.1.977969.3.579.2.9 1996 Unknown [id number] 2.16.84 0.1.416344.3.579.2.1258 1996 Unknown [id number] 2.16.840 .[id number] Social History Date Type Detail Facility Start: 06-26-2023 End: 12-25-2023 Tobacco smoking status [facility] Ex-smoker [facility] History of tobacco use Current smoker [facility] History of tobacco use Cigarette Smoker [facility] Start: 06-26-2023 End: 12-25-2023 Tobacco use and exposure Smokeless tobacco non-user [facility] Start: 06-26-2023 End: 04-01-2024 Alcohol intake Current drinker of alcohol (finding) [...] Goal Desired Activity /State Personal health goal Clinical Notes 06-26-2023 to 04-01-2024 Stacie Espino LPN - 04/01/2024 8:30 AM KIRTI Welsh - 03/13/2024 10:30 AM KIRTI Dumont - 02/14/2024 10:30 AM EDTTelephone Encounter - Jorge Camara NP - 06/26/2023 3:59 PM EST Note Date & Type Note Facility 04-01-2024 History of Presen t illness Narrative Reason for Appointment: Patient ID: Jaja Lisa is a 29 y.o. female who presents for Routine Visit Patient presents today for Return OB appointment. MEDICATIONS Current Outpatient Medications Medication Instructions azithromycin (Zithromax Z-To) 250 MG tablet As directed loratadine (CLARITIN) 10 mg, Oral, Daily metoclopramide (REGLAN) 10 mg, Oral, 3 times [...] SYSTEMS Review of Systems: Review of Systems All other systems reviewed and are negative. OBJECTIVE Objective: Physical Exam Constitutional: Appearance: Normal appearance. She is well-developed. Cardiovascular: Rate and Rhythm: Normal rate and regular rhythm. Pulmonary: Effort: Pulmonary effort is normal. Breath sounds: Normal breath sounds. Abdominal: General: Bowel sounds are normal. There is no distension. Palpations: Abdomen is soft. Tenderness: There is no abdominal tenderness. There is no guarding or rebound. Musculoskeletal: General: No swelling. Normal range of motion. Right lower leg: No edema. Left lower leg: No edema. Neurological: Mental Status: She is alert and oriented to person, place, and time. Skin: General: Skin is warm and dry. Psychiatric: Mood and Affect: Mood normal. Behavior: Behavior normal. Vitals and nursing note reviewed. Exam conducted with a wool sampler present. Vitals: Estimated body mass index is 29.52 kg/m as calculated from the following: Height as of 06/30/21: 5' 2.5 . Weight as of this encounter: 164 lb. BP: 108/68 Patient's last menstrual period was 08/25/2023. ASSESSMENT & PLAN ICD-10-CM 1. Third trimester Z34.93 POCT urinalysis dipstick manually resulted 2. 31 weeks gestation of Z3A.31 Patient presents today for a routine obstetrics appointment. Patient is currently 31w3d with a Estimated Date of Delivery: 05/31/24. Ordered growth scan for patient to have done prior to next appointment. Documented by Stacie Espino LPN on behalf of: Familia Garnett DO documented in this encounter [facility] 03-13-2024 History of Presen t illness Narrative Reason [...] reviewed. Vitals: Estimated body mass index is 29.74 kg/m as calculated from the following: Height as of 06/30/21: 5' 2.5 . Weight as of this encounter: 165 lb 4 oz. BP: 100/68 Patient's last menstrual period was 08/25/2023. ASSESSMENT & PLAN ICD-10-CM 1. Third trimester Z34.93 2. 28 weeks gestation of Z3A.28 POCT urinalysis dipstick manually resulted Return OB: Patient presents today for a routine obstetrics appointment. Patient is currently 28w5d . Patient states she is doing well but has complaints of being tired due to current . Patient has verbalizes frequent movement. labor precautions was discussed/given and patient was instructed to perform kick counts three times a day. Orders Placed This Encounter Procedures POCT urinalysis dipstick manually resulted Follow Up: Patient is to return to office in 4 weeks for routine OB appointment. Documented by Tamiko Germain on behalf of: KIRTI Beltrán documented in this encounter [facility] 02-14-2024 History of Presen t illness Narrative [...] calculated from the following: Height as of 06/30/21: 5' 2.5 . Weight as of this [...] of: KIRTI Beltrán documented in this encounter [facility] 06-26-2023 Telephone encount er Note Please let patient know labs are improving. Potassium level is WNL. AST and ALT are still high but better compared to what it was in the hospital. I would like to repeat AST/ALT levels in 4 weeks. Order placed. AST 10 - 30 U/L 43 High ALT 6 - 29 U/L 86 High [facility] 06-26-2023 Miscellaneous Notes Formattin g of this [...] U/L 86 High documented in this encounter [facility] 06-26-2023 History of Presen t illness Narrative [...] Visit Report Report COMPREHENSIVE METABOLIC PANEL Order: [id number] Component Ref Range & Units 5 d [...] CT abdomen pelvis w IV contrast Order: [id number] Narrative CT ABDOMEN AND PELVIS HISTORY: Abdominal [...] in this encounter [facility] Evaluation note Diagnosis Pyelonephritis- Primary Unspecified pyelonephritis Elevated liver function tests Other abnormal blood chemistry Hypokalemia Hypopotassemia Diarrhea, unspecified type Nausea Nausea alone Left lower quadrant abdominal tenderness with rebound tenderness Gastroesophageal reflux disease without esophagitis Esophageal reflux documented in this [facility]* Diagnosis Elevated liver function tests- Primary Other abnormal blood chemistry Pyelonephritis Unspecified pyelonephritis documented [facility]* Diagnosis 24 weeks gestation of Second trimester state, incidental Diabetes mellitus screening Screening for diabetes mellitus Encounter for follow-up ultrasound of anatomy Gastroesophageal reflux in documented [facility]* Diagnosis Third trimester state, incidental 28 weeks gestation of documented in this [facility]* Diagnosis Third trimester state, incidental 31 weeks gestation of size inconsistent with dates documented in this encounter [facility] Summary Purpose Family History No Family History Records FoundNo Family History Records FoundNo Family History Records FoundNo Family History Records Found Advance Directives No Advanced Directives Records FoundNo Advanced Directives Records FoundNo Advanced Directives Records FoundNo Advanced Directives Records Found Additional Source Comments INFORMATION SOURCE (unrecogn ized section and content) DATE CREATED AUTHOR 12/13/2019 [facility] DATE CREATED AUTHOR AUTHOR'S ORGANIZ ATION 04/21/2023 [facility] DATE CREATED AUTHOR AUTHOR'S ORGANIZ ATION 06/26/2023 [facility] DATE CREATED AUTHOR AUTHOR'S ORGANIZ ATION 04/02/2024 [facility] EPIC Reason for Visit (unrecogniz ed section and content) Reason Comments ER Follow-up Abd pain,diarrhea. L eft side pain comes and goes started this morning, nausea better, continued diarrhea. 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 Relationship Specialty Start Date End Date Pastora Barron MD [address] [place] [address] PCP - General Family Medicine 09/20/22 Railroad Operating Engineer Relationship Specialty Start Date End Date Pastora Barron MD [address] [place] [address] PCP - General Family Medicine 09/20/22 Railroad 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 [place] [address] PCP - General [facility] 09/20/22 Railroad Operating Engineer Relationship Specialty Start Date End Date Pastora Barron MD [address] [place] [address] PCP - General Family [facility] 09/20/22 FOR RECORDS PERTAINING TO PATIENTS WHO [...] BE BASED ON THE PRIMARY CLINICAL RECORDS. [employer] provides no warranty or guarantee of the accuracy or completeness of information in this document.
--- NOTE | 2024-04-15 14:19 | US_ITS ---
[place] [id number] Patient Name: SERGIO JONES MRN: [id number] date: 1995 Sex: F Assigned Patient Location: [facility] Current Patient Location: [facility] Accession/Order Number: [id number] Exam Date: 04/15/2024 14:30 Report Date: 04/15/2024 15:10 At the request of: FAMILIA LAWRENCE Procedure: US OB cervical length EXAMINATION: US OB placenta, US OB cervical length HISTORY: Kicked in abdomen COMPARISON: Ultrasound OB placenta 02/27/2024 FINDINGS: PLACENTA: Posterior, grade 0. No abruption or subchorionic hematoma. CERVIX LENGTH: 6.5 cm; closed. HEART RATE: 120 bpm OTHER: Amniotic fluid volume is 12.2 cm; normal range. US/US OB cervical length IMPRESSION: 1. No placental abruption, subchorionic hematoma, or suspicious findings. 2. Closed cervix 6.5 cm in length. Electronically authenticated by: LUIS ENRIQUE JACKSON Date: 04/15/2024 15:10
--- NOTE | 2024-04-15 14:19 | US_ITS ---
[place] [id number] Patient Name: SERGIO JONES MRN: [id number] date: 1995 Sex: F Assigned Patient Location: [facility] Current Patient Location: [facility] Accession/Order Number: [id number] Exam Date: 04/15/2024 14:30 Report Date: 04/15/2024 15:10 At the request of: FAMILIA LAWRENCE Procedure: US OB BPP w non-stress EXAMINATION: US OB BPP w non-stress HISTORY:Kicked in abdomen COMPARISON: Ultrasound OB placenta 02/27/2024 TECHNIQUE: Ultrasound biophysical profile was performed in the radiology department. BREATHING MOVEMENTS: 2 GROSS BODY MOVEMENTS: 2 TONE: 2 QUALITATIVE AMNIOTIC FLUID VOLUME: 2 PRESENTATION: CEPHALIC HEART RATE: 129.81 bpm AMNIOTIC FLUID VOLUME: 12.21 cm GESTATIONAL AGE: 33 weeks 3 days US/US OB BPP w non-stress IMPRESSION: Total biophysical profile score: 8 Electronically authenticated by: LUIS ENRIQUE JACKSON Date: 04/15/2024 15:10
--- NOTE | 2024-04-15 14:19 | US_ITS ---
[place] [id number] Patient Name: SERGIO JONES MRN: [id number] date: 1995 Sex: F Assigned Patient Location: [facility] Current Patient Location: [facility] Accession/Order Number: [id number] Exam Date: 04/15/2024 14:30 Report Date: 04/15/2024 15:10 At the request of: FAMILIA LAWRENCE Procedure: US OB placenta EXAMINATION: US OB placenta, US OB cervical length HISTORY: Kicked in abdomen COMPARISON: Ultrasound OB placenta 02/27/2024 FINDINGS: PLACENTA: Posterior, grade 0. No abruption or subchorionic hematoma. CERVIX LENGTH: 6.5 cm; closed. HEART RATE: 120 bpm OTHER: Amniotic fluid volume is 12.2 cm; normal range. US/US OB placenta IMPRESSION: 1. No placental abruption, subchorionic hematoma, or suspicious findings. 2. Closed cervix 6.5 cm in length. Electronically authenticated by: LUIS ENRIQUE JACKSON Date: 04/15/2024 15:10
== END 2024-04-15 14:51 | disposition home or self-care (01) ==
PROVIDERS: Admitting Provider Obstetrics & Gynecology; PCP Family Medicine; Visit Provider Obstetrics & Gynecology
DX: O26.893 Other specified pregnancy related conditions, third trimester (principal); R10.9 Unspecified abdominal pain; Z3A.33 33 weeks gestation of pregnancy; W50.1XXA Accidental kick by another person, initial encounter
CPT/HCPCS: 59025; 76815; 76817; 76818; G0378; G0379

== ENCOUNTER 2024-04-16 14:07 | Outpatient (OUT) | payer MEDICAID, SELFPAY ==
--- NOTE | 2024-04-16 14:09 | US_ITS ---
[address] [address] Patient Name: SERGIO JONES MRN: [id number] date: 1995 Sex: F Assigned Patient Location: [facility] Current Patient Location: [facility] Accession/Order Number: [id number] Exam Date: 04/16/2024 14:10 Report Date: 04/16/2024 15:21 At the request of: FAMILIA LAWRENCE Procedure: US OB growth EXAMINATION: US OB growth HISTORY: INCONSISTENT SIZE COMPARISON: No relevant comparison available. TECHNIQUE: Transabdominal sonographic examination was performed for obstetrical and evaluation. FINDINGS: Number: 1 Heart Rate: 130 bpm H.B. /min Amniotic Fluid Volume: 15.3 cm, largest fluid pocket 4.3 cm Placental Location: Blank BIOMETRY: BPD: 8.41 cm; 33 weeks 6 days; 54.50 % HC: 30.73 cm; 34 weeks 2 days; 30.10 % AC: 28.43 cm; 32 weeks 3 days; 21.20 % FL: 6.44 cm; 33 weeks 2 days; 30.50 % EFW:2098.90 g; 25.80 %, 4 lbs. 10 oz. FL/AC: 22.65 FL/BPD: 76.58 HC/AC: 1.08 GESTATIONAL AGE: Age by EDC: 33 weeks 4 days ELVIE by EDC: 2024-05-31 Age by current US: 33 weeks 1 day ELVIE by current US: 2024-06-03 US/US OB growth IMPRESSION: Normal interval growth *Reference: [facility] Practice Guideline for the performance of Obstetric Ultrasound Examinations, February 12, 2007. Electronically authenticated by: DAJUAN LORENZANA Date: 04/16/2024 15:21
== END 2024-04-16 14:08 | disposition home or self-care (01) ==
LOC: NOMS 14:07
PROVIDERS: PCP Family Medicine; Visit Provider Obstetrics & Gynecology
DX: O26.843 Uterine size-date discrepancy, third trimester (principal); Z3A.33 33 weeks gestation of pregnancy
CPT/HCPCS: 76816

== ENCOUNTER 2024-05-02 18:50 | Outpatient (REF) | payer MEDICAID, SELFPAY | END 2024-05-02 18:51 | disposition home or self-care (01) | LOC: LAB 18:50 | PROVIDERS: PCP Family Medicine; Visit Provider Physician Assistant | DX: Z34.93 Encounter for supervision of normal pregnancy, unspecified, third trimester (principal) | CPT/HCPCS: 36415; 87081; 87150 ==

== ENCOUNTER 2024-05-04 09:41 | Observation (INO) | payer MEDICAID, SELFPAY ==
--- OUTSIDE RECORDS SUMMARY | 2024-05-04 09:45 | XMS_ITS | CCD ---
Author Organization [facility] Care Team Providers Care Qa Intern Name Role Phone PASTORA BARRON Admitting Unavailable [...] Attending Unavailable PAZ JEAN BAPTISTE Attending Unavailable PASTORA BARRON Attending Unavailable FAMILIA GARNETT Attending Unavailable MIKAYLA DILLARD Attending Unavailable PASTORA BARRON Attending Unavailable JORGE CAMARA Attending Unavailable PASTORA BARRON Referring Unavailable FAMILIA GARNETT Attending Unavailable MIKAYLA DILLARD Attending Unavailable MIKAYLA DILLARD Attending Unavailable FAMILIA GARNETT Attending Unavailable MIKAYLA DILLARD Attending Unavailable Allergies Allergy Classification Reported Allergen(s) Allergy Type Date of Onset Reaction(s) Facility (20 sources) Ethinyl Estradiol / norelgestromin Drug Allergy 4 [facility] Healthcare Medications Current Medications Medication Drug Class(es) Dates Sig (Normalized) Sig (Original) omeprazole 20 mg delayed release oral capsule (16 sources) Proton Pump Inhibitor Start: 02-14-2024 End: 06-13-2024 take 1 capsule by mouth before mealtime omeprazole (PriLOSEC) [address] capsule Indications: Gastroesophageal Reflux Disease , Heartburn Take 1 capsule (20 mg) by mouth in the morning. Take before meals. Do not crush or chew.. 30 capsule 3 02/14/2024 06/13/2024 Active ondansetron 4 mg oral tablet (7 sources) Serotonin-3 Receptor Antagonist End: 02-14-2024 ondansetron (Zofran) 4 MG tablet Take by mouth 02/14/2024 Discontinued MV-Min-Fe Fum-FA-DHA ( 1 PO) (20 sources) MV-Min- Fe Fum-FA-DHA ( 1 PO) [...] in the evening. 0 06/21/2023 06/28/2023 Active Completed/Discontinued Medications Medication Drug Class(es) Dates Sig (Normalized) Sig (Original) azithromycin 250 mg oral tablet (9 sources) Macrolide Antimicrobial Start: 03-19-2024 End: 05-02-2024 azithromycin (Zithromax Z-To) 250 MG tablet Indications: URI, acute As directed 6 tablet 03/19/2024 05/02/2024 Discontinued loratadine 10 mg oral tablet (9 sources) Start: 03-19-2024 End: 03-19-2025 take 1 tablet by mouth once daily loratadine (Claritin) 10 MG tablet Indications: URI, acute Take 1 tablet (10 mg) by mouth Daily 30 tablet 11 03/19/2024 05/02/2024 Discontinued metoclopramide 10 mg oral tablet (20 sources) Dopamine-2 Receptor Antagonist Start: 11-21-2023 End: 05-02-2024 metoclopramide (Reglan) 10 MG tablet Indications: Nausea and vomiting in Take 1 tablet (10 mg) by mouth 3 (three) times a day as needed (30 min prior to meals) for up to 10 days 1 tablet 11/21/2023 05/02/2024 Discontinued Problems Active Problems Problem Classification Problem Date Documented Da te Episodic/Chronic Abdominal pain (3 sources) Abdominal pain; Translations: [Abdominal tenderness of left lower quadrant] Onset: 4 06-26-2023 Episodic Anxiety disorders (20 sources) Anxiety; Translations: [Anxiety disorder, unspecified] Onset: 4 06-23-2023 Chronic Esophageal disorders (20 sources) Gastroesophageal reflux disease without esophagitis; Translations: [...] unspecified trimester] 02-14-2024 Episodic Other complications of (11 sources) size does not accord with dates; Translations: [Uterine size-date discrepancy, unspecified trimester] Onset: 4 04-01-2024 Episodic Other diseases of kidney and ureters (20 sources) Infectious disorder of kidney; 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, unspecified] Onset: 4 07-11-2023 Chronic Other gastrointestinal disorders (2 sources) Diarrhea; Translations: [Diarrhea, unspecified] 06-26-2023 Episodic Other liver diseases (20 sources) Steatosis of liver; Translations: [Fatty (change of) liver, not elsewhere classified] Onset: 4 01-01-2024 Chronic Other and delivery including normal (19 sources) Second trimester ; Translations: [Encounter for [...] of ] 03-13-2024 Episodic Residual codes; unclassified (11 sources) Gestation period, 31 weeks; Translations: [31 weeks gestation of ] Onset: 4 04-01-2024 Episodic Residual codes; unclassified (2 sources) Gestation period, 33 weeks; Translations: [33 weeks gestation of ] 04-16-2024 Episodic Residual codes; unclassified (2 sources) Gestation period, 35 weeks; Translations: [35 weeks gestation of ] 05-02-2024 Episodic Thyroid disorders (20 sources) Goiter; Translations: [Nontoxic goiter, unspecified] Onset: 4 06-23-2023 Chronic Unclassified (20 sources) OB Reminders Onset: 4 12-29-2023 Urinary tract infections (4 sources) Tubulo-interstitial nephritis, not specified as acute or chronic; Translations: [Pyelonephritis] Onset: 4 06-26-2023 Episodic Past or Other Problems Problem Classification Problem Date Documented Da te Episodic/Chronic Headache; including migraine (20 sources) Headache disorder; Translations: [Other headache syndrome] Onset: 06-23-2023 06-23-2023 Episodic Other complications of (20 sources) Steatosis of liver; Translations: [Liver and biliary tract disorders in , unspecified trimester] Onset: 01-01-2024 01-01-2024 Episodic Other nutritional; endocrine; and metabolic disorders (20 sources) Overweight; Translations: [Overweight] Onset: 06-23-2023 06-23-2023 Episodic Other upper respiratory infections (20 sources) Frontal sinusitis; Translations: [Chronic frontal sinusitis] Onset: 06-23-2023 Resolved: 12-25-2023 06-23-2023 Chronic Residual codes; unclassified (2 sources) Gestation period, 20 weeks; Translations: [20 weeks gestation of ] 01-16-2024 Episodic Results Test Name Value Interpretation Reference Range Facility Urinalysis macro (dipstick) panel (U)on 05-02-2024 Bilirubin, UA Negative Negative - 4(70) +++ mg/dL [facility] Blood, UA Negative Negative - 50 Robson/mcL [facility] Clarity, UA Clear [facility] Color, UA Yellow [facility] Glucose, UA Negative Negative - 1999(110) ++++ mg/dL [facility] Interpretation and review of laboratory results Abnormal [facility] Ketones, UA Positive Negative - 160(16) ++++ mg/dL [facility] Leukocytes, UA Trace Negative - 500+++ Jesus Manuel/mcL [facility] Nitrite, UA Negative Negative - Positive [facility] pH, UA 6 5 - 9 [facility] Protein, UA Positive Negative - 1999(20) ++++ mg/dL [facility] Spec Grav, UA 1.03 1 - 1.03 [facility] care Urobilinogen, UA 0.2 0.2 - 12 mg/dL [facility] Urinalysis macro (dipstick) panel (U)on 04-17-2024 Bilirubin, UA Negative Negative - 4(70) +++ mg/dL [facility] Blood, UA Negative Negative - 50 Robson/mcL [facility] Clarity, UA Clear [facility] Color, UA Yellow [facility] Glucose, UA Negative Negative - 1999(110) ++++ mg/dL [facility] Interpretation and review of laboratory results Normal [facility] Ketones, UA Negative Negative - 160(16) ++++ mg/dL [facility] Leukocytes, UA Negative Negative - 500+++ Jesus Manuel/mcL [facility] Nitrite, UA Negative Negative - Positive [facility] pH, UA 6.5 5 - 9 [facility] Protein, UA Negative Negative - 1999(20) ++++ mg/dL [facility] Spec Grav, UA 1.015 1 - 1.03 [facility] Urobilinogen, UA 1.0 0.2 - 12 mg/dL [facility] Urinalysis macro (dipstick) panel (U)on 04-01-2024 Bilirubin, UA Negative Negative - 4(70) +++ mg/dL [facility] Blood, UA Negative Negative - 50 Robson/mcL [facility] Clarity, UA Clear [facility] Color, UA Paz [facility] Glucose, UA Negative Negative - 1999(110) ++++ mg/dL [facility] Interpretation and review of laboratory results Normal [facility] Ketones, UA Negative Negative - 160(16) ++++ mg/dL [facility] Leukocytes, UA Negative Negative - 500+++ Jesus Manuel/mcL [facility] Healthcare Nitrite, UA Negative Negative - Positive [facility] pH, UA 6.5 5 - 9 [facility] Protein, UA Negative Negative - 1999(20) ++++ mg/dL [facility] Spec Grav, UA 1.025 1 - 1.03 [facility] Urobilinogen, UA 0.2 0.2 - 12 mg/dL [facility] Urinalysis macro (dipstick) panel (U)on 03-13-2024 Bilirubin, UA Negative Negative - 4(70) +++ mg/dL [facility] Blood, UA Negative Negative - 50 Robson/mcL [facility] Clarity, UA Clear [facility] Color, UA Yellow [facility] Glucose, UA Negative Negative - 1999(110) ++++ mg/dL [facility] Interpretation and review of laboratory results Abnormal [facility] Ketones, UA Negative Negative - 160(16) ++++ mg/dL [facility] Leukocytes, UA Trace Negative - 500+++ Jesus Manuel/mcL [facility] Nitrite, UA Negative Negative - Positive [facility] pH, UA 6.5 5 - 9 [facility] Protein, UA Negative Negative - 1999(20) ++++ mg/dL [facility] Spec Grav, UA 1.03 1 - 1.03 [facility] Urobilinogen, UA 0.2 0.2 - 12 mg/dL [facility] TBH UA (CLEAN/CATCH) OCCUPANCY SPECIALIST/RITA RO IF IND.on 02-27-2024 BILIRUBIN URINE Negative NEGATIVE [facility] BLOOD URINE Negative NEGATIVE [facility] Clarity (U) CLEAR CLEAR [facility] Color (U) YELLOW YELLOW [facility] GLUCOSE URINE UA Negative NEGATIVE mg/dL [facility] Interpretation and review of laboratory results Abnormal [facility] Ketones Ql (U) TRACE Abnormal NEGATIVE mg/dL [facility]care Leukocyte esterase Test strip Ql (U) TRACE Abnormal NEGATIVE [facility] NITRITE URINE Negative NEGATIVE [facility] Health care pH (U) 6.0 [pH] 5.0 - 9.0 [facility] PROTEIN URINE Negative NEG/TRACE mg/dL [facility] SPECIFIC GRAVITY URINE >=1.030 Abnormal 1.005 - 1.025 [facility] URINE MICROSCOPIC INDICATED YES [facility] UROBILINOGEN URINE 0.2 EU/dL 0.2 - 1.0 EU/dL [facility] GLUCOSE 1 HOURon 02-26-2024 Glucose [Mass/Vol] 126 mg/dL NINF - 13 0 mg/dL [facility] Urinalysis macro (dipstick) panel (U)on 02-14-2024 Bilirubin, UA Positive Negative - 4(70) +++ mg/dL [facility] Comment on above: small Blood, UA Negative Negative - 50 Robson/mcL [facility] Clarity, UA Clear [facility] re Color, UA Yellow [facility] Glucose, UA Negative Negative - 1999(110) ++++ mg/dL [facility] Interpretation and review of laboratory results Abnormal [facility] Ketones, UA Positive Negative - 160(16) ++++ mg/dL [facility] Comment on above: 15 Leukocytes, UA Negative Negative - 500+++ Jesus Manuel/mcL [facility] Nitrite, UA Negative Negative - Positive [facility] pH, UA 6.0 5 - 9 [facility] Protein, UA Negative Negative - 1999(20) ++++ mg/dL [facility] Spec Grav, UA 1.030 1 - 1.03 [facility] Urobilinogen, UA 0.2 0.2 - 12 mg/dL [facility] Urinalysis macro (dipstick) panel (U)on 01-16-2024 Bilirubin, UA Positive Negative - 4(70) +++ mg/dL [facility] Comment on above: small Blood, UA Negative Negative - 50 Robson/mcL [facility] Clarity, UA Clear [facility] re Color, UA Yellow [facility] Glucose, UA Negative Negative - 1999(110) ++++ mg/dL [facility] Interpretation and review of laboratory results Abnormal [facility] Ketones, UA Positive Negative - 160(16) ++++ mg/dL [facility] Comment on above: trace Leukocytes, UA Negative Negative - 500+++ Jesus Manuel/mcL [facility] Nitrite, UA Negative Negative - Positive [facility] pH, UA 5.5 5 - 9 [facility] Protein, UA Negative Negative - 1999(20) ++++ mg/dL [facility] Spec Grav, UA 1.030 1 - 1.03 [facility] Urobilinogen, UA 0.2 0.2 - 12 mg/dL [facility] AFP, SERUM, OPEN SPINA BIFID Aon 01-11-2024 AFP MOM 2.16 . [facility] AFP VALUE 104.8 ng/mL . [facility] re COMMENT: Comment . [facility] Comment on above: Colleen Rivas , Ph.D., [facility] Director References: Available Upon Request. Multiples Of Median Cutoffs For AFP Elevations Alarcon 2.5 Black 2.8 IDD 2.0 Twins 4.5 Abbreviation Definitions IDD - Insulin Dep Diabetes OSBR - Open Spina Bifida Risk For further inquiries contact [employer] [facility] at [phone]. This test was developed and its performance characteristics determined by [employer]. It has not been cleared or approved by the Food and Drug Administration. Performed at: [facility] [employer] [address], [place] [id number] Stranner: Gillian Boston [facility], Phone: [phone] GEST. AGE ON COLLECTION DATE 19.4 . weeks [facility] GESTAT. AGE BASED ON LMP . [facility] Comment on above: Recalculations are n ot recommended when gestational dating by LMP and ultrasound are within 10 days. INSULIN DEP DIABETES No . [facility] Healthcare INTERPRETATION Comment . [facility] Comment on above: Interpretation: Scre en Negative This result is screen negative for OSB. The AFP MoM calculated is based on the gestational age provided. MS-AFP can identify up to 80% of open neural tube defects. Closed neural tube defects and some open defects may not be detected by this test. This test does not screen for Down Syndrome or Trisomy 18. If screening for Down Syndrome or Trisomy 18 is desired, contact [facility] to discuss available options. The [employer] recommends amniocentesis be offered to women age 35 and older. [age] [facility] MULTIPLE GESTATION No . [facility] H [facility] OSBR RISK 1 IN 569 . [facility] Yolanda branch RACE Other . [facility] RESULTS Report . [facility] TEST RESULTS: Negative . [facility] Health care WEIGHT 164 . lbs [facility] N N LMP [id number] 5 16 N 1 Y 164 N N N N N White/ [facility] US RENAL COMPLETEon 12-27-19 24 [...] report is generated using voice recognition reporting (Social Intelligence). On occasion [facility] Instit[facility] erroneously drops words from the report or replaces the spoken word with similar sounding words. Please call with any questions/concerns regarding this report.* Dictated and transcribed 12/29/2023/ This report has been electronically signed and approved by the interpreting radiologist. Electronically Signed Kevin Garland M.D. 2023-12-29 16:01:12 Normal Not Available Cytology Cervical or vaginal smear or scraping studyon 12-20-2023 [facility] CBC AND AUTO DIFFon 06-21-19 24 ABSOLUTE BASOPHIL 0.0 X10E9/L Normal 0.0-0.2 [facility] Comment on above: Performed By: #### C BCA, CMP, [id number] #### [facility] ([id number]) [address] [place] [address], [place] [address] ABSOLUTE NEUTROPHIL 5.2 X10E9/L Normal 1.5-6.6 [facility] Comment on above: Performed By: #### C DANIEL, CMP, #### [facility] ([id number]) [address] [place] [address] Basophils/100 WBC (Bld) 0.5 % Normal [facility] Comment on above: Performed By: #### C DANIEL, CMP, #### [facility] ([id number]) [address] [place] [address]193 Eosinophils (Bld) [#/Vol] 0.0 10*3/uL Normal 0.0-0.4 [facility] Comment on above: Performed By: #### Michelle SANCHEZ CMP, #### [facility] ([id number]) [address] [place] [address]334 Eosinophils/100 WBC (Bld) 0.4 % Normal [facility] Comment on above: Performed By: #### Michelle SANCHEZ, [facility], #### [facility] ([id number]) [address] [place] [address]38 Erythrocyte distribution width (RBC) [Ratio] 12.7 % Normal 11.5-15.0 [facility] Comment on above: Performed By: #### Michelle SANCHEZ CMP, #### [facility] ([id number]) [address] [place] [address]015 Hematocrit (Bld) [Volume fraction] 41.4 % Normal 35-47 [facility] Comment on above: Performed By: #### C DANIEL, CMP, #### [facility] ([id number]) [address] [place] [address] 25371 Hemoglobin (Bld) [Mass/Vol] 14.2 g/dL Normal 11.7-15.5 [facility] Comment on above: Performed By: #### Michelle SANCHEZ, CMP, #### [facility] ([id number]) [address] [place] [address] 09294 Lymphocytes (Bld) [#/Vol] 1.3 10*3/uL Normal 1.0-3.5 [facility] Comment on above: Performed By: #### C SONDRA SANCHEZ, 70787-4 #### [facility] ([id number]) [address] [place] [address] 30342 Lymphocytes/100 WBC (Bld) 18.4 % Normal [facility] Comment on above: Performed By: #### Michelle SANCHEZ CMP, #### [facility] ([id number]) [address] [place] [address] 37755 MCH (RBC) [Entitic mass] 30.3 pg Normal 27-34 [facility] Comment on above: Performed By: #### Michelle SANCHEZ CMP, #### [facility] ([id number]) [address] [place] [address] 41860 MCHC (RBC) [Mass/Vol] 34.3 g/dL Normal 32-36 [facility] Comment on above: Performed By: #### Michelle SANCHEZ CMP, #### [facility] ([id number]) [address] [place] [address] 76662 MCV (RBC) [Entitic vol] 88 fL Normal 80-100 [facility] Comment on above: Performed By: #### Michelle SANCHEZ CMP, #### [facility] ([id number]) [address] [place] [address] 34063 Monocytes (Bld) [#/Vol] 0.6 10*3/uL Normal 0-0.9 [facility] Comment on above: Performed By: #### Michelle SANCHEZ CMP, #### [facility] ([id number]) [address] [place] [address] 86634 Monocytes/100 WBC (Bld) 8.8 % Normal [facility] Comment on above: Performed By: #### Michelle SANCHEZ CMP, 04843-1 #### [facility] ([id number]) [address] [place] [address] 93095 Neutrophils/100 WBC (Bld) 71.9 % Normal [facility] Comment on above: Performed By: #### Michelle SANCHEZ CMP, 77484-7 #### [facility] ([id number]) [address] [place] [address] 69096 Platelet mean volume (Bld) [Entitic vol] 8.9 fL Normal 7-12 [facility] Comment on above: Performed By: #### Michelle SANCHEZ CMP, 64351-2 #### [facility] ([id number]) [address] [place] [address] 17782 Platelets (Bld) [#/Vol] 267 10*3/uL Normal 150-450 [facility] Comment on above: Performed By: #### Michelle SANCHEZ CMP, 14050-0 #### [facility] ([id number]) [address] [place] [address] 93663 RBC COUNT 4.68 X10E12/L Normal 3.80-5.20 [facility] Comment on above: Performed By: #### Michelle SANCHEZ CMP, 72100-6 #### [facility] ([id number]) [address] [place] [address] 41317 WBC (Bld) [#/Vol] 7.2 10*3/uL Normal 4.0-11.0 [facility] Comment on above: Performed By: #### Michelle SANCHEZ CMP, 27283-5 #### [facility] ([id number]) [address] [place] [address] 79687 COMPREHENSIVE METABOLIC PANE Chucky 06-21-2023 Albumin [Mass/Vol] 4.2 g/dL Normal 3.2-5.3 [facility] Comment on above: Performed By: #### C BCA, CMP, #### [facility] ([id number]) [address] [place] [address] 55184 ALP [Catalytic activity/Vol] 76 U/L Normal 39-130 [facility] Comment on above: Performed By: #### C BCA, CMP, #### [facility] ([id number]) [address] [place] [address] 00586 ALT [Catalytic activity/Vol] 114 U/L High 0-31 [facility] Comment on above: Performed By: #### C BCA, CMP, #### [facility] ([id number]) [address] [place] [address] 16497 Anion gap [Moles/Vol] 11 mmol/L Normal 5-15 [facility] Comment on above: Performed By: #### C BCA, CMP, #### [facility] ([id number]) [address] [place] [address] 83027 AST [Catalytic activity/Vol] 83 U/L High 0-41 [facility] Comment on above: Performed By: #### C BCA, CMP, #### [facility] ([id number]) [address] [place] [address] 10491 Bilirubin [Mass/Vol] 1.1 mg/dL Normal 0.3-1.2 [facility] Comment on above: Performed By: #### C BCA, CMP, #### [facility] ([id number]) [address] [place] [address] 55483 Calcium [Mass/Vol] 8.9 mg/dL Normal 8.5-10.5 [facility] Comment on above: Performed By: #### C BCA, CMP, #### [facility] ([id number]) [address] [place] [address] 72060 Chloride [Moles/Vol] 98 mmol/L Normal 98-109 [facility] Comment on above: Performed By: #### C SONDRA SANCHEZ, 93349-2 #### [facility] ([id number]) [address] [place] [address] 95118 CO2 [Moles/Vol] 23 mmol/L Normal 22-32 [facility] Comment on above: Performed By: #### C SONDRA SANCHEZ, 66671-7 #### [facility] ([id number]) [address] [place] [address] 22380 Creatinine [Mass/Vol] 0.77 mg/dL Normal 0.40-1.00 [facility] Comment on above: Result Comment: METH OD TRACEABLE TO IDMS STANDARD Performed By: #### C SONDRA SANCHEZ, 59379-7 #### [facility] ([id number]) [address] [place] [address] 16211 eGFR (CKD-EPI) NON-RACE DEPENDENT >90 Normal >59 [facility] Comment on above: Result Comment: Reported eGFR is based on the CKD-EPI 1 equation that does not use a race coefficient. Performed By: #### C SONDRA SANCHEZ, 75803-8 #### [facility] ([id number]) [address] [place] [address] 15611 Glucose [Mass/Vol] 116 mg/dL High 65-99 [facility] Comment on above: Performed By: #### C SONDRA SANCHEZ, 89641-7 #### [facility] ([id number]) [address] [place] [address] 53802 Potassium [Moles/Vol] 3.1 mmol/L Low 3.5-5.0 [facility] Comment on above: Performed By: #### C SONDRA SANCHEZ, #### [facility] ([id number]) [address] [place] [address] Protein [Mass/Vol] 8.1 g/dL High 6.0-8.0 [facility] Comment on above: Performed By: #### C BCA, CMP, 07683-5 #### [facility] ([id number]) [address] [place] [address] 23494 Sodium [Moles/Vol] 132 mmol/L Low 134-146 [facility] Comment on above: Performed By: #### C BCA, CMP, 82235-5 #### [facility] ([id number]) [address] [place] [address] 59895 Urea nitrogen [Mass/Vol] 10 mg/dL Normal 5-23 [facility] Comment on above: Performed By: #### C BCA, [facility], 12187-6 #### [facility] ([id number]) [address] [place] [address] ABDOMEN AND PELVIS W CONT on [...] Bill Albrecht on 06/21/2023 3:57 PM Normal [facility] HCG ( test) Ql (U)o n 06-21-2023 Beta HCG ( test) Ql (U) Negative Normal NEG [facility] Comment on above: Performed By: #### 2 106-3 #### [facility] ([id number]) [address] [place] [address] MAGNESIUMon 06-21-2023 Magnesium [Mass/Vol] 2.1 mg/dL Normal 1.8-2.6 [facility] Comment on above: Performed By: #### C BCA, CMP, 89310-9 #### [facility] ([id number]) [address] [place] [address] 77673 SARS/FLU A+B/RSV by NAAT/Mol ecularon 06-21-2023 SARS/FLU [...] operators who are performing tests using either GeneXSnapSense DX or GeneXPriceBaba systems and is limited to laboratories that [...] repeat. Fact Sheet for Healthcare Providers: https://www.fda.gov/m edia/589459/download Fact Sheet for Patients: https://www.fda.gov/m edia/700574/download Normal [facility] Comment on above: Performed By: #### C OVFLR #### [facility] ([id number]) [address] [place] [address], [place] [address] URINE CULTUREon 06-21-2023 Bacteria identified Cx Nom [...] TOBRAMYCIN S <=1 F TRIMETH/SULFAMETHOXAZ OLE S <=/19 F Susceptible [facility] Comment on above: Performed By: #### 6 30-4 #### [facility] ([id number]) [address] [place] [address], [address] [place] [address] URN MACROSCOPIC NURon 2023 BILIRUBIN ALMA Negative Normal NEG [facility] Comment on above: Performed By: #### N UM #### [facility] ([id number]) [address] [place] [address] BLOOD/HGB ALMA Trace Abnormal NEG [facility] Comment on above: Performed By: #### N UM #### [facility] ([id number]) [address] [place] [address] GLUCOSE ALMA Negative Normal NEG [facility] Comment on above: Performed By: #### N UM #### [facility] ([id number]) [address] [place] [address] [place] [address] KETONES ALMA Trace Abnormal NEG [facility] Comment on above: Performed By: #### N UM #### [facility] ([id number]) [address] [place] [address]10 LEUKOCYTE ESTERASE ALMA Negative Normal NEG [facility] Comment on above: Performed By: #### N UM #### [facility] ([id number]) [address] [place] [address] NITRITE ALMA Positive Abnormal NEG [facility] Comment on above: Performed By: #### N UM #### [facility] ([id number]) [address] [place] [address] 12016 PH ALMA 6.0 Normal 5.0-8.5 [facility] Comment on above: Performed By: #### N UM #### [facility] ([id number]) [address] [place] [address] PROTEIN ALMA Trace Abnormal NEG [facility] Comment on above: Performed By: #### N UM #### [facility] ([id number]) [address] [place] [address] SPECIFIC GRAVITY ALMA >=1.030 Normal 1.003-1.035 [facility] Comment on above: Performed By: #### N UM #### [facility] ([id number]) [address] [place] [address] UROBILINOGEN ALMA 0.2 eu/dL Normal <1.1 [facility] Comment on above: Performed By: #### N UM #### [facility] ([id number]) [address] [place] [address]59 COVID-19 PCRon 11-15-2019 SARS-CoV-2, RENETTA Not Detected Normal Not Detected [facility] Comment on above: Result Comment: This test was developed and its performance characteristics determined by [employer]. This test has not been FDA cleared [...] assay. Performed By: #### C VDPCR #### [facility] [address] [address] Raymond Deleon Vital Signs Date Time Vital Sign Value Performing Clinician Faci lity 05-02-2024 13:50-0500 Body mass index (BMI) [Ratio] 30.67 kg/m2 Mikayla Raymond PA Work Phone: [facility] 05-02-2024 13:50-0500 Body weight 77.29 kg Mikayla Paulina PA Work Phone: [facility] 05-02-2024 13:50-0500 Diastolic blood pressure 64 mm[Hg] Mikayla Paulina PA Work Phone: [facility] 05-02-2024 13:50-0500 Systolic blood pressure 100 mm[Hg] Mikayla Paulina PA Work Phone: [facility] 04-16-2024 15:25-0500 Body mass index (BMI) [Ratio] 30.49 kg/m2 Mikayla Raymond PA Work Phone: [facility] 04-16-2024 15:25-0500 Body weight 76.84 kg Mikayla Raymond PA Work Phone: [facility] 04-16-2024 15:25-0500 Diastolic blood pressure 66 mm[Hg] Mikayla Paulina PA Work Phone: [facility] 04-16-2024 15:25-0500 Systolic blood pressure 110 mm[Hg] Mikayla Raymond PA Work Phone: [facility] 04-01-2024 08:51-0500 Body mass index (BMI) [Ratio] 29.52 kg/m2 Familia Tamir DO Work Phone: [facility] 04-01-2024 08:51-0500 Body weight 74.39 kg Familia Tamir DO Work Phone: [facility] 04-01-2024 08:51-0500 Diastolic blood pressure 68 mm[Hg] Familia Tamir DO Work Phone: [facility] 04-01-2024 08:51-0500 Systolic blood pressure 108 mm[Hg] Familia Tamir DO Work Phone: [facility] 03-13-2024 10:29-0400 Body mass index (BMI) [Ratio] 29.74 kg/m2 Mikayla Paulina PA Work Phone: [facility] 03-13-2024 10:29-0400 Body weight 74.96 kg Mikayla Paulina PA Work Phone: [facility] 03-13-2024 10:29-0400 Diastolic blood pressure 68 mm[Hg] Mikayla Raymond PA Work Phone: [facility] 03-13-2024 10:29-0400 Systolic blood pressure 100 mm[Hg] Mikayla Raymond PA Work Phone: [facility] 02-14-2024 10:27-0400 Body mass index (BMI) [Ratio] 29.83 kg/m2 Mikayla Raymond PA Work Phone: [facility] 02-14-2024 10:27-0400 Body weight 75.18 kg Mikayla Raymond PA Work Phone: [facility] 02-14-2024 10:27-0400 Diastolic blood pressure 76 mm[Hg] Mikayla Raymond PA Work Phone: [facility] 02-14-2024 10:27-0400 Systolic blood pressure 106 mm[Hg] Mikayla Raymond PA Work Phone: [facility] 01-16-2024 14:39-0400 Body mass index (BMI) [Ratio] 29.52 kg/m2 Familia Tamir DO Work Phone: [facility] 01-16-2024 14:39-0400 Body weight 74.39 kg Familia Tamir DO Work Phone: [facility] 01-16-2024 14:39-0400 Diastolic blood pressure 72 mm[Hg] Familia Tamir DO Work Phone: [facility] 01-16-2024 14:39-0400 Systolic blood pressure 102 mm[Hg] Familia Tamri DO Work Phone: [facility] 06-26-2023 08:39-0500 Body mass index (BMI) [Ratio] 30.81 kg/m2 Jorge Camara NP Work Phone: [facility] 06-26-2023 08:39-0500 Body weight 77.66 kg Jorge Dooleyman COATING OPERATOR Work Phone: [facility] 06-26-2023 08:39-0500 Diastolic blood pressure 80 mm[Hg] Jorge Dooleyman COATING OPERATOR Work Phone: [facility] 06-26-2023 08:39-0500 Heart rate 72 /min Jorge Magdy COATING OPERATOR Work Phone: [facility] 06-26-2023 08:39-0500 Systolic blood pressure 102 mm[Hg] Jorge Dooleyman COATING OPERATOR Work Phone: [facility] Healthcare Encounters Encounter Date Encounter Type Care Provider Facility Start: 05-02-2024 End: 05-02-2024 Bamboo flowsheet Mikayla COTTO Work Phone: [facility] Start: 05-02-2024 End: 05-02-2024 Bamboo flowsheet Mikayla COTTO Work Phone: [facility] Start: 05-02-2024 End: 05-02-2024 Office outpatient visit 15 minutes Mikayla COTTO Work Phone: [facility] Comment on above: 35 weeks gestation o f ; Third trimester Start: 04-16-2024 End: 04-16-2024 ambulatory MIKAYLA DILLARD Not Available Start: 04-16-2024 End: 04-16-2024 Office outpatient visit 15 minutes Mikayla COTTO Work Phone: [facility] Comment on above: Third trimester preg jeanette; 33 weeks gestation of Start: 04-16-2024 End: 04-16-2024 Bamboo flowsheet Mikayla COTTO Work Phone: [facility] Start: 04-16-2024 End: 04-16-2024 Bamboo flowsheet Mikayla COTTO Work Phone: [facility] Start: 04-01-2024 End: 04-01-2024 Bamboo flowsheet Familia Garnett DO Work Phone: [facility] Start: 04-01-2024 End: 04-01-2024 Bamboo flowsheet Familia Tamir DO Work Phone: [facility] Start: 04-01-2024 End: 04-01-2024 ambulatory [...] 02-14-2024 Bamboo flowsheet Mikayla COTTO Work Phone: [facility] Start: 02-14-2024 End: 02-14-2024 Office outpatient visit 15 minutes Mikayla COTTO Work Phone: [facility] Comment on above: 24 weeks gestation o f ; Second trimester ; Diabetes mellitus screening; Encounter for follow-up ultrasound of anatomy; Gastroesophageal reflux in Start: 02-14-2024 End: 02-14-2024 ambulatory MIKAYLA DILLARD Not Available Start: 01-16-2024 End: 01-16-2024 Office outpatient visit 15 minutes Familia Tamir DO Work Phone: [facility] Comment on above: 20 weeks gestation o f Start: 01-16-2024 End: 01-16-2024 ambulatory FAMILIA TAMIR Not Available Start: 01-16-2024 End: 01-16-2024 Bamboo flowsheet Familia Tamir DO Work Phone: [facility] Start: 01-16-2024 End: 01-16-2024 Bamboo flowsheet Familia Tamir DO Work Phone: [facility] Start: 01-08-2024 End: 01-11-2024 Clinisync Result Encounter Generic External Data Provider [facility] Unsolicited Start: 01-08-2024 End: 01-11-2024 Clinisync Result Encounter Generic External Data Provider [facility] Unsolicited Start: 12-27-2023 End: 12-27-2023 ambulatory PASTORA B WONDERLY Not Available Start: 12-25-2023 End: 12-25-2023 ambulatory JORGE CAMARA Not Available Start: 12-21-2023 End: 12-21-2023 ambulatory PASTORA B WONDERLY Not Available Start: 12-20-2023 End: 12-20-2023 ambulatory MIKAYLA DILLARD Not Available Start: 11-21-2023 End: 11-21-2023 ambulatory FAMILIA TAMIR Not Available Start: 11-07-2023 End: 11-07-2023 ambulatory JORGE CAMARA Not Available Start: 10-20-2023 End: 10-20-2023 ambulatory JORGE CAMARA Not Available Start: 10-16-2023 End: 10-16-2023 ambulatory PASTORA BARRON Not Available Start: 07-10-2023 End: 07-10-2023 ambulatory [...] 06-22-2023 Emergency department patient visit PAZ GUZMÁN [facility] Start: 06-21-2023 End: 06-21-2023 Emergency department patient visit PASTORA BARRON [facility] Start: 12-28-2022 ambulatory Conrado Banks acility:[facility] Start: 11-14-2019 End: 11-15-2019 Patient encounter procedure PASTORA BARRON Facility:[facility]1 Procedures Date Procedure Procedure Detail Performing Clinician Start: 05-02-2024 Urnls dip stick/tabl et rgnt non-auto w/o micrscp Mikayla COTTO Work Phone: Start: 04-17-2024 Urnls dip stick/tabl et rgnt non-auto w/o micrscp Mikayla COTTO Work Phone: Start: 04-01-2024 Urnls dip stick/tabl et rgnt non-auto w/o micrscp Familia Garnett DO Work Phone: Start: 03-13-2024 Urnls dip stick/tabl et rgnt non-auto w/o micrscp Mikayla COTTO Work Phone: Start: 02-27-2024 [facility] UA (CLEAN/CATCH) OCCUPANCY SPECIALIST/MICRO IF IND. Familia Tamir DO Work Phone: Start: 02-26-2024 GLUCOSE 1 HOUR Mikayla Younger Work Phone: Start: 02-14-2024 Urnls dip stick/tabl et rgnt non-auto w/o micrscp Mikayla COTTO Work Phone: Start: 01-16-2024 Urnls dip stick/tabl et rgnt non-auto w/o micrscp Familia Tamir DO Work Phone: Start: 01-08-2024 AFP, SERUM, OPEN SPI NA BIFIDA Familia Tamir DO Work Phone: Start: 12-20-2023 Cytp cerv/vag auto t hin layer prep mnl screen Familia Tamir DO Work Phone: Plan of Treatment Date Care Activity Detail Author Start: 05-09-2024 End: 05-09-2024 Patient encounter procedure 05/09/2024 10:10 AM EST Routine [facility] [address] [place] [phone] Familia Garnett, DO [address] [place] [address] [facility] Start: 05-02-2024 End: 05-02-2025 CULTURE, GROUP B STREP WITH SUSCEPTIBLITY CULTURE, GROUP B STREP WITH SUSCEPTIBLITY Lab Routine Third trimester Expected: 05/02/2024, Expires: 05/02/2025 [facility] Work Phone: Comment on above: Expected: 05/02/2024 , Expires: 05/02/2025 Start: 05-02-2024 End: 05-02-2024 Patient encounter procedure [facility] Comment on above: Arrived Start: 04-16-2024 End: 04-16-2024 Patient encounter procedure [facility] Comment on above: Arrived Start: 04-16-2024 End: 04-16-2024 Professional / ancillary services management 04/16/2024 2:00 PM EST Ancillary Procedure [facility] [address] [phone] [facility] Start: 04-01-2024 End: 04-01-2025 US for US OB SCAN FOR GROWTH Imaging Routine size inconsistent with dates Expected: 04/01/2024 (Approximate), Expires: 04/01/2025 [facility] Work Phone: Comment on above: Expected: 04/01/2024 (Approximate), Expires: 04/01/2025 Start: 03-28-2024 End: 03-28-2024 Patient encounter procedure 03/28/2024 11:50 AM EST Routine [facility] [address] [place] [phone] Familia Garnett, DO [address] [place], [place] [id number] [facility] Start: 03-13-2024 End: 03-13-2024 Patient encounter procedure [facility] Comment on above: Arrived Start: 02-19-2024 End: 02-19-2024 Professional / ancillary services management 02/19/2024 8:00 AM EDT Ancillary Procedure [facility] [address] [place] [address] [facility] Start: 02-14-2024 End: 02-13-2025 CBC panel - Blood by Automated count CBC Lab Routine Diabetes mellitus screening Expected: 02/14/2024 (Approximate), Expires: 02/13/2025 [facility] Work Phone: Comment on above: Expected: 02/14/2024 (Approximate), Expires: 02/13/2025 Start: 02-14-2024 End: 02-13-2025 Measurement of glucose 1 hour after glucose challenge for glucose tolerance test Glucose tolerance, 1 hour Lab Routine Diabetes mellitus screening Expected: 02/14/2024 (Approximate), Expires: 02/13/2025 [facility] Comment on above: Expected: 02/14/2024 (Approximate), Expires: 02/13/2025 Start: 02-14-2024 End: 02-13-2025 US for US OB INCOMPLETE ANATOMY Imaging Routine Encounter for follow-up ultrasound of anatomy Expected: 02/14/2024 (Approximate), Expires: 02/13/2025 [facility] Comment on above: Expected: 02/14/2024 (Approximate), Expires: 02/13/2025 Start: 02-14-2024 End: 02-14-2024 Patient encounter procedure 02/14/2024 10:30 AM EDT Routine [facility] [address] [place] [phone] Mikayla Dillard PA [address] [place], [place] [id number] Arrived [facility] Comment on above: Arrived Start: 02-13-2024 End: 02-13-2024 Patient encounter procedure 02/13/2024 1:30 PM EDT Routine [facility] [address] [place] [phone] Mikayla Dillard PA [address] [place], [place] [id number] [facility] Start: 01-16-2024 End: 01-16-2024 Patient encounter procedure [facility] Comment on above: Arrived Start: 01-16-2024 End: 01-16-2024 Professional / ancillary services management 01/16/2024 1:30 PM EDT Ancillary Procedure [facility] [address] [place] [phone] [facility] Start: 01-14-2024 Influenza vaccination Influenza Vacc ine (#1) [facility] Start: 11-12-2023 Influenza vaccination Influenza Vacc ine (#1) [facility] Comment on above: Postponed from 01/13 (Patient Refused) Start: 07-25-2023 End: 06-26-2024 Hepatic function 2000 panel - Serum or Plasma Hepatic function panel Lab Routine Elevated liver function tests Pyelonephritis Expected: 07/25/2023 (Approximate), Expires: 06/26/2024 [facility] Work Phone: Comment on above: Expected: 07/25/2023 (Approximate), Expires: 06/26/2024 Start: 07-13-2023 End: 07-13-2023 Patient encounter procedure 07/13/2023 2:00 PM EST [facility] [address] [place] [address] Jorge Camara NP [address] [place] [address] [facility] Start: 06-26-2023 End: 06-26-2024 Comprehensive metabolic 2000 panel - Serum or Plasma Comprehensive metabolic panel Lab Routine Elevated liver function tests Pyelonephritis Hypokalemia Diarrhea, unspecified type Expected: 06/26/2023 (Approximate), Expires: 06/26/2024 [facility] Work Phone: Comment on above: Expected: 06/26/2023 (Approximate), Expires: 06/26/2024 Immunizations Immunization Date Immunization Notes Care Provider [facility] 03-11-2016 influenza, injectabl e, quadrivalent, preservative free Jorge Camara COATING OPERATOR Work Phone: [facility] 03-11-2016 influenza virus vacc ine, unspecified formulation Jorge Camara COATING OPERATOR Work Phone: [facility] 02-04-2015 tetanus toxoid, redu yenny diphtheria toxoid, and acellular pertussis vaccine, adsorbed Jorge Camara COATING OPERATOR Work Phone: [facility] 12-17-2001 diphtheria, tetanus toxoids and acellular pertussis vaccine, unspecified formulation Jorge Camara COATING OPERATOR Work Phone: [facility] 12-17-2001 measles, mumps and rubella virus vaccine Jorge Magdy COATING OPERATOR Work Phone: [facility] 12-17-2001 poliovirus vaccine, inactivated Jorge Camara COATING OPERATOR Work Phone: [facility] 06-04-1997 diphtheria, tetanus toxoids and acellular pertussis vaccine, unspecified formulation Jorge Magdy COATING OPERATOR Work Phone: [facility] 06-04-1997 haemophilus influenz ae type b vaccine, conjugate unspecified formulation Jorgebrdigette Camara COATING OPERATOR Work Phone: [facility] 06-04-1997 measles, mumps and rubella virus vaccine Jorge Camara COATING OPERATOR Work Phone: [facility] 1996 DTP-Haemophilus influenzae type b conjugate vaccine Jorge Camara COATING OPERATOR Work Phone: [facility] 1996 hepatitis B vaccine, pediatric or pediatric/adolescent dosage Jorge Magdy COATING OPERATOR Work Phone: [facility] 1996 trivalent poliovirus vaccine, live, oral Jorge Camara COATING OPERATOR Work Phone: [facility] 1996 DTP-Haemophilus influenzae type b conjugate vaccine Jorge Magdy COATING OPERATOR Work Phone: [facility] 1996 trivalent poliovirus vaccine, live, oral Jorge Camara COATING OPERATOR Work Phone: [facility] 1996 DTP-Haemophilus influenzae type b conjugate vaccine Jorge Camara COATING OPERATOR Work Phone: [facility] 1996 hepatitis B vaccine, pediatric or pediatric/adolescent dosage Jorge Magdy COATING OPERATOR Work Phone: [facility] 1996 trivalent poliovirus vaccine, live, oral Jorge Camara COATING OPERATOR Work Phone: [facility] 1996 hepatitis B vaccine, pediatric or pediatric/adolescent dosage Jorge Camara COATING OPERATOR Work Phone: [facility] Payers Date Payer Category Payer Self-pay 2022 Medicaid [id number] 2019 Unknown [id number] 2019 Medicaid [id number] 1996 Unknown [id number] 2.16.84 [id number] 1996 Unknown [id number] 2.16.8 40.1.817965.3.579.2.1286 1996 Unknown [id number] 2.16.84 0.1.426845.3.579.2.1258 1996 Unknown [id number] 2.16.84 0.1.769092.3.579.2.1258 1996 Unknown [id number] 2.16.84 0.1.495966.3.579.2.1258 1996 Unknown [id number] 2.16.84 0.1.066553.3.579.2.1258 1996 Unknown [id number] 2.16.84 0.1.872463.3.579.2.1258 1996 Unknown [id number] 2.16.84 0.1.457535.3.579.2.1258 1996 Unknown [id number] 2.16.84 0.1.998224.3.579.2.1258 1996 Unknown [id number] 2.16.84 0.1.579273.3.579.2.1258 1996 Unknown [id number] 2.16.84 0.1.406498.3.579.2.1258 1996 Unknown [id number] 2.16.84 0.1.310869.3.579.2.1258 1996 Unknown [id number] 2.16.84 0.1.414955.3.579.2.1258 1996 Unknown [id number] 2.16.84 0.1.102403.3.579.2.1258 1996 Unknown [id number] 2.16.84 0.1.429756.3.579.2.1258 1996 Unknown [id number] 2.16.84 0.1.797278.3.579.2.1258 1996 Unknown [id number] 2.16.84 0.1.755676.3.579.2.1259 Social History Date Type Detail Facility Start: 06-26-2023 End: 12-25-2023 Tobacco smoking status NHIS [facility]oker [facility] History of tobacco use Current smoker [facility] History of tobacco use Cigarette Smoker [facility] Start: 06-26-2023 End: 12-25-2023 Tobacco use and exposure Smokeless tobacco non-user [facility] Start: 06-26-2023 End: 05-02-2024 Alcohol intake Current drinker of alcohol (finding) [...] Personal health goal Clinical Notes 06-26-2023 to 05-02-2024 KIRTI Beltrán - 05/02/2024 1:40 PM KIRTI Welsh - 04/16/2024 2:30 PM Iwona Espino LPN - 04/01/2024 8:30 AM KIRTI Welsh - 03/13/2024 10:30 AM KIRTI Dumont - 02/14/2024 10:30 AM EDT Note Date & Type Note Facility 05-02-2024 History of Presen t illness Narrative Reason for Appointment: Patient ID: Jaja Lisa is a 29 y.o. female who presents for Routine Visit Patient presents today for Return OB appointment. MEDICATIONS Current Outpatient Medications Medication Instructions omeprazole (PRILOSEC) 20 mg, Oral, Daily before breakfast, Do not crush or chew. MV-Min-Fe Fum-FA-DHA ( 1 PO) Take by mouth ALLERGIES Allergies Allergen Reactions Norelgestromin-Eth Estradiol Other Reaction(s): GI upset PROBLEMS Active Ambulatory Problems Diagnosis Date Noted Anxiety 06/23/2023 Gastroesophageal reflux disease 06/23/2023 Goiter (CMS/HCC) 06/23/2023 Other headache syndrome 06/23/2023 Overweight 06/23/2023 Kidney infection 07/11/2023 Fatty liver 01/01/2024 Hepatic steatosis during 01/01/2024 size inconsistent with dates 04/01/2024 31 weeks gestation of 04/01/2024 Third trimester 04/01/2024 Resolved Ambulatory Problems Diagnosis Date Noted Frontal [...] Negative. Respiratory: Negative. Cardiovascular: Negative. Gastrointestinal: Negative. Musculoskeletal: Negative. Skin: Negative. Neurological: Negative. Psychiatric/Behavioral: Negative. All other systems reviewed and are negative. Hematological: Negative. Endocrine: Negative. OBJECTIVE Objective: Physical Exam Constitutional: Appearance: Normal appearance. She is well-developed and normal weight. HENT: Head: Normocephalic. Cardiovascular: Rate and Rhythm: Normal rate and regular rhythm. Pulses: Normal pulses. Pulmonary: Effort: Pulmonary effort is normal. Breath sounds: Normal breath sounds. Abdominal: General: Bowel sounds are normal. There is no distension. Palpations: Abdomen is soft. Tenderness: There is no abdominal tenderness. There is no guarding or rebound. Musculoskeletal: General: No swelling. Normal range of motion. Right lower leg: No edema. Left lower leg: No edema. Neurological: General: No focal deficit present. Mental Status: She is alert and oriented to person, place, and time. Skin: General: Skin is warm and dry. Psychiatric: Mood and Affect: Mood normal. Behavior: Behavior normal. Thought Content: Thought content normal. Judgment: Judgment normal. Vitals and nursing note reviewed. Exam conducted with a salon stylist present. Vitals: Estimated body mass index is 30.67 kg/m as calculated from the following: Height as of 06/30/21: 5' 2.5 . Weight as of this encounter: 170 lb 6.4 oz. BP: 100/64 Patient's last menstrual period was 08/25/2023. ASSESSMENT & PLAN ICD-10-CM 1. 35 weeks gestation of Z3A.35 POCT urinalysis dipstick manually resulted 2. Third trimester Z34.93 POCT urinalysis dipstick manually resulted CULTURE, GROUP B STREP WITH SUSCEPTIBLITY CULTURE, GROUP B STREP WITH SUSCEPTIBLITY Patient is doing well but has complaints of being tired and having maternal discomfort due to . Patient verbalized frequent movement and was instructed to perform kick counts three times per day. labor precautions were given, LARC consent was signed/declined, and GBS was obtained. Cervical check was performed and patient is 1cm dilated. Orders Placed This Encounter Procedures CULTURE, GROUP B STREP WITH SUSCEPTIBLITY POCT urinalysis dipstick manually resulted Follow Up: Patient is to return to office in 1 week for routine OB appointment Documented by Monika Pierre LPN on behalf of: KIRTI Beltrán documented in this encounter [facility] 04-16-2024 History of Presen t illness Narrative Reason [...] Fatty liver 01/01/2024 Hepatic steatosis during 01/01/2024 size inconsistent with dates 04/01/2024 31 weeks gestation of 04/01/2024 Third trimester 04/01/2024 Resolved Ambulatory Problems Diagnosis Date Noted Frontal [...] Past Surgical History: Procedure Laterality Date CHOLECYSTECTOMY 2012 REVIEW OF SYSTEMS Review of Systems: Review of Systems Constitutional: Negative. HENT: Negative. Eyes: Negative. Respiratory: Negative. Cardiovascular: Negative. Gastrointestinal: Negative. Genitourinary: Negative. Musculoskeletal: Negative. Skin: Negative. Neurological: Negative. All other systems reviewed and are negative. Hematological: Negative. Endocrine: Negative. Allergic/Immunologic: Negative. OBJECTIVE Objective: Physical Exam Constitutional: Appearance: Normal appearance. HENT: Head: Normocephalic. Nose: Nose normal. Mouth/Throat: Mouth: Mucous membranes are moist. Cardiovascular: Rate and Rhythm: Normal rate. Pulmonary: Effort: Pulmonary effort is normal. Abdominal: General: Bowel sounds are normal. Palpations: Abdomen is soft. Musculoskeletal: General: Normal range of motion. Cervical back: Normal range of motion. Neurological: General: No focal deficit present. Mental Status: She is alert. Skin: General: Skin is warm and dry. Psychiatric: Mood and Affect: Mood normal. Vitals and nursing note reviewed. Exam conducted with a salon stylist present. Vitals: Estimated body mass index is 30.49 kg/m as calculated from the following: Height as of 06/30/21: 5' 2.5 . Weight as of this encounter: 169 lb 6.4 oz. BP: 110/66 Patient's last menstrual period was 08/25/2023. ASSESSMENT & PLAN ICD-10-CM 1. Third trimester Z34.93 POCT urinalysis dipstick manually resulted 2. 33 weeks gestation of Z3A.33 POCT urinalysis dipstick manually resulted Return OB: Patient presents today for a routine obstetrics appointment. Patient is currently 33w4d . Patient states she is doing well but has complaints of being tired due to current . Patient has verbalizes frequent movement. labor precautions was discussed/given and patient was instructed to perform kick counts three times a day. Orders Placed This Encounter Procedures POCT urinalysis dipstick manually resulted Follow Up: Patient is to return to office in 2 week for routine OB appointment. Documented by KIRTI Beltrán on behalf of: KIRTI Beltrán documented in this encounter [facility] 04-01-2024 History of Presen t illness Narrative [...] nursing note reviewed. Exam conducted with a salon stylist present. Vitals: Estimated body mass index is [...] Familia Garnett DO documented in this encounter [facility] 03-13-2024 History of Presen t illness Narrative [...] of: KIRTI Beltrán documented in this encounter [facility] 02-14-2024 History of Presen t illness Narrative [...] of: KIRTI Beltrán documented in this encounter [facility] 01-16-2024 History of Presen t illness Narrative Reason for Appointment: Patient ID: Jaja Lisa is a 28 y.o. female who presents for Routine Visit Patient presents today for Return OB appointment. MEDICATIONS Current Outpatient Medications Medication Instructions metoclopramide (REGLAN) 10 mg, Oral, 3 times daily PRN ondansetron (Zofran) 4 MG tablet Oral MV-Min-Fe Fum-FA-DHA ( 1 PO) Oral ALLERGIES [...] Past Surgical History: Procedure Laterality Date CHOLECYSTECTOMY 2012 REVIEW OF SYSTEMS Review of Systems: Review [...] nursing note reviewed. Exam conducted with a salon stylist present. Vitals: Estimated body mass index is 29.52 kg/m as calculated from the following: Height as of 06/30/21: 5' 2.5 . Weight as of this encounter: 164 lb. BP: 102/72 Patient's last menstrual period was 08/25/2023. ASSESSMENT & PLAN ICD-10-CM 1. 20 weeks gestation of Z3A.20 POCT urinalysis dipstick manually resulted Patient presents today for a routine obstetrics appointment. Patient is currently 20w4d with a Estimated Date of Delivery: 05/31/24. Reviewed anatomy scan with pt in office today- pt to return in 4 weeks for scheduled OB appt. Documented by Adrienne Trujillo LPN on behalf of: Familia Garnett DO documented in this encounter [facility] 06-26-2023 Telephone encount er Note Please let patient know labs are improving. Potassium level is WNL. AST and ALT are still high but better compared to what it was in the hospital. I would like to repeat AST/ALT levels in 4 weeks. Order placed. AST 10 - 30 U/L 43 High ALT 6 - 29 U/L 86 High [facility] 06-26-2023 Miscellaneous Notes Formattin g of this [...] U/L 86 High documented in this encounter [facility] 06-26-2023 History of Presen t illness Narrative [...] Visit Report Report COMPREHENSIVE METABOLIC PANEL Order: [id number] Component Ref Range & Units 5 d [...] CT abdomen pelvis w IV contrast Order: [id number] Narrative CT ABDOMEN AND PELVIS HISTORY: Abdominal [...] and today . documented in this encounter [facility] Healthcare Evaluation note Diagnosis Pyelonephritis- Primary Unspecified pyelonephritis Elevated liver function tests Other abnormal blood chemistry Hypokalemia Hypopotassemia Diarrhea, unspecified type Nausea Nausea alone Left lower quadrant abdominal tenderness with rebound tenderness Gastroesophageal reflux disease without esophagitis Esophageal reflux documented in this encounter [facility] HealthcareEvaluation note* Diagnosis Elevated liver function tests- [...] with dates documented in this encounter [facility] Diagnosis Third trimester state, incidental 33 weeks gestation of documented in this encounter [facility]* Diagnosis 20 weeks gestation of documented in this [facility]* Diagnosis 35 weeks gestation of Third trimester state, incidental documented in this encounter [facility] Summary Purpose Family History No Family History Records FoundNo Family History Records FoundNo Family History Records FoundNo Family History Records Found Advance Directives No Advanced Directives Records FoundNo Advanced Directives Records FoundNo Advanced Directives Records FoundNo Advanced Directives Records Found Additional Source Comments INFORMATION SOURCE (unrecogn ized section and content) DATE CREATED AUTHOR 12/13/2019 [facility] DATE CREATED AUTHOR AUTHOR'S ORGANIZ ATION 04/21/2023 [facility] DATE CREATED AUTHOR AUTHOR'S ORGANIZ ATION 06/26/2023 [facility] DATE CREATED AUTHOR AUTHOR'S ORGANIZ ATION 04/18/2024 [facility] EPIC Reason for Visit (unrecogniz ed section and content) Reason Comments ER Follow-up Abd pain,diarrhea. L eft side pain comes and goes started this morning, nausea better, continued diarrhea. Reason Onset Date Comments Results 06/26/2023 Reason Comments Routine Visit Care Teams (unrecognized sec tion and content) Qa Intern Relationship Specialty Start Date End Date Pastora Barron MD [address] [place] [address] PCP - General Family Medicine 09/20/22 Qa Intern Relationship Specialty Start Date End Date Pastora Barron MD [address] [place] [address] PCP - General Family Medicine 09/20/22 Qa Intern Relationship Specialty Start Date End Date WonderPastora rolon MD [address] [place] [address] PCP - General Family Medicine 09/20/22 Qa Intern Relationship Specialty Start Date End Date WonderPastora rolon MD [address] [place] [address] PCP - General Family Medicine 09/20/22 Qa Intern Relationship Specialty Start Date End Date WonderPastora rolon MD [address] [place] [address] PCP - General Family Medicine 09/20/22 Qa Intern Relationship Specialty Start Date End Date WonderPastora rolon MD [address] [place] [address] PCP - General Family Medicine 09/20/22 Qa Intern Relationship Specialty Start Date End Date Pastora Barron MD [address] [place] [address] PCP - General Family Medicine 09/20/22 Qa Intern Relationship Specialty Start Date End Date Pastora Barron MD [address] [place] [address] PCP - General Family Medicine 09/20/22 Qa Intern Relationship Specialty Start Date End Date Pastora Barron MD [address] [place] [address] PCP - General Family Medicine 09/20/22 Qa Intern Relationship Specialty Start Date End Date Pastora Barron MD [address] [place] [address] PCP - General Family Medicine 09/20/22 Qa Intern Relationship Specialty Start Date End Date Pastora Barron MD [address] [facility] [place] [address] PCP - General Family Medicine 09/20/22 Qa Intern Relationship Specialty Start Date End Date Pastora Barron MD [address] [facility] [place] [address] PCP - General Family Medicine 09/20/22 FOR [...] BE BASED ON THE PRIMARY CLINICAL RECORDS. [employer] [facility]. provides no warranty or guarantee of the accuracy or completeness of information in this document.
[2024-05-04 10:24] LABS: Bilirubin Urine NEGATIVE (NEGATIVE); Blood Urine NEGATIVE (NEGATIVE); Clarity Urine CLEAR (CLEAR); Color Urine LT. YELLOW (YELLOW); Glucose Urine UA NEGATIVE (NEGATIVE); Ketones Urine NEGATIVE (NEGATIVE); Leukocyte Esterase Urine SMALL (NEGATIVE); Nitrite Urine NEGATIVE (NEGATIVE); Protein Urine NEGATIVE (NEG/TRACE); Urobilinogen Urine 0.2 EU/dL (0.2-1.0); pH Urine 8.5 (5.0-9.0)
[2024-05-04 10:28] LABS: Urine Microscopic Indicated YES
[2024-05-04 10:32] LABS: Amnisure NEGATIVE (NEGATIVE); Internal Control Within Normal Limits
[2024-05-04 10:44] LABS: Bacteria Urine TRACE #/HPF (NONE SEEN); Mucus Urine NONE SEEN (NONE SEEN); RBC Urine NONE SEEN #/HPF (0-2); Squamous Epithelial Cell Urine MODERATE #/LPF (NONE/RARE); WBC Urine 0-2 #/HPF (NONE SEEN)
[2024-05-04 10:47] LABS: Urine Culture Indicated NO
== END 2024-05-04 10:55 | disposition home or self-care (01) ==
PROVIDERS: Admitting Provider Obstetrics & Gynecology; PCP Family Medicine; Visit Provider Obstetrics & Gynecology
DX: O26.893 Other specified pregnancy related conditions, third trimester (principal); R68.89 Other general symptoms and signs; Z3A.34 34 weeks gestation of pregnancy
CPT/HCPCS: 81001; 84112; G0378; G0379

== ENCOUNTER 2024-05-16 21:38 | Observation (INO) | payer MEDICAID, SELFPAY ==
--- OUTSIDE RECORDS SUMMARY | 2024-05-16 21:45 | XMS_ITS | CCD ---
Author Organization [facility] Care Team Providers Care Mortician Investigator Name Role Phone PASTORA BARRON Admitting Unavailable [...] Care Provider JORGE CAMARA Attending Unavailable ITA, PAZ Attending Unavailable PASTORA BARRON Attending Unavailable FAMILIA GARNETT Attending Unavailable MIKAYLA DILLARD Attending Unavailable PASTORA BARRON Attending Unavailable JORGE CAMARA Attending Unavailable PASTORA BARRON Referring Unavailable FAMILIA GARNETT Attending Unavailable MIKAYLA DILLARD Attending Unavailable NISHANT, MIKAYLA Attending Unavailable FAMILIA GARNETT Attending Unavailable MIKAYLA DILLARD Attending Unavailable MIKAYLA DILLARD Attending Unavailable FAMILIA GARNETT Attending Unavailable MIKAYLA DILLARD Attending Unavailable Allergies Allergy Classification Reported Allergen(s) Allergy Type Date of Onset Reaction(s) Facility (20 sources) Ethinyl Estradiol / norelgestromin Drug Allergy 4 [facility] Medications Current Medications Medication Drug Class(es) Dates Sig (Normalized) Sig (Original) omeprazole 20 mg delayed release oral capsule (20 sources) Proton Pump Inhibitor Start: 02-14-2024 End: [...] unspecified trimester] 02-14-2024 Episodic Other complications of (18 sources) size does not accord with dates; [...] 01-01-2024 Chronic Other and delivery including normal (20 sources) Second trimester ; Translations: [Encounter for [...] of ] 03-13-2024 Episodic Residual codes; unclassified (18 sources) Gestation period, 31 weeks; Translations: [31 weeks gestation of ] Onset: 4 04-01-2024 Episodic Residual codes; unclassified (2 sources) Gestation period, 33 weeks; Translations: [33 weeks gestation of ] 04-16-2024 Episodic Residual codes; unclassified (2 sources) Gestation period, 35 weeks; Translations: [35 weeks gestation of ] 05-02-2024 Episodic Residual codes; unclassified (2 sources) Gestation period, 36 weeks; Translations: [36 weeks gestation of ] 05-09-2024 Episodic Residual codes; unclassified (2 sources) Gestation period, 37 weeks; Translations: [37 weeks gestation of ] 05-13-2024 Episodic Thyroid disorders (20 sources) Goiter; Translations: [Nontoxic goiter, unspecified] Onset: 4 06-23-2023 Chronic Unclassified (20 sources) OB Reminders Onset: 4 12-29-2023 Urinary tract infections (4 sources) Tubulo-interstitial nephritis, not specified as acute or chronic; Translations: [Pyelonephritis] Onset: 06-26-2023 Episodic Past or Other Problems Problem [...] Range Facility Urinalysis macro (dipstick) panel (U)on 05-13-2024 Bilirubin, UA Negative Negative - 4(70) +++ mg/dL [facility] Blood, UA Negative Negative - 50 Robson/mcL [facility] Healthcare Clarity, UA Clear [facility] re Color, UA Yellow [facility] Glucose, UA Negative Negative - 1999(110) ++++ mg/dL [facility] Interpretation and review of laboratory results Abnormal [facility] Ketones, UA Negative Negative - 160(16) ++++ mg/dL [facility] Leukocytes, UA Negative Negative - 500+++ Jesus Manuel/mcL [facility] Nitrite, UA Negative Negative - Positive [facility] pH, UA 6 5 - 9 [facility] Protein, UA Trace Negative - 1999(20) ++++ mg/dL [facility] Spec Grav, UA 1.025 1 - 1.03 [facility] Urobilinogen, UA 0.2 0.2 - 12 mg/dL [facility] Urinalysis macro (dipstick) panel (U)on 05-09-2024 Bilirubin, UA Negative Negative - 4(70) +++ mg/dL [facility] Blood, UA Negative Negative - 50 Robson/mcL [facility] Clarity, UA Clear [facility] re Color, UA Yellow [facility] Glucose, UA Negative Negative - 1999(110) ++++ mg/dL [facility] Interpretation and review of laboratory results Abnormal [facility] Ketones, UA Negative Negative - 160(16) ++++ mg/dL [facility] Leukocytes, UA Trace Negative - 500+++ Jesus Manuel/mcL [facility] Nitrite, UA Negative Negative - Positive [facility] pH, UA 6.5 5 - 9 [facility] Protein, UA Negative Negative - 1999(20) ++++ mg/dL [facility] Spec Grav, UA 1.025 1 - 1.03 [facility] Urobilinogen, UA 0.2 0.2 - 12 mg/dL [facility] Health[facility] e TBH UA (CLEAN/CATCH) OTTER TRAWLER [place]/RITA RO IF IND.on 12-21-2024 BILIRUBIN URINE Negative NEGATIVE [facility] thcare BLOOD URINE Negative NEGATIVE [facility] Health[facility] re Clarity (U) CLEAR CLEAR [facility] re Color (U) LT. YELLOW YELLOW [facility] e GLUCOSE URINE UA Negative NEGATIVE mg/dL [facility] Interpretation and review of laboratory results Abnormal [facility] Ketones Ql (U) Negative NEGATIVE mg/dL [facility] Leuk[facility] esterase Test strip Ql (U) SMALL Abnormal NEGATIVE [facility] NITRITE URINE Negative NEGATIVE [facility] care pH (U) 8.5 [pH] 5.0 - 9.0 [facility] PROTEIN URINE Negative NEG/TRACE mg/dL [facility] SPECIFIC GRAVITY URINE 1.020 1.005 - 1.025 [facility] URINE MICROSCOPIC INDICATED YES [facility] UROBILINOGEN URINE 0.2 EU/dL 0.2 - 1.0 EU/dL [facility] Health[facility] e Urinalysis macro (dipstick) panel (U)on 05-02-2024 Bilirubin, UA Negative Negative - 4(70) +++ mg/dL [facility] Blood, UA Negative Negative - 50 Robson/mcL [facility] Clarity, UA Clear [facility] Health[facility] re Color, UA Yellow [facility] Glucose, UA Negative Negative - 1999(110) ++++ mg/dL [facility] Interpretation and review of laboratory results Abnormal [facility] Ketones, UA Positive Negative - 160(16) ++++ mg/dL [facility] Leukocytes, UA Trace Negative - 500+++ Jesus Manuel/mcL [facility] Nitrite, UA Negative Negative - Positive [facility] pH, UA 6 5 - 9 [facility] Protein, UA Positive Negative - 1999(20) ++++ mg/dL [facility] Spec Grav, UA 1.03 1 - 1.03 [facility] Urobilinogen, UA 0.2 0.2 - 12 mg/dL [facility] Urinalysis macro (dipstick) panel (U)on 04-17-2024 Bilirubin, UA Negative Negative - 4(70) +++ mg/dL [facility] Blood, UA Negative Negative - 50 Robson/mcL [facility] Healthcare Clarity, UA Clear [facility] re Color, UA Yellow [facility] Glucose, UA Negative Negative - 1999(110) ++++ mg/dL [facility] Interpretation and review of laboratory results Normal [facility] Ketones, UA Negative Negative - 160(16) ++++ mg/dL [facility] Leukocytes, UA Negative Negative - 500+++ Jesus Manuel/mcL [facility] Healthcare Nitrite, UA Negative Negative - Positive [facility] pH, UA 6.5 5 - 9 [facility] Protein, UA Negative Negative - 1999(20) ++++ mg/dL [facility] Healthcare Spec Grav, UA 1.015 1 - 1.03 [facility] care Urobilinogen, UA 1.0 0.2 - 12 mg/dL [facility] Urinalysis macro (dipstick) panel (U)on 04-01-2024 Bilirubin, UA Negative Negative - 4(70) +++ mg/dL [facility] Blood, UA Negative Negative - 50 Robson/mcL [facility] Healthcare Clarity, UA Clear [facility] re Color, UA Paz [facility] Glucose, UA Negative Negative - 1999(110) ++++ mg/dL [facility] Interpretation and review of laboratory results Normal [facility] Ketones, UA Negative Negative - 160(16) ++++ mg/dL [facility] Leukocytes, UA Negative Negative - 500+++ Jesus Manuel/mcL [facility] Healthcare Nitrite, UA Negative Negative - Positive [facility] pH, UA 6.5 5 - 9 [facility] Healthcar e Protein, UA Negative Negative - 1999(20) ++++ mg/dL [facility] Spec Grav, UA 1.025 1 - 1.03 [facility] Urobilinogen, UA 0.2 0.2 - 12 mg/dL [facility] Urinalysis macro (dipstick) panel (U)on 03-13-2024 Bilirubin, UA Negative Negative - 4(70) +++ mg/dL [facility] Blood, UA Negative Negative - 50 Robson/mcL [facility] Healthcare Clarity, UA Clear [facility] re Color, UA Yellow [facility] Glucose, UA Negative Negative - 1999(110) ++++ mg/dL [facility] Interpretation and review of laboratory results Abnormal [facility] Ketones, UA Negative Negative - 160(16) ++++ mg/dL [facility] Healthcare Leukocytes, UA Trace Negative - 500+++ Jesus Manuel/mcL [facility] Healthcare Nitrite, UA Negative Negative - Positive [facility] pH, UA 6.5 5 - 9 [facility] Protein, UA Negative Negative - 1999(20) ++++ mg/dL 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 Interpretation and review of laboratory results Abnormal [facility] Ketones Ql (U) TRACE Abnormal NEGATIVE mg/dL [facility] Leukocyte esterase Test strip Ql (U) TRACE Abnormal NEGATIVE [facility] NITRITE URINE Negative NEGATIVE [facility] care pH (U) 6.0 [pH] 5.0 - 9.0 [facility] PROTEIN URINE Negative NEG/TRACE mg/dL [facility] SPECIFIC GRAVITY URINE >=1.030 Abnormal 1.005 - 1.025 [facility] URINE MICROSCOPIC INDICATED YES [facility] UROBILINOGEN URINE 0.2 EU/dL 0.2 - 1.0 EU/dL [facility] e GLUCOSE 1 HOURon 02-26-2024 Glucose [Mass/Vol] 126 mg/dL NINF - 13 0 mg/dL [facility] e Urinalysis macro (dipstick) panel (U)on 02-14-2024 Bilirubin, UA Positive Negative - 4(70) +++ mg/dL [facility] Comment on above: small Blood, UA Negative Negative - 50 Robson/mcL [facility] Clarity, UA Clear [facility] Health[facility] re Color, UA Yellow [facility] Glucose, UA Negative Negative - 1999(110) ++++ mg/dL [facility] Interpretation and review of laboratory results Abnormal [facility] Ketones, UA Positive Negative - 160(16) ++++ mg/dL [facility] Comment on above: 15 Leukocytes, UA Negative Negative - 500+++ Jesus Manuel/mcL [facility] Nitrite, UA Negative Negative - Positive [facility] pH, UA 6.0 5 - 9 [facility] Healthcar e Protein, UA Negative Negative - 1999(20) ++++ mg/dL [facility] Spec Grav, UA 1.030 1 - 1.03 [facility] Urobilinogen, UA 0.2 0.2 - 12 mg/dL [facility] Urinalysis macro (dipstick) panel (U)on 01-16-2024 Bilirubin, UA Positive Negative - 4(70) +++ mg/dL [facility] Comment on above: small Blood, UA Negative Negative - 50 Robson/mcL [facility] Clarity, UA Clear [facility] re Color, UA Yellow [facility] Gl[facility], UA Negative Negative - 1999(110) ++++ mg/dL [facility] Interpretation and review of laboratory results Abnormal [facility] Ketones, UA Positive Negative - 160(16) ++++ mg/dL [facility] Comment on above: trace Leukocytes, UA Negative Negative - 500+++ Jesus Manuel/mcL [facility] Nitrite, UA Negative Negative - Positive [facility] pH, UA 5.5 5 - 9 [facility] Protein, UA Negative Negative - 1999(20) ++++ mg/dL [facility] Spec Grav, UA 1.030 1 - 1.03 [facility] Urobilinogen, UA 0.2 0.2 - 12 mg/dL [facility] Health[facility] e AFP, SERUM, OPEN SPINA BIFID Aon 01-11-2024 AFP MOM 2.16 . [facility] AFP VALUE 104.8 ng/mL . [facility] re COMMENT: Comment . [facility] Health[facility] e Comment on above: Colleen Rivas , Ph.D., [facility] Director References: Available Upon Request. Multiples Of Median Cutoffs For AFP Elevations Alarcon 2.5 Black 2.8 IDD 2.0 Twins 4.5 Abbreviation Definitions IDD - Insulin Dep Diabetes OSBR - Open Spina Bifida Risk For further inquiries contact [facility] at [phone]. This test was developed and its performance characteristics determined by [employer]. It has not been cleared or approved by the Food and Drug Administration. Performed at: [facility] RTP [address], [place], [place] [id number] Chemistry Department Chair: Gillian Boston [facility], Phone: [phone] GEST. AGE ON COLLECTION DATE 20.[address] [facility] GESTAT. AGE BASED ON LMP . [facility] Comment on above: Recalculations are n ot recommended when gestational dating by LMP and ultrasound are within 10 days. INSULIN DEP DIABETES No . [facility] INTERPRETATION Comment . [facility] Comment on above: Interpretation: Scre en [...] Customer Services to discuss available options. The [employer] recommends amniocentesis be offered to women age 35 and older. MATERNAL [age]VIE 29.[address] [facility] MULTIPLE GESTATION No . [facility] H [facility] OSBR RISK 1 [place] 569 . [facility] branch RACE Other . [facility] RES[facility] Report . [employer] e TEST RESULTS: Negative . [facility] [employer] [facility] WEIGHT 164 . lbs [facility] [employer] [facility] e N N LMP [id number] [phone] N 1 Y 164 N N N N N White/ [facility] e US RENAL COMPLETEon 12-27-19 24 US [...] report is generated using voice recognition reporting ([employer]). On occasion [employer] erroneously drops words from the report or replaces the spoken word with similar sounding words. Please call with any questions/concerns regarding this report.* Dictated and transcribed 12/29/2023/jf This report has been electronically signed and approved by the interpreting radiologist. Electronically Signed Kevin Garland M.D. 2023-12-29 16:01:12 Normal Not Available Cytology Cervical or vaginal smear or scraping studyon 12-20-2023 [facility] CBC AND AUTO DIFFon 06-21-19 24 ABSOLUTE BASOPHIL 0.0 X10E9/L Normal 0.0-0.2 [place] Comment on above: Performed By: #### Michelle SANCHEZ CMP, 92963-9 #### [facility] ([id number]) [address] [place] [address] 86550 ABSOLUTE NEUTROPHIL 5.2 X10E9/L Normal 1.5-6.6 [facility] Comment on above: Performed By: #### Michelle SANCHEZ CMP, 17604-6 #### [facility] ([id number]) [address] [place] [address] 40830 Basophils/100 WBC (Bld) 0.5 % Normal [facility] Comment on above: Performed By: #### Michelle SANCHEZ CMP, 06361-6 #### [facility] ([id number]) [address] [place] [address] 52241 Eosinophils (Bld) [#/Vol] 0.0 10*3/uL Normal 0.0-0.4 [facility] Comment on above: Performed By: #### Michelle SANCHEZ CMP, 95801-0 #### [facility] ([id number]) [address] [place] [address] 17537 Eosinophils/100 WBC (Bld) 0.4 % Normal [facility] Comment on above: Performed By: #### Michelle SANCHEZ CMP, #### [facility] ([id number]) [address] [place] [address] 35346 Erythrocyte distribution width (RBC) [Ratio] 12.7 % Normal 11.5-15.0 [facility] Comment on above: Performed By: #### Michelle SANCHEZ CMP, #### [facility] ([id number]) [address] [place] [address] 63229 Hematocrit (Bld) [Volume fraction] 41.4 % Normal 35-47 [facility] Comment on above: Performed By: #### Michelle SANCHEZ CMP, 18551-3 #### [facility] ([id number]) [address] [place] [address] 46927 Hemoglobin (Bld) [Mass/Vol] 14.2 g/dL Normal 11.7-15.5 [facility] Comment on above: Performed By: #### Michelle SANCHEZ [facility], #### [facility] ([id number]) [address] [place] [address] 42268 Lymphocytes (Bld) [#/Vol] 1.3 10*3/uL Normal 1.0-3.5 [facility] Comment on above: Performed By: #### Michelle SANCHEZ CMP, 94127-7 #### [facility] ([id number]) [address] [place] [address] 17412 Lymphocytes/100 WBC (Bld) 18.4 % Normal [facility] Comment on above: Performed By: #### Michelle SANCHEZ CMP, 15689-1 #### [facility] ([id number]) [address] [place] [address] 81896 MCH (RBC) [Entitic mass] 30.3 pg Normal 27-34 [facility] Comment on above: Performed By: #### Michelle SANCHEZ CMP, 78766-0 #### [facility] ([id number]) [address] [place] [address] MCHC (RBC) [Mass/Vol] 34.3 g/dL Normal 32-36 [facility] Comment on above: Performed By: #### Michelle SANCHEZ CMP, #### [facility] ([id number]) [address] [place] [address] 65291 MCV (RBC) [Entitic vol] 88 fL Normal 80-100 [facility] Comment on above: Performed By: #### Michelle SANCHEZ CMP, #### [facility] ([id number]) [address] [place] [address] 78943 Monocytes (Bld) [#/Vol] 0.6 10*3/uL Normal 0-0.9 [facility] Comment on above: Performed By: #### Michelle SANCHEZ CMP, #### [facility] ([id number]) [address] [place] [address] 48926 Monocytes/100 WBC (Bld) 8.8 % Normal [facility] Comment on above: Performed By: #### Michelle SANCHEZ [facility], #### [facility] ([id number]) [address] [place] [address] 62916 Neutrophils/100 WBC (Bld) 71.9 % Normal [facility] Comment on above: Performed By: #### Michelle SANCHEZ CMP, #### [facility] ([id number]) [address] [place] [address] 07970 Platelet mean volume (Bld) [Entitic vol] 8.9 fL Normal 7-12 [facility] Comment on above: Performed By: #### Michelle SANCHEZ CMP, #### [facility] ([id number]) [address] [place] [address] 77485 Platelets (Bld) [#/Vol] 267 10*3/uL Normal 150-450 [facility] Comment on above: Performed By: #### C BCA, CMP, 58435-4 #### [facility] ([id number]) [address] [place] [address] 54395 RBC COUNT 4.68 X10E12/L Normal 3.80-5.20 [facility] Comment on above: Performed By: #### C BCA, CMP, 69013-0 #### [facility] ([id number]) [address] [place] [address] 12262 WBC (Bld) [#/Vol] 7.2 10*3/uL Normal 4.0-11.0 [place] Comment on above: Performed By: #### C BCA, CMP, 75659-9 #### [facility] ([id number]) [address] [place] [address] 07180 COMPREHENSIVE METABOLIC PANE Chucky 06-21-2023 Albumin [Mass/Vol] 4.2 g/dL Normal 3.2-5.3 [place] Comment on above: Performed By: #### C BCA, CMP, 23806-6 #### [facility] ([id number]) [address] [place] [address] 69432 ALP [Catalytic activity/Vol] 76 U/L Normal 39-130 [facility] Comment on above: Performed By: #### C BCA, CMP, #### [facility] ([id number]) [address] [place] [address] 76067 ALT [Catalytic activity/Vol] 114 U/L High 0-31 [facility] Comment on above: Performed By: #### C BCA, CMP, 77088-8 #### [facility] ([id number]) [address] [place] [address] 42758 Anion gap [Moles/Vol] 11 mmol/L Normal 5-15 [facility] Comment on above: Performed By: #### C BCA, CMP, #### [facility] ([id number]) [address] [place] [address] 59041 AST [Catalytic activity/Vol] 83 U/L High 0-41 [facility] Comment on above: Performed By: #### C BCA, CMP, #### [facility] ([id number]) [address] [place] [address] 08826 Bilirubin [Mass/Vol] 1.1 mg/dL Normal 0.3-1.2 [facility] Comment on above: Performed By: #### C BCA, CMP, #### [facility] ([id number]) [address] [place] [address] 69156 Calcium [Mass/Vol] 8.9 mg/dL Normal 8.5-10.5 [place] Comment on above: Performed By: #### C BCA, CMP, #### [facility] ([id number]) [address] [place] [address] 57525 Chloride [Moles/Vol] 98 mmol/L Normal 98-109 [facility] Comment on above: Performed By: #### C BCA, CMP, 55797-7 #### [facility] ([id number]) [address] [place] [address] 13295 CO2 [Moles/Vol] 23 mmol/L Normal 22-32 [facility] Comment on above: Performed By: #### C BCA, CMP, 97669-1 #### [facility] ([id number]) [address] [place] [address] 59013 Creatinine [Mass/Vol] 0.77 mg/dL Normal 0.40-1.00 [facility] Comment on above: Result Comment: METH OD TRACEABLE TO IDMS STANDARD Performed By: #### C BCA, CMP, #### [facility] ([id number]) [address] [place] [address] 64612 eGFR (CKD-EPI) NON-RACE DEPENDENT >90 Normal >59 [facility] Comment on above: Result Comment: Reported eGFR is based on the CKD-EPI 2020 equation that does not use a race coefficient. Performed By: #### C SONDRA SANCHEZ, 29303-9 #### [facility] ([id number]) [address] [place] [address] 11316 Glucose [Mass/Vol] 116 mg/dL High 65-99 [place] Comment on above: Performed By: #### C DANIEL [facility], 54019-1 #### [facility] ([id number]) [address] [place] [address] 84244 Potassium [Moles/Vol] 3.1 mmol/L Low 3.5-5.0 [facility] Comment on above: Performed By: #### Michelle SANCHEZ [facility], #### [facility] ([id number]) [address] [place] [address] 58431 Protein [Mass/Vol] 8.1 g/dL High 6.0-8.0 [place] Comment on above: Performed By: #### C DANIEL [facility], 26185-8 #### [facility] ([id number]) [address] [place] [address] 28161 Sodium [Moles/Vol] 132 mmol/L Low 134-146 [place] Comment on above: Performed By: #### C SONDRA SANCHEZ, 49667-8 #### [facility] ([id number]) [address] [place] [address] 85456 Urea nitrogen [Mass/Vol] 10 mg/dL Normal 5-23 [facility] Comment on above: Performed By: #### C SONDRA SANCHEZ, 58747-8 #### [facility] ([id number]) [address] [place] [address] ABDOMEN AND PELVIS W CONT on [...] Bill Albrecht on 06/21/2023 3:57 PM Normal [facility] HCG ( test) Ql (U)o n 06-21-2023 Beta HCG ( test) Ql (U) Negative Normal NEG [facility] Comment on above: Performed By: #### 2 106-3 #### [facility] ([id number]) [address] [place] [address], [place] [address] MAGNESIUMon 06-21-2023 Magnesium [Mass/Vol] 2.1 mg/dL Normal 1.8-2.6 [facility] Comment on above: Performed By: #### C [facility], [facility], 35294-0 #### [facility] [facility] ([id number]) [address] [facility], [place] [address] SARS/FLU A+B/RSV by NAAT/Mol ecularon 06-21-2023 SARS/FLU [...] operators who are performing tests using either [employer] or [employer] systems and is limited to laboratories that [...] repeat. Fact Sheet for Healthcare Providers: https://www.fda.gov/m edia/152926/download Fact Sheet for Patients: https://www.fda.gov/m edia/945383/download Normal [facility] Comment on above: Performed By: #### C OVFLR #### [facility] ([id number]) [address] [place] [address] 60625 URINE CULTUREon 06-21-2023 Bacteria identified Cx Nom [...] F TRIMETH/SULFAMETHOXAZ OLE S <=1/19 F Susceptible [facility] Comment on above: Performed By: #### 6 30-4 #### [facility] ([id number]) [address], [address] [place] [address] URN MACROSCOPIC NURon 2023 BILIRUBIN ALMA Negative Normal NEG [facility] Comment on above: Performed By: #### N UM #### [facility] ([id number]) [address] [place] [address] 70734 BLOOD/HGB ALMA Trace Abnormal NEG [facility] Comment on above: Performed By: #### N UM #### [facility] ([id number]) [address] [place] [address] 38788 GLUCOSE ALMA Negative Normal NEG [facility] Comment on above: Performed By: #### N UM #### [facility] ([id number]) [address] [place] [address] 44995 KETONES ALMA Trace Abnormal NEG [facility] Comment on above: Performed By: #### N UM #### [facility] ([id number]) [address] [place] [address] 29126 LEUKOCYTE ESTERASE ALMA Negative Normal NEG [facility] Comment on above: Performed By: #### N UM #### [facility] ([id number]) [address] [place] [address] 16351 NITRITE ALMA Positive Abnormal NEG [facility] Comment on above: Performed By: #### N UM #### [facility] ([id number]) [address] [place] [address] 30696 PH ALMA 6.0 Normal 5.0-8.5 [facility] Comment on above: Performed By: #### N UM #### [facility] ([id number]) [address] [place] [address] 97052 PROTEIN ALMA Trace Abnormal NEG [facility] Comment on above: Performed By: #### N UM #### [facility] ([id number]) [address] [place] [address] 43769 SPECIFIC GRAVITY ALMA >=1.030 Normal 1.003-1.035 [facility] Comment on above: Performed By: #### N UM #### [facility] ([id number]) [address] [place] [address] 57721 UROBILINOGEN ALMA 0.2 eu/dL Normal <1.1 [facility] Comment on above: Performed By: #### N UM #### [facility] ([id number]) [address] [place] [address] 31302 COVID-19 PCRon 11-15-2019 SARS-CoV-2, RENETTA Not Detected Normal Not Detected [facility] Comment on above: Result Comment: This test was developed and its performance characteristics determined by [employer]. This test has not been FDA cleared [...] By: #### C VDPCR #### [facility] [address] [place] [address] Vital Signs Date Time Vital Sign Value Performing Clinician Faci lity 05-13-2024 11:45-0500 Body mass index (BMI) [Ratio] 30.78 kg/m2 Mikayla COTTO Work Phone: [facility] 05-13-2024 11:45-0500 Body weight 77.56 kg Mikayla COTTO Work Phone: [facility] 05-13-2024 11:45-0500 Diastolic blood pressure 70 mm[Hg] Mikayla COTTO Work Phone: [facility] 05-13-2024 11:45-0500 Systolic blood pressure 110 mm[Hg] Mikayla Dillard PA Work Phone: [facility] 05-09-2024 10:27-0500 Body mass index (BMI) [Ratio] 30.56 kg/m2 Familia Tamir DO Work Phone: [facility] 05-09-2024 10:27-0500 Body weight 77.02 kg Familia Tamir DO Work Phone: [facility] 05-09-2024 10:27-0500 Diastolic blood pressure 68 mm[Hg] Familia Tamir DO Work Phone: [facility] 05-09-2024 10:27-0500 Systolic blood pressure 110 mm[Hg] Familia Tamir DO Work Phone: [facility] 05-02-2024 13:50-0500 Body mass index (BMI) [Ratio] 30.67 kg/m2 Mikayla Nishant PA Work Phone: [facility] 05-02-2024 13:50-0500 Body weight 77.29 kg Mikayla [place] PA Work Phone: [facility] 05-02-2024 13:50-0500 Diastolic blood pressure 64 mm[Hg] Mikayla [place] PA Work Phone: [facility] 05-02-2024 13:50-0500 Systolic blood pressure 100 mm[Hg] Mikayla [place] PA Work Phone: [facility] 04-16-2024 15:25-0500 Body mass index (BMI) [Ratio] 30.49 kg/m2 Mikayla [place] PA Work Phone: [facility] 04-16-2024 15:25-0500 Body weight 76.84 kg Mikayla Nishant PA Work Phone: [facility] 04-16-2024 15:25-0500 Diastolic blood pressure 66 mm[Hg] Mikayla [place] PA Work Phone: [facility] 04-16-2024 15:25-0500 Systolic blood pressure 110 mm[Hg] Mikayla [place] PA Work Phone: [facility] 04-01-2024 08:51-0500 Body mass index (BMI) [Ratio] 29.52 kg/m2 Familia Tamir DO Work Phone: [facility] 04-01-2024 08:51-0500 Body weight 74.39 kg Familia Tamir DO Work Phone: [facility] 04-01-2024 08:51-0500 Diastolic blood pressure 68 mm[Hg] Familia Tamir DO Work Phone: [facility] 04-01-2024 08:51-0500 Systolic blood pressure 108 mm[Hg] Familia Tamir DO Work Phone: [facility] 03-13-2024 10:29-0400 Body mass index (BMI) [Ratio] 29.74 kg/m2 Mikayla Nishant PA Work Phone: [facility] 03-13-2024 10:29-0400 Body weight 74.96 kg Mikayla Nishant PA Work Phone: [facility] 03-13-2024 10:29-0400 Diastolic blood pressure 68 mm[Hg] Mikayla Nishant PA Work Phone: [facility] 03-13-2024 10:29-0400 Systolic blood pressure 100 mm[Hg] Mikayla [place] PA Work Phone: [facility] 02-14-2024 10:27-0400 Body mass index (BMI) [Ratio] 29.83 kg/m2 Mikayla Nishant PA Work Phone: [facility] 02-14-2024 10:27-0400 Body weight 75.18 kg Mikayla [place] PA Work Phone: [facility] 02-14-2024 10:27-0400 Diastolic blood pressure 76 mm[Hg] Mikayla Nishant PA Work Phone: [facility] 02-14-2024 10:27-0400 Systolic blood pressure 106 mm[Hg] Mikayla [place] PA Work Phone: [facility] 01-16-2024 14:39-0400 Body mass index (BMI) [Ratio] 29.52 kg/m2 Familia Tamir DO Work Phone: [facility] 01-16-2024 14:39-0400 Body weight 74.39 kg Familia Tamir DO Work Phone: [facility] 01-16-2024 14:39-0400 Diastolic blood pressure 72 mm[Hg] Familia Tamir DO Work Phone: [facility] 01-16-2024 14:39-0400 Systolic blood pressure 102 mm[Hg] Familia Tamir DO Work Phone: [facility] 06-26-2023 08:39-0500 Body mass index (BMI) [Ratio] 30.81 kg/m2 Jorge Camara SALES AND IN HOME DELIVERY SPECIALIST Work Phone: [facility] 06-26-2023 08:39-0500 Body weight 77.66 kg Jorge Camara NP Work Phone: [facility] 06-26-2023 08:39-0500 Diastolic blood pressure 80 mm[Hg] Jorge Camara NP Work Phone: [facility] 06-26-2023 08:39-0500 Heart rate 72 /min Jorge Camara SALES AND IN HOME DELIVERY SPECIALIST Work Phone: [facility] 06-26-2023 08:39-0500 Systolic blood pressure 102 mm[Hg] Jorge Camara SALES AND IN HOME DELIVERY SPECIALIST Work Phone: [facility] Encounters Encounter Date Encounter Type Care Provider Facility Start: 05-13-2024 End: 05-13-2024 Bamboo flowsheet Mikayla COTTO Work Phone: [facility] Start: 05-13-2024 End: 05-13-2024 Bamboo flowsheet Mikayla COTTO Work Phone: [facility] Start: 05-13-2024 End: 05-13-2024 Office outpatient visit 15 minutes Mikayla COTTO Work Phone: [facility] Comment on above: Third trimester preg jeanette; 37 weeks gestation of Start: 05-13-2024 End: 05-13-2024 ambulatory MIKAYLA DILLARD Not Available Start: 05-09-2024 End: 05-09-2024 Bamboo flowsheet Familia Tamir DO Work Phone: [facility] Start: 05-09-2024 End: 05-09-2024 Bamboo flowsheet Familia Tamir DO Work Phone: [facility] Start: 05-09-2024 End: 05-09-2024 Office outpatient visit 15 minutes Familia Tamir DO Work Phone: [facility] Comment on above: 36 weeks gestation o f ; Third trimester Start: 05-09-2024 End: 05-09-2024 ambulatory FAMILIA TAMIR Not Available Start: 05-04-2024 End: 05-04-2024 Clinisync Result Encounter Familia Tamir DO Work Phone: [facility] Unsolicited Start: 05-04-2024 End: 05-04-2024 Clinisync Result Encounter Familia Tamir DO Work Phone: [facility] Unsolicited Start: 05-02-2024 End: 05-02-2024 Bamboo flowsheet Mikayla COTTO Work Phone: [facility] Start: 05-02-2024 End: 05-02-2024 Bamboo flowsheet Mikayla COTTO Work Phone: [facility] Start: 05-02-2024 End: 05-02-2024 Office outpatient visit 15 minutes Mikayla COTTO Work Phone: [facility] Comment on above: 35 weeks gestation o f ; Third trimester Start: 05-02-2024 End: 05-02-2024 ambulatory MIKAYLA DILLARD Not Available Start: 04-16-2024 End: 04-16-2024 ambulatory MIKAYLA DILLARD [...] 02-14-2024 Bamboo flowsheet Mikayla COTTO Work Phone: [facility] Start: 02-14-2024 End: 02-14-2024 Office outpatient visit 15 minutes Mikayla COTTO Work Phone: [facility] Comment on above: 24 weeks gestation o f ; Second trimester ; Diabetes mellitus screening; Encounter for follow-up ultrasound of anatomy; Gastroesophageal reflux in Start: 02-14-2024 End: 02-14-2024 ambulatory MIKAYLA DILLARD Not Available Start: 01-16-2024 End: 01-16-2024 Office outpatient visit 15 minutes Familia Tamir DO Work Phone: [facility] Comment on above: 20 weeks gestation o f Start: 01-16-2024 End: 01-16-2024 ambulatory FAMILIA TAMIR Not Available Start: 01-16-2024 End: 01-16-2024 Bamboo flowsheet Familia Tamir DO Work Phone: [facility] Start: 01-16-2024 End: 01-16-2024 Bamboo flowsheet Familia Tamir DO Work Phone: [facility] Start: 01-08-2024 End: 01-11-2024 Clinisync [...] 06-22-2023 Emergency department patient visit PAZ GUZM[facility]N [facility] Start: 06-21-2023 End: 06-21-2023 Emergency department patient visit PASTORA BARRON [facility] Start: 12-28-2022 ambulatory Conrado Banks acility:[facility] Start: 11-14-2019 End: 11-15-2019 Patient encounter procedure PASTORA BARRON Facility:H1 Procedures Date Procedure Procedure Detail Performing Clinician Start: 05-13-2024 Urnls dip stick/tabl et rgnt non-auto w/o micrscp Mikayla COTTO Work Phone: Start: 05-09-2024 Urnls dip stick/tabl et rgnt non-auto w/o micrscp Familia Tamir DO Work Phone: Start: 05-04-2024 [facility] UA (CLEAN/CATCH) OTTER TRAWLER [place]/MICRO IF IND. Familia Tamir DO Work Phone: Start: 05-02-2024 Urnls dip stick/tabl et rgnt non-auto w/o micrscp Mikayla COTTO Work Phone: Start: 04-17-2024 Urnls dip stick/tabl et rgnt non-auto w/o micrscp Mikayla COTTO Work Phone: Start: 04-01-2024 Urnls dip stick/tabl et rgnt non-auto w/o micrscp Familia Tamir DO Work Phone: Start: 03-13-2024 Urnls dip stick/tabl et rgnt non-auto w/o micrscp Mikayla COTTO Work Phone: Start: 02-27-2024 [facility] UA (CLEAN/CATCH) OTTER TRAWLER [place]/MICRO IF IND. Familia Tamir DO Work Phone: [...] Treatment Date Care Activity Detail Author Start: 05-13-2024 End: 05-13-2024 Patient encounter procedure [facility] Comment on above: Arrived Start: 05-09-2024 End: 05-09-2024 Patient encounter procedure [facility] Comment on above: Arrived Start: 05-02-2024 End: 05-02-2025 CULTURE, GROUP B [...] EST Ancillary Procedure [facility] [address] [place] [id number] [facility] Start: 04-01-2024 End: 04-01-2025 US for US OB SCAN FOR GROWTH Imaging Routine size inconsistent with dates Expected: 04/01/2024 (Approximate), Expires: 04/01/2025 [facility] Work Phone: Comment on above: Expected: 04/01/2024 (Approximate), Expires: 04/01/2025 Start: 03-28-2024 End: 03-28-2024 Patient encounter procedure 03/28/2024 11:50 AM EST Routine [facility] [address] [place] [phone] Familia Garnett DO [address] [place] [address] [facility] Start: 03-13-2024 End: 03-13-2024 Patient encounter procedure [facility] Comment on above: Arrived Start: 02-19-2024 End: 02-19-2024 Professional / ancillary services management 02/19/2024 8:00 AM EDT Ancillary Procedure [facility] [address] [place] [id number] [facility] Start: 02-14-2024 End: 02-13-2025 [...] mellitus screening Expected: 02/14/2024 (Approximate), Expires: 02/13/2025 [facility] Comment on above: Expected: 02/14/2024 (Approximate), Expires: 02/13/2025 Start: 02-14-2024 End: 02-13-2025 US for US OB INCOMPLETE ANATOMY Imaging Routine Encounter for follow-up ultrasound of anatomy Expected: 02/14/2024 (Approximate), Expires: 02/13/2025 [facility] Comment on above: Expected: 02/14/2024 (Approximate), Expires: 02/13/2025 Start: 02-14-2024 End: 02-14-2024 Patient encounter procedure 02/14/2024 10:30 AM EDT Routine [facility] [address] [facility] [place] [phone] Mikayla Dillard PA [address] [place] [address] [place], [place] [id number] Arrived [facility] Comment on above: Arrived Start: 02-13-2024 End: 02-13-2024 Patient encounter procedure 02/13/2024 1:30 PM EDT Routine [facility] [address] [facility] [place] [address] Mikayla Dillard PA [address] [place] [address] [facility] Start: 01-16-2024 End: 01-16-2024 Patient encounter procedure [facility] Comment on above: Arrived Start: 01-16-2024 End: 01-16-2024 Professional / ancillary services management 01/16/2024 1:30 PM EDT Ancillary Procedure [facility] [address] [place] [id number] [facility] Start: 01-14-2024 Influenza vaccination Influenza Vacc ine (#1) [facility] Start: 11-12-2023 Influenza vaccination Influenza Vacc ine (#1) [facility] Comment on above: Postponed from 01/13 (Patient Refused) Start: 07-25-2023 End: 06-26-2024 Hepatic function 2000 panel - Serum or Plasma Hepatic function panel Lab Routine Elevated liver function tests Pyelonephritis Expected: 07/25/2023 (Approximate), Expires: 06/26/2024 [facility] Work Phone: Comment on above: Expected: 07/25/2023 (Approximate), Expires: 06/26/2024 Start: 07-13-2023 End: 07-13-2023 Patient encounter procedure 07/13/2023 2:00 PM EST Office Visit [facility] [address] [place] [address] Jorge Camara NP [address] [place] [address] [facility] Start: 06-26-2023 End: 06-26-2024 Comprehensive metabolic 2000 panel - Serum or Plasma Comprehensive metabolic panel Lab Routine Elevated liver function tests Pyelonephritis Hypokalemia Diarrhea, unspecified type Expected: 06/26/2023 (Approximate), Expires: 06/26/2024 [facility] Work Phone: Comment on above: Expected: 06/26/2023 (Approximate), Expires: 06/26/2024 Immunizations Immunization Date Immunization Notes Care Provider Fa cili 03-11-2016 influenza, injectabl e, quadrivalent, preservative free Jorge Camara NP Work Phone: [facility] 03-11-2016 influenza virus vacc ine, unspecified formulation Jorge Camara NP Work Phone: [facility] 02-04-2015 tetanus toxoid, redu yenny diphtheria toxoid, and acellular pertussis vaccine, adsorbed Jorge Camara SALES AND IN HOME DELIVERY SPECIALIST Work Phone: [facility] 12-17-2001 diphtheria, tetanus toxoids and acellular pertussis vaccine, unspecified formulation Jorge Camara NP Work Phone: [facility] 12-17-2001 measles, mumps and rubella virus vaccine Jorge Camara SALES AND IN HOME DELIVERY SPECIALIST Work Phone: [facility] 12-17-2001 poliovirus vaccine, inactivated Jorge Magdy SALES AND IN HOME DELIVERY SPECIALIST Work Phone: [facility] 06-04-1997 diphtheria, tetanus toxoids and acellular pertussis vaccine, unspecified formulation Jorge Magdy SALES AND IN HOME DELIVERY SPECIALIST Work Phone: [facility] 06-04-1997 haemophilus influenz ae type b vaccine, conjugate unspecified formulation Jorge Magdy SALES AND IN HOME DELIVERY SPECIALIST Work Phone: [facility] 06-04-1997 measles, mumps and rubella virus vaccine Jorge Camara SALES AND IN HOME DELIVERY SPECIALIST Work Phone: [facility] 1996 DTP-Haemophilus influenzae type b conjugate vaccine Jorge Camara SALES AND IN HOME DELIVERY SPECIALIST Work Phone: [facility] 1996 hepatitis B vaccine, pediatric or pediatric/adolescent dosage Jorge Magdy SALES AND IN HOME DELIVERY SPECIALIST Work Phone: [facility] 1996 trivalent poliovirus vaccine, live, oral Jorge Camara SALES AND IN HOME DELIVERY SPECIALIST Work Phone: [facility] 1996 DTP-Haemophilus influenzae type b conjugate vaccine Jorge Magdy SALES AND IN HOME DELIVERY SPECIALIST Work Phone: [facility] 1996 trivalent poliovirus vaccine, live, oral Jorge Magdy SALES AND IN HOME DELIVERY SPECIALIST Work Phone: [facility] 1996 DTP-Haemophilus influenzae type b conjugate vaccine Jorge Camara SALES AND IN HOME DELIVERY SPECIALIST Work Phone: [facility] 1996 hepatitis B vaccine, pediatric or pediatric/adolescent dosage Jorge Magdy SALES AND IN HOME DELIVERY SPECIALIST Work Phone: [facility] 1996 trivalent poliovirus vaccine, live, oral Jorge Magdy SALES AND IN HOME DELIVERY SPECIALIST Work Phone: [facility] 1996 hepatitis B vaccine, pediatric or pediatric/adolescent dosage Jorge Camara SALES AND IN HOME DELIVERY SPECIALIST Work Phone: [facility] Payers Date Payer Category Payer Self-pay 2022 Medicaid [id number] 2019 Unknown [id number] 2019 Medicaid [id number] 1996 Unknown [id number] 2.16.84 0.1.856201.3.579.2.593 1996 Unknown [id number] 2.16.8 40.1.816906.3.579.2.1286 1996 Unknown [id number] 2.16.84 0.1.598061.3.579.2.9 1996 Unknown [id number] 2.16.84 0.1.552004.3.579.2.1259 1996 Unknown [id number] 2.16.84 0.1.410708.3.579.2.1258 1996 Unknown [id number] 2.16.84 0.1.762625.3.579.2.9 1996 Unknown [id number] 2.16.84 0.1.626572.3.579.2.1258 1996 Unknown [id number] 2.16.84 0.1.998391.3.579.2.1259 1996 Unknown [id number] 2.16.84 0.1.856634.3.579.2.9 1996 Unknown [id number] 2.16.84 0.1.674812.3.579.2.1258 1996 Unknown [id number] 2.16.84 0.1.017316.3.579.2.1258 1996 Unknown [id number] 2.16.84 0.1.956292.3.579.2.9 1996 Unknown [id number] 2.16.84 0.1.735741.3.579.2.1258 1996 Unknown [id number] 2.16.84 0.1.069176.3.579.2.9 1996 Unknown [id number] 2.16.84 0.1.745053.3.579.2.1258 1996 Unknown [id number] 2.16.84 0.1.860170.3.579.2.1258 1996 Unknown [id number] 2.16.84 0.1.907526.3.579.2.1258 1996 Unknown [id number] 2.16.84 0.1.582827.3.579.2.1258 1996 Unknown [id number] 2.16.84 0.1.189734.3.579.2.1258 1996 Unknown [id number] 2.16.84 0.1.126987.3.579.2.9 Social History Date Type Detail Facility Start: 06-26-2023 End: 12-25-2023 Tobacco smoking status ALIS [facility]oker [facility] History of tobacco use Current smoker [facility] History of tobacco use Cigarette Smoker [facility] Start: 06-26-2023 End: 12-25-2023 Tobacco use and exposure Smokeless tobacco non-user [facility] Start: 06-26-2023 End: 05-09-2024 Alcohol intake Current drinker of alcohol (finding) [...] Personal health goal Clinical Notes 06-26-2023 to 05-13-2024 KIRTI Beltrán - 05/13/2024 11:00 AM Luis Manuel Trujillo LPN - 05/09/2024 10:10 AM KIRTI Welsh - 05/02/2024 1:40 PM KIRTI Welsh - 04/16/2024 2:30 PM Iwona Espino LPN - 04/01/2024 8:30 AM EST Note Date & Type Note Facility 05-13-2024 History of Presen t illness Narrative Reason [...] reviewed. Vitals: Estimated body mass index is 30.56 kg/m as calculated from the following: Height as of 06/30/21: 5' 2.5 . Weight as of 05/09/24: 169 lb 12.8 oz. BP: Patient's last menstrual period was 08/25/2023. ASSESSMENT & PLAN ICD-10-CM 1. Third trimester Z34.93 POCT urinalysis dipstick manually resulted 2. 37 weeks gestation of Z3A.37 Return OB: Patient presents today for a routine obstetrics appointment. Patient is currently 37w3d . Patient states she is doing well [...] week for routine OB appointment. Documented by Leanne Posada MA on behalf of: KIRTI Beltrán documented in this encounter [facility] 05-09-2024 History of Presen t illness Narrative Reason [...] Constitutional: Appearance: Normal appearance. She is well-developed. Genitourinary: Vulva normal. Cardiovascular: Rate and Rhythm: Normal rate and [...] nursing note reviewed. Exam conducted with a plasterer maintenance present. Vitals: Estimated body mass index is 30.56 kg/m as calculated from the following: Height as of 06/30/21: 5' 2.5 . Weight as of this encounter: 169 lb 12.8 oz. BP: 110/68 Patient's last menstrual period was 08/25/2023. ASSESSMENT & PLAN ICD-10-CM 1. 36 weeks gestation of Z3A.36 POCT urinalysis dipstick manually resulted 2. Third trimester Z34.93 POCT urinalysis dipstick manually resulted Return OB: Patient presents today for a routine obstetrics appointment. Patient is currently 36w6d . Patient states she is doing well but has complaints of being tired due to current . Patient has verbalizes frequent movement. labor precautions was discussed/given and patient was instructed to perform kick counts three times a day. Orders Placed This Encounter Procedures POCT urinalysis dipstick manually resulted Follow Up: Patient is to return to office in 1 week for routine OB appointment. Documented by Adrienne Trujillo LPN on behalf of: Familia Garnett DO documented in this encounter [facility] 05-02-2024 History of Presen t illness Narrative [...] nursing note reviewed. Exam conducted with a plasterer maintenance present. Vitals: Estimated body mass index is [...] of: KIRTI Beltrán documented in this encounter [facility] 04-16-2024 History of Presen t [...] nursing note reviewed. Exam conducted with a plasterer maintenance present. Vitals: Estimated body mass index is [...] of: KIRTI Beltrán documented in this encounter [facility] 04-01-2024 History of Presen t [...] nursing note reviewed. Exam conducted with a plasterer maintenance present. Vitals: Estimated body mass index is [...] Familia Garnett DO documented in this encounter [facility] 03-13-2024 History of Presen t [...] of: KIRTI Beltrán documented in this encounter [facility] 02-14-2024 History of Presen t [...] of: KIRTI Beltrán documented in this encounter [facility] 01-16-2024 History of Presen t illness Narrative Reason for Appointment: Patient ID: Jaja Lsia is a 28 y.o. female who presents [...] nursing note reviewed. Exam conducted with a plasterer maintenance present. Vitals: Estimated body mass index is [...] Familia Garnett DO documented in this encounter [facility] 06-26-2023 Telephone encount er Note Please let patient know labs are improving. Potassium level is WNL. AST and ALT are still high but better compared to what it was in the hospital. I would like to repeat AST/ALT levels in 4 weeks. Order placed. AST 10 - 30 U/L 43 High ALT 6 - 29 U/L [address] [facility] 06-26-2023 Miscellaneous Notes Formattin g [...] U/L 86 High documented in this encounter [facility] 06-26-2023 History of Presen t [...] Visit Report Report COMPREHENSIVE METABOLIC PANEL Order: [id number] Component Ref Range & Units 5 d [...] CT abdomen pelvis w IV contrast Order: [id number] Narrative CT ABDOMEN AND PELVIS HISTORY: Abdominal [...] and today . documented in this encounter [facility] Evaluation note Diagnosis Pyelonephritis- Primary Unspecified [...] state, incidental [facility] Diagnosis 36 weeks gestation of Third trimester state, incidental documented in this encounter [facility] Diagnosis Third trimester state, incidental 37 weeks gestation of documented in this encounter [facility] Summary Purpose Family History No Family History Records FoundNo Family History Records FoundNo Family History Records FoundNo Family History Records Found Advance Directives No Advanced Directives Records FoundNo Advanced Directives Records FoundNo Advanced Directives Records FoundNo Advanced Directives Records Found Additional Source Comments INFORMATION SOURCE (unrecogn ized section and content) DATE CREATED AUTHOR 12/13/2019 [facility] DATE CREATED AUTHOR AUTHOR'S ORGANIZ ATION 04/21/2023 [facility] DATE CREATED AUTHOR AUTHOR'S ORGANIZ ATION 06/26/2023 [facility] DATE CREATED AUTHOR AUTHOR'S ORGANIZ ATION 05/14/2024 [facility] Reason for Visit (unrecogniz ed section and content) Reason Comments ER Follow-up Abd pain,diarrhea. L eft side pain comes and goes started this morning, nausea better, continued diarrhea. Reason Onset Date Comments Results 06/26/2023 Reason Comments Routine Visit Care Teams (unrecognized sec tion and content) Mortician Investigator Relationship Specialty Start Date End Date Pastora Barron MD [address] [place] [address] PCP - General Family Medicine 09/20/22 Mortician Investigator Relationship Specialty Start Date End Date Pastora Barron MD [address] [place] [address] PCP - General Family Medicine 09/20/22 Mortician Investigator Relationship Specialty Start Date End Date Pastora Barron MD [address] [place] [address] PCP - General Family Medicine 09/20/22 Mortician Investigator Relationship Specialty Start Date End Date Pastora Barron MD [address] [place] [address] PCP - General Family Medicine 09/20/22 Mortician Investigator Relationship Specialty Start Date End Date Pastora Barron MD [address] [facility] [place] [address] PCP - General Family Medicine 09/20/22 Mortician Investigator Relationship Specialty Start Date End Date Pastora Barron MD [address] [place] [address] PCP - General Family Medicine 09/20/22 Mortician Investigator Relationship Specialty Start Date End Date Pastora Barron MD [address] [facility] [place] [address] PCP - General Family Medicine 09/20/22 Mortician Investigator Relationship Specialty Start Date End Date Pastora Barron MD [address] [place] [address] PCP - General Family Medicine 09/20/22 Mortician Investigator Relationship Specialty Start Date End Date Pastora Barron MD [address] [place] [address] PCP - General Family Medicine 09/20/22 Mortician Investigator Relationship Specialty Start Date End Date Wonderly, Pastora B, MD [address] [facility] [place] [address] PCP - General Family Medicine 09/20/22 Mortician Investigator Relationship Specialty Start Date End Date Pastora Barron MD [address] [place] [address] PCP - General Family Medicine 09/20/22 Mortician Investigator Relationship Specialty Start Date End Date Pastora Barron MD [address] [place] [address] PCP - General Family Medicine 09/20/22 Mortician Investigator Relationship Specialty Start Date End Date Pastora Barron MD [address] [facility] [place] [address] PCP - General Family Medicine 09/20/22 Mortician Investigator Relationship Specialty Start Date End Date Pastora Barron MD [address] [facility] [place] [address] PCP - General Family Medicine 09/20/22 FOR [...] BE BASED ON THE PRIMARY CLINICAL RECORDS. [facility]. provides no warranty or guarantee of the accuracy or completeness of information in this document.
[2024-05-16 21:56] VITALS: BP 122/59; PULSE 75
[2024-05-16 22:42] LABS: Bilirubin Urine NEGATIVE (NEGATIVE); Blood Urine TRACE-I (NEGATIVE); Clarity Urine CLEAR (CLEAR); Color Urine LT. YELLOW (YELLOW); Glucose Urine UA NEGATIVE (NEGATIVE); Ketones Urine NEGATIVE (NEGATIVE); Leukocyte Esterase Urine TRACE (NEGATIVE); Nitrite Urine NEGATIVE (NEGATIVE); Protein Urine NEGATIVE (NEG/TRACE); Specific Gravity Urine 1.025 (1.005-1.025); Urobilinogen Urine 0.2 EU/dL (0.2-1.0); pH Urine 6.5 (5.0-9.0)
== END 2024-05-17 01:00 | disposition home or self-care (01) ==
PROVIDERS: Admitting Provider Obstetrics & Gynecology; PCP Family Medicine; Visit Provider Obstetrics & Gynecology
DX: O26.899 Other specified pregnancy related conditions, unspecified trimester (principal); R10.30 Lower abdominal pain, unspecified; Z3A.00 Weeks of gestation of pregnancy not specified
CPT/HCPCS: 59025; 81003; G0378; G0379

== ENCOUNTER 2024-05-20 14:59 | Observation (INO) | payer MEDICAID, SELFPAY ==
[2024-05-20 15:17] VITALS: BP 119/76; PULSE 72
[2024-05-20 15:51] LABS: Bilirubin Urine NEGATIVE (NEGATIVE); Blood Urine SMALL (NEGATIVE); Clarity Urine CLEAR (CLEAR); Color Urine YELLOW (YELLOW); Glucose Urine UA NEGATIVE (NEGATIVE); Ketones Urine NEGATIVE (NEGATIVE); Leukocyte Esterase Urine NEGATIVE (NEGATIVE); Nitrite Urine NEGATIVE (NEGATIVE); Protein Urine NEGATIVE (NEG/TRACE); Specific Gravity Urine 1.025 (1.005-1.025); Urobilinogen Urine 0.2 EU/dL (0.2-1.0); pH Urine 6.5 (5.0-9.0)
[2024-05-20 15:53] LABS: Urine Microscopic Indicated YES
[2024-05-20 15:58] LABS: Bacteria Urine NONE SEEN #/HPF (NONE SEEN); Mucus Urine LARGE (NONE SEEN); WBC Urine 0-2 #/HPF (NONE SEEN)
[2024-05-20 15:59] LABS: Cast Seen? NONE SEEN #/LPF (NONE SEEN); Crystals Seen? None Seen #/HPF (None Seen); Squamous Epithelial Cell Urine FEW #/LPF (NONE/RARE)
--- NOTE | 2024-05-20 18:31 | PC.NURSE ---
1825: Discharged ambulatory with significant other undelivered. Homegoing instructions reviewed and s/s labor reviewed. Scheduled for IOL on 05/23 at 2300.
--- NOTE | 2024-05-20 19:17 | PC.NURSE ---
1815: SVE- unchanged from previous exam.
== END 2024-05-20 18:25 | disposition home or self-care (01) ==
PROVIDERS: Admitting Provider Obstetrics & Gynecology; PCP Family Medicine; Visit Provider Obstetrics & Gynecology
DX: O46.90 Antepartum hemorrhage, unspecified, unspecified trimester (principal); Z3A.00 Weeks of gestation of pregnancy not specified
CPT/HCPCS: 81001; G0378; G0379

== ENCOUNTER 2024-05-23 22:42 | Inpatient (IN) | payer MEDICAID, SELFPAY ==
--- OUTSIDE RECORDS SUMMARY | 2024-05-23 22:46 | XMS_ITS | CCD ---
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 Name Role Phone PASTORA BARRON Admitting Unavailable PASTORA BARRON Attending Unavailable PASTORA BARRON Primary Care Unavailable PASTORA BARRON Consulting Unavailable Conrado Calle Attending Unavailab Conrado Jefferson Admitting Unavailab PATSORA Walsh Primary Care Unavailable LAWRENCE JOSE Attending [...] unspecified trimester] 02-14-2024 Episodic Other complications of (20 sources) size does not accord with dates; [...] of ] 03-13-2024 Episodic Residual codes; unclassified (20 sources) Gestation period, 31 weeks; Translations: [31 [...] [37 weeks gestation of ] 05-13-2024 Episodic Residual codes; unclassified (2 sources) Gestation period, 38 weeks; Translations: [38 weeks gestation of ] 05-20-2024 Episodic Thyroid disorders (20 sources) Goiter; Translations: [...] Test Name Value Interpretation Reference Range Facility [facility] UA (CLEAN/CATCH) YOUTH SPECIALIST/RITA RO IF IND.on 05-20-2024 BILIRUBIN URINE Negative NEGATIVE [facility] BLOOD URINE SMALL Abnormal NEGATIVE [facility] Clarity (U) CLEAR CLEAR [facility] Color (U) YELLOW YELLOW [facility] GLUCOSE URINE UA Negative NEGATIVE mg/dL [facility] Interpretation and review of laboratory results Abnormal [facility] Ketones Ql (U) Negative NEGATIVE mg/dL [facility] Leukocyte esterase Test strip Ql (U) Negative NEGATIVE [facility] NITRITE URINE Negative NEGATIVE [facility] Health care pH (U) 6.5 [pH] 5.0 - 9.0 [facility] PROTEIN URINE Negative NEG/TRACE mg/dL [facility] SPECIFIC GRAVITY URINE 1.025 1.005 - 1.025 [facility] URINE MICROSCOPIC INDICATED YES [facility] UROBILINOGEN URINE 0.2 EU/dL 0.2 - 1.0 EU/dL [facility] Urinalysis macro (dipstick) panel (U)on 05-20-2024 Bilirubin, UA Negative Negative - 4(70) +++ mg/dL [facility] Blood, UA Negative Negative - 50 Robson/mcL [facility] Clarity, UA Clear [facility] Color, UA Yellow [facility] Glucose, UA Negative Negative - 1999(110) ++++ mg/dL [facility] Interpretation and review of laboratory results Abnormal [facility] Ketones, UA Negative Negative - 160(16) ++++ mg/dL [facility] Leukocytes, UA Moderate Negative - 500+++ Jesus Manuel/mcL [facility] Nitrite, UA Negative Negative - Positive [facility] pH, UA 6 5 - 9 [facility], [facility]A Negative Negative - 1999(20) ++++ mg/dL [facility] Spec Grav, UA 1.005 1 - 1.03 [facility] Urobilinogen, UA 0.2 0.2 - 12 [facility]/dL [facility] URINALYSISon 05-16-2024 BILIRUBIN URINE Negative NEGATIVE [facility] BLOOD URINE TRACE-I NEGATIVE [facility] Clarity (U) CLEAR CLEAR [facility] Color (U) LT. YELLOW YELLOW [facility] GLUCOSE URINE UA Negative NEGATIVE mg/dL [facility] Interpretation and review of laboratory results Abnormal [facility] Ketones Ql (U) Negative NEGATIVE mg/dL [facility] Leukocyte esterase Test strip Ql (U) TRACE Abnormal NEGATIVE [facility] NITRITE URINE Negative NEGATIVE [facility] care pH (U) 6.5 [pH] 5.0 - 9.0 [facility] PROTEIN URINE Negative NEG/TRACE mg/dL [facility] SPECIFIC GRAVITY URINE 1.025 1.005 - 1.025 [facility] UROBILINOGEN URINE 0.2 EU/dL 0.2 - 1.0 EU/dL [facility] Urinalysis macro (dipstick) panel (U)on 05-13-2024 Bilirubin, UA Negative Negative - 4(70) +++ mg/dL [facility] Blood, UA Negative Negative - 50 Robson/mcL [facility] Clarity, UA Clear [facility] Color, UA Yellow [facility] Glucose, UA Negative Negative - 1999(110) ++++ mg/dL [facility] Interpretation and review of laboratory results Abnormal [facility] Ketones, UA Negative Negative - 160(16) ++++ mg/dL [facility] Leukocytes, UA Negative Negative - 500+++ Jesus Manuel/mcL [facility] Nitrite, UA Negative Negative - Positive [facility] pH, UA 6 5 - 9 [facility] Protein, UA Trace Negative - 1999(20) ++++ mg/dL [facility] Spec Grav, UA 1.025 1 - 1.03 [facility] Urobilinogen, UA 0.2 0.2 - 12 [facility]/dL [facility] Urinalysis macro (dipstick) panel (U)on 05-09-2024 Bilirubin, UA Negative Negative - 4(70) +++ mg/dL [facility] Blood, UA Negative Negative - 50 Robson/mcL [facility] Clarity, UA Clear [facility] Color, UA Yellow [facility] Glucose, UA Negative Negative - 1999(110) ++++ mg/dL [facility] Interpretation and review of laboratory results Abnormal [facility] Ketones, UA Negative Negative - 160(16) ++++ mg/dL [facility] Leukocytes, UA Trace Negative - 500+++ Jesus Manuel/mcL [facility] Nitrite, UA Negative Negative - Positive [facility] pH, UA 6.5 5 - 9 [facility] Protein, UA Negative Negative - 1999(20) ++++ mg/dL [facility] Spec Grav, UA 1.025 1 - 1.03 [facility] Urobilinogen, UA 0.2 0.2 - 12 mg/dL [facility] TBH UA (CLEAN/CATCH) YOUTH SPECIALIST/RITA RO IF IND.on 05-04-2024 BILIRUBIN URINE Negative NEGATIVE [facility] BLOOD URINE Negative NEGATIVE [facility] Clarity (U) CLEAR CLEAR [facility] Color (U) LT. YELLOW YELLOW [facility] GLUCOSE URINE UA Negative NEGATIVE mg/dL [facility] Interpretation and review of laboratory results Abnormal [facility] Ketones Ql (U) Negative NEGATIVE mg/dL [facility] Leukocyte esterase Test strip Ql (U) SMALL Abnormal NEGATIVE [facility] NITRITE URINE Negative NEGATIVE [facility] pH (U) 8.5 [pH] 5.0 - 9.0 [facility] PROTEIN URINE Negative NEG/TRACE mg/dL [facility] SPECIFIC GRAVITY URINE 1.020 1.005 - 1.025 [facility] URINE MICROSCOPIC INDICATED YES [facility] UROBILINOGEN URINE 0.2 EU/dL 0.2 - 1.0 EU/dL [facility] Urinalysis macro (dipstick) panel (U)on 05-02-2024 Bilirubin, UA Negative Negative - 4(70) +++ mg/dL [facility] Blood, UA Negative Negative - 50 Robson/mcL [facility] Clarity, UA Clear [facility] Color, UA Yellow [facility] Glucose, UA Negative Negative - 1999(110) ++++ mg/dL [facility] Interpretation and review of laboratory results Abnormal [facility] Ketones, UA Positive Negative - 160(16) ++++ mg/dL [facility] Leukocytes, UA Trace Negative - 500+++ Jesus Manuel/mcL [facility] Nitrite, UA Negative Negative - Positive [facility] pH, UA 6 5 - 9 [facility] Protein, UA Positive Negative - 1999(20) ++++ mg/dL [facility] Healthcare Spec Grav, UA 1.03 1 - 1.03 [facility] care Urobilinogen, UA 0.2 0.2 - 12 mg/dL [facility] Urinalysis macro (dipstick) panel (U)on 04-17-2024 Bilirubin, UA Negative Negative - 4(70) +++ mg/dL [facility] Blood, UA Negative Negative - 50 Robson/mcL [facility] Healthcare Clarity, UA Clear [facility] Color, UA Yellow [facility] Glucose, UA Negative Negative - 1999(110) ++++ mg/dL [facility] Interpretation and review of laboratory results Normal [facility] Ketones, UA Negative Negative - 160(16) ++++ mg/dL [facility] Leukocytes, UA Negative Negative - 500+++ Jesus Manuel/mcL [facility] Healthcare Nitrite, UA Negative Negative - Positive [facility] pH, UA 6.5 5 - 9 [facility] Protein, UA Negative Negative - 1999(20) ++++ mg/dL [facility] Spec Grav, UA 1.015 1 - 1.03 [facility] Urobilinogen, UA 1.0 0.2 - 12 mg/dL [facility] Urinalysis macro (dipstick) panel (U)on 04-01-2024 Bilirubin, UA Negative Negative - 4(70) +++ mg/dL [facility] Blood, UA Negative Negative - 50 Robson/mcL [facility] Healthcare Clarity, UA Clear [facility] Color, UA Paz [facility] Glucose, UA Negative Negative - 1999(110) ++++ mg/dL [facility] Interpretation and review of laboratory results Normal [facility] Ketones, UA Negative Negative - 160(16) ++++ mg/dL [facility] Healthcare Leukocytes, UA Negative Negative - 500+++ Jesus Manuel/mcL [facility] Healthcare Nitrite, UA Negative Negative - Positive [facility] pH, UA 6.5 5 - 9 [facility] Protein, UA Negative Negative - 1999(20) ++++ mg/dL [facility] Healthcare Spec Grav, UA 1.025 1 - 1.03 [facility] Urobilinogen, UA 0.2 0.2 - 12 [facility]/dL [facility] Urinalysis macro (dipstick) panel (U)on 03-13-2024 Bilirubin, UA Negative Negative - 4(70) +++ mg/dL [facility] Blood, UA Negative Negative - 50 Robson/mcL [facility] Clarity, UA Clear [facility] Color, UA Yellow [facility] Glucose, UA Negative Negative - 1999(110) ++++ mg/dL [facility] Interpretation and review of laboratory results Abnormal [facility] Ketones, UA Negative Negative - 160(16) ++++ mg/dL [facility] Leukocytes, UA Trace Negative - 500+++ Jesus Manuel/mcL [facility] Nitrite, UA Negative Negative - Positive [facility] pH, UA 6.5 5 - 9 [facility] Protein, UA Negative Negative - 1999(20) ++++ mg/dL [facility] Spec Grav, UA 1.03 1 - 1.03 [facility] Urobilinogen, UA 0.2 0.2 - 12 mg/dL [facility] TBH UA (CLEAN/CATCH) YOUTH SPECIALIST/RITA RO IF IND.on 02-27-2024 BILIRUBIN URINE Negative NEGATIVE [facility] BLOOD URINE Negative NEGATIVE [facility] Clarity (U) CLEAR CLEAR [facility] Color (U) YELLOW YELLOW [facility] GLUCOSE URINE UA Negative NEGATIVE mg/dL [facility] Interpretation and review of laboratory results Abnormal [facility] Ketones Ql (U) TRACE Abnormal NEGATIVE mg/dL [facility] Leukocyte esterase Test strip Ql (U) TRACE Abnormal NEGATIVE [facility] NITRITE URINE Negative NEGATIVE [facility] Health care pH (U) 6.0 [pH] 5.0 - 9.0 [facility] PROTEIN URINE Negative NEG/TRACE mg/dL [facility] SPECIFIC GRAVITY URINE >=1.030 Abnormal 1.005 - 1.025 [facility] URINE MICROSCOPIC INDICATED YES [facility] UROBILINOGEN URINE 0.2 EU/dL 0.2 - 1.0 EU/dL [facility] e GLUCOSE 1 HOURon 02-26-2024 Glucose [Mass/Vol] 126 mg/dL NINF - 13 0 mg/dL [facility] Urinalysis macro (dipstick) panel (U)on 02-14-2024 Bilirubin, UA Positive Negative - 4(70) +++ mg/dL [facility] Comment on above: small Blood, UA Negative Negative - 50 Robson/mcL [facility] Healthcare Clarity, UA Clear [facility] Color, UA Yellow [facility] Glucose, UA Negative Negative - 1999(110) ++++ mg/dL [facility] Interpretation and review of laboratory results Abnormal [facility] Healthcare Ketones, UA Positive Negative - 160(16) ++++ mg/dL [facility] Comment on above: 15 Leukocytes, UA Negative Negative - 500+++ Jesus Manuel/mcL [facility] Healthcare Nitrite, UA Negative Negative - Positive [facility] pH, UA 6.0 5 - 9 [facility] Protein, UA Negative Negative - 1999(20) ++++ mg/dL [facility] Healthcare Spec Grav, UA 1.030 1 - 1.03 [facility] Urobilinogen, UA 0.2 0.2 - 12 mg/dL [facility] Urinalysis macro (dipstick) panel (U)on 01-16-2024 Bilirubin, UA Positive Negative - 4(70) +++ mg/dL [facility] Comment on above: small Blood, UA Negative Negative - 50 Robson/mcL [facility] Healthcare Clarity, UA Clear [facility] Color, UA Yellow [facility] Glucose, UA Negative Negative - 1999(110) ++++ mg/dL [facility] Interpretation and review of laboratory results Abnormal [facility] Ketones, UA Positive Negative - 160(16) ++++ mg/dL [facility] Comment on above: trace Leukocytes, UA Negative Negative - 500+++ Jesus Manuel/mcL [facility] Healthcare Nitrite, UA Negative Negative - Positive [facility] pH, UA 5.5 5 - 9 [facility] Protein, UA Negative Negative - 1999(20) ++++ mg/dL [facility] Healthcare Spec Grav, UA 1.030 1 - 1.03 [facility] Urobilinogen, UA 0.2 0.2 - 12 mg/dL [facility] AFP, SERUM, OPEN SPINA BIFID Aon 01-11-2024 AFP MOM 2.16 . [facility] AFP VALUE 104.8 ng/mL . [facility] [employer] re COMMENT: Comment . [facility] [employer] Comment on above: Colleen Rivas , Ph.D., [facility] Director References: Available Upon Request. Multiples Of Median Cutoffs For AFP Elevations Alarcon 2.5 Black 2.8 IDD 2.0 Twins 4.5 Abbreviation Definitions IDD - Insulin Dep Diabetes OSBR - Open Spina Bifida Risk For further inquiries contact [employer] [facility] at [phone]. This test was developed and its performance characteristics determined by [employer]. It has not been cleared or approved by the Food and Drug Administration. Performed at: [facility] [address] [place], [place] [id number] Hand Coremaker: Gillian Boston [facility], Phone: [phone] GEST. AGE ON COLLECTION DATE 19.4 . weeks [facility] GESTAT. AGE BASED ON LMP . [facility] Comment on above: Recalculations are n ot recommended when gestational dating by LMP and ultrasound are within 10 days. INSULIN DEP DIABETES No . [facility] Healthcare INTERPRETATION Comment . [facility] sarina Comment on above: Interpretation: Scre en Negative [...] Customer Services to discuss available options. The [employer] recommends amniocentesis be offered to women age 35 and older. [age] [facility] [employer] MULTIPLE GESTATION No . [facility] H [facility]althcare OSBR RISK 1 [place] 569 . [facility] j[facility]re RACE Other . [facility] [employer] RESULTS Report . [facility] [employer] TEST RESULTS: Negative . [facility] [employer] care WEIGHT 164 . lbs [facility] N N LMP [id number] [phone] N 1 Y 164 N N N N N White/ [facility] [employer] e US RENAL COMPLETEon 12-27-19 24 US [...] report is generated using voice recognition reporting (Mersive). On occasion [employer] erroneously drops words from the report or [...] BASOPHIL 0.0 X10E9/L Normal 0.0-0.2 [facility] Comment on above: Performed By: #### C SONDRA SANCHEZ, 35481-6 #### [facility] ([id number]) [address] [place] [address] 31903 ABSOLUTE NEUTROPHIL 5.2 X10E9/L Normal 1.5-6.6 [facility] Comment on above: Performed By: #### C SONDRA SANCHEZ, 26787-4 #### [facility] ([id number]) [address] [place] [address] 43267 Basophils/100 WBC (Bld) 0.5 % Normal [facility] Comment on above: Performed By: #### C SONDRA SANCHEZ, #### [facility] ([id number]) [address] [place] [address] 62403 Eosinophils (Bld) [#/Vol] 0.0 10*3/uL Normal 0.0-0.4 [facility] Comment on above: Performed By: #### Michelle SANCHEZ CMP, #### [facility] ([id number]) [address] [place] [address] 86553 Eosinophils/100 WBC (Bld) 0.4 % Normal [facility] Comment on above: Performed By: #### Michelle SANCHEZ CMP, #### [facility] ([id number]) [address] [place] [address] 57100 Erythrocyte distribution width (RBC) [Ratio] 12.7 % Normal 11.5-15.0 [facility] Comment on above: Performed By: #### Michelle SANCHEZ [facility], #### [facility] ([id number]) [address] [place] [address] 22420 Hematocrit (Bld) [Volume fraction] 41.4 % Normal 35-47 [facility] Comment on above: Performed By: #### Michelle SANCHEZ CMP, #### [facility] ([id number]) [address] [place] [address] 77567 Hemoglobin (Bld) [Mass/Vol] 14.2 g/dL Normal 11.7-15.5 [facility] Comment on above: Performed By: #### Michelle SANCHEZ CMP, #### [facility] ([id number]) [address] [place] [address] 55685 Lymphocytes (Bld) [#/Vol] 1.3 10*3/uL Normal 1.0-3.5 [facility] Comment on above: Performed By: #### Michelle SANCHEZ CMP, #### [facility] ([id number]) [address] [place] [address] 06983 Lymphocytes/100 WBC (Bld) 18.4 % Normal [facility] Comment on above: Performed By: #### Michelle SANCHEZ CMP, #### [facility] ([id number]) [address] [place] [address] 49802 MCH (RBC) [Entitic mass] 30.3 pg Normal 27-34 [facility] Comment on above: Performed By: #### C SONDRA SANCHEZ, #### [facility] ([id number]) [address] [place] [address] 10001 MCHC (RBC) [Mass/Vol] 34.3 g/dL Normal 32-36 [facility] Comment on above: Performed By: #### Michelle SANCHEZ CMP, #### [facility] ([id number]) [address] [place] [address] 30841 MCV (RBC) [Entitic vol] 88 fL Normal 80-100 [facility] Comment on above: Performed By: #### Michelle SANCHEZ, SONDRA, #### [facility] ([id number]) [address] [place] [address] 41565 Monocytes (Bld) [#/Vol] 0.6 10*3/uL Normal 0-0.9 [facility] Comment on above: Performed By: #### Michelle SANCHEZ, CMP, #### [facility] ([id number]) [address] [place] [address] 28452 Monocytes/100 WBC (Bld) 8.8 % Normal [facility] Comment on above: Performed By: #### Michelle SANCHEZ, CMP, #### [facility] ([id number]) [address] [place] [address] 16656 Neutrophils/100 WBC (Bld) 71.9 % Normal [facility] Comment on above: Performed By: #### Michelle SANCHEZ, CMP, 58118-0 #### [facility] ([id number]) [address] [place] [address] 97418 Platelet mean volume (Bld) [Entitic vol] 8.9 fL Normal 7-12 [facility] Comment on above: Performed By: #### Michelle SANCHEZ, CMP, 46099-4 #### [facility] ([id number]) [address] [place] [address] 66969 Platelets (Bld) [#/Vol] 267 10*3/uL Normal 150-450 [facility] Comment on above: Performed By: #### Michelle SANCHEZ, CMP, 15619-4 #### [facility] ([id number]) [address] [place] [address] 03484 RBC COUNT 4.68 X10E12/L Normal 3.80-5.20 [facility] Comment on above: Performed By: #### Michelle SANCHEZ, CMP, 80914-3 #### [facility] ([id number]) [address] [place] [address] 35868 WBC (Bld) [#/Vol] 7.2 10*3/uL Normal 4.0-11.0 [facility] Comment on above: Performed By: #### Michelle SANCHEZ, CMP, 83429-4 #### [facility] ([id number]) [address] [place] [address] 08417 COMPREHENSIVE METABOLIC PANE Chucky 06-21-2023 Albumin [Mass/Vol] 4.2 g/dL Normal 3.2-5.3 [facility] Comment on above: Performed By: #### Michelle BCA, CMP, 01099-5 #### [facility] ([id number]) [address] [place] [address] 62598 ALP [Catalytic activity/Vol] 76 U/L Normal 39-130 [facility] Comment on above: Performed By: #### C BCA, CMP, #### [facility] ([id number]) [address] [place] [address] 90799 ALT [Catalytic activity/Vol] 114 U/L High 0-31 [facility] Comment on above: Performed By: #### C BCA, CMP, #### [facility] ([id number]) [address] [place] [address] 80456 Anion gap [Moles/Vol] 11 mmol/L Normal 5-15 [facility] Comment on above: Performed By: #### C BCA, CMP, #### [facility] ([id number]) [address] [place] [address] 58402 AST [Catalytic activity/Vol] 83 U/L High 0-41 [facility] Comment on above: Performed By: #### C BCA, CMP, #### [facility] ([id number]) [address] [place] [address] 24609 Bilirubin [Mass/Vol] 1.1 mg/dL Normal 0.3-1.2 [facility] Comment on above: Performed By: #### C BCA, CMP, 48386-3 #### [facility] ([id number]) [address] [place] [address] 00492 Calcium [Mass/Vol] 8.9 mg/dL Normal 8.5-10.5 [facility] Comment on above: Performed By: #### C BCA, CMP, #### [facility] ([id number]) [address] [place] [address] 92807 Chloride [Moles/Vol] 98 mmol/L Normal 98-109 [facility] Comment on above: Performed By: #### C BCA, CMP, #### [facility] ([id number]) [address] [place] [address] 13107 CO2 [Moles/Vol] 23 mmol/L Normal 22-32 [facility] Comment on above: Performed By: #### C DANIEL [facility], 01816-7 #### [facility] ([id number]) [address] [place] [address] 88010 Creatinine [Mass/Vol] 0.77 mg/dL Normal 0.40-1.00 [facility] Comment on above: Result Comment: METH OD TRACEABLE TO IDMS STANDARD Performed By: #### C SONDRA SANCHEZ, 96206-7 #### [facility] ([id number]) [address] [place] [address] 92917 eGFR (CKD-EPI) NON-RACE DEPENDENT >90 Normal >59 [facility] Comment on above: Result Comment: Reported eGFR is based on the CKD-EPI 2020 equation that does not use a race coefficient. Performed By: #### C [facility], 52542-0 #### [facility] ([id number]) [address] [place] [address] 12538 Glucose [Mass/Vol] 116 mg/dL High 65-99 [facility] Comment on above: Performed By: #### C [facility], 81025-9 #### [facility] ([id number]) [address] [place] [address] 80531 Potassium [Moles/Vol] 3.1 mmol/L Low 3.5-5.0 [facility] Comment on above: Performed By: #### C [facility], 85218-3 #### [facility] ([id number]) [address] [place] [address] 63370 Protein [Mass/Vol] 8.1 g/dL High 6.0-8.0 [facility] Comment on above: Performed By: #### C [facility], 26185-1 #### [facility] ([id number]) [address] [place] [address] [place] [address] Sodium [Moles/Vol] 132 mmol/L Low 134-146 [facility] Comment on above: Performed By: #### C [facility], 01651-1 #### [facility] ([id number]) [address] [place] [address] Urea nitrogen [Mass/Vol] 10 mg/dL Normal 5-23 [facility] Comment on above: Performed By: #### C [facility], 30885-7 #### [facility] ([id number]) [address] [place] [id number] ABDOMEN AND PELVIS W CONT on [...] Bill Albrecht on 06/21/2023 3:57 PM Normal [facility] HCG ( test) Ql (U)o n 06-21-2023 Beta HCG ( test) Ql (U) Negative Normal NEG [facility] Comment on above: Performed By: #### 2 106-3 #### [facility] ([id number]) [address] [place] [address] MAGNESIUMon 06-21-2023 Magnesium [Mass/Vol] 2.1 mg/dL Normal 1.8-2.6 [facility] Comment on above: Performed By: #### C BCA, CMP, 98025-4 #### [facility] ([id number]) [address] [place] [address] SARS/FLU A+B/RSV by NAAT/Mol ecularon 06-21-2023 SARS/FLU [...] operators who are performing tests using either [employer] or [employer] systems and is limited to laboratories that [...] repeat. Fact Sheet for Healthcare Providers: https://www.fda.gov/m edia/513208/download Fact Sheet for Patients: https://www.fda.gov/m edia/268670/download Normal [facility] Comment on above: Performed By: #### C OVFLR #### [facility] ([id number]) [address] [place] [address], [place] [address] URINE CULTUREon 06-21-2023 Bacteria identified Cx Nom [...] F TRIMETH/SULFAMETHOXAZ OLE S <=1/19 F Susceptible [facility] Comment on above: Performed By: #### 6 30-4 #### [facility] ([id number]) [address] [place] [address], [address] [place] [address] URN MACROSCOPIC NURon 2023 BILIRUBIN ALMA Negative Normal NEG [facility] Comment on above: Performed By: #### N UM #### [facility] ([id number]) [address] [place] [address] BLOOD/HGB ALMA Trace Abnormal NEG [facility] Comment on above: Performed By: #### N UM #### [facility] ([id number]) [address] [place] [address] [place] [address] GLUCOSE ALMA Negative Normal NEG [facility] Comment on above: Performed By: #### N UM #### [facility] ([id number]) [address] [place] [address] [place] [address] KETONES ALMA Trace Abnormal NEG [facility] Comment on above: Performed By: #### N UM #### [facility] ([id number]) [address] [place] [address] [place] [address] LEUKOCYTE ESTERASE ALMA Negative Normal NEG [facility] Comment on above: Performed By: #### N UM #### [facility] ([id number]) [address] [place] [address] [place] [address] NITRITE ALMA Positive Abnormal NEG [facility] Comment on above: Performed By: #### N UM #### [facility] ([id number]) [address] [place] [address] PH ALMA 6.0 Normal 5.0-8.5 [facility] Comment on above: Performed By: #### N UM #### [facility] ([id number]) [address] [place] [address] PROTEIN ALMA Trace Abnormal NEG [facility] Comment on above: Performed By: #### N UM #### [facility] ([id number]) [address] [place] [address] [place] [address] SPECIFIC GRAVITY ALMA >=1.030 Normal 1.003-1.035 [facility] Comment on above: Performed By: #### N UM #### [facility] ([id number]) [address] [facility], [place] [address] UROBILINOGEN ALMA 0.2 eu/dL Normal <1.1 [facility] Comment on above: Performed By: #### N UM #### [facility] ([id number]) [address] [facility], [place] [address] COVID-19 PCRon 11-15-2019 SARS-CoV-2, RENETTA Not Detected Normal Not Detected [facility] Comment on above: Result Comment: This test was developed and its performance characteristics determined by [employer]. This test has not been FDA cleared [...] assay. Performed By: #### C VDPCR #### [facility] [address] [address] Raymond Deleon Vital Signs Date Time Vital Sign Value Performing Clinician James segura 05-20-2024 11:13-0500 Body mass index (BMI) [Ratio] 30.78 kg/m2 [employer] Work Phone: [facility] 05-20-2024 11:13-0500 Body weight 77.56 kg Familia [email or web address] Work Phone: [facility] 05-20-2024 11:13-0500 Diastolic blood pressure 70 mm[Hg] Familia Tamir DO Work Phone: [facility] 05-20-2024 11:13-0500 Systolic blood pressure 118 mm[Hg] Familia Tamir DO Work Phone: [facility] 05-13-2024 11:45-0500 Body mass index (BMI) [Ratio] 30.78 kg/m2 Mikayla Nishant PA Work Phone: [facility] 05-13-2024 11:45-0500 Body weight 77.56 kg Mikayla Nishant PA Work Phone: [facility] 05-13-2024 11:45-0500 Diastolic blood pressure 70 mm[Hg] Mikayla Nishant PA Work Phone: [facility] 05-13-2024 11:45-0500 Systolic blood pressure 110 mm[Hg] Mikayla Nishant PA Work Phone: [facility] 05-09-2024 10:27-0500 Body mass index (BMI) [Ratio] 30.56 kg/m2 Familia Tamir DO Work Phone: [facility] 05-09-2024 10:27-0500 Body weight 77.02 kg Familia Tamir DO Work Phone: [facility] 05-09-2024 10:27-0500 Diastolic blood pressure 68 mm[Hg] Familia Tamir DO Work Phone: [facility] 05-09-2024 10:27-0500 Systolic blood pressure 110 mm[Hg] Familia Tamir DO Work Phone: [facility] 05-02-2024 13:50-0500 Body mass index (BMI) [Ratio] 30.67 kg/m2 Mikayla Nishant PA Work Phone: [facility] 05-02-2024 13:50-0500 Body weight 77.29 kg Mikayla Nishant PA Work Phone: [facility] 05-02-2024 13:50-0500 Diastolic blood pressure 64 mm[Hg] Mikayla Notrees PA Work Phone: [facility] 05-02-2024 13:50-0500 Systolic blood pressure 100 mm[Hg] Mikayla Notrees PA Work Phone: [facility] 04-16-2024 15:25-0500 Body mass index (BMI) [Ratio] 30.49 kg/m2 Mikayla Notrees PA Work Phone: [facility] 04-16-2024 15:25-0500 Body weight 76.84 kg Mikayla Notrees PA Work Phone: [facility] 04-16-2024 15:25-0500 Diastolic blood pressure 66 mm[Hg] Mikayla Nishant PA Work Phone: [facility] 04-16-2024 15:25-0500 Systolic blood pressure 110 mm[Hg] Mikayla Notrees PA Work Phone: [facility] 04-01-2024 08:51-0500 Body mass index (BMI) [Ratio] 29.52 kg/m2 Familia Tamir DO Work Phone: [facility] 04-01-2024 08:51-0500 Body weight 74.39 kg Familia Tamir DO Work Phone: [facility] 04-01-2024 08:51-0500 Diastolic blood pressure 68 mm[Hg] Familia Tamir DO Work Phone: [facility] 04-01-2024 08:51-0500 Systolic blood pressure 108 mm[Hg] Familia Tamir DO Work Phone: [facility] 03-13-2024 10:29-0400 Body mass index (BMI) [Ratio] 29.74 kg/m2 Mikayla Notrees PA Work Phone: [facility] 03-13-2024 10:29-0400 Body weight 74.96 kg Mikayla Notrees PA Work Phone: [facility] 03-13-2024 10:29-0400 Diastolic blood pressure 68 mm[Hg] Mikayla Nishant PA Work Phone: [facility] 03-13-2024 10:29-0400 Systolic blood pressure 100 mm[Hg] Mikayla Dillard PA Work Phone: [facility] 02-14-2024 10:27-0400 Body mass index (BMI) [Ratio] 29.83 kg/m2 Mikayla Dillard PA Work Phone: [facility] 02-14-2024 10:27-0400 Body weight 75.18 kg Mikayla Dillard PA Work Phone: [facility] 02-14-2024 10:27-0400 Diastolic blood pressure 76 mm[Hg] Mikayla Dillard PA Work Phone: [facility] 02-14-2024 10:27-0400 Systolic blood pressure 106 mm[Hg] Mikayla Dillard PA Work Phone: [facility] 01-16-2024 14:39-0400 Body mass index (BMI) [Ratio] 29.52 kg/m2 Familia Tamir DO Work Phone: [facility] 01-16-2024 14:39-0400 Body weight 74.39 kg Familia Tamir DO Work Phone: [facility] 01-16-2024 14:39-0400 Diastolic blood pressure 72 mm[Hg] Familia Tamir DO Work Phone: [facility] 01-16-2024 14:39-0400 Systolic blood pressure 102 mm[Hg] Familia Taimr DO Work Phone: [facility] 06-26-2023 08:39-0500 Body mass index (BMI) [Ratio] 30.81 kg/m2 Jorge Camara NP Work Phone: [facility] 06-26-2023 08:39-0500 Body weight 77.66 kg Jorge Camara NP Work Phone: [facility] 06-26-2023 08:39-0500 Diastolic blood pressure 80 mm[Hg] Jorge Camara NP Work Phone: [facility] 06-26-2023 08:39-0500 Heart rate 72 /min Jorge Camara NP Work Phone: [facility] 06-26-2023 08:39-0500 Systolic blood pressure 102 mm[Hg] Jorge Camara NP Work Phone: [facility] Encounters Encounter Date Encounter Type Care Provider Facility Start: 05-20-2024 End: 05-20-2024 Clinisync Result Encounter Familia Tamir DO Work Phone: [facility] Unsolicited Start: 05-20-2024 End: 05-20-2024 Clinisync Result Encounter Familia Tamir DO Work Phone: [facility] Unsolicited Start: 05-20-2024 End: 05-20-2024 Office outpatient visit 15 minutes Familia Tamir DO Work Phone: [facility] Comment on above: Third trimester preg jeanette; 38 weeks gestation of Start: 05-16-2024 End: 05-16-2024 Clinisync Result Encounter Familia Tamir DO Work Phone: [facility] Unsolicited Start: 05-16-2024 End: 05-16-2024 Clinisync Result Encounter Familia Tamir DO Work Phone: [facility] Unsolicited Start: 05-13-2024 End: 05-13-2024 Bamboo flowsheet Mikayla COTTO Work Phone: [facility] Start: 05-13-2024 End: 05-13-2024 Bamboo flowsheet Mikayla COTTO Work Phone: [facility] Start: 05-13-2024 End: 05-13-2024 Office outpatient visit 15 minutes Mikayla COTTO Work Phone: [facility] Comment on above: Third trimester preg jeanette; 37 weeks gestation of Start: 05-13-2024 End: 05-13-2024 ambulatory MIKAYLA DILLARD Not Available Start: 05-09-2024 End: 05-09-2024 Bamboo flowsheet Familia Tamir DO Work Phone: [facility] Start: 05-09-2024 End: 05-09-2024 Bamboo flowsheet Familia Tamir DO Work Phone: [facility] Start: 05-09-2024 End: 05-09-2024 Office [...] Bamboo flowsheet Familia Tamir DO Work Phone: [facility] Start: 04-01-2024 End: 04-01-2024 ambulatory FAMILIA TAMIR Not Available Start: 04-01-2024 End: 04-01-2024 Office outpatient visit 15 minutes Familia Tamir DO Work Phone: [facility] Comment on above: Third trimester preg jeanette; 31 weeks gestation of ; size inconsistent with dates Start: 03-13-2024 End: 03-13-2024 Bamboo flowsheet Mikayla COTTO Work Phone: [facility] Start: 03-13-2024 End: 03-13-2024 Bamboo flowsheet Mikayla COTTO Work Phone: [facility] Start: 03-13-2024 End: 03-13-2024 Office [...] 02-14-2024 Bamboo flowsheet Mikayla COTTO Work Phone: [facility] Start: 02-14-2024 End: 02-14-2024 Bamboo flowsheet Mikayla COTTO Work Phone: [facility] Start: 02-14-2024 End: 02-14-2024 Office outpatient visit 15 minutes Mikayla COTTO Work Phone: [facility] Comment on above: 24 weeks gestation o f ; Second trimester ; Diabetes mellitus screening; Encounter for follow-up ultrasound of anatomy; Gastroesophageal reflux in Start: 02-14-2024 End: 02-14-2024 ambulatory MIKAYLA DILLARD Not Available Start: 01-16-2024 End: 01-16-2024 Office outpatient visit 15 minutes Familia Tamir DO Work Phone: [facility] Comment on above: 20 weeks gestation o f Start: 01-16-2024 End: 01-16-2024 ambulatory FAMILIA TAMIR Not Available Start: 01-16-2024 End: 01-16-2024 Bamboo flowsheet Familia Tamir DO Work Phone: [facility] Start: 01-16-2024 End: 01-16-2024 Bamboo flowsheet Familia Tamir DO Work Phone: [facility] Start: 01-08-2024 End: 01-11-2024 Clinisync Result Encounter Generic External Data Provider [facility] Unsolicited Start: 01-08-2024 End: 01-11-2024 Clinisync Result Encounter Generic External Data Provider [facility] Unsolicited Start: 12-27-2023 End: 12-27-2023 ambulatory PASTORA Ortiz WONDERLY Not Available Start: 12-25-2023 End: 12-25-2023 ambulatory JORGE CAMARA Not Available Start: 12-21-2023 End: 12-21-2023 ambulatory PASTORA Ortiz WONDERLY Not Available Start: 12-20-2023 End: 12-20-2023 ambulatory MIKAYLA DILLARD Not Available Start: 11-21-2023 End: 11-21-2023 ambulatory FAMILIA GARNETT Not Available Start: 11-07-2023 End: 11-07-2023 ambulatory JORGE HOA Not Available Start: 10-20-2023 End: 10-20-2023 ambulatory JORGE HOA Not Available Start: 10-16-2023 End: 10-16-2023 ambulatory PASTORA BARRON Not Available Start: 07-10-2023 End: 07-10-2023 ambulatory PAZ PUMP Not Available Start: 06-26-2023 Telephone encounter Jorge Camara [employer] Work Phone: [facility] Comment on above: Results Start: 06-26-2023 End: 06-26-2023 ambulatory JORGE CAMARA Not Available Start: 06-26-2023 End: 06-26-2023 Office outpatient visit 25 minutes Jorge Camara [employer] Work Phone: [facility] Comment on above: Pyelonephritis (Prim nicko Dx); Elevated liver function tests; Hypokalemia; Diarrhea, unspecified type; Nausea; Left lower quadrant abdominal tenderness with rebound tenderness; Gastroesophageal reflux disease without esophagitis Start: 06-21-2023 End: 06-22-2023 Emergency department patient visit PAZ GUZMÁN [facility] Start: 06-21-2023 End: 06-21-2023 Emergency department patient visit PASTORA BARRON [facility] Start: 12-28-2022 ambulatory Conrado Banks acility:[facility] Start: 11-14-2019 End: 11-15-2019 Patient encounter procedure PASTORA BARRON Facility:[facility]1 Procedures Date Procedure Procedure Detail Performing Clinician Start: 05-20-2024 [facility] UA (CLEAN/CATCH) YOUTH SPECIALIST/MICRO IF IND. Familia Tamir DO Work Phone: Start: 05-20-2024 Urnls dip stick/tabl et rgnt non-auto w/o micrscp Familia Tamir DO Work Phone: Start: 05-16-2024 ALL URINALYSIS Familia Fa zio DO Work Phone: Start: 05-13-2024 Urnls dip stick/tabl et rgnt non-auto w/o micrscp Mikayla COTTO Work Phone: Start: 05-09-2024 Urnls dip stick/tabl et rgnt non-auto w/o micrscp Familai Tamir DO Work Phone: Start: 05-04-2024 [facility] UA (CLEAN/CATCH) YOUTH SPECIALIST/MICRO IF IND. Familia Tamir DO Work [...] Work Phone: Start: 02-27-2024 [facility] UA (CLEAN/CATCH) YOUTH SPECIALIST/MICRO IF IND. Familia Tamir DO Work [...] Treatment Date Care Activity Detail Author Start: 05-20-2024 End: 05-20-2024 Patient encounter procedure 05/20/2024 3:20 PM EST Routine [facility] [address] [address] Familia Garnett, DO [address] [address] [facility] Start: 05-13-2024 End: 05-13-2024 Patient encounter procedure [...] Ancillary Procedure [facility] [address] [facility] [address] [facility] Start: 04-01-2024 End: 04-01-2025 US for US OB SCAN FOR GROWTH Imaging Routine size inconsistent with dates Expected: 04/01/2024 (Approximate), Expires: 04/01/2025 [facility] Work Phone: Comment on above: Expected: 04/01/2024 (Approximate), Expires: 04/01/2025 Start: 03-28-2024 End: 03-28-2024 Patient encounter procedure 03/28/2024 11:50 AM EST Routine [facility] [address] [phone] Familia Garnett, DO [address] [place], [place] [id number] [facility] Start: 03-13-2024 End: 03-13-2024 Patient encounter procedure [facility] Comment on above: Arrived Start: 02-19-2024 End: 02-19-2024 Professional / ancillary services management 02/19/2024 8:00 AM EDT Ancillary Procedure [facility] [address] [facility] [place] [phone] [facility] Start: 02-14-2024 End: 02-13-2025 CBC panel - Blood by Automated count CBC Lab Routine Diabetes mellitus screening Expected: 02/14/2024 (Approximate), Expires: 02/13/2025 [facility] Work Phone: Comment on above: Expected: 02/14/2024 (Approximate), Expires: 02/13/2025 Start: 02-14-2024 End: 02-13-2025 Measurement of glucose 1 hour after glucose challenge for glucose tolerance test Glucose tolerance, 1 hour Lab Routine Diabetes mellitus screening Expected: 02/14/2024 (Approximate), Expires: 02/13/2025 [facility] Comment on above: Expected: 02/14/2024 (Approximate), Expires: 02/13/2025 Start: 02-14-2024 End: 02-13-2025 US for US OB INCOMPLETE ANATOMY Imaging Routine Encounter for follow-up ultrasound of anatomy Expected: 02/14/2024 (Approximate), Expires: 02/13/2025 [facility] Comment on above: Expected: 02/14/2024 (Approximate), Expires: 02/13/2025 Start: 02-14-2024 End: 02-14-2024 Patient encounter procedure 02/14/2024 10:30 AM EDT Routine [facility] [address] [facility] [facility] [facility] [phone] Mikayla Dillard, PA [address] [place] [address] Arrived [facility] Comment on above: Arrived Start: 02-13-2024 End: 02-13-2024 Patient encounter procedure 02/13/2024 1:30 PM EDT Routine [facility] [address] [facility] [phone] Mikayla Dillard, PA [address] [place] [address] [facility] Start: 01-16-2024 End: 01-16-2024 Patient encounter procedure [facility] Comment on above: Arrived Start: 01-16-2024 End: 01-16-2024 Professional / ancillary services management 01/16/2024 1:30 PM EDT Ancillary Procedure [facility] [address] [facility] [address] [facility] Start: 01-14-2024 Influenza vaccination Influenza Vacc ine (#1) [facility] Start: 11-12-2023 Influenza vaccination Influenza Vacc ine (#1) [facility] Comment on above: Postponed from 01/13 (Patient Refused) Start: 07-25-2023 End: 06-26-2024 Hepatic function 2000 panel - Serum or Plasma Hepatic function panel Lab Routine Elevated liver function tests Pyelonephritis Expected: 07/25/2023 (Approximate), Expires: 06/26/2024 [facility] Work Phone: Comment on above: Expected: 07/25/2023 (Approximate), Expires: 06/26/2024 Start: 07-13-2023 End: 07-13-2023 Patient encounter procedure 07/13/2023 2:00 PM EST Office Visit [facility] [address] [facility] [place] [address] Jorge Camara, [employer] [address] [place] [address] [facility] Start: 06-26-2023 End: 06-26-2024 Comprehensive metabolic 2000 panel - Serum or Plasma Comprehensive metabolic panel Lab Routine Elevated liver function tests Pyelonephritis Hypokalemia Diarrhea, unspecified type Expected: 06/26/2023 (Approximate), Expires: 06/26/2024 [facility] Work Phone: Comment on above: Expected: 06/26/2023 (Approximate), Expires: 06/26/2024 Immunizations Immunization Date Immunization Notes Care Provider [facility] 03-11-2016 influenza, injectabl e, quadrivalent, preservative free Jorge Camara [employer] Work Phone: [facility] 03-11-2016 influenza virus vacc ine, unspecified formulation Jorge Camara [employer] Work Phone: [facility] 02-04-2015 tetanus toxoid, redu yenny diphtheria toxoid, and acellular pertussis vaccine, adsorbed Jorge Camara [employer] Work Phone: [facility] 12-17-2001 diphtheria, tetanus toxoids and acellular pertussis vaccine, unspecified formulation Jorge Camara [employer] Work Phone: [facility] 12-17-2001 measles, mumps and rubella virus vaccine Jorge Camara [employer] Work Phone: [facility] 12-17-2001 poliovirus vaccine, inactivated Jorge Camara [employer] Work Phone: [facility] 06-04-1997 diphtheria, tetanus toxoids and acellular pertussis vaccine, unspecified formulation Jorge Camara [employer] Work Phone: [facility] 06-04-1997 haemophilus influenz ae type b vaccine, conjugate unspecified formulation Jorge Camara [employer] Work Phone: [facility] 06-04-1997 measles, mumps and rubella virus vaccine Jorge Hoa [employer] Work Phone: [facility] 1996 DTP-Haemophilus influenzae type b conjugate vaccine Jorge Camara [employer] Work Phone: [facility] 1996 hepatitis B vaccine, pediatric or pediatric/adolescent dosage Jorge Camara [employer] Work Phone: [facility] 1996 trivalent poliovirus vaccine, live, oral Jorge Camara [employer] Work Phone: [facility] 1996 DTP-Haemophilus influenzae type b conjugate vaccine Jorge Camara [employer] Work Phone: [facility] 1996 trivalent poliovirus vaccine, live, oral Jorge Camara [employer] Work Phone: [facility] 1996 DTP-Haemophilus influenzae type b conjugate vaccine Jorge Camara [facility] Work Phone: [facility] 1996 hepatitis B vaccine, pediatric or pediatric/adolescent dosage Jorge Camara [employer] Work Phone: [facility] 1996 trivalent poliovirus vaccine, live, oral Jorge Camara [employer] Work Phone: [facility] 1996 hepatitis B vaccine, pediatric or pediatric/adolescent dosage Joreg Camara [employer] Work Phone: [facility] Payers Date Payer Category Payer Self-pay 2022 Medicaid [id number] 2019 Unknown [id number] 2019 Medicaid [id number] 1996 Unknown [id number] 2.16.84 [id number] 1996 Unknown [id number] 2.16.8 40.1.542633.3.579.2.1286 1996 Unknown [id number] 2.16.84 0.1.969227.3.579.2.1259 1996 Unknown [id number] 2.16.84 0.1.792372.3.579.2.1259 1996 Unknown [id number] 2.16.84 0.1.340400.3.579.2.1258 1996 Unknown [id number] 2.16.84 0.1.695772.3.579.2.1258 1996 Unknown [id number] 2.16.84 0.1.114972.3.579.2.1258 1996 Unknown [id number] 2.16.84 0.1.681162.3.579.2.1258 1996 Unknown [id number] 2.16.84 0.1.012599.3.579.2.1258 1996 Unknown [id number] 2.16.84 0.1.201147.3.579.2.1258 1996 Unknown [id number] 2.16.84 0.1.894697.3.579.2.1258 1996 Unknown [id number] 2.16.84 0.1.581384.3.579.2.1258 1996 Unknown [id number] 2.16.84 0.1.676528.3.579.2.1258 1996 Unknown [id number] 2.16.84 0.1.896754.3.579.2.1258 1996 Unknown [id number] 2.16.84 0.1.718423.3.579.2.1258 1996 Unknown [id number] 2.16.84 0.1.435130.3.579.2.1258 1996 Unknown [id number] 2.16.84 0.1.529979.3.579.2.1258 1996 Unknown [id number] 2.16.84 0.1.588511.3.579.2.1258 1996 Unknown [id number] 2.16.84 0.1.160203.3.579.2.1258 1996 Unknown [id number] 2.16.84 0.1.964751.3.579.2.1259 Social History Date Type Detail Facility Start: 06-26-2023 End: 12-25-2023 Tobacco smoking status NHIS Ex-smoker [facility] History of tobacco use Current [...] Personal health goal Clinical Notes 06-26-2023 to 05-20-2024 Stacie Churchgautam, KYLE - 05/20/2024 10:50 AM KIRTI Welsh - 05/13/2024 11:00 AM Luis Manuel Trujillo, KYLE - 05/09/2024 10:10 AM KIRTI Welsh - 05/02/2024 1:40 PM EST Note Date & Type Note Facility 05-20-2024 History of Presen t illness Narrative Reason [...] nursing note reviewed. Exam conducted with a device test engineer present. Vitals: Estimated body mass index is 30.78 kg/m as calculated from the following: Height as of 06/30/21: 5' 2.5 . Weight as of this encounter: 171 lb. BP: 118/70 Patient's last menstrual period was 08/25/2023. ASSESSMENT & PLAN ICD-10-CM 1. Third trimester Z34.93 POCT urinalysis dipstick manually resulted 2. 38 weeks gestation of Z3A.38 Patient presents today for a routine obstetrics appointment. Patient is currently 38w3d with a Estimated Date of Delivery: 05/31/24. Patient to have IOL on 05/23/24 @ 11pm. Patient to return to clinic for post . Documented by Stacie Espino LPN on behalf of: Familia Garnett DO documented in this encounter [facility] 05-13-2024 History of Presen t illness Narrative [...] of: KIRTI Beltrán documented in this encounter [facility] 05-09-2024 History of Presen t illness Narrative [...] nursing note reviewed. Exam conducted with a device test engineer present. Vitals: Estimated body mass index is [...] Familia Garnett DO documented in this encounter [facility] 05-02-2024 History of Presen t illness Narrative [...] nursing note reviewed. Exam conducted with a device test engineer present. Vitals: Estimated body mass index is [...] of: KIRTI Beltrán documented in this encounter [facility] 04-16-2024 History of Presen t illness Narrative [...] nursing note reviewed. Exam conducted with a device test engineer present. Vitals: Estimated body mass index is [...] of: KIRTI Beltrán documented in this encounter [facility] 04-01-2024 History of Presen t illness Narrative [...] nursing note reviewed. Exam conducted with a device test engineer present. Vitals: Estimated body mass index is [...] Familia Garnett DO documented in this encounter [facility] 03-13-2024 History of Presen t illness Narrative [...] of: KIRTI Beltrán documented in this encounter [facility] 02-14-2024 History of Presen t illness Narrative [...] of: KIRTI Beltrán documented in this encounter [facility] 01-16-2024 History of Presen t illness Narrative [...] nursing note reviewed. Exam conducted with a device test engineer present. Vitals: Estimated body mass index is [...] Familia Garnett DO documented in this encounter [facility] 06-26-2023 Telephone encount er Note Please let patient know labs are improving. Potassium level is WNL. AST and ALT are still high but better compared to what it was in the hospital. I would like to repeat AST/ALT levels in 4 weeks. Order placed. AST 10 - 30 U/L 43 High ALT 6 - 29 U/L 86 High [facility] 06-26-2023 Miscellaneous Notes Formattin g of this [...] U/L 86 High documented in this encounter [facility] 06-26-2023 History of Presen t illness Narrative [...] Visit Report Report COMPREHENSIVE METABOLIC PANEL Order: [id number] Component Ref Range & Units 5 d [...] CT abdomen pelvis w IV contrast Order: [id number] Narrative CT ABDOMEN AND PELVIS HISTORY: Abdominal [...] HealthcareEvaluation note* Diagnosis Third trimester state, incidental 38 weeks gestation of documented in this encounter [...] and content) DATE CREATED AUTHOR 12/13/2019 [facility] DATE CREATED AUTHOR AUTHOR'S ORGANIZ ATION 04/21/2023 [facility] DATE CREATED AUTHOR AUTHOR'S ORGANIZ ATION 06/26/2023 [facility] DATE CREATED AUTHOR AUTHOR'S ORGANIZ ATION 05/14/2024 [facility] EPIC Reason for Visit (unrecogniz ed section and content) Reason Comments ER Follow-up Abd pain,diarrhea. L eft side pain comes and goes started this morning, nausea better, continued diarrhea. Reason Onset Date Comments Results 06/26/2023 Reason Comments Routine Visit Care Teams (unrecognized sec tion and content) Stuffing Machine Operator Relationship Specialty Start Date End Date Pastora Barron MD [address] [facility] [place] [address] PCP - General Family Medicine 09/20/22 Stuffing Machine Operator Relationship Specialty Start Date End Date Pastora Barron MD [address] [place] [address] PCP - General Family Medicine 09/20/22 Stuffing Machine Operator Relationship Specialty Start Date End Date Pastora Barron MD [address] [facility] [place] [address] PCP - General Family Medicine 09/20/22 Stuffing Machine Operator Relationship Specialty Start Date End Date Pastora Barron MD [address] [facility] [place] [address] PCP - General Family Medicine 09/20/22 Stuffing Machine Operator Relationship Specialty Start Date End Date Pastora Barron MD [address] [facility] [place] [address] PCP - General Family Medicine 09/20/22 Stuffing Machine Operator Relationship Specialty Start Date End Date Pastora Barron MD [address] [facility] [place] [address] PCP - General Family Medicine 09/20/22 Stuffing Machine Operator Relationship Specialty Start Date End Date Pastora Barron MD [address] [facility] [place] [address] PCP - General Family Medicine 09/20/22 Stuffing Machine Operator Relationship Specialty Start Date End Date Pastora Barron MD [address] [facility] [place] [address] PCP - General Family Medicine 09/20/22 Stuffing Machine Operator Relationship Specialty Start Date End Date Pastora Barron MD [address] [facility] [place] [address] PCP - General Family Medicine 09/20/22 Stuffing Machine Operator Relationship Specialty Start Date End Date Pastora Barron MD [address] [facility] [place] [address] PCP - General Family Medicine 09/20/22 Stuffing Machine Operator Relationship Specialty Start Date End Date Pastora Barron MD [address] [facility] [place] [address] PCP - General Family Medicine 09/20/22 Stuffing Machine Operator Relationship Specialty Start Date End Date Pastora Barron MD [address] [facility] [place] [address] PCP - General Family Medicine 09/20/22 Stuffing Machine Operator Relationship Specialty Start Date End Date Pastora Barron MD [address] [facility] [place] [address] PCP - General Family Medicine 09/20/22 Stuffing Machine Operator Relationship Specialty Start Date End Date Pastora Barron MD [address] [facility] [place] [address] PCP - General Family Medicine 09/20/22 FOR [...] BE BASED ON THE PRIMARY CLINICAL RECORDS. [facility] [employer] [facility]. provides no warranty or guarantee of the accuracy or completeness of information in this document.
[2024-05-23 23:32] LABS: Hematocrit 32.6 % (36.0-48.0); Hemoglobin 10.9 g/dL (12.0-16.0); Mean Corpuscular HGB Conc 33.4 g/dL (29.9-35.2); Mean Corpuscular Hemoglobin 28.5 pg (26.7-34.0); Mean Corpuscular Volume 85.3 fL (81.0-99.0); Mean Platelet Volume 11.9 fL (9.5-13.5); Platelet Count 233 10^3/uL (150-450); Red Blood Count 3.82 10^6/uL (4.20-5.40); White Blood Count 9.1 10^3/uL (4.0-11.0)
[2024-05-23 23:46] LABS: Amphetamine Screen Urine NEGATIVE (NEGATIVE); Barbiturates Screen Urine NEGATIVE (NEGATIVE); Benzodiazepines Screen Urine NEGATIVE (NEGATIVE); Buprenorphine Screen Urine NEGATIVE (NEGATIVE); Cannabinoid Screen Urine NEGATIVE (NEGATIVE); Cocaine Screen Urine NEGATIVE (NEGATIVE); Methadone Screen Urine NEGATIVE (NEGATIVE); Methamphetamines Screen Urine NEGATIVE (NEGATIVE); Opiate Screen Urine NEGATIVE (NEGATIVE); Oxycodone Screen Urine NEGATIVE (NEGATIVE); Phencyclidine Screen Urine NEGATIVE (NEGATIVE); Tricyclic Antidepressant Urine NEGATIVE (NEGATIVE)
[2024-05-24] VITALS (27 sets, daily range): BP systolic 101–140; BP diastolic 52–85; PULSE 55–88; TEMP 35.9–36.6
[2024-05-24] MEDS: OXYTOCIN/0.9 % SODIUM CHLORIDE 10 UNITS/500 ML PLAST..BAG 6 UNIT IV
[2024-05-24] MEDS: NALBUPHINE HCL 10 MG/ML AMPULE IV (06:01)
[2024-05-24] MEDS: 0.9 % SODIUM CHLORIDE 1,000 ML 125 ML IV ×2 (08:01)
[2024-05-24] MEDS: ONDANSETRON PF 4 MG/2 ML VIAL IV (08:01)
[2024-05-24] MEDS: OXYTOCIN/0.9 % SODIUM CHLORIDE 20 UNITS/1,000 ML PLAST..BAG 125 UNIT IV (09:23)
--- NOTE | 2024-05-24 09:26 | PM.OBPRCVD ---
Procedure Intrapartal events: None Induction method: per pitocin protocol Delivery augmentation: rupture of membranes and pitocin Delivery monitor: external FHT and external uterine Route of delivery: Episiotomy Description: none L&D Laceration Description: none Estimated blood loss (mL): 250 Anesthesia type: None Disposition: floor Delivery date: 05/24/24 presentation: vertex Placental delivery description: Spontaneous cord description: 3 Vessels
[2024-05-24] MEDS: BENZOCAINE/MENTHOL 85 GRAM SPRAY BOTTLE 1 APPLIC TOPICAL (10:03)
[2024-05-24] MEDS: IBUPROFEN 600 MG TABLET PO ×2 (10:04→17:36)
[2024-05-24] MEDS: GLYCERIN/WITCH HAZEL PADS 1 PAD TOPICAL (10:04)
[2024-05-24] MEDS: CALCIUM CARBONATE 500 MG (200MG ELEMENTAL) TAB CHEW 1000 MG PO (15:04)
[2024-05-24] MEDS: ACETAMINOPHEN 325 MG TABLET 650 MG PO ×2 (15:05→20:59)
[2024-05-25] MEDS: IBUPROFEN 600 MG TABLET PO ×2 (00:08→08:50)
[2024-05-25] MEDS: CALCIUM CARBONATE 500 MG (200MG ELEMENTAL) TAB CHEW 1000 MG PO (00:08)
[2024-05-25 00:09] VITALS: BP 125/66; PULSE 51
[2024-05-25 00:26] VITALS: TEMP 36.7
[2024-05-25] MEDS: ACETAMINOPHEN 325 MG TABLET 650 MG PO (04:49)
[2024-05-25 06:49] LABS: Basophils Percent Auto 0.3 % (0.2-2.0); Eosinophils Percent Auto 0.4 % (0.9-7.0); Hematocrit 31.7 % (36.0-48.0); Hemoglobin 10.1 g/dL (12.0-16.0); Immature Granulocytes Abs Auto 0.03 10^3/uL (0.00-0.03); Immature Granulocytes Pct Auto 0.3 % (0.0-0.5); Lymphocytes Absolute Auto 2.7 10^3/uL (1.2-3.8); Lymphocytes Percent Auto 25.8 % (20.5-60.0); Mean Corpuscular HGB Conc 31.9 g/dL (29.9-35.2); Mean Corpuscular Hemoglobin 27.9 pg (26.7-34.0); Mean Corpuscular Volume 87.6 fL (81.0-99.0); Mean Platelet Volume 12.1 fL (9.5-13.5); Monocytes Absolute Auto 0.6 10^3/uL (0.3-0.8); Monocytes Percent Auto 5.6 % (1.7-12.0); Neutrophils Absolute Auto 7.1 10^3/uL (1.4-6.5); Neutrophils Percent Auto 67.6 % (43.0-75.0); Platelet Count 202 10^3/uL (150-450); Red Blood Count 3.62 10^6/uL (4.20-5.40); Red Cell Distribution Width 13.2 % (11.0-15.0); White Blood Count 10.5 10^3/uL (4.0-11.0)
[2024-05-25] MEDS: DOCUSATE SODIUM 100 MG CAPSULE PO (08:50)
[2024-05-25 08:53] VITALS: BP 112/56; PULSE 50
[2024-05-25 09:00] VITALS: PULSE 128; TEMP 36.7
[2024-05-25] MEDS: MEASLES,MUMPS,RUBELLA VACC/PF 0.5 ML VIAL SQ (12:59)
--- NOTE | 2024-05-25 14:46 | P.OBPN_ITS ---
OB - PN: Subj Subjective Patient comments: no complaints and pain well controlled [place] status: doing well Exam Constitutional Vital Signs, click to edit/add: Last Vital Signs Temp 98.1 F 05/25/24 00:26 Pulse 50 L 05/25/24 08:53 Resp 16 05/25/24 00:26 BP 112/56 05/25/24 08:53 O2 Del Method Room Air 05/25/24 00:26 Documenting provider has reviewed patient's vital signs: yes Common normals: no apparent distress Respiratory Common normals: normal respiratory effort and clear to auscultation bilaterally Cardio Common normals: regular rate and regular rhythm GI Common normals: Normal to inspection, nondistended, normoactive bowel sounds present Extremity Common normals: no clubbing, cyanosis or edema and no calf tenderness Results Labs Labs: Short CBC 05/25/24 Range/Units 06:22 WBC 10.5 (4.0-11.0) 10^3/uL Hgb 10.1 L (12.0-16.0) g/dL Hct 31.7 L (36.0-48.0) % Plt Count 202 (150-450) 10^3/uL OB - PN: A/P Plan - Vaginal Delivery day: 1 Plan: routine care, discharge home and follow up 6 weeks Time Spent with Patient Time: Total time spent is greater than 50% in coordination of care (as documented) at patient's floor/unit and/or counseling patient: Total time spent with greater than 50% in coordination of care (as documented) at patient's floor/unit and/or counseling patient: less than 15 minutes
== END 2024-05-25 15:30 | disposition home or self-care (01) | DRG 560 ==
PROVIDERS: Admitting Provider Obstetrics & Gynecology; PCP Family Medicine; Visit Provider Obstetrics & Gynecology
DX: O99.334 Smoking (tobacco) complicating childbirth (principal); F17.290 Nicotine dependence, other tobacco product, uncomplicated; O99.619 Diseases of the digestive system complicating pregnancy, unspecified trimester; K21.9 Gastro-esophageal reflux disease without esophagitis; Z37.0 Single live birth; Z3A.39 39 weeks gestation of pregnancy; Z88.8 Allergy status to other drugs, medicaments and biological substances
CPT/HCPCS: 36415; 59050; 59410; 80307; 81001; 85025; 85027; 86850; 86900; 86901; 90707; G0378; G0379; J2300; J2405

== ENCOUNTER 2024-05-28 08:00 | Outpatient (OUT) | payer MEDICAID, SELFPAY ==
--- OUTSIDE RECORDS SUMMARY | 2024-05-28 08:07 | XMS_ITS | CCD ---
Author Organization [facility] Care Team Providers Care Ornamenter Name Role Phone PASTORA BARRON Admitting Unavailable [...] DILLARD Attending Unavailable NISHANT, MIKAYLA Attending Unavailable TAMIRFAMILIA KNOX Attending Unavailable MIKAYLA DILLARD Attending Unavailable FAMILIA GARNETT Attending Unavailable Allergies Allergy Classification Reported Allergen(s) Allergy Type Date of Onset Reaction(s) Facility (20 sources) Ethinyl Estradiol / norelgestromin Drug Allergy [facility] Medications Current Medications Medication Drug [...] Test Name Value Interpretation Reference Range Facility ALL CBC WITH AUTO DIFFon BASOPHILS ABSOLUTE AUTO 0 [facility] Basophils/100 WBC (Bld) 0.3 % 0.2 - 2.0 % [facility] Eosin[facility] WBC (Bld) 0.4 % Low 0.9 - 7.0 % [facility] Erythrocyte distribution width (RBC) [Ratio] 13.2 % 11.0 - 15.0 % [facility] Hematocrit (Bld) [Volume fraction] 31.7 % Low 36.0 - 48.0 % [facility] Hemoglobin (Bld) [Mass/Vol] 10.1 g/dL Low 12.0 - 16.0 g/dL [facility] IMMATURE GRANULOCYTES ABS AUTO 0.03 [facility] Immature granulocytes/100 WBC (Bld) 0.3 % 0.0 - 0.5 % [facility] Interpretation and review of laboratory results Abnormal [facility] LYMPHOCYTES ABSOLUTE AUTO 2.7 [facility] Lymphocytes/100 WBC (Bld) 25.8 % 20.5 - 60.0 % [facility] MCH (RBC) [Entitic mass] 27.9 pg 26.7 - 34.0 pg [facility] MCHC (RBC) [Mass/Vol] 31.9 g/dL 29.9 - 35.2 g/dL [facility] MCV (RBC) [Entitic vol] 87.6 fL 81.0 - 99.0 fL [facility] MONOCYTES ABSOLUTE AUTO 0.6 [facility] Monocytes/100 WBC (Bld) 5.6 % 1.7 - 12.0 % [facility] NEUTROPHILS ABSOLUTE AUTO 7.1 High [facility] Neutrophils/100 WBC (Bld) 67.6 % 43.0 - 75.0 % [facility] Platelet mean volume (Bld) [Entitic vol] 12.1 fL 9.5 - 13.5 fL [facility] are TBH EO # 0 [facility] PLT 202 [facility] RBC 3.62 Low [facility] WBC 10.5 [facility] HMHP CBC WITH PLATELET NO DI FFERENTIALon 05-23-2024 Erythrocyte distribution width (RBC) [Ratio] 13 % 11.0 - 15.0 % [facility] Hematocrit (Bld) [Volume fraction] 32.6 % Low 36.0 - 48.0 % [facility] Hemoglobin (Bld) [Mass/Vol] 10.9 g/dL Low 12.0 - 16.0 g/dL [facility] Interpretation and review of laboratory results Abnormal [facility] MCH (RBC) [Entitic mass] 28.5 pg 26.7 - 34.0 pg [facility] MCHC (RBC) [Mass/Vol] 33.4 g/dL 29.9 - 35.2 g/dL [facility] MCV (RBC) [Entitic vol] 85.3 fL 81.0 - 99.0 fL [facility] Platelet mean volume (Bld) [Entitic vol] 11.9 fL 9.5 - 13.5 fL [facility] TB RBC 3.82 Low [facility] TB WBC 9.1 [facility] TB UA (CLEAN/CATCH) RADIOLOGY THERAPIST/RITA RO IF IND.on 05-20-2024 BILIRUBIN URINE Negative NEGATIVE [facility] BLOOD URINE SMALL Abnormal NEGATIVE [facility] re Clarity (U) CLEAR CLEAR [facility] Healthil re Color (U) YELLOW YELLOW [facility] GLUCOSE URINE UA Negative NEGATIVE mg/dL [facility] Interpretation and review of laboratory results Abnormal [facility] Ketones Ql (U) Negative NEGATIVE mg/dL [facility] Leukocyte esterase Test strip Ql (U) Negative NEGATIVE [facility] e NITRITE URINE Negative NEGATIVE [facility] care pH (U) 6.5 [pH] 5.0 - 9.0 [facility] PROTEIN URINE Negative NEG/TRACE mg/dL [facility] SPECIFIC GRAVITY URINE 1.025 1.005 - 1.025 [facility] URINE MICROSCOPIC INDICATED YES [facility] UROBILINOGEN URINE 0.2 EU/dL 0.2 - 1.0 EU/dL [facility] Urinalysis macro (dipstick) panel (U)on 05-20-2024 Bilirubin, UA Negative Negative - 4(70) +++ mg/dL [facility] Blood, UA Negative Negative - 50 Robson/mcL [facility] Clarity, UA Clear [facility] Healthca re Color, UA Yellow [facility] Glucose, UA Negative Negative - 1999(110) ++++ mg/dL [facility] Interpretation and review of laboratory results Abnormal [facility] Ketones, UA Negative Negative - 160(16) ++++ mg/dL [facility] Leukocytes, UA Moderate Negative - 500+++ Jesus Manuel/mcL [facility] Nitrite, UA Negative Negative - Positive [facility] pH, UA 6 5 - 9 [facility] Protein, UA Negative Negative - 1999(20) ++++ mg/dL [facility] Spec Grav, UA 1.005 1 - 1.03 [facility] Urobilinogen, UA 0.2 0.2 - 12 mg/dL [facility] ALL URINALYSISon 05-16-2024 BILIRUBIN URINE Negative NEGATIVE [facility] BLOOD URINE TRACE-I NEGATIVE [facility] re Clarity (U) CLEAR CLEAR [facility] re Color (U) LT. YELLOW YELLOW [facility] e GLUCOSE URINE UA Negative NEGATIVE mg/dL [facility] Interpretation and review of laboratory results Abnormal [facility] Ketones Ql (U) Negative NEGATIVE mg/dL [facility] Leukocyte esterase Test strip Ql (U) TRACE Abnormal NEGATIVE [facility] e NITRITE URINE Negative NEGATIVE [facility] pH (U) 6.5 [pH] 5.0 - 9.0 [facility] e PROTEIN URINE Negative NEG/TRACE mg/dL [facility] SPECIFIC GRAVITY URINE 1.025 1.005 - 1.025 [facility] UROBILINOGEN URINE 0.2 EU/dL 0.2 - 1.0 EU/dL [facility] Health[facility] e Urinalysis macro (dipstick) panel (U)on 05-13-2024 Bilirubin, UA Negative Negative - 4(70) +++ mg/dL [facility] Blood, UA Negative Negative - 50 Robson/mcL [facility] Clarity, UA Clear [facility] re Color, UA Yellow [facility] Glucose, UA Negative Negative - 1999(110) ++++ mg/dL [facility] Interpretation and review of laboratory results Abnormal [facility] Ketones, UA Negative Negative - 160(16) ++++ mg/dL [facility] Leukocytes, UA Negative Negative - 500+++ Jesus Manuel/mcL [facility] Healthcare Nitrite, UA Negative Negative - Positive [facility] pH, UA 6 5 - 9 [facility] Protein, UA Trace Negative - 1999(20) ++++ mg/dL [facility] Healthcare Spec Grav, UA 1.025 1 - 1.03 [facility] care Urobilinogen, UA 0.2 0.2 - 12 mg/dL [facility] Urinalysis macro (dipstick) panel (U)on 05-09-2024 Bilirubin, UA Negative Negative - 4(70) +++ mg/dL [facility] Blood, UA Negative Negative - 50 Robson/mcL [facility] Healthcare Clarity, UA Clear [facility] re Color, UA Yellow [facility] Glucose, UA Negative Negative - 1999(110) ++++ mg/dL [facility] Interpretation and review of laboratory results Abnormal [facility] Ketones, UA Negative Negative - 160(16) ++++ mg/dL [facility] Leukocytes, UA Trace Negative - 500+++ Jesus Manuel/mcL [facility] Nitrite, UA Negative Negative - Positive [facility] pH, UA 6.5 5 - 9 [facility] Protein, UA Negative Negative - 1999(20) ++++ mg/dL [facility] Spec Grav, UA 1.025 1 - 1.03 [facility] Urobilinogen, UA 0.2 0.2 - 12 mg/dL [facility] TBH UA (CLEAN/CATCH) RADIOLOGY THERAPIST/RITA RO IF IND.on 05-04-2024 BILIRUBIN URINE Negative NEGATIVE [facility] BLOOD URINE Negative NEGATIVE [facility] Healthca re Clarity (U) CLEAR CLEAR [facility] Health[facility] re Color (U) LT. YELLOW YELLOW [facility] e GLUCOSE URINE UA Negative NEGATIVE mg/dL [facility] Interpretation and review of laboratory results Abnormal [facility] Healthcare Ketones Ql (U) Negative NEGATIVE mg/dL [facility] Leukocyte esterase Test strip Ql (U) SMALL Abnormal NEGATIVE [facility] Healthcar e NITRITE URINE Negative NEGATIVE [facility] Health care pH (U) 8.5 [pH] 5.0 - 9.0 [facility] PROTEIN URINE Negative NEG/TRACE mg/dL [facility] SPECIFIC GRAVITY URINE 1.020 1.005 - 1.025 [facility] URINE MICROSCOPIC INDICATED YES [facility] UROBILINOGEN URINE 0.2 EU/dL 0.2 - 1.0 EU/dL [facility] e Urinalysis macro (dipstick) panel (U)on 05-02-2024 Bilirubin, UA Negative Negative - 4(70) +++ mg/dL [facility] Blood, UA Negative Negative - 50 Robson/mcL [facility] Healthcare Clarity, UA Clear [facility] re Color, UA Yellow [facility] Glucose, UA Negative Negative - 1999(110) ++++ mg/dL [facility] Interpretation and review of laboratory results Abnormal [facility] Ketones, UA Positive Negative - 160(16) ++++ mg/dL [facility] Leukocytes, UA Trace Negative - 500+++ Jesus Manuel/mcL [facility] Nitrite, UA Negative Negative - Positive [facility] pH, UA 6 5 - 9 [facility] Protein, UA Positive Negative - 1999(20) ++++ mg/dL [facility] Spec Grav, UA 1.03 1 - 1.03 [facility] Urobilinogen, UA 0.2 0.2 - 12 mg/dL [facility] Urinalysis macro (dipstick) panel (U)on 04-17-2024 Bilirubin, UA Negative Negative - 4(70) +++ mg/dL [facility] Blood, UA Negative Negative - 50 Robson/mcL [facility] Clarity, UA Clear [facility] re Color, UA Yellow [facility] Glucose, UA Negative Negative - 1999(110) ++++ mg/dL [facility] Interpretation and review of laboratory results Normal [facility] Ketones, UA Negative Negative - 160(16) ++++ mg/dL [facility] Leukocytes, UA Negative Negative - 500+++ Jesus Manuel/mcL [facility] Nitrite, UA Negative Negative - Positive [facility] pH, UA 6.5 5 - 9 [facility] Protein, UA Negative Negative - 1999(20) ++++ mg/dL [facility] Spec Grav, UA 1.015 1 - 1.03 [facility] Urobilinogen, UA 1.0 0.2 - 12 mg/dL [facility] Urinalysis macro (dipstick) panel (U)on 04-01-2024 Bilirubin, UA Negative Negative - 4(70) +++ mg/dL [facility] Blood, UA Negative Negative - 50 Robson/mcL [facility] Healthcare Clarity, UA Clear [facility] Color, UA Paz [facility] Glucose, UA Negative Negative - 1999(110) ++++ mg/dL [facility] Interpretation and review of laboratory results Normal [facility] Ketones, UA Negative Negative - 160(16) ++++ mg/dL [facility] Leukocytes, UA Negative Negative - 500+++ Jesus Manuel/mcL [facility] Healthcare Nitrite, UA Negative Negative - Positive [facility] pH, UA 6.5 5 - 9 [facility] Protein, UA Negative Negative - 1999(20) ++++ mg/dL [facility] Spec Grav, UA 1.025 1 - 1.03 [facility] Urobilinogen, UA 0.2 0.2 - 12 mg/dL [facility] Urinalysis macro (dipstick) panel (U)on 03-13-2024 Bilirubin, UA Negative Negative - 4(70) +++ mg/dL [facility] Blood, UA Negative Negative - 50 Robson/mcL [facility] Healthcare Clarity, UA Clear [facility] re Color, UA Yellow [facility] Glucose, UA Negative Negative - 1999(110) ++++ mg/dL [facility] Interpretation and review of laboratory results Abnormal [facility] Ketones, UA Negative Negative - 160(16) ++++ mg/dL [facility] Leukocytes, UA Trace Negative - 500+++ Jesus Manuel/mcL [facility] Healthcare Nitrite, UA Negative Negative - Positive [facility] pH, UA 6.5 5 - 9 [facility] Protein, UA Negative Negative - 1999(20) ++++ mg/dL [facility] Spec Grav, UA 1.03 1 - 1.03 [facility] Urobilinogen, UA 0.2 0.2 - 12 mg/dL [facility] TBH UA (CLEAN/CATCH) RADIOLOGY THERAPIST/RITA RO IF IND.on 02-27-2024 BILIRUBIN URINE Negative NEGATIVE [facility] BLOOD URINE Negative NEGATIVE [facility] Healthca re Clarity (U) CLEAR CLEAR [facility] Color (U) YELLOW YELLOW [facility] GLUCOSE URINE UA Negative NEGATIVE mg/dL [facility] Interpretation and review of laboratory results Abnormal [facility] Ketones Ql (U) TRACE Abnormal NEGATIVE mg/dL [facility] Leukocyte esterase Test strip Ql (U) TRACE Abnormal NEGATIVE [facility] Health[facility] e NITRITE URINE Negative NEGATIVE [facility] pH (U) 6.0 [pH] 5.0 - 9.0 [facility] PROTEIN URINE Negative NEG/TRACE mg/dL [facility] SPECIFIC GRAVITY URINE >=1.030 Abnormal 1.005 - 1.025 [facility] URINE MICROSCOPIC INDICATED YES [facility] UROBILINOGEN URINE 0.2 EU/dL 0.2 - 1.0 EU/dL [facility] GLUCOSE 1 HOURon 02-26-2024 Glucose [Mass/Vol] 126 mg/dL NINF - 13 0 mg/dL [facility] Urinalysis macro (dipstick) panel (U)on 02-14-2024 Bilirubin, UA Positive Negative - 4(70) +++ mg/dL [facility] Comment on above: small Blood, UA Negative Negative - 50 Robson/mcL [facility] Clarity, UA Clear [facility] re Color, UA Yellow [facility] Glucose, UA Negative Negative - 1999(110) ++++ mg/dL [facility] Interpretation and review of laboratory results Abnormal [facility] Ketones, UA Positive Negative - 160(16) ++++ mg/dL [facility] Comment on above: 15 Leukocytes, UA Negative Negative - 500+++ Jesus Manuel/mcL [facility] Nitrite, UA Negative Negative - Positive [facility] pH, UA 6.0 5 - 9 [facility] Protein, UA Negative Negative - 1999(20) ++++ mg/dL [facility] Spec Grav, UA 1.030 1 - 1.03 [facility] Urobilinogen, UA 0.2 0.2 - 12 mg/dL [facility] Urinalysis macro (dipstick) panel (U)on 01-16-2024 Bilirubin, UA Positive Negative - 4(70) +++ mg/dL [facility] Comment on above: small Blood, UA Negative Negative - 50 Robson/mcL [facility] Clarity, UA Clear [facility] Color, UA Yellow [facility] Glucose, UA Negative Negative - 1999(110) ++++ mg/dL [facility] Interpretation and review of laboratory results Abnormal [facility] Ketones, UA Positive Negative - 160(16) ++++ mg/dL [facility] Comment on above: trace Leukocytes, UA Negative Negative - 500+++ Jesus Manuel/mcL [facility] Nitrite, UA Negative Negative - Positive [facility] pH, UA 5.5 5 - 9 [facility] Protein, UA Negative Negative - 1999(20) ++++ mg/dL [facility] Spec Grav, UA 1.030 1 - 1.03 [facility] Urobilinogen, UA 0.2 0.2 - 12 mg/dL [facility] AFP, SERUM, OPEN SPINA BIFID Aon 01-11-2024 AFP MOM 2.16 . [facility] AFP VALUE 104.8 ng/mL . [facility] Healthil re COMMENT: Comment . [facility] Comment on above: Colleen Rivas , Ph.D., [facility] Director References: Available Upon Request. Multiples Of Median Cutoffs For AFP Elevations Alarcon 2.5 Black 2.8 IDD 2.0 Twins 4.5 Abbreviation Definitions IDD - Insulin Dep Diabetes OSBR - Open Spina Bifida Risk For further inquiries contact [employer] [facility] at [phone]. This test was developed and its performance characteristics determined by [employer]. It has not been cleared or approved by the Food and Drug Administration. Performed at: [facility] [address] [place], [place] [id number] Manager Payment: Gillian Boston [facility], Phone: [phone] GEST. AGE ON COLLECTION DATE 19.4 . weeks [facility] GESTAT. AGE BASED ON LMP . [facility] Comment on above: Recalculations are n ot recommended when gestational dating by LMP and ultrasound are within 10 days. INSULIN DEP DIABETES No . [facility] INTERPRETATION Comment . [facility] Healt hcare Comment on above: Interpretation: Scre en Negative [...] Customer Services to discuss available options. The [employer] recommends amniocentesis be offered to women age 35 and older. [age] [facility] [employer] MULTIPLE GESTATION No . [facility] H ealthcare OSBR RISK 1 IN 569 . [facility] Healt hcare RACE Other . [facility] [employer] RESULTS Report . [employer] TEST RESULTS: Negative . [facility] [employer] WEIGHT 164 . lbs [employer] N N LMP [id number] 5 16 N 1 Y 164 N N N N N White/ [facility] US RENAL COMPLETEon 12-27-19 24 US [...] report is generated using voice recognition reporting ([employer]). On occasion [employer] erroneously drops words from the report or replaces the spoken word with similar sounding words. Please call with any questions/concerns regarding this report.* Dictated and transcribed 12/29/2023/carine This report has been electronically signed and approved by the interpreting radiologist. Electronically Signed Kevin Garland M.D. 2023-12-29 16:01:12 Normal Not Available Cytology Cervical or vaginal smear or scraping studyon 12-20-2023 [facility] e CBC AND AUTO DIFFon 06-21-19 24 ABSOLUTE BASOPHIL 0.0 X10E9/L Normal 0.0-0.2 [facility] Comment on above: Performed By: #### C SONDRA SANCHEZ, #### [facility] ([id number]) [address] [place] [address] 88265 ABSOLUTE NEUTROPHIL 5.2 X10E9/L Normal 1.5-6.6 [facility] Comment on above: Performed By: #### C SONDRA SANCHEZ, #### [facility] ([id number]) [address] [place] [address] 86207 Basophils/100 WBC (Bld) 0.5 % Normal [facility] Comment on above: Performed By: #### Michelle ASNCHEZ CMP, #### [facility] ([id number]) [address] [place] [address] 32149 Eosinophils (Bld) [#/Vol] 0.0 10*3/uL Normal 0.0-0.4 [facility] Comment on above: Performed By: #### Michelle SANCHEZ [facility], #### [facility] ([id number]) [address] [place] [address] 63599 Eosinophils/100 WBC (Bld) 0.4 % Normal [facility] Comment on above: Performed By: #### Michelle SANCHEZ CMP, #### [facility] ([id number]) [address] [place] [address] 31128 Erythrocyte distribution width (RBC) [Ratio] 12.7 % Normal 11.5-15.0 [facility] Comment on above: Performed By: #### Michelle SANCHEZ CMP, 33719-7 #### [facility] ([id number]) [address] [place] [address] 73725 Hematocrit (Bld) [Volume fraction] 41.4 % Normal 35-47 [facility] Comment on above: Performed By: #### C DANIEL, CMP, 24247-8 #### [facility] ([id number]) [address] [place] [address] 36176 Hemoglobin (Bld) [Mass/Vol] 14.2 g/dL Normal 11.7-15.5 [facility] Comment on above: Performed By: #### Michelle SANCHEZ, CMP, #### [facility] ([id number]) [address] [place] [address] 20979 Lymphocytes (Bld) [#/Vol] 1.3 10*3/uL Normal 1.0-3.5 [facility] Comment on above: Performed By: #### C DANIEL, CMP, #### [facility] ([id number]) [address] [place] [address] 39506 Lymphocytes/100 WBC (Bld) 18.4 % Normal [facility] Comment on above: Performed By: #### Michelle SANCHEZ, CMP, #### [facility] ([id number]) [address] [place] [address] 63298 MCH (RBC) [Entitic mass] 30.3 pg Normal 27-34 [facility] Comment on above: Performed By: #### Michlele SANCHEZ CMP, #### [facility] ([id number]) [address] [place] [address] 07158 MCHC (RBC) [Mass/Vol] 34.3 g/dL Normal 32-36 [facility] Comment on above: Performed By: #### Michelle BCA, CMP, #### [facility] ([id number]) [address] [place] [address] 03840 MCV (RBC) [Entitic vol] 88 fL Normal 80-100 [facility] Comment on above: Performed By: #### C BCA, CMP, #### [facility] ([id number]) [address] [place] [address] 56641 Monocytes (Bld) [#/Vol] 0.6 10*3/uL Normal 0-0.9 [facility] Comment on above: Performed By: #### C DANIEL, CMP, 11935-4 #### [facility] ([id number]) [address] [place] [address] 06883 Monocytes/100 WBC (Bld) 8.8 % Normal [facility] Comment on above: Performed By: #### Michelle SANCHEZ, CMP, 52981-9 #### [facility] ([id number]) [address] [place] [address] 15482 Neutrophils/100 WBC (Bld) 71.9 % Normal [facility] Comment on above: Performed By: #### Michelle SANCHEZ, CMP, 90836-9 #### [facility] ([id number]) [address] [place] [address] 34150 Platelet mean volume (Bld) [Entitic vol] 8.9 fL Normal 7-12 [facility] Comment on above: Performed By: #### Michelle SANCHEZ, CMP, 06566-8 #### [facility] ([id number]) [address] [place] [address] 04415 Platelets (Bld) [#/Vol] 267 10*3/uL Normal 150-450 [facility] Comment on above: Performed By: #### Michelle SANCHEZ, CMP, #### [facility] ([id number]) [address] [place] [address] 69807 RBC COUNT 4.68 X10E12/L Normal 3.80-5.20 [facility] Comment on above: Performed By: #### Michelle SANCHEZ, CMP, #### [facility] ([id number]) [address] [place] [address] 62817 WBC (Bld) [#/Vol] 7.2 10*3/uL Normal 4.0-11.0 [facility] Comment on above: Performed By: #### C SONDRA SANCHEZ, 85841-5 #### [facility] ([id number]) [address] [place] [address] 45231 COMPREHENSIVE METABOLIC PANE Chucky 06-21-2023 Albumin [Mass/Vol] 4.2 g/dL Normal 3.2-5.3 [facility] Comment on above: Performed By: #### C SONDRA SANCHEZ, 69761-1 #### [facility] ([id number]) [address] [place] [address] 27245 ALP [Catalytic activity/Vol] 76 U/L Normal 39-130 [facility] Comment on above: Performed By: #### C SONDRA SANCHEZ, 43649-9 #### [facility] ([id number]) [address] [place] [address] 26738 ALT [Catalytic activity/Vol] 114 U/L High 0-31 [facility] Comment on above: Performed By: #### C DANIEL [facility], 34534-2 #### [facility] ([id number]) [address] [place] [address] 92717 Anion gap [Moles/Vol] 11 mmol/L Normal 5-15 [facility] Comment on above: Performed By: #### C DANIEL CMP, 37198-1 #### [facility] ([id number]) [address] [place] [address] 74046 AST [Catalytic activity/Vol] 83 U/L High 0-41 [facility] Comment on above: Performed By: #### C BCA, CMP, 89322-9 #### [facility] ([id number]) [address] [place] [address] 36168 Bilirubin [Mass/Vol] 1.1 mg/dL Normal 0.3-1.2 [facility] [facility] Comment on above: Performed By: #### C DANIEL [facility], 78067-1 #### [facility] ([id number]) [address] [place] [address] 71219 Calcium [Mass/Vol] 8.9 mg/dL Normal 8.5-10.5 [facility] Comment on above: Performed By: #### C DANIEL [facility], 95140-5 #### [facility] ([id number]) [address] [place] [address] 15911 Chloride [Moles/Vol] 98 mmol/L Normal 98-109 [facility] Comment on above: Performed By: #### C DANIEL [facility], 33941-6 #### [facility] ([id number]) [address] [place] [address] 66168 CO2 [Moles/Vol] 23 mmol/L Normal 22-32 [facility] Comment on above: Performed By: #### C DANIEL [facility], 24393-5 #### [facility] ([id number]) [address] [place] [address] 58268 Creatinine [Mass/Vol] 0.77 mg/dL Normal 0.40-1.00 [facility] Comment on above: Result Comment: METH OD TRACEABLE TO IDMS STANDARD Performed By: #### C DANIEL [facility], 38375-8 #### [facility] ([id number]) [address] [place] [address] 86826 eGFR (CKD-EPI) NON-RACE DEPENDENT >90 Normal >59 [facility] Comment on above: Result Comment: Reported eGFR is based on the CKD-EPI 2020 equation that does not use a race coefficient. Performed By: #### C SONDRA SANCHEZ, 09646-5 #### [facility] ([id number]) [address] [place] [address] 79337 Glucose [Mass/Vol] 116 mg/dL High 65-99 [facility] Comment on above: Performed By: #### C DANIEL, [facility], 01921-0 #### [facility] ([id number]) [address] [place] [address] 04110 Potassium [Moles/Vol] 3.1 mmol/L Low 3.5-5.0 [facility] Comment on above: Performed By: #### C BCA [facility], 57910-9 #### [facility] ([id number]) [address] [place] [address] 49845 Protein [Mass/Vol] 8.1 g/dL High 6.0-8.0 [facility] Comment on above: Performed By: #### C DANIEL [facility], 43678-9 #### [facility] ([id number]) [address] [place] [address] 72335 Sodium [Moles/Vol] 132 mmol/L Low 134-146 [facility] Comment on above: Performed By: #### C DANIEL, [facility], 27359-4 #### [facility] ([id number]) [address] [place] [address] 68223 Urea nitrogen [Mass/Vol] 10 mg/dL Normal 5-23 [facility] Comment on above: Performed By: #### Michelle BCA, [facility], 42939-8 #### [facility] ([id number]) [address] [place] [address] ABDOMEN AND PELVIS W CONT on [...] as low as reasonably achievable. Finalized by iBll Albrecht on 06/21/2023 3:57 PM Normal [facility] HCG ( test) Ql (U)o n 06-21-2023 Beta HCG ( test) Ql (U) Negative Normal NEG [facility] Comment on above: Performed By: #### 2 106-3 #### [facility] ([id number]) [address] [place] [address] 98415 MAGNESIUMon 06-21-2023 Magnesium [Mass/Vol] 2.1 mg/dL Normal 1.8-2.6 [facility] Comment on above: Performed By: #### C BCA, CMP, 56836-8 #### [facility] ([id number]) [address] [place] [address] 83417 SARS/FLU A+B/RSV by NAAT/Mol ecularon 06-21-2023 SARS/FLU [...] operators who are performing tests using either [employer] or [employer] systems and is limited to laboratories that [...] repeat. Fact Sheet for Healthcare Providers: https://www.fda.gov/m edia/086739/download Fact Sheet for Patients: https://www.fda.gov/m edia/483484/download Normal [facility] Comment on above: Performed By: #### C OVFLR #### [facility] ([id number]) [address] [place] [address], [place] [address] URINE CULTUREon 06-21-2023 Bacteria identified Cx Nom [...] F TRIMETH/SULFAMETHOXAZ OLE S <=/19 F Susceptible [facility] Comment on above: Performed By: #### 6 30-4 #### [facility] ([id number]) [address] [place] [address], [address] [place] [address] URN MACROSCOPIC NURon 2023 BILIRUBIN ALMA Negative Normal [facility] Comment on above: Performed By: #### N UM #### [facility] ([id number]) [address] [place] [address] 54939 BLOOD/HGB ALMA Trace Abnormal [facility] Comment on above: Performed By: #### N UM #### [facility] ([id number]) [address] [place] [address] 68365 GLUCOSE ALMA Negative Normal [facility] Comment on above: Performed By: #### N UM #### [facility] ([id number]) [address] [place] [address] 67317 KETONES ALMA Trace Abnormal [facility] Comment on above: Performed By: #### N UM #### [facility] ([id number]) [address] [place] [address] 41271 LEUKOCYTE ESTERASE ALMA Negative Normal [facility] Comment on above: Performed By: #### N UM #### [facility] ([id number]) [address] [place] [address] 49448 NITRITE ALMA Positive Abnormal NEG [facility] Comment on above: Performed By: #### N UM #### [facility] ([id number]) [address] [place] [address] 61823 PH ALMA 6.0 Normal 5.0-8.5 [facility] Comment on above: Performed By: #### N UM #### [facility] ([id number]) [address] [place] [address] 75346 PROTEIN ALMA Trace Abnormal NEG [facility] Comment on above: Performed By: #### N UM #### [facility] ([id number]) [address] [place] [address] 17340 SPECIFIC GRAVITY ALMA >=1.030 Normal 1.003-1.035 [facility] Comment on above: Performed By: #### N UM #### [facility] ([id number]) [address] [place] [address] 63944 UROBILINOGEN ALMA 0.2 eu/dL Normal <1.1 [facility] Comment on above: Performed By: #### N UM #### [facility] ([id number]) [address] [place] [address] 71989 COVID-19 PCRon 11-15-2019 SARS-CoV-2, RENETTA Not Detected Normal Not Detected [facility] Comment on above: Result Comment: This test was developed and its performance characteristics determined by [employer]. This test has not been FDA cleared [...] assay. Performed By: #### C VDPCR #### [facility] [address] [place], [place] [address] Raymond Deleon Vital Signs Date Time Vital Sign Value Performing Clinician Faci lity 05-20-2024 11:13-0500 Body mass index (BMI) [Ratio] 30.78 kg/m2 Familia Tamir DO Work Phone: [facility] 05-20-2024 11:13-0500 Body weight 77.56 kg Familia Tamir DO Work Phone: [facility] 05-20-2024 11:13-0500 Diastolic blood pressure 70 mm[Hg] Familia Tamir DO Work Phone: [facility] 05-20-2024 11:13-0500 Systolic blood pressure 118 mm[Hg] Familia Tamir DO Work Phone: [facility] 05-13-2024 11:45-0500 Body mass index (BMI) [Ratio] 30.78 kg/m2 Mikayla Dillard PA Work Phone: [facility] 05-13-2024 11:45-0500 Body weight 77.56 kg Mikayla Dillard PA Work Phone: [facility] 05-13-2024 11:45-0500 Diastolic blood pressure 70 mm[Hg] Mikayla [place] PA Work Phone: [facility] 05-13-2024 11:45-0500 Systolic blood pressure 110 mm[Hg] Mikayla Dillard PA Work Phone: [facility] 05-09-2024 10:27-0500 Body mass index (BMI) [Ratio] 30.56 kg/m2 Familia Tamir DO Work Phone: [facility] 05-09-2024 10:27-0500 Body weight 77.02 kg Familia Tamir DO Work Phone: [facility] 05-09-2024 10:27-0500 Diastolic blood pressure 68 mm[Hg] Familia Tamir DO Work Phone: [facility] 05-09-2024 10:27-0500 Systolic blood pressure 110 mm[Hg] Familia Tamir DO Work Phone: [facility] 05-02-2024 13:50-0500 Body mass index (BMI) [Ratio] 30.67 kg/m2 Mikayla [place] PA Work Phone: [facility] 05-02-2024 13:50-0500 Body weight 77.29 kg Mikayla Nishant PA Work Phone: [facility] 05-02-2024 13:50-0500 Diastolic blood pressure 64 mm[Hg] Mikayla Nishant PA Work Phone: [facility] 05-02-2024 13:50-0500 Systolic blood pressure 100 mm[Hg] Mikayla Nishant PA Work Phone: [facility] 04-16-2024 15:25-0500 Body mass index (BMI) [Ratio] 30.49 kg/m2 Mikayla [place] PA Work Phone: [facility] 04-16-2024 15:25-0500 Body weight 76.84 kg Mikayla Nishant PA Work Phone: [facility] 04-16-2024 15:25-0500 Diastolic blood pressure 66 mm[Hg] Mikayla [place] PA Work Phone: [facility] 04-16-2024 15:25-0500 Systolic blood pressure 110 mm[Hg] Mikayla Nishant PA Work Phone: [facility] 04-01-2024 08:51-0500 Body mass index (BMI) [Ratio] 29.52 kg/m2 Familia Tamir DO Work Phone: [facility] 04-01-2024 08:51-0500 Body weight 74.39 kg Familia Tamir DO Work Phone: [facility] 04-01-2024 08:51-0500 Diastolic blood pressure 68 mm[Hg] Familia Tamir DO Work Phone: [facility] 04-01-2024 08:51-0500 Systolic blood pressure 108 mm[Hg] Familia Tamir DO Work Phone: [facility] 03-13-2024 10:29-0400 Body mass index (BMI) [Ratio] 29.74 kg/m2 Mikayla [place] PA Work Phone: [facility] 03-13-2024 10:29-0400 Body weight 74.96 kg Mikayla Nishant PA Work Phone: [facility] 03-13-2024 10:29-0400 Diastolic blood pressure 68 mm[Hg] Mikayla Nishant PA Work Phone: [facility] 03-13-2024 10:29-0400 Systolic blood pressure 100 mm[Hg] Mikayla [place] PA Work Phone: [facility] 02-14-2024 10:27-0400 Body mass index (BMI) [Ratio] 29.83 kg/m2 Mikayla Nishant PA Work Phone: [facility] 02-14-2024 10:27-0400 Body weight 75.18 kg Mikayla Nishant PA Work Phone: [facility] 02-14-2024 10:27-0400 Diastolic blood pressure 76 mm[Hg] Mikayla Nishant PA Work Phone: [facility] 02-14-2024 10:27-0400 Systolic blood pressure 106 mm[Hg] Mikayla Nishant PA Work Phone: [facility] 01-16-2024 14:39-0400 Body mass index (BMI) [Ratio] 29.52 kg/m2 Familia Tamir DO Work Phone: [facility] 01-16-2024 14:39-0400 Body weight 74.39 kg Familia Tamir DO Work Phone: [facility] 01-16-2024 14:39-0400 Diastolic blood pressure 72 mm[Hg] Familia Tamir DO Work Phone: [facility] 01-16-2024 14:39-0400 Systolic blood pressure 102 mm[Hg] Familia Tamir DO Work Phone: [facility] 06-26-2023 08:39-0500 Body mass index (BMI) [Ratio] 30.81 kg/m2 Jorge Camara NP Work Phone: [facility] 06-26-2023 08:39-0500 Body weight 77.66 kg Jorge Camara NP Work Phone: [facility] 06-26-2023 08:39-0500 Diastolic blood pressure 80 mm[Hg] Jorge Camara NP Work Phone: [facility] 06-26-2023 08:39-0500 Heart rate 72 /min Jorge Camara NP Work Phone: [facility] 06-26-2023 08:39-0500 Systolic blood pressure 102 mm[Hg] Jorge Camara NP Work Phone: [facility] Encounters Encounter Date Encounter Type Care Provider Facility Start: 05-25-2024 End: 05-25-2024 Clinisync Result Encounter Familia Tamir DO Work Phone: [facility] Unsolicited Start: 05-25-2024 End: 05-25-2024 Clinisync Result Encounter Familia Tamir DO Work Phone: [facility] Unsolicited Start: 05-23-2024 End: 05-23-2024 Clinisync Result Encounter Familia Tamir DO Work Phone: [facility] Unsolicited Start: 05-23-2024 End: 05-23-2024 Clinisync Result Encounter Familia Tamir DO Work [...] preg jeanette; 38 weeks gestation of Start: 05-20-2024 End: 05-20-2024 ambulatory FAMILIA TAMIR Not Available Start: 05-16-2024 End: 05-16-2024 Clinisync Result Encounter Familia Tamir DO Work Phone: [facility] Unsolicited Start: 05-16-2024 End: 05-16-2024 Clinisync Result Encounter Familia Tamir DO Work Phone: [facility] Unsolicited Start: 05-13-2024 End: 05-13-2024 Bamboo flowsheet Mikayla Dillard PA Work Phone: [facility] Start: 05-13-2024 End: 05-13-2024 Bamboo flowsheet Mikayla Dillard PA Work Phone: [facility] Start: 05-13-2024 [...] trimester Start: 05-02-2024 End: 05-02-2024 ambulatory MIKAYLA NISHANT Not Available Start: 04-16-2024 End: 04-16-2024 ambulatory MIKAYLA NISHANT Not Available Start: 04-16-2024 End: 04-16-2024 Office [...] 02-14-2024 Office outpatient visit 15 minutes Mikayla Dillard PA Work Phone: [facility] Comment on above: 24 weeks gestation o f ; Second trimester ; Diabetes mellitus screening; Encounter for follow-up ultrasound of anatomy; Gastroesophageal reflux in Start: 02-14-2024 End: 02-14-2024 ambulatory MIKAYLA DILLARD Not Available Start: 01-16-2024 End: 01-16-2024 Office outpatient visit 15 minutes Familia Tamir DO Work Phone: [facility] Comment on above: 20 weeks gestation o f Start: 01-16-2024 End: 01-16-2024 ambulatory FAMILIA TAMIR Not Available Start: 01-16-2024 End: 01-16-2024 Bamboo flowsheet Familia Tamir DO Work Phone: [facility] Start: 01-16-2024 End: 01-16-2024 Bamboo flowsheet Familia Tamir DO Work Phone: [facility] Start: 01-08-2024 End: 01-11-2024 [...] 06-22-2023 Emergency department patient visit PAZ GUZMÁN [facility] Start: 06-21-2023 End: 06-21-2023 Emergency department patient visit PASTORA BARRON [facility] Start: 12-28-2022 ambulatory Conrado Banks acility:[facility] Start: 11-14-2019 End: 11-15-2019 Patient encounter procedure PASTORA BARRON Facility:H1 Procedures Date Procedure Procedure Detail Performing Clinician Start: 05-25-2024 ALL CBC WITH AUTO DIFF Familia Tamir DO Work Phone: Start: 05-23-2024 [facility] CBC WITH PLATEL ET NO DIFFERENTIAL Familia Tamir DO Work Phone: Start: 05-20-2024 [facility] UA (CLEAN/CATCH) RADIOLOGY THERAPIST/MICRO IF IND. Familia Tamir DO Work Phone: Start: 05-20-2024 Urnls dip stick/tabl et rgnt non-auto w/o micrscp Familia Tamir DO Work Phone: Start: 05-16-2024 ALL URINALYSIS Familia Fa zio DO Work Phone: Start: 05-13-2024 Urnls dip stick/tabl et rgnt non-auto w/o micrscp Mikayla COTTO Work Phone: Start: 05-09-2024 Urnls dip stick/tabl et rgnt non-auto w/o micrscp Familia Garnett DO Work Phone: Start: 05-04-2024 [facility] UA (CLEAN/CATCH) RADIOLOGY THERAPIST/MICRO IF IND. Familia Garnett DO Work Phone: Start: 05-02-2024 Urnls dip [...] Work Phone: Start: 02-27-2024 [facility] UA (CLEAN/CATCH) RADIOLOGY THERAPIST/MICRO IF IND. Familia Garnett DO Work Phone: Start: 02-26-2024 GLUCOSE 1 HOUR Mikayla Younger Work Phone: Start: 02-14-2024 Urnls dip stick/tabl et rgnt non-auto w/o micrscp Mkiayla COTTO Work Phone: Start: 01-16-2024 Urnls dip stick/tabl et rgnt non-auto w/o micrscp Familia Garnett DO Work Phone: Start: 01-08-2024 AFP, SERUM, OPEN SPI NA BIFIDA Familia Garnett DO Work Phone: Start: 12-20-2023 Cytp cerv/vag auto t hin layer prep mnl screen Familia Tamir DO Work Phone: Plan of Treatment Date Care Activity Detail Author Start: 05-20-2024 End: 05-20-2024 Patient encounter procedure 05/20/2024 3:20 PM EST Routine [facility] [address] [place] [address] Familia Garnett, DO [address] [place] [address] [facility] Start: 05-13-2024 End: 05-13-2024 [...] Ancillary Procedure [facility] [address] [place] [address] [facility] Start: 04-01-2024 End: 04-01-2025 US for US OB SCAN FOR GROWTH Imaging Routine size inconsistent with dates Expected: 04/01/2024 (Approximate), Expires: 04/01/2025 [facility] Work Phone: Comment on above: Expected: 04/01/2024 (Approximate), Expires: 04/01/2025 Start: 03-28-2024 End: 03-28-2024 Patient encounter procedure 03/28/2024 11:50 AM EST Routine [facility] [address] [place] [address] Familia Garnett DO [address] [place], [place] [id number] [facility] Start: 03-13-2024 End: 03-13-2024 Patient encounter procedure [facility] Comment on above: Arrived Start: 02-19-2024 End: 02-19-2024 Professional / ancillary services management 02/19/2024 8:00 AM EDT Ancillary Procedure [facility] [address] [place] [address] [facility] Start: 02-14-2024 End: 02-13-2025 CBC panel - Blood by Automated count CBC Lab Routine Diabetes mellitus screening Expected: 02/14/2024 (Approximate), Expires: 02/13/2025 [facility] Work Phone: Comment on above: Expected: 02/14/2024 (Approximate), Expires: 02/13/2025 Start: 02-14-2024 End: 02-13-2025 Measurement of glucose 1 hour after glucose challenge for glucose tolerance test Glucose tolerance, 1 hour Lab Routine Diabetes mellitus screening Expected: 02/14/2024 (Approximate), Expires: 02/13/2025 [facility] Comment on above: Expected: 02/14/2024 (Approximate), Expires: 02/13/2025 Start: 02-14-2024 End: 02-13-2025 US for US OB INCOMPLETE ANATOMY Imaging Routine Encounter for follow-up ultrasound of anatomy Expected: 02/14/2024 (Approximate), Expires: 02/13/2025 [facility] Comment on above: Expected: 02/14/2024 (Approximate), Expires: 02/13/2025 Start: 02-14-2024 End: 02-14-2024 Patient encounter procedure 02/14/2024 10:30 AM EDT Routine [facility] [address] [place] [address] Mikayla Dillard PA [address] [place], [place] [id number] Arrived [facility] Comment on above: Arrived Start: 02-13-2024 End: 02-13-2024 Patient encounter procedure 02/13/2024 1:30 PM EDT Routine [facility] [address] [place] [address] Mikayla Dillard PA [address] [place], [place] [id number] [facility] Start: 01-16-2024 End: 01-16-2024 Patient encounter procedure [facility] Comment on above: Arrived Start: 01-16-2024 End: 01-16-2024 Professional / ancillary services management 01/16/2024 1:30 PM EDT Ancillary Procedure [facility] [address] [place] [address] [facility] Start: 01-14-2024 Influenza vaccination Influenza Vacc ine (#1) [facility] Start: 11-12-2023 Influenza vaccination Influenza Vacc ine (#1) [facility] Comment on above: Postponed from 01/13 [...] 2:00 PM EST Office Visit [facility] [address] [place] [address] Jorge Camara NP [address] [place], [place] [id number] [facility] Start: 06-26-2023 End: 06-26-2024 Comprehensive metabolic 2000 panel - Serum or Plasma Comprehensive metabolic panel Lab Routine Elevated liver function tests Pyelonephritis Hypokalemia Diarrhea, unspecified type Expected: 06/26/2023 (Approximate), Expires: 06/26/2024 [facility] Work Phone: Comment on above: Expected: 06/26/2023 (Approximate), Expires: 06/26/2024 Immunizations Immunization Date Immunization Notes Care Provider Fa [facility] 03-11-2016 influenza, injectabl e, quadrivalent, preservative free Jorge Camara [employer] Work Phone: [facility] 03-11-2016 influenza virus vacc ine, unspecified formulation Jorge Camara [employer] Work Phone: [facility] 02-04-2015 tetanus toxoid, redu yenny diphtheria toxoid, and acellular pertussis vaccine, adsorbed Jorge Camara [employer] Work Phone: [facility] 12-17-2001 diphtheria, tetanus toxoids and acellular pertussis vaccine, unspecified formulation Jorge Camara [employer] Work Phone: [facility] 12-17-2001 measles, mumps and rubella virus vaccine Jorge Camara [employer] Work Phone: [facility] 12-17-2001 poliovirus vaccine, inactivated Jorge Camara [employer] Work Phone: [facility] 06-04-1997 diphtheria, tetanus toxoids and acellular pertussis vaccine, unspecified formulation Jorge Camara [employer] Work Phone: [facility] 06-04-1997 haemophilus influenz ae type b vaccine, conjugate unspecified formulation Jorge Camara [employer] Work Phone: [facility] 06-04-1997 measles, mumps and rubella virus vaccine Jorge Camara [employer] Work Phone: [facility] 1996 DTP-Haemophilus influenzae type b conjugate vaccine Jorge Camara [employer] Work Phone: [facility] 1996 hepatitis B vaccine, pediatric or pediatric/adolescent dosage Jorge Camara [employer] Work Phone: [facility] 1996 trivalent poliovirus vaccine, live, oral Jorge Camara [employer] Work Phone: [facility] 1996 DTP-Haemophilus influenzae type b conjugate vaccine Jorge Camara [employer] Work Phone: [facility] 1996 trivalent poliovirus vaccine, live, oral Jorge Camara [employer] Work Phone: [facility] 1996 DTP-Haemophilus influenzae type b conjugate vaccine Jorge Camara [employer] Work Phone: [facility] 1996 hepatitis B vaccine, pediatric or pediatric/adolescent dosage Jorge Camara [employer] Work Phone: [facility] 1996 trivalent poliovirus vaccine, live, oral Jorge Camara [employer] Work Phone: [facility] 1996 hepatitis B vaccine, pediatric or pediatric/adolescent dosage Jorge Camara [employer] Work Phone: [facility] Payers Date Payer Category Payer Self-pay 2022 Medicaid [id number] 2019 Unknown [id number] 2019 Medicaid [id number] 1996 Unknown [id number] 2.16.84 0.1.761520.3.579.2.593 1996 Unknown [id number] 2.16.8 40.1.464310.3.579.2.1286 1996 Unknown [id number] 2.16.84 0.1.867888.3.579.2.1259 1996 Unknown [id number] 2.16.84 0.1.613022.3.579.2.1259 1996 Unknown [id number] 2.16.84 0.1.803754.3.579.2.1258 1996 Unknown [id number] 2.16.84 0.1.088622.3.579.2.1258 1996 Unknown [id number] 2.16.84 0.1.644917.3.579.2.1258 1996 Unknown [id number] 2.16.84 0.1.489371.3.579.2.1258 1996 Unknown [id number] 2.16.84 0.1.497676.3.579.2.1258 1996 Unknown [id number] 2.16.84 0.1.212296.3.579.2.1258 1996 Unknown [id number] 2.16.84 0.1.591022.3.579.2.1258 1996 Unknown [id number] 2.16.84 0.1.385850.3.579.2.1258 1996 Unknown [id number] 2.16.84 0.1.672177.3.579.2.1258 1996 Unknown [id number] 2.16.84 0.1.331443.3.579.2.1258 1996 Unknown [id number] 2.16.84 0.1.764712.3.579.2.1258 1996 Unknown [id number] 2.16.84 0.1.886335.3.579.2.1258 1996 Unknown [id number] 2.16.84 0.1.595325.3.579.2.1258 1996 Unknown [id number] 2.16.84 0.1.087711.3.579.2.1258 1996 Unknown [id number] 2.16.84 0.1.079129.3.579.2.1258 1996 Unknown [id number] 2.16.84 0.1.056675.3.579.2.1258 1996 Unknown [id number] 2.16.84 0.1.689898.3.579.2.1259 Social History Date Type Detail Facility Start: [...] goal Clinical Notes 06-26-2023 to 05-20-2024 Stacie Espino, KYLE - 05/20/2024 10:50 AM KIRTI Welsh - 05/13/2024 11:00 AM TELMAKenwilberto Trujillo, YKLE - 05/09/2024 10:10 AM KIRTI Welsh - [...] nursing note reviewed. Exam conducted with a lens grinding machine operator present. Vitals: Estimated body mass index is [...] Familia Garnett DO documented in this encounter [facility] 05-13-2024 History of Presen t illness Narrative [...] of: KIRTI Beltrán documented in this encounter [facility] 05-09-2024 History of Presen t illness Narrative [...] nursing note reviewed. Exam conducted with a lens grinding machine operator present. Vitals: Estimated body mass index is [...] Familia Garnett DO documented in this encounter [facility] 05-02-2024 History of Presen t illness Narrative [...] nursing note reviewed. Exam conducted with a lens grinding machine operator present. Vitals: Estimated body mass index is [...] of: KIRTI Beltrán documented in this encounter [facility] 04-16-2024 History of Presen t illness Narrative [...] nursing note reviewed. Exam conducted with a lens grinding machine operator present. Vitals: Estimated body mass index is [...] of: KIRTI Beltrán documented in this encounter [facility] 04-01-2024 History of Presen t illness Narrative [...] nursing note reviewed. Exam conducted with a lens grinding machine operator present. Vitals: Estimated body mass index is [...] Familia Garnett DO documented in this encounter [facility] 03-13-2024 History of Presen t illness Narrative [...] of: KIRTI Beltrán documented in this encounter [facility] 02-14-2024 History of Presen t illness Narrative [...] of: KIRTI Beltrán documented in this encounter [facility] 01-16-2024 History of Presen t illness Narrative [...] nursing note reviewed. Exam conducted with a lens grinding machine operator present. Vitals: Estimated body mass index is [...] Familia Garnett DO documented in this encounter [facility] 06-26-2023 Telephone encount er Note Please let patient know labs are improving. Potassium level is WNL. AST and ALT are still high but better compared to what it was in the hospital. I would like to repeat AST/ALT levels in 4 weeks. Order placed. AST 10 - 30 U/L 43 High ALT 6 - 29 U/L 86 High [facility] 06-26-2023 Miscellaneous Notes Formattin g of this [...] U/L 86 High documented in this encounter [facility] 06-26-2023 History of Presen t illness Narrative [...] Visit Report Report COMPREHENSIVE METABOLIC PANEL Order: [id number] Component Ref Range & Units 5 d [...] CT abdomen pelvis w IV contrast Order: [id number] Narrative CT ABDOMEN AND PELVIS HISTORY: Abdominal [...] and content) DATE CREATED AUTHOR 12/13/2019 [facility] DATE CREATED AUTHOR AUTHOR'S ORGANIZ ATION 04/21/2023 [facility] DATE CREATED AUTHOR AUTHOR'S ORGANIZ ATION 06/26/2023 [facility] [place] DATE CREATED AUTHOR AUTHOR'S ORGANIZ ATION 05/26/2024 [facility] EPIC Reason for Visit (unrecogniz ed section and content) Reason Comments ER Follow-up Abd pain,diarrhea. L eft side pain comes and goes started this morning, nausea better, continued diarrhea. Reason Onset Date Comments Results 06/26/2023 Reason Comments Routine Visit Care Teams (unrecognized sec tion and content) Ornamenter Relationship Specialty Start Date End Date Pastora Barron MD [address] [place] [address] PCP - General Family Medicine 09/20/22 Ornamenter Relationship Specialty Start Date End Date Pastora Barron MD [address] [facility] [place] [address] PCP - General Family Medicine 09/20/22 Ornamenter Relationship Specialty Start Date End Date Pastora Barron MD [address] [facility] [place] [address] PCP - General Family Medicine 09/20/22 Ornamenter Relationship Specialty Start Date End Date Pastora Barron MD [address] [facility] [place] [address] PCP - General Family Medicine 09/20/22 Ornamenter Relationship Specialty Start Date End Date Pastora Barron MD [address] [facility] [place] [address] PCP - General Family Medicine 09/20/22 Ornamenter Relationship Specialty Start Date End Date Pastora Barron MD [address] [facility] [place] [address] PCP - General Family Medicine 09/20/22 Ornamenter Relationship Specialty Start Date End Date Pastora Barron MD [address] [facility] [place] [address] PCP - General Family Medicine 09/20/22 Ornamenter Relationship Specialty Start Date End Date Pastora Barron MD [address] [place] [address] PCP - General Family Medicine 09/20/22 Ornamenter Relationship Specialty Start Date End Date Pastora Barron MD [address] [place] [address] PCP - General Family Medicine 09/20/22 Ornamenter Relationship Specialty Start Date End Date Pastora Barron MD [address] [place] [address] PCP - General Family Medicine 09/20/22 Ornamenter Relationship Specialty Start Date End Date Pastora Barron MD [address] [place] [address] PCP - General Family Medicine 09/20/22 Ornamenter Relationship Specialty Start Date End Date Pastora Barron MD [address] [place] [address] PCP - General Family Medicine 09/20/22 Ornamenter Relationship Specialty Start Date End Date Pastora Barron MD [address] [place] [address] PCP - General Family Medicine 09/20/22 Ornamenter Relationship Specialty Start Date End Date Pastora Barron MD [address] [place] [address] PCP - General Family Medicine 09/20/22 FOR [...] BE BASED ON THE PRIMARY CLINICAL RECORDS. [facility]. provides no warranty or guarantee of the accuracy or completeness of information in this document.
--- NOTE | 2024-05-28 10:32 | PC.NURSE ---
Jaja, 4 day old Kim and older brother arrive for follow up. Mom relates FOB currently out of house with his toddler who was DX with RSV on day was to be in house with . Mom states is tired, but doing it States her older children are helpful, but nights are long. Encouraged to allow help (her mom) to assist in evening so she can rest. Jaja states going well, milk in and able to pump 4 oz from side baby is not nursing on. Discussed risk of oversupply for her and baby. Verbalized understanding, but is worried about not having enough milk since was not able to produce with last delivery. VSS and assessment WNL for mom. No concerns for self or recovery. Baby Kim awake and alert, VSS and assessment WNL. TcB 13.0. Mom reports 5 wets and 7 stools yesterday. Stool is light green in color. Infant nurses 1 breast every 2-3 hours for 20 min and then sleeps. Encouraged to have baby nurse both breasts at a feeding and decrease gently the amount she is pumping to avoid oversupply issues. Infant weight stable. To mom and to breast well. Latch adjusted slightly to allow nose to be free of breast instead of mom holding back breast tissue. Mom states that's better . Baby nurses well 18 minutes, offand burped only to return to 2nd breast for a few minutes. Mom denies questions or concerns for NB care. Aware of MOMS group and to call LC as needed for questions. Leaves ambulatory for home with children.
[2024-05-28 10:33] VITALS: BP 114/82; PULSE 80; TEMP 36.4; O2SAT 99
== END 2024-05-28 10:38 | disposition home or self-care (01) ==
LOC: FBCO 08:02
PROVIDERS: PCP Family Medicine; Visit Provider Obstetrics & Gynecology
DX: P59.9 Neonatal jaundice, unspecified (principal)

== ENCOUNTER 2024-07-23 07:56 | Emergency (ER) | payer MEDICAID, SELFPAY ==
[2024-07-23 07:59] VITALS: BP 136/86; PULSE 70; TEMP 36.8; O2SAT 100; BMI 26.5
--- OUTSIDE RECORDS SUMMARY | 2024-07-23 08:12 | XMS_ITS | CCD ---
Author Organization [facility] Care Team Providers Care Sports Commentator Name Role Phone PASTORA BARRON Admitting Unavailable PASTORA BARRON Attending Unavailable PASTORA BARRON Primary Care Unavailable PASTORA BARRON Consulting Unavailable Conrado Calle Attending Unavailab Conrado Jefferson Admitting Unavailab PASTORA Walsh Primary Care Unavailable LAWRENCE JOSE Attending Unavailable PAZ GUZMÁN Attending Unavailable PAZ GUZMÁN Referring Unavailable PASTORA BARRON Primary Care Unavailable Pastora Barron MD Primary Care Provider Pastora Barron MD Primary Care Provider PASTORA BARRON Attending Unavailable MIKAYLA DILLARD Attending Unavailable PASTORA BARRON Attending Unavailable FAMILIA GARNETT Attending Unavailable MIKAYLA DILLARD Attending Unavailable PASTORA BARRON Attending Unavailable JORGE CAMARA Attending Unavailable PASTORA BARRON Referring Unavailable FAMILIA GARNETT Attending Unavailable MIKAYLA DILLARD Attending Unavailable NISHANT, MIKAYLA Attending Unavailable FAMILIA GARNETT Attending Unavailable MIKAYLA DILLARD Attending Unavailable NISHANT, MIKAYLA Attending Unavailable FAMILIA GARNETT Attending Unavailable MIKAYLA DILLARD Attending Unavailable FAMILIA GARNETT Attending Unavailable Allergies Allergy Classification Reported Allergen(s) Allergy Type Date of Onset Reaction(s) Facility (20 sources) Ethinyl Estradiol / norelgestromin Drug Allergy [facility] Medications Current Medications Medication Drug Class(es) Dates Sig (Normalized) Sig (Original) ethinyl estradiol 0.035 mg / norgestimate 0.25 mg oral tablet (2 sources) Progestin, Estrogen Start: 07-10-2024 End: 08-07-2024 take 1 tablet by mouth once daily, then take 1 tablet by mouth once daily norgestimate-ethiny l estradiol (Sprintec 28) 0.25-35 MG-MCG tablet Indications: Encounter for initial prescription of contraceptive pills Take 1 tablet by mouth Daily for 28 days Take 1 tablet by mouth daily 28 tablet 12 07/10/2024 08/07/2024 Active gentamicin 3 mg/ml ophthalmic solution (2 sources) Start: 06-26-2024 End: 07-03-2024 take 2 drop(s) into the eye(s) in the morning, then take 2 drop(s) into the eye(s) in the evening, then take 2 drop(s) into the eye(s) at bedtime gentamicin (Garamycin) 0.3 % ophthalmic solution Indications: Acute bacterial conjunctivitis of right eye Administer 2 drops into the right eye in the morning and 2 drops in the evening and 2 drops before bedtime. Do all this for 7 days. 5 mL 06/26/2024 07/03/2024 Active ondansetron 4 mg oral tablet (7 sources) Serotonin-3 Receptor Antagonist End: 02-14-2024 ondansetron (Zofran) 4 MG tablet Take by mouth 02/14/2024 Discontinued sulfamethoxazole 800 mg / trimethoprim 160 mg oral tablet (3 sources) Dihydrofolate Reductase Inhibitor Antibacterial, Sulfonamide Antimicrobial Start: 06-21-2023 End: 06-28-2023 take 1 tablet by mouth once in the morning, then take 1 tablet by mouth once in the evening sulfamethoxazole-tr imethoprim (Bactrim DS) 800-160 MG per tablet Take [...] 10 days 1 tablet 11/21/2023 05/02/2024 Discontinued omeprazole 20 mg delayed release oral capsule (20 sources) Proton Pump Inhibitor Start: 02-14-2024 End: 07-10-2024 take 1 capsule by mouth before mealtime omeprazole (PriLOSEC) [address] capsule Indications: Gastroesophageal Reflux Disease , Heartburn Take 1 capsule (20 mg) by mouth in the morning. Take before meals. Do not crush or chew.. 30 capsule 3 02/14/2024 07/10/2024 Discontinued (Other) MV-Min-Fe Fum-FA-DHA ( 1 PO) (20 sources) End: 07-10-2024 MV-Min-Fe Fum-FA-DHA ( 1 PO) Take by mouth 07/10/2024 Discontinued (Other) MV-Min- Fe Fum-FA-DHA ( 1 PO) Take by mouth Active Problems Active Problems Problem Classification Problem Date Documented Da te Episodic/Chronic Abdominal pain (3 sources) Abdominal pain; Translations: [Abdominal tenderness of left lower quadrant] Onset: 4 06-26-2023 Episodic Anxiety disorders (20 sources) Anxiety; Translations: [Anxiety disorder, unspecified] Onset: 4 06-23-2023 Chronic Contraceptive and procreative management (2 sources) Patient encounter status; Translations: [Encounter for initial prescription of contraceptive pills] 07-10-2024 Episodic Esophageal disorders (20 sources) Gastroesophageal reflux disease without esophagitis; Translations: [Gastro-esophageal reflux disease without esophagitis] Onset: 4 06-26-2023 Chronic Fluid and electrolyte disorders (2 sources) Hypokalemia; Translations: [Hypokalemia] 06-26-2023 Episodic Immunizations and screening for infectious disease (4 sources) Contact with and (suspected) exposure to other viral communicable diseases; Translations: [CONTCT EXPS OTH VIRL COMMUNICABL DZ] Onset: 0 Episodic Inflammation; infection of eye (except that caused by tuberculosis or sexually transmitteddisease) (2 sources) Acute infectious conjunctivitis; Translations: [Unspecified acute conjunctivitis, right eye] 06-26-2024 Episodic Nausea and vomiting (4 sources) Nausea; Translations: [Vomiting] Onset: 4 06-26-2023 Episodic Other complications of (2 sources) Gastroesophageal reflux disease in ; Translations: [Diseases of the digestive system complicating , unspecified trimester] 02-14-2024 Episodic Other complications of (20 sources) size does not accord with dates; Translations: [Uterine size-date discrepancy, unspecified trimester] Onset: 4 04-01-2024 Episodic Other gastrointestinal disorders (2 sources) Diarrhea; Translations: [Diarrhea, unspecified] 06-26-2023 Episodic Other liver diseases (20 sources) Steatosis of liver; Translations: [Fatty (change of) liver, not elsewhere classified] Onset: 4 01-01-2024 Chronic Other and delivery including normal (20 sources) Second trimester ; Translations: [Encounter for supervision of normal , unspecified, second trimester] Onset: 4 Resolved: 5 02-14-2024 Episodic Other screening for suspected conditions [...] of ] 03-13-2024 Episodic Residual codes; unclassified (2 sources) Gestation [...] unspecified trimester] Onset: 01-01-2024 01-01-2024 Episodic Other diseases of kidney and ureters (20 sources) Infectious disorder of kidney; 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, unspecified] Onset: 07-11-2023 Resolved: 06-27-2024 07-11-2023 Chronic Other nutritional; endocrine; and metabolic disorders (20 sources) Overweight; Translations: [Overweight] Onset: 06-23-2023 06-23-2023 Episodic Other upper respiratory infections (20 sources) Frontal sinusitis; Translations: [Chronic frontal sinusitis] Onset: 06-23-2023 Resolved: 12-25-2023 06-23-2023 Chronic Residual codes; unclassified (20 sources) Gestation period, 31 weeks; Translations: [31 weeks gestation of ] Onset: 04-01-2024 Resolved: 06-27-2024 04-01-2024 Episodic Residual codes; unclassified (2 sources) Gestation period, 20 weeks; Translations: [20 weeks gestation of ] 01-16-2024 Episodic Results Test Name Value Interpretation Reference Range Facility ALL CBC WITH AUTO DIFFon BASOPHILS ABSOLUTE AUTO 0 [facility] Basophils/100 WBC (Bld) 0.3 % 0.2 - 2.0 % [facility] Eosinophils/100 WBC (Bld) 0.4 % Low 0.9 - 7.0 % [facility] Erythrocyte distribution width (RBC) [Ratio] 13.2 % 11.0 - 15.0 % [facility] Hematocrit (Bld) [Volume fraction] 31.7 % Low 36.0 - 48.0 % [facility] Healthcar e Hemoglobin (Bld) [Mass/Vol] 10.1 g/dL Low 12.0 - 16.0 g/dL [facility] IMMATURE GRANULOCYTES ABS AUTO 0.03 [facility] Immature granulocytes/100 WBC (Bld) 0.3 % 0.0 - 0.5 % [facility] Interpretation and review of laboratory results Abnormal [facility] LYMPHOCYTES ABSOLUTE AUTO 2.7 [facility] Lymphocytes/100 WBC (Bld) 25.8 % 20.5 - 60.0 % [facility] MCH (RBC) [Entitic mass] 27.9 pg 26.7 - 34.0 pg [facility] MCHC (RBC) [Mass/Vol] 31.9 g/dL 29.9 - 35.2 g/dL [facility] MCV (RBC) [Entitic vol] 87.6 fL 81.0 - 99.0 fL [facility] MONOCYTES ABSOLUTE AUTO 0.6 [facility] Monocytes/100 WBC (Bld) 5.6 % 1.7 - 12.0 % [facility] NEUTROPHILS ABSOLUTE AUTO 7.1 High [facility] Neutrophils/100 WBC (Bld) 67.6 % 43.0 - 75.0 % [facility] Platelet mean volume (Bld) [Entitic vol] 12.1 fL 9.5 - 13.5 fL [facility] Healthc are TBH EO # 0 [facility] TBH PLT 202 [facility] TB RBC 3.62 Low [facility] TB WBC 10.5 [facility] HMHP CBC WITH PLATELET NO DI FFERENTIALon 05-23-2024 Erythrocyte distribution width (RBC) [Ratio] 13 % 11.0 - 15.0 % [facility] Hematocrit (Bld) [Volume fraction] 32.6 % Low 36.0 - 48.0 % [facility] Healthcar e Hemoglobin (Bld) [Mass/Vol] 10.9 g/dL Low 12.0 - 16.0 g/dL [facility] Interpretation and review of laboratory results Abnormal [facility] MCH (RBC) [Entitic mass] 28.5 pg 26.7 - 34.0 pg [facility] MCHC (RBC) [Mass/Vol] 33.4 g/dL 29.9 - 35.2 g/dL [facility] MCV (RBC) [Entitic vol] 85.3 fL 81.0 - 99.0 fL [facility] Platelet mean volume (Bld) [Entitic vol] 11.9 fL 9.5 - 13.5 fL [facility] 233 [facility] TB RBC 3.82 Low [facility] TB WBC 9.1 [facility] CLINISYNC [facility] Healthcar e TB UA (CLEAN/CATCH) BAG TESTER/RITA RO IF IND.on 05-20-2024 BILIRUBIN URINE Negative NEGATIVE [facility] BLOOD URINE SMALL Abnormal NEGATIVE [facility] Healthca re Clarity (U) CLEAR CLEAR [facility] Healthca re Color (U) YELLOW YELLOW [facility] Healthcar e GLUCOSE URINE UA Negative NEGATIVE mg/dL [facility] Interpretation and review of laboratory results Abnormal [facility] Ketones Ql (U) Negative NEGATIVE mg/dL [facility] Leukocyte esterase Test strip Ql (U) Negative NEGATIVE [facility] Healthcar e NITRITE URINE Negative NEGATIVE [facility] pH (U) 6.5 [pH] 5.0 - 9.0 [facility] e PROTEIN URINE Negative NEG/TRACE mg/dL [facility] SPECIFIC GRAVITY URINE 1.025 1.005 - 1.025 [facility] URINE MICROSCOPIC INDICATED YES [facility] UROBILINOGEN URINE 0.2 EU/dL 0.2 - 1.0 EU/dL [facility] Healthcar e Urinalysis macro (dipstick) panel (U)on 05-20-2024 Bilirubin, UA Negative Negative - 4(70) +++ mg/dL [facility] Blood, UA Negative Negative - 50 Robson/mcL [facility] Clarity, UA Clear [facility] Healthca re Color, UA Yellow [facility] Healthcar e Glucose, UA Negative Negative - 2000(110) ++++ mg/dL [facility] Interpretation and review of laboratory results Abnormal [facility] Ketones, UA Negative Negative - 160(16) ++++ mg/dL [facility] Leukocytes, UA Moderate Negative - 500+++ Jesus Manuel/mcL [facility] Nitrite, UA Negative Negative - Positive [facility] pH, UA 6 5 - 9 [facility] Healthcar e Protein, UA Negative Negative - 1999(20) ++++ mg/dL [facility] Spec Grav, UA 1.005 1 - 1.03 [facility] Urobilinogen, UA 0.2 0.2 - 12 mg/dL [facility] ALL URINALYSISon 05-16-2024 BILIRUBIN URINE Negative NEGATIVE [facility] BLOOD URINE TRACE-I NEGATIVE [facility] Healthca re Clarity (U) CLEAR CLEAR [facility] Healthca re Color (U) LT. YELLOW YELLOW [facility] Healthcar e GLUCOSE URINE UA Negative NEGATIVE mg/dL [facility] Interpretation and review of laboratory results Abnormal [facility] Ketones Ql (U) Negative NEGATIVE mg/dL [facility] Leukocyte esterase Test strip Ql (U) TRACE Abnormal NEGATIVE [facility] Healthcar e NITRITE URINE Negative NEGATIVE [facility] care pH (U) 6.5 [pH] 5.0 - 9.0 [facility] Healthcar e PROTEIN URINE Negative NEG/TRACE mg/dL [facility] SPECIFIC GRAVITY URINE 1.025 1.005 - 1.025 [facility] UROBILINOGEN URINE 0.2 EU/dL 0.2 - 1.0 EU/dL [facility] Healthcar e Urinalysis macro (dipstick) panel (U)on 05-13-2024 Bilirubin, UA Negative Negative - 4(70) +++ mg/dL [facility] Blood, UA Negative Negative - 50 Robson/mcL [facility] Clarity, UA Clear [facility] Healthca re Color, UA Yellow [facility] Healthcar e Glucose, UA Negative Negative - 1999(110) ++++ mg/dL [facility] Interpretation and review of laboratory results Abnormal [facility] Ketones, UA Negative Negative - 160(16) ++++ mg/dL [facility] Leukocytes, UA Negative Negative - 500+++ Jesus Manuel/mcL [facility] Nitrite, UA Negative Negative - Positive [facility] pH, UA 6 5 - 9 [facility] Healthcar e Protein, UA Trace Negative - 1999(20) ++++ mg/dL [facility] Spec Grav, UA 1.025 1 - 1.03 [facility] Urobilinogen, UA 0.2 0.2 - 12 mg/dL [facility] Urinalysis macro (dipstick) panel (U)on 05-09-2024 Bilirubin, UA Negative Negative - 4(70) +++ mg/dL [facility] Blood, UA Negative Negative - 50 Robson/mcL [facility] Clarity, UA Clear [facility] Healthca re Color, UA Yellow [facility] Healthcar e Glucose, UA Negative Negative - 1999(110) ++++ mg/dL [facility] Interpretation and review of laboratory results Abnormal [facility] Ketones, UA Negative Negative - 160(16) ++++ mg/dL [facility] Leukocytes, UA Trace Negative - 500+++ Jesus Manuel/mcL [facility] Nitrite, UA Negative Negative - Positive [facility] pH, UA 6.5 5 - 9 [facility] Healthcar e Protein, UA Negative Negative - 1999(20) ++++ mg/dL [facility] Spec Grav, UA 1.025 1 - 1.03 [facility] Urobilinogen, UA 0.2 0.2 - 12 mg/dL [facility] Healthcar e TBH UA (CLEAN/CATCH) BAG TESTER/RITA RO IF IND.on 05-04-2024 BILIRUBIN URINE Negative NEGATIVE [facility] BLOOD URINE Negative NEGATIVE [facility] Healthca re Clarity (U) CLEAR CLEAR [facility] Healthca re Color (U) LT. YELLOW YELLOW [facility] Healthcar e GLUCOSE URINE UA Negative NEGATIVE mg/dL [facility] Interpretation and review of laboratory results Abnormal [facility] Ketones Ql (U) Negative NEGATIVE mg/dL [facility] Leukocyte esterase Test strip Ql (U) SMALL Abnormal NEGATIVE [facility] Healthcar e NITRITE URINE Negative NEGATIVE [facility] Health care pH (U) 8.5 [pH] 5.0 - 9.0 [facility] Healthcar e PROTEIN URINE Negative NEG/TRACE mg/dL [facility] SPECIFIC GRAVITY URINE 1.020 1.005 - 1.025 [facility] URINE MICROSCOPIC INDICATED YES [facility] UROBILINOGEN URINE 0.2 EU/dL 0.2 - 1.0 EU/dL [facility] Healthcar e Urinalysis macro (dipstick) panel (U)on 05-02-2024 Bilirubin, UA Negative Negative - 4(70) +++ mg/dL [facility] Blood, UA Negative Negative - 50 Robson/mcL [facility] Healthcare Clarity, UA Clear [facility] Color, UA Yellow [facility] Glucose, UA Negative Negative - 1999(110) ++++ mg/dL [facility] Interpretation and review of laboratory results Abnormal [facility] Ketones, UA Positive Negative - 160(16) ++++ mg/dL [facility] Leukocytes, UA Trace Negative - 500+++ Jesus Manuel/mcL [facility] Healthcare Nitrite, UA Negative Negative - Positive [facility] pH, UA 6 5 - 9 [facility] Protein, UA Positive Negative - 1999(20) ++++ mg/dL [facility] Healthcare Spec Grav, UA 1.03 1 - 1.03 [facility] care Urobilinogen, UA 0.2 0.2 - 12 mg/dL [facility] Urinalysis macro (dipstick) panel (U)on 04-17-2024 Bilirubin, UA Negative Negative - 4(70) +++ mg/dL [facility] Blood, UA Negative Negative - 50 Robson/mcL [facility] Healthcare Clarity, UA Clear [facility] re Color, UA Yellow [facility] Healthcar e Glucose, UA Negative Negative - 1999(110) ++++ mg/dL [facility] Interpretation and review of laboratory results Normal [facility] Ketones, UA Negative Negative - 160(16) ++++ mg/dL [facility] Leukocytes, UA Negative Negative - 500+++ Jesus Manuel/mcL [facility] Healthcare Nitrite, UA Negative Negative - Positive [facility] pH, UA 6.5 5 - 9 [facility] Protein, UA Negative Negative - 1999(20) ++++ mg/dL [facility] Healthcare Spec Grav, UA 1.015 1 - 1.03 [facility] care Urobilinogen, UA 1.0 0.2 - 12 mg/dL [facility] Urinalysis macro (dipstick) panel (U)on 04-01-2024 Bilirubin, UA Negative Negative - 4(70) +++ mg/dL [facility] Blood, UA Negative Negative - 50 Robson/mcL [facility] Healthcare Clarity, UA Clear [facility] re Color, UA Paz [facility] Glucose, UA Negative Negative - 1999(110) ++++ mg/dL [facility] Interpretation and review of laboratory results Normal [facility] Ketones, UA Negative Negative - 160(16) ++++ mg/dL [facility] Leukocytes, UA Negative Negative - 500+++ Jesus Manuel/mcL [facility] Nitrite, UA Negative Negative - Positive [facility] pH, UA 6.5 5 - 9 [facility] Healthcar e Protein, UA Negative Negative - 1999(20) ++++ mg/dL [facility] Spec Grav, UA 1.025 1 - 1.03 [facility] Urobilinogen, UA 0.2 0.2 - 12 mg/dL [facility] Urinalysis macro (dipstick) panel (U)on 03-13-2024 Bilirubin, UA Negative Negative - 4(70) +++ mg/dL [facility] Blood, UA Negative Negative - 50 Robson/mcL [facility] Clarity, UA Clear [facility] Healthca re Color, UA Yellow [facility] Healthcar e Glucose, UA Negative Negative - 1999(110) ++++ mg/dL [facility] Interpretation and review of laboratory results Abnormal [facility] Ketones, UA Negative Negative - 160(16) ++++ mg/dL [facility] Leukocytes, UA Trace Negative - 500+++ Jesus Manuel/mcL [facility] Nitrite, UA Negative Negative - Positive [facility] pH, UA 6.5 5 - 9 [facility] Healthcar e Protein, UA Negative Negative - 1999(20) ++++ mg/dL [facility] Spec Grav, UA 1.03 1 - 1.03 [facility] Urobilinogen, UA 0.2 0.2 - 12 mg/dL [facility] TBH UA (CLEAN/CATCH) BAG TESTER/RITA RO IF IND.on 02-27-2024 BILIRUBIN URINE Negative NEGATIVE [facility] thcare BLOOD URINE Negative NEGATIVE [facility] Healthca re Clarity (U) CLEAR CLEAR [facility] Healthca re Color (U) YELLOW YELLOW [facility] Healthcar e GLUCOSE URINE UA Negative NEGATIVE mg/dL [facility] Interpretation and review of laboratory results Abnormal [facility] Ketones Ql (U) TRACE Abnormal NEGATIVE mg/dL [facility] H ealthcare Leukocyte esterase Test strip Ql (U) TRACE Abnormal NEGATIVE [facility] Healthcar e NITRITE URINE Negative NEGATIVE [facility] Health care pH (U) 6.0 [pH] 5.0 - 9.0 [facility] Healthcar e PROTEIN URINE Negative NEG/TRACE mg/dL [facility] SPECIFIC GRAVITY URINE >=1.030 Abnormal 1.005 - 1.025 [facility] URINE MICROSCOPIC INDICATED YES [facility] UROBILINOGEN URINE 0.2 EU/dL 0.2 - 1.0 EU/dL [facility] GLUCOSE 1 HOURon 02-26-2024 Glucose [Mass/Vol] 126 mg/dL NINF - 13 0 mg/dL [facility] Healthcar e Urinalysis macro (dipstick) panel (U)on 02-14-2024 Bilirubin, UA Positive Negative - 4(70) +++ mg/dL [facility] Comment on above: small Blood, UA Negative Negative - 50 Robson/mcL [facility] Clarity, UA Clear [facility] Healthca re Color, UA Yellow [facility] Healthcar e Glucose, UA Negative Negative - 1999(110) ++++ mg/dL [facility] Interpretation and review of laboratory results Abnormal [facility] Ketones, UA Positive Negative - 160(16) ++++ mg/dL [facility] Comment on above: 15 Leukocytes, UA Negative Negative - 500+++ Jesus Manuel/mcL [facility] Nitrite, UA Negative Negative - Positive [facility] pH, UA 6.0 5 - 9 [facility] Healthcar e Protein, UA Negative Negative - 1999(20) ++++ mg/dL [facility] Spec Grav, UA 1.030 1 - 1.03 [facility] Urobilinogen, UA 0.2 0.2 - 12 mg/dL [facility] Health[facility] e Urinalysis macro (dipstick) panel (U)on 01-16-2024 Bilirubin, UA Positive Negative - 4(70) +++ mg/dL [facility] Comment on above: small Blood, UA Negative Negative - 50 Robson/mcL [facility] Clarity, UA Clear [facility] Healthca re Color, UA Yellow [facility] Healthcar e Glucose, UA Negative Negative - 1999(110) ++++ mg/dL [facility] Interpretation and review of laboratory results Abnormal [facility] Ketones, UA Positive Negative - 160(16) ++++ mg/dL [facility] Comment on above: trace Leukocytes, UA Negative Negative - 500+++ Jesus Manuel/mcL [facility] Nitrite, UA Negative Negative - Positive [facility] pH, UA 5.5 5 - 9 [facility] e Protein, UA Negative Negative - 1999(20) ++++ mg/dL [facility] Spec Grav, UA 1.030 1 - 1.03 [facility] Urobilinogen, UA 0.2 0.2 - 12 mg/dL [facility] Healthcar e AFP, SERUM, OPEN SPINA BIFID Aon 01-11-2024 AFP MOM 2.16 . [facility] e AFP VALUE 104.8 ng/mL . [facility] re COMMENT: Comment . [facility] Healthcar e Comment on above: Colleen Rivas , Ph.D., [facility] Director References: Available Upon Request. Multiples Of Median Cutoffs For AFP Elevations Alarcon 2.5 Black 2.8 IDD 2.0 Twins 4.5 Abbreviation Definitions IDD - Insulin Dep Diabetes OSBR - Open Spina Bifida Risk For further inquiries contact [employer] [facility] at [phone]. This test was developed and its performance characteristics determined by [employer]. It has not been cleared or approved by the Food and Drug Administration. Performed at: [facility] [employer] [address] [place], [place] [id number] Zone Manager: Gillian Boston [facility], Phone: [phone] GEST. A[age] ON COLLECTION DATE 19.4 . weeks [facility] GESTAT. AGE BASED ON LMP . [facility] Comment on above: Recalculations are n ot recommended when gestational dating by LMP and ultrasound are within 10 days. INSULIN DEP DIABETES No . [facility] Healthcare INTERPRETATION Comment . [facility] Comment on above: Interpretation: Scre en [...] Customer Services to discuss available options. The [employer] recommends amniocentesis be offered to women age 35 and older. [age] [facility] MULTIPLE GESTATION No . [facility] H ealthcare OSBR RISK 1 IN 569 . [facility] Healt hcare RACE Other . [facility] RESULTS Report . [facility] TEST RESULTS: Negative . [facility] Health care WEIGHT 164 . lbs [facility] N N LMP [id number] N 1 Y 164 N [...] report is generated using voice recognition reporting ([employer]). On occasion [employer] erroneously drops words from the report or [...] ABSOLUTE BASOPHIL 0.0 X10E9/L Normal 0.0-0.2 [facility] Comment on above: Performed By: #### C BCA, CMP, 86841-0 #### [facility] ([id number]) [address], [place] [address] ABSOLUTE NEUTROPHIL 5.2 X10E9/L Normal 1.5-6.6 [facility] Comment on above: Performed By: #### Michelle SANCHEZ CMP, 62973-3 #### [facility] ([id number]) [address] [place] [address] 69332 Basophils/100 WBC (Bld) 0.5 % Normal [facility] Comment on above: Performed By: #### Michelle SANCHEZ CMP, #### [facility] ([id number]) [address] [place] [address] 13268 Eosinophils (Bld) [#/Vol] 0.0 10*3/uL Normal 0.0-0.4 [facility] Comment on above: Performed By: #### Michelle SANCHEZ CMP, 19368-2 #### [facility] ([id number]) [address] [place] [address] 25177 Eosinophils/100 WBC (Bld) 0.4 % Normal [facility] Comment on above: Performed By: #### Michelle SANCHEZ CMP, 85969-0 #### [facility] ([id number]) [address] [place] [address] 23688 Erythrocyte distribution width (RBC) [Ratio] 12.7 % Normal 11.5-15.0 [facility] Comment on above: Performed By: #### Michelle SANCHEZ CMP, 30070-3 #### [facility] ([id number]) [address] [place] [address] 97678 Hematocrit (Bld) [Volume fraction] 41.4 % Normal 35-47 [facility] Comment on above: Performed By: #### Michelle SANCHEZ CMP, 08391-4 #### [facility] ([id number]) [address] [place] [address] 02160 Hemoglobin (Bld) [Mass/Vol] 14.2 g/dL Normal 11.7-15.5 [facility] Comment on above: Performed By: #### C SONDRA SANCHEZ, #### [facility] ([id number]) [address] [place] [address] 42181 Lymphocytes (Bld) [#/Vol] 1.3 10*3/uL Normal 1.0-3.5 [facility] Comment on above: Performed By: #### C SONDRA SANCHEZ, #### [facility] ([id number]) [address] [place] [address] 78760 Lymphocytes/100 WBC (Bld) 18.4 % Normal [facility] Comment on above: Performed By: #### Michelle SANCHEZ CMP, #### [facility] ([id number]) [address] [place] [address] 32079 MCH (RBC) [Entitic mass] 30.3 pg Normal 27-34 [facility] Comment on above: Performed By: #### Michelle SANCHEZ CMP, #### [facility] ([id number]) [address] [place] [address] 32191 MCHC (RBC) [Mass/Vol] 34.3 g/dL Normal 32-36 [facility] Comment on above: Performed By: #### Michelle SANCHEZ CMP, #### [facility] ([id number]) [address] [place] [address] 46516 MCV (RBC) [Entitic vol] 88 fL Normal 80-100 [facility] Comment on above: Performed By: #### Michelle SANCHEZ CMP, #### [facility] ([id number]) [address] [place] [address] 26861 Monocytes (Bld) [#/Vol] 0.6 10*3/uL Normal 0-0.9 [facility] Comment on above: Performed By: #### Michelle SANCHEZ, CMP, #### [facility] ([id number]) [address] [place] [address] 51383 Monocytes/100 WBC (Bld) 8.8 % Normal [facility] Comment on above: Performed By: #### C DANIEL, CMP, 93343-9 #### [facility] ([id number]) [address] [place] [address] 44958 Neutrophils/100 WBC (Bld) 71.9 % Normal [facility] Comment on above: Performed By: #### C DANIEL, CMP, 43802-2 #### [facility] ([id number]) [address] [place] [address] 41075 Platelet mean volume (Bld) [Entitic vol] 8.9 fL Normal 7-12 [facility] Comment on above: Performed By: #### C DANIEL, CMP, 96911-7 #### [facility] ([id number]) [address] [place] [address] 62920 Platelets (Bld) [#/Vol] 267 10*3/uL Normal 150-450 [facility] Comment on above: Performed By: #### Michelle SANCHEZ, CMP, 73055-5 #### [facility] ([id number]) [address] [place] [address] 13968 RBC COUNT 4.68 X10E12/L Normal 3.80-5.20 [facility] Comment on above: Performed By: #### C BCA, CMP, 72342-6 #### [facility] ([id number]) [address] [place] [address] 40712 WBC (Bld) [#/Vol] 7.2 10*3/uL Normal 4.0-11.0 [facility] Comment on above: Performed By: #### C DANIEL, CMP, 42603-7 #### [facility] ([id number]) [address] [place] [address] 14181 COMPREHENSIVE METABOLIC PANE Chucky 06-21-2023 Albumin [Mass/Vol] 4.2 g/dL Normal 3.2-5.3 [facility] Comment on above: Performed By: #### C DANIEL CMP, 38302-8 #### [facility] ([id number]) [address] [place] [address] 78386 ALP [Catalytic activity/Vol] 76 U/L Normal 39-130 [facility] Comment on above: Performed By: #### C BCA, CMP, 27436-7 #### [facility] ([id number]) [address] [place] [address] 27717 ALT [Catalytic activity/Vol] 114 U/L High 0-31 [facility] Comment on above: Performed By: #### C DANIEL, CMP, 76714-6 #### [facility] ([id number]) [address] [place] [address] 93696 Anion gap [Moles/Vol] 11 mmol/L Normal 5-15 [facility] Comment on above: Performed By: #### C DANIEL, [facility], 78463-8 #### [facility] ([id number]) [address] [place] [address] 61348 AST [Catalytic activity/Vol] 83 U/L High 0-41 [facility] Comment on above: Performed By: #### C BCA, CMP, 97672-7 #### [facility] ([id number]) [address] [place] [address] 78296 Bilirubin [Mass/Vol] 1.1 mg/dL Normal 0.3-1.2 [facility] Comment on above: Performed By: #### C BCA, CMP, 64453-3 #### [facility] ([id number]) [address] [place] [address] 54213 Calcium [Mass/Vol] 8.9 mg/dL Normal 8.5-10.5 [facility] Comment on above: Performed By: #### C DANIEL [facility], 91783-5 #### [facility] ([id number]) [address] [place] [address] 16885 Chloride [Moles/Vol] 98 mmol/L Normal 98-109 [facility] Comment on above: Performed By: #### C DANIEL [facility], 69132-1 #### [facility] ([id number]) [address] [place] [address] 76955 CO2 [Moles/Vol] 23 mmol/L Normal 22-32 [facility] Comment on above: Performed By: #### C DANIEL [facility], #### [facility] ([id number]) [address] [place] [address] 92503 Creatinine [Mass/Vol] 0.77 mg/dL Normal 0.40-1.00 [facility] Comment on above: Result Comment: METH OD TRACEABLE TO IDMS STANDARD Performed By: #### C DANIEL [facility], 90446-4 #### [facility] ([id number]) [address] [place] [address] 92706 eGFR (CKD-EPI) NON-RACE DEPENDENT >90 Normal >59 [facility] Comment on above: Result Comment: Reported eGFR is based on the CKD-EPI 2020 equation that does not use a race coefficient. Performed By: #### C SONDRA SANCHEZ, 21276-4 #### [facility] ([id number]) [address] [place] [address] 54443 Glucose [Mass/Vol] 116 mg/dL High 65-99 [facility] Comment on above: Performed By: #### C SONDRA SANCHEZ, 66772-7 #### [facility] ([id number]) [address] [place] [address] 39653 Potassium [Moles/Vol] 3.1 mmol/L Low 3.5-5.0 [facility] Comment on above: Performed By: #### C DANIEL, [facility], 41842-2 #### [facility] ([id number]) [address] [place] [address] 97629 Protein [Mass/Vol] 8.1 g/dL High 6.0-8.0 [facility] Comment on above: Performed By: #### C BCA [facility], 70687-0 #### [facility] ([id number]) [address] [place] [address] 17484 Sodium [Moles/Vol] 132 mmol/L Low 134-146 [facility] Comment on above: Performed By: #### C DANIEL [facility], 41136-8 #### [facility] ([id number]) [address] [place] [address] 76117 Urea nitrogen [Mass/Vol] 10 mg/dL Normal 5-23 [facility] Comment on above: Performed By: #### C DANIEL [facility], 93302-4 #### [facility] ([id number]) [address] [place] [address] ABDOMEN AND PELVIS W CONT on [...] Bill Albrecht on 06/21/2023 3:57 PM Normal [facility] HCG ( test) Ql (U)o n 06-21-2023 Beta HCG ( test) Ql (U) Negative Normal NEG [facility] Comment on above: Performed By: #### 2 106-3 #### [facility] ([id number]) [address] [place] [address] 64980 MAGNESIUMon 06-21-2023 Magnesium [Mass/Vol] 2.1 mg/dL Normal 1.8-2.6 [facility] Comment on above: Performed By: #### C BCA, CMP, 68128-4 #### [facility] ([id number]) [address] [place] [address] 76793 SARS/FLU A+B/RSV by NAAT/Mol ecularon 06-21-2023 SARS/FLU [...] operators who are performing tests using either RealityMine or Immunovaccine systems and is limited to laboratories that [...] repeat. Fact Sheet for Healthcare Providers: https://www.fda.gov/m edia/839958/download Fact Sheet for Patients: https://www.fda.gov/m edia/778026/download Normal [facility] Comment on above: Performed By: #### C OVFLR #### [facility] ([id number]) [address] [place] [address], [place] [address] URINE CULTUREon 06-21-2023 Bacteria identified Cx Nom [...] TOBRAMYCIN S <=1 F TRIMETH/SULFAMETHOXAZ OLE S <=/ F Susceptible [facility] Comment on above: Performed By: #### 6 30-4 #### [facility] ([id number]) [address] [place] [address], [address] [place] [address] URN MACROSCOPIC NURon 2023 BILIRUBIN AL[place] Negative Normal NEG [facility] Comment on above: Performed By: #### N UM #### [facility] ([id number]) [address] [place] [address] 63415 BLOOD/HGB ALMA Trace Abnormal NEG [facility] Comment on above: Performed By: #### N UM #### [facility] ([id number]) [address] [place] [address] 22216 GLUCOSE ALMA Negative Normal NEG [facility] Comment on above: Performed By: #### N UM #### [facility] ([id number]) [address] [place] [address] 41872 KETONES ALMA Trace Abnormal NEG [facility] Comment on above: Performed By: #### N UM #### [facility] ([id number]) [address] [place] [address] 64948 LEUKOCYTE ESTERASE ALMA Negative Normal NEG [facility] Comment on above: Performed By: #### N UM #### [facility] ([id number]) [address] [place] [address] 88428 NITRITE ALMA Positive Abnormal NEG [facility] Comment on above: Performed By: #### N UM #### [facility] ([id number]) [address] [place] [address] 61604 PH ALMA 6.0 Normal 5.0-8.5 [facility] Comment on above: Performed By: #### N UM #### [facility] ([id number]) [address] [facility], [place] [address] PROTEIN ALMA Trace Abnormal NEG [facility] Comment on above: Performed By: #### N UM #### [facility] ([id number]) [address] [facility], [place] [address] SPECIFIC GRAVITY ALMA >=1.030 Normal 1.003-1.035 [facility] Comment on above: Performed By: #### N UM #### [facility] ([id number]) [address] [facility], [place] [address] UROBILINOGEN ALMA 0.2 eu/dL Normal <1.1 [facility] Comment on above: Performed By: #### N UM #### [facility] ([id number]) [address] [place] [address] 70982 COVID-19 PCRon 11-15-2019 SARS-CoV-2, RENETTA Not Detected Normal Not Detected [facility] Comment on above: Result Comment: This test was developed and its performance characteristics determined by [employer]. This test has not been FDA cleared [...] assay. Performed By: #### C VDPCR #### [facility] [address] [address] Raymond Deleon Vital Signs Date Time Vital Sign Value Performing Clinician Faci lity 07-10-2024 14:01-0500 Body mass index (BMI) [Ratio] 27.79 kg/m2 Mikayla COTTO Work Phone: [facility] 07-10-2024 14:01-0500 Body weight 70.03 kg Mikayla COTTO Work Phone: [facility] 07-10-2024 14:01-0500 Diastolic blood pressure 70 mm[Hg] Mikayla Dillard PA Work Phone: [facility] 07-10-2024 14:01-0500 Systolic blood pressure 100 mm[Hg] Mikayla Dillard PA Work Phone: [facility] 05-20-2024 11:13-0500 Body mass index (BMI) [Ratio] 30.78 kg/m2 Familia Tamir DO Work Phone: [facility] 05-20-2024 11:13-0500 Body weight 77.56 kg Familia Tamir DO Work Phone: [facility] 05-20-2024 11:13-0500 Diastolic blood pressure 70 mm[Hg] Familia Tamir DO Work Phone: [facility] 05-20-2024 11:13-0500 Systolic blood pressure 118 mm[Hg] Familia Tamir DO Work Phone: [facility] 05-13-2024 11:45-0500 Body mass index (BMI) [Ratio] 30.78 kg/m2 Mikayla COTTO Work Phone: [facility] 05-13-2024 11:45-0500 Body weight 77.56 kg Mikayla COTTO Work Phone: [facility] 05-13-2024 11:45-0500 Diastolic blood pressure 70 mm[Hg] Mikayla COTTO Work Phone: [facility] 05-13-2024 11:45-0500 Systolic blood pressure 110 mm[Hg] Mikayla COTTO Work Phone: [facility] 05-09-2024 10:27-0500 Body mass index (BMI) [Ratio] 30.56 kg/m2 Familia Tamir DO Work Phone: [facility] 05-09-2024 10:27-0500 Body weight 77.02 kg Familia Tamir DO Work Phone: [facility] 05-09-2024 10:27-0500 Diastolic blood pressure 68 mm[Hg] Familia Tamir DO Work Phone: [facility] 05-09-2024 10:27-0500 Systolic blood pressure 110 mm[Hg] Familia Tamir DO Work Phone: [facility] 05-02-2024 13:50-0500 Body mass index (BMI) [Ratio] 30.67 kg/m2 Mikayla Nishant PA Work Phone: [facility] 05-02-2024 13:50-0500 Body weight 77.29 kg Mikayla Etna PA Work Phone: [facility] 05-02-2024 13:50-0500 Diastolic blood pressure 64 mm[Hg] Mikayla Nishant PA Work Phone: [facility] 05-02-2024 13:50-0500 Systolic blood pressure 100 mm[Hg] Mikayla Etna PA Work Phone: [facility] 04-16-2024 15:25-0500 Body mass index (BMI) [Ratio] 30.49 kg/m2 Mikayla Etna PA Work Phone: [facility] 04-16-2024 15:25-0500 Body weight 76.84 kg Mikayla Etna PA Work Phone: [facility] 04-16-2024 15:25-0500 Diastolic blood pressure 66 mm[Hg] Mikayla Nishant PA Work Phone: [facility] 04-16-2024 15:25-0500 Systolic blood pressure 110 mm[Hg] Mikayla Etna PA Work Phone: [facility] 04-01-2024 08:51-0500 Body mass index (BMI) [Ratio] 29.52 kg/m2 Familia Tamir DO Work Phone: [facility] 04-01-2024 08:51-0500 Body weight 74.39 kg Familia Tamir DO Work Phone: [facility] 04-01-2024 08:51-0500 Diastolic blood pressure 68 mm[Hg] Familia Tamir DO Work Phone: [facility] 04-01-2024 08:51-0500 Systolic blood pressure 108 mm[Hg] Familia Tamir DO Work Phone: [facility] 03-13-2024 10:29-0400 Body mass index (BMI) [Ratio] 29.74 kg/m2 Mikayla Etna PA Work Phone: [facility] 03-13-2024 10:29-0400 Body weight 74.96 kg Mikayla Etna PA Work Phone: [facility] 03-13-2024 10:29-0400 Diastolic blood pressure 68 mm[Hg] Mikayla Nishant PA Work Phone: [facility] 03-13-2024 10:29-0400 Systolic blood pressure 100 mm[Hg] Mikayla Nishant PA Work Phone: [facility] 02-14-2024 10:27-0400 Body mass index (BMI) [Ratio] 29.83 kg/m2 Mikayla Nishant PA Work Phone: [facility] 02-14-2024 10:27-0400 Body weight 75.18 kg Mikayla Etna PA Work Phone: [facility] 02-14-2024 10:27-0400 Diastolic blood pressure 76 mm[Hg] Mikayla Etna PA Work Phone: [facility] 02-14-2024 10:27-0400 Systolic blood pressure 106 mm[Hg] Mikayla Etna PA Work Phone: [facility] 01-16-2024 14:39-0400 Body mass index (BMI) [Ratio] 29.52 kg/m2 Familia Tamir DO Work Phone: [facility] 01-16-2024 14:39-0400 Body weight 74.39 kg Familia Tamir DO Work Phone: [facility] 01-16-2024 14:39-0400 Diastolic blood pressure 72 mm[Hg] Familia Tamir DO Work Phone: [facility] 01-16-2024 14:39-0400 Systolic blood pressure 102 mm[Hg] Familia Tamir DO Work Phone: [facility] 06-26-2023 08:39-0500 Body mass index (BMI) [Ratio] 30.81 kg/m2 Jorge Camara LATEX THREAD MACHINE OPERATOR Work Phone: [facility] 06-26-2023 08:39-0500 Body weight 77.66 kg Jorge Camara NP Work Phone: [facility] 06-26-2023 08:39-0500 Diastolic blood pressure 80 mm[Hg] Jorge Camara LATEX THREAD MACHINE OPERATOR Work Phone: [facility] 06-26-2023 08:39-0500 Heart rate 72 /min Jorge Camara LATEX THREAD MACHINE OPERATOR Work Phone: [facility] 06-26-2023 08:39-0500 Systolic blood pressure 102 mm[Hg] Jorge Camara LATEX THREAD MACHINE OPERATOR Work Phone: [facility] Healthcare Encounters Encounter Date Encounter Type Care Provider Facility Start: 07-10-2024 End: 07-10-2024 care visit Mikayla COTTO Work Phone: [facility] Comment on above: 6 weeks f ollow-up; Encounter for initial prescription of contraceptive pills Start: 07-10-2024 End: 07-10-2024 ambulatory MIKAYLA DILLARD Not Available Start: 06-26-2024 End: 06-26-2024 ambulatory PASTORA BARRON Not Available Start: 06-26-2024 End: 06-26-2024 Office outpatient visit 10 minutes Pastora Barron MD Work Phone: [facility] Comment on above: Acute bacterial conj unctivitis of right eye (Primary Dx) Start: 06-26-2024 End: 06-26-2024 Bamboo flowsheet Pastora Barron MD Work Phone: [facility] Start: 06-26-2024 End: 06-26-2024 Bamboo flowsheet Pastora Barron MD Work Phone: [facility] Start: 05-25-2024 End: 05-25-2024 Clinisync Result Encounter [...] OB Start: 05-09-2024 End: 05-09-2024 Bamboo flowsheet Famliia Tamir DO Work Phone: [facility] [...] visit 15 minutes Mikayla COTTO Work Phone: [facility] Comment on above: 24 weeks gestation o f ; Second trimester ; Diabetes mellitus screening; Encounter for follow-up ultrasound of anatomy; Gastroesophageal reflux in Start: 02-14-2024 End: 02-14-2024 ambulatory MIKAYLA DILLARD Not Available Start: 01-16-2024 End: 01-16-2024 Office outpatient visit 15 minutes Familia Tamir DO Work Phone: [facility] Comment on above: 20 weeks gestation o f Start: 01-16-2024 End: 01-16-2024 ambulatory FAMILIA TAMIR Not Available Start: 01-16-2024 End: 01-16-2024 Bamboo flowsheet Familia Tamir DO Work Phone: [facility] Start: 01-16-2024 End: 01-16-2024 Bamboo flowsheet Familia Tamir DO Work Phone: [facility] Start: 01-08-2024 End: 01-11-2024 Clinisync [...] Available Start: 12-20-2023 End: 12-20-2023 ambulatory MIKAYLA NISHANT Not Available Start: 11-21-2023 End: 11-21-2023 ambulatory FAMILIA BECERRAZIO Not Available Start: 11-07-2023 End: 11-07-2023 ambulatory PASTORA WONDERLY Not Available Start: 10-20-2023 End: 10-20-2023 ambulatory PASTORA WONDERLY Not Available Start: 10-16-2023 End: 10-16-2023 ambulatory PASTORA B WONDERLY Not Available Start: 06-26-2023 Telephone encounter Jorge Camara NP Work Phone: [facility] Comment on above: Results Start: 06-26-2023 End: 06-26-2023 Office outpatient visit 25 minutes Jorge Camara NP Work Phone: [facility] Comment on above: Pyelonephritis (Prim nicko Dx); Elevated liver function tests; Hypokalemia; Diarrhea, unspecified type; Nausea; Left lower quadrant abdominal tenderness with rebound tenderness; Gastroesophageal reflux disease without esophagitis Start: 06-21-2023 End: 06-22-2023 Emergency department patient visit PAZ GUZMÁN [facility] Start: 06-21-2023 End: 06-21-2023 Emergency department patient visit PASTORA BARRON [facility] Start: 12-28-2022 ambulatory Conrado Banks acility:[facility] Start: 11-14-2019 End: 11-15-2019 Patient encounter procedure PASTORA BARRON Facility:H1 Procedures Date Procedure Procedure Detail Performing Clinician Start: 05-25-2024 ALL CBC WITH AUTO DIFF Familia Tamir DO Work Phone: Start: 05-23-2024 [facility] CBC WITH PLATEL ET NO DIFFERENTIAL Familia Tamir DO Work Phone: Start: 05-20-2024 [facility] UA (CLEAN/CATCH) BAG TESTER/MICRO IF IND. Familia Tamir DO Work Phone: [...] Work Phone: Start: 05-04-2024 [facility] UA (CLEAN/CATCH) BAG TESTER/MICRO IF IND. Familia Tamir DO Work Phone: [...] Work Phone: Start: 02-27-2024 [facility] UA (CLEAN/CATCH) BAG TESTER/MICRO IF IND. Familia Sheriffo DO Work Phone: Start: 02-26-2024 GLUCOSE 1 HOUR Mikayla Younger Work Phone: Start: 02-14-2024 Urnls dip stick/tabl et rgnt non-auto w/o micrscp Mikayla COTTO Work Phone: Start: 01-16-2024 Urnls dip stick/tabl et rgnt non-auto w/o micrscp Familiaron Sheriffo DO Work Phone: Start: 01-08-2024 AFP, SERUM, OPEN SPI NA BIFIDA Familia Tamir DO Work Phone: Start: 12-20-2023 Cytp cerv/vag auto t hin layer prep mnl screen Familia Tamir DO Work Phone: Plan of Treatment Date Care Activity Detail Author Start: 08-22-2024 Influenza vaccination Influenza Vacc ine (#1) [facility] Comment on above: Postponed from 01/13 (Patient Refused) Start: 07-31-2024 End: 07-31-2024 Patient encounter procedure 07/31/2024 2:50 PM EDT Consult [facility] [address] [place] [address] Familia Garnett DO [address] [place] [address] [facility] Start: 07-08-2024 End: 07-08-2024 ambulatory 07/08/2024 10:50 AM EST Visit [facility] [address] [place] [address] Mikayla Dillard PA [address] [place] [address] [facility] Start: 05-20-2024 End: 05-20-2024 Patient encounter procedure 05/20/2024 3:20 PM EST Routine [facility] [address] [place] [id number] Familia Garnett, DO [address] [place] [address] [facility] Start: 05-13-2024 End: 05-13-2024 [...] EST Ancillary Procedure [facility] [address] [place] [phone] [facility] Start: 04-01-2024 End: 04-01-2025 US for US OB SCAN FOR GROWTH Imaging Routine size inconsistent with dates Expected: 04/01/2024 (Approximate), Expires: 04/01/2025 [facility] Work Phone: Comment on above: Expected: 04/01/2024 (Approximate), Expires: 04/01/2025 Start: 03-28-2024 End: 03-28-2024 Patient encounter procedure 03/28/2024 11:50 AM EST Routine [facility] [address] [place] [phone] Familia Garnett, DO [address] [place] [address] [facility] Start: 03-13-2024 End: 03-13-2024 Patient encounter procedure [facility] Comment on above: Arrived Start: 02-19-2024 End: 02-19-2024 Professional / ancillary services management 02/19/2024 8:00 AM EDT Ancillary Procedure [facility] [address] [place] [id number] [facility] Start: 02-14-2024 End: 02-13-2025 CBC panel - Blood by Automated count CBC Lab Routine Diabetes mellitus screening Expected: 02/14/2024 (Approximate), Expires: 02/13/2025 [facility] Work Phone: Comment on above: Expected: 02/14/2024 (Approximate), Expires: 02/13/2025 Start: 02-14-2024 End: 02-13-2025 Measurement of glucose 1 hour after glucose challenge for glucose tolerance test Glucose tolerance, 1 hour Lab Routine Diabetes mellitus screening Expected: 02/14/2024 (Approximate), Expires: 02/13/2025 [facility] Comment on above: Expected: 02/14/2024 (Approximate), Expires: 02/13/2025 Start: 02-14-2024 End: 02-13-2025 US for US OB INCOMPLETE ANATOMY Imaging Routine Encounter for follow-up ultrasound of anatomy Expected: 02/14/2024 (Approximate), Expires: 02/13/2025 [facility] Comment on above: Expected: 02/14/2024 (Approximate), Expires: 02/13/2025 Start: 02-14-2024 End: 02-14-2024 Patient encounter procedure 02/14/2024 10:30 AM EDT Routine [facility] [address] [place] [id number] Mikayla Dillard, PA [address] [place], [place] [id number] Arrived [facility] Comment on above: Arrived Start: 02-13-2024 End: 02-13-2024 Patient encounter procedure 02/13/2024 1:30 PM EDT Routine [facility] [address] [place] [address] Mikayla Dillard, PA [address] [place], [place] [id number] [facility] Start: 01-16-2024 End: 01-16-[address] [facility] Comment on above: Arrived Start: 01-16-2024 End: 01-16-2024 Professional / ancillary services management 01/16/2024 1:30 PM ED[address] [facility] [address] [place] [address] [facility] Start: 01-14-2024 Influenza vaccination Influenza Vacc ine (#1) [facility] Start: 11-12-2023 Influenza vaccination Influenza Vacc ine (#1) [facility] Comment on above: Postponed from 01/13 (Patient Refused) Start: 07-25-2023 End: 06-26-2024 Hepatic function 2000 panel - Serum or Plasma Hepatic function panel Lab Routine Elevated liver function tests Pyelonephritis Expected: 07/25/2023 (Approximate), Expires: 06/26/2024 [facility] Work Phone: Comment on above: Expected: 07/25/2023 (Approximate), Expires: 06/26/2024 Start: 07-13-2023 End: 07-13-2023 Patient encounter procedure 07/13/2023 2:00 PM EST Office Visit [facility] [address] [place] [address] Jorge Camara, PAM [address] [facility] [place] [address] [facility] Start: 06-26-2023 End: 06-26-2024 Comprehensive metabolic 2000 panel - Serum or Plasma Comprehensive metabolic panel Lab Routine Elevated liver function tests Pyelonephritis Hypokalemia Diarrhea, unspecified type Expected: 06/26/2023 (Approximate), Expires: 06/26/2024 [facility] Work Phone: Comment on above: Expected: 06/26/2023 (Approximate), Expires: 06/26/2024 Immunizations Immunization Date Immunization Notes Care Provider Fa cili 03-11-2016 influenza, injectabl e, quadrivalent, preservative free Jorge Camara LATEX THREAD MACHINE OPERATOR Work Phone: [facility] 03-11-2016 influenza virus vacc ine, unspecified formulation Jorge Camara LATEX THREAD MACHINE OPERATOR Work Phone: [facility] 02-04-2015 tetanus toxoid, redu yenny diphtheria toxoid, and acellular pertussis vaccine, adsorbed Jorge Camara LATEX THREAD MACHINE OPERATOR Work Phone: [facility] 12-17-2001 diphtheria, tetanus toxoids and acellular pertussis vaccine, unspecified formulation Jorge Camara LATEX THREAD MACHINE OPERATOR Work Phone: [facility] 12-17-2001 measles, mumps and rubella virus vaccine Jorge Camara LATEX THREAD MACHINE OPERATOR Work Phone: [facility] 12-17-2001 poliovirus vaccine, inactivated Jorge Camara LATEX THREAD MACHINE OPERATOR Work Phone: [facility] 06-04-1997 diphtheria, tetanus toxoids and acellular pertussis vaccine, unspecified formulation Jorge Camara LATEX THREAD MACHINE OPERATOR Work Phone: [facility] 06-04-1997 haemophilus influenz ae type b vaccine, conjugate unspecified formulation Jorge Camara LATEX THREAD MACHINE OPERATOR Work Phone: [facility] 06-04-1997 measles, mumps and rubella virus vaccine Jorge Camara LATEX THREAD MACHINE OPERATOR Work Phone: [facility] 1996 DTP-Haemophilus influenzae type b conjugate vaccine Jorge Camara LATEX THREAD MACHINE OPERATOR Work Phone: [facility] 1996 hepatitis B vaccine, pediatric or pediatric/adolescent dosage Jorge Camara LATEX THREAD MACHINE OPERATOR Work Phone: [facility] 1996 trivalent poliovirus vaccine, live, oral Jorge Camara LATEX THREAD MACHINE OPERATOR Work Phone: [facility] 1996 DTP-Haemophilus influenzae type b conjugate vaccine Jorge Camara LATEX THREAD MACHINE OPERATOR Work Phone: [facility] 1996 trivalent poliovirus vaccine, live, oral Jorge Camara LATEX THREAD MACHINE OPERATOR Work Phone: [facility] 1996 DTP-Haemophilus influenzae type b conjugate vaccine Jorge Camara LATEX THREAD MACHINE OPERATOR Work Phone: [facility] 1996 hepatitis B vaccine, pediatric or pediatric/adolescent dosage Jorge Camara LATEX THREAD MACHINE OPERATOR Work Phone: [facility] 1996 trivalent poliovirus vaccine, live, oral Jorge Camara LATEX THREAD MACHINE OPERATOR Work Phone: [facility] 1996 hepatitis B vaccine, pediatric or pediatric/adolescent dosage Jorge Camara LATEX THREAD MACHINE OPERATOR Work Phone: [facility] Payers Date Payer Category Payer Self-pay 2022 Medicaid [id number] 2022 Medicaid [id number] 2019 Unknown [id number] 1996 Unknown [id number] 2.16.84 0.1.688250.3.579.2.593 1996 Unknown [id number] 2.16.8 40.1.266311.3.579.2.1286 1996 Unknown [id number] 2.16.84 0.1.660566.3.579.2.1259 1996 Unknown [id number] 2.16.84 0.1.798248.3.579.2.1259 1996 Unknown [id number] 2.16.84 0.1.552911.3.579.2.1258 1996 Unknown [id number] 2.16.84 0.1.622081.3.579.2.1258 1996 Unknown [id number] 2.16.84 0.1.337770.3.579.2.1258 1996 Unknown [id number] 2.16.84 0.1.106586.3.579.2.1258 1996 Unknown [id number] 2.16.84 0.1.174399.3.579.2.1258 1996 Unknown [id number] 2.16.84 0.1.386509.3.579.2.1258 1996 Unknown [id number] 2.16.84 0.1.558771.3.579.2.1258 1996 Unknown [id number] 2.16.84 0.1.771748.3.579.2.1258 1996 Unknown [id number] 2.16.84 0.1.079773.3.579.2.1258 1996 Unknown [id number] 2.16.84 0.1.910774.3.579.2.1258 1996 Unknown [id number] 2.16.84 0.1.053177.3.579.2.1258 1996 Unknown [id number] 2.16.84 0.1.770414.3.579.2.1258 1996 Unknown [id number] 2.16.84 0.1.589097.3.579.2.1258 1996 Unknown [id number] 2.16.84 0.1.648993.3.579.2.1258 1996 Unknown [id number] 2.16.84 0.1.088943.3.579.2.1258 1996 Unknown [id number] 2.16.84 0.1.262640.3.579.2.1258 1996 Unknown [id number] 2.16.84 0.1.408720.3.579.2.1258 Social History Date Type Detail Facility Start: [...] Personal health goal Clinical Notes 06-26-2023 to 07-10-2024 KIRTI Beltrán - 07/10/2024 1:50 PM Juan Luis Barron MD - 06/26/2024 2:30 PM Iwona Espino LPN - 05/20/2024 10:50 AM KIRTI Welsh - 05/13/2024 11:00 AM EST Note Date & Type Note Facility 07-10-2024 History of Presen t illness Narrative Reason for Appointment: Patient ID: Jaja Lisa is a 29 y.o. female who presents for 6 week post Patient presents today for Post Follow Up appointment. MEDICATIONS Current Outpatient Medications Medication Instructions norgestimate-ethinyl estradiol (Sprintec 28) 0.25-35 MG-MCG tablet 1 tablet, Oral, Daily, Take 1 tablet by mouth daily ALLERGIES Allergies Allergen Reactions Norelgestromin-Eth Estradiol Other Reaction(s): GI upset PROBLEMS Active Ambulatory Problems Diagnosis Date Noted Anxiety 06/23/2023 Gastroesophageal reflux disease 06/23/2023 Goiter (CMS/HCC) 06/23/2023 Other headache syndrome 06/23/2023 Overweight 06/23/2023 Fatty liver 01/01/2024 Hepatic steatosis during 01/01/2024 Resolved Ambulatory Problems Diagnosis Date Noted Frontal sinusitis 06/23/2023 Kidney infection 07/11/2023 31 weeks gestation of 04/01/2024 Third trimester 04/01/2024 Past Medical History: Diagnosis Date Disease of [...] reviewed. Vitals: Estimated body mass index is 27.79 kg/m as calculated from the following: Height as of 06/30/21: 5' 2.5 . Weight as of this encounter: 154 lb 6.4 oz. BP: 100/70 Patient's last menstrual period was 08/25/2023. ASSESSMENT & PLAN ICD-10-CM 1. 6 weeks follow-up Z39.2 2. Encounter for initial prescription of contraceptive pills Z30.011 norgestimate-ethinyl estradiol (Sprintec 28) 0.25-35 MG-MCG tablet Post Follow Up: Patient is doing well Patient presents today for 6 week visit. Patient is s/p Vaginal delivery. Patient states depression but denies suicidal and homicidal ideations. All options were discussed with the patient regarding control and patient desires salpingectomy Follow Up: Patient is to return for annual unless needed otherwise. Documented by KIRTI Beltrán on behalf of: KIRTI Beltrán documented in this encounter [facility] 06-26-2024 History of Presen t illness Narrative Images from the original note were not included. Jaja Lisa is a 29 y.o. female presents with chief complaint of rt eye irritation HPI: HPI Pt is here with her daughter for her appt. And asked to be seen for rt eye eythema, watery, no change in vision, no contact use. No injury to her eye but it feels irritated. No other URI symptoms. Otherwise is feeling well. SUBJECTIVE: MEDICATIONS: Current Outpatient Medications Medication Instructions omeprazole (PRILOSEC) 20 mg, Oral, Daily before breakfast, Do not crush or chew. MV-Min-Fe Fum-FA-DHA ( 1 PO) Take by mouth ALLERGIES: Allergies Allergen Reactions Norelgestromin-Eth Estradiol Other Reaction(s): GI upset History: Past Medical History: Diagnosis Date Anxiety Disease of gallbladder GERD (gastroesophageal reflux disease) Headache Irregular menses Menorrhagia Other chronic pain Urinary tract infection Past Surgical History: Procedure Laterality Date CHOLECYSTECTOMY 2011 No family history on file. Social History Socioeconomic History Marital status: Unmarried Spouse name: Not on file Number of children: Not on file Years of education: Not on file Highest education level: Not on file Occupational History Not on file Tobacco Use Smoking status: Former Current packs/day: 0.00 Types: Cigarettes Smokeless tobacco: Never Vaping Use Vaping status: Some Days Substances: Nicotine Devices: Disposable Substance and Sexual Activity Alcohol use: Yes Alcohol/week: 6.0 standard drinks of alcohol Types: 3 Cans of beer, 3 Shots of liquor per week Drug use: Never Sexual activity: Yes Partners: Male control/protection: None Other Topics Concern Not on file Social History Narrative Not on file Social Drivers of Health Financial Resource Strain: Low Risk (06/26/2023) Overall Financial Resource Strain (CARDIA) Difficulty of Paying Living Expenses: Not very hard Food Insecurity: No Food Insecurity (06/26/2023) Hunger Vital Sign Worried About Running Out of Food in the Last Year: Never true Ran Out of Food in the Last Year: Never true Transportation Needs: No Transportation Needs (06/26/2023) PRAPARE - Transportation Lack of Transportation (Medical): No Lack of Transportation (Non-Medical): No Physical Activity: Sufficiently Active (06/26/2023) Exercise Vital Sign Days of Exercise per Week: 5 days Minutes of Exercise per Session: 80 min Stress: Stress Concern Present (06/26/2023) [place] [employer] - Occupational Stress Questionnaire Feeling of Stress : To some extent Social Connections: Moderately Isolated (06/26/2023) Social Connection and Isolation Panel [NHANES] Frequency of Communication with Friends and Family: More than three times a week Frequency of Social Gatherings with Friends and Family: More than three times a week Attends Faith Services: 1 to 4 times per year Active Member of Clubs or Organizations: No Attends Club or Organization Meetings: Never Marital Status: Never Intimate Partner Violence: Not At Risk (06/26/2023) Humiliation, Afraid, Rape, and Kick questionnaire Fear of Current or Ex-Partner: No Emotionally Abused: No Physically Abused: No Sexually Abused: No Housing Stability: Low Risk (06/26/2023) Housing Stability Vital Sign Unable to Pay for Housing in the Last Year: No Number of Places Lived in the Last Year: 1 Unstable Housing in the Last Year: No I have reviewed and reconciled the history and medication list with the patient today. REVIEW OF SYMPTOMS: Review of Systems Constitutional: Negative for chills, fatigue and fever. HENT: Negative for congestion and sore throat. Eyes: Positive for discharge and redness. Negative for photophobia, pain (eye feels irritated by not painful) and visual disturbance. Respiratory: Negative for cough and shortness of breath. Cardiovascular: Negative for chest pain, palpitations and leg swelling. Gastrointestinal: Negative for abdominal pain, constipation, diarrhea, nausea and vomiting. Genitourinary: Negative for difficulty urinating and dysuria. Skin: Negative. Neurological: Negative for dizziness and headaches. OBJECTIVE: 03/13/2024 10:29 AM 04/01/2024 8:51 AM 04/16/2024 3:25 PM 05/02/2024 1:50 PM 05/09/2024 10:27 AM 05/13/2024 11:45 AM 05/20/2024 11:13 AM Vitals BMI 29.74 kg/m2 29.52 kg/m2 30.49 kg/m2 30.67 kg/m2 30.56 kg/m2 30.78 kg/m2 30.78 kg/m2 BSA (m2) 1.82 m2 1.81 m2 1.84 m2 1.85 m2 1.84 m2 1.85 m2 1.85 m2 Systolic 100 108 110 100 110 110 118 Diastolic 68 68 66 64 68 70 70 Weight (lb) 165.25 164 169.4 170.4 169.8 171 171 Physical Exam Constitutional: General: She is not in acute distress. Appearance: She is not ill-appearing. HENT: Head: Normocephalic and atraumatic. Eyes: Extraocular Movements: Extraocular movements intact. Pupils: Pupils are equal, round, and reactive to light. Comments: Rt eye conjunctiva is slightly erythematous, upper and low lids on the rt are slightly erythematous and slightly swollen. Rt eye is watery Pulmonary: Effort: Pulmonary effort is normal. Skin: General: Skin is warm and dry. Findings: No rash. Neurological: Mental Status: She is alert and oriented to person, place, and time. Psychiatric: Mood and Affect: Mood normal. Behavior: Behavior normal. Thought Content: Thought content normal. Judgment: Judgment normal. ASSESSMENT AND PLAN: Assessment/Plan Diagnosis Plan 1. Acute bacterial conjunctivitis of right eye gentamicin (Garamycin) 0.3 % ophthalmic solution Pt does not wear contacts. Encouraged not to use eye makeup till cleared. Discussed using cool or warm compress to the eye tid with a clean washcloth. Then apply the eye drops. Encouraged good hand washing and discussed possibility of spread. Follow up prn documented in this encounter [facility] 05-20-2024 History of Presen t illness Narrative [...] nursing note reviewed. Exam conducted with a electrician constructor supervisor present. Vitals: Estimated body mass index is [...] Familia Garnett DO documented in this encounter [facility] 05-13-2024 History of Presen t illness Narrative [...] of: KIRTI Beltrán documented in this encounter [facility] 05-09-2024 History of Presen t illness Narrative [...] nursing note reviewed. Exam conducted with a electrician constructor supervisor present. Vitals: Estimated body mass index is [...] Familia Garnett DO documented in this encounter [facility] 05-02-2024 History of Presen t illness Narrative [...] nursing note reviewed. Exam conducted with a electrician constructor supervisor present. Vitals: Estimated body mass index is [...] of: KIRTI Beltrán documented in this encounter [facility] 04-16-2024 History of Presen t illness Narrative [...] nursing note reviewed. Exam conducted with a electrician constructor supervisor present. Vitals: Estimated body mass index is [...] of: KIRTI Beltrán documented in this encounter [facility] 04-01-2024 History of Presen t illness Narrative [...] nursing note reviewed. Exam conducted with a electrician constructor supervisor present. Vitals: Estimated body mass index is [...] Familia Garnett DO documented in this encounter [facility] 03-13-2024 History of Presen t illness [...] of: KIRTI Beltrán documented in this encounter [facility] 02-14-2024 History of Presen t illness [...] of: KIRTI Beltrán documented in this encounter [facility] 01-16-2024 History of Presen t illness Narrative [...] nursing note reviewed. Exam conducted with a electrician constructor supervisor present. Vitals: Estimated body mass index is [...] Familia Garnett DO documented in this encounter [facility] 06-26-2023 Telephone encount er Note Please let patient know labs are improving. Potassium level is WNL. AST and ALT are still high but better compared to what it was in the hospital. I would like to repeat AST/ALT levels in 4 weeks. Order placed. AST 10 - 30 U/L 43 High ALT 6 - 29 U/L 86 High [facility] 06-26-2023 Miscellaneous Notes Formattin g of [...] U/L 86 High documented in this encounter [facility] 06-26-2023 History of Presen t illness [...] Visit Report Report COMPREHENSIVE METABOLIC PANEL Order: [id number] Component Ref Range & Units 5 d [...] CT abdomen pelvis w IV contrast Order: [id number] Narrative CT ABDOMEN AND PELVIS HISTORY: Abdominal [...] [facility] Diagnosis Acute bacterial conjunctivitis of right eye- Primary documented [facility]* Diagnosis 6 weeks follow-up Encounter for initial prescription of contraceptive pills documented in this encounter [facility] Summary Purpose Family History No Family History Records FoundNo Family History Records FoundNo Family History Records FoundNo Family History Records Found Advance Directives No Advanced Directives Records FoundNo Advanced Directives Records FoundNo Advanced Directives Records FoundNo Advanced Directives Records Found Additional Source Comments INFORMATION SOURCE (unrecogn ized section and content) DATE CREATED AUTHOR [facility] DATE CREATED AUTHOR AUTHOR'S ORGANIZ ATION 04/21/2023 [facility] DATE CREATED AUTHOR AUTHOR'S ORGANIZ ATION 06/26/2023 [facility] DATE CREATED AUTHOR AUTHOR'S ORGANIZ ATION 07/12/2024 [facility] Reason for Visit (unrecogniz ed section and content) Reason Comments ER Follow-up Abd pain,diarrhea. L eft side pain comes and goes started this morning, nausea better, continued diarrhea. Reason Onset Date Comments Results 06/26/2023 Reason Comments Routine Visit Reason Comments 6 week post Care Teams (unrecognized sec tion and content) Sports Commentator Relationship Specialty Start Date End Date Pastora Barron MD [address] [place] [address] PCP - General Family Medicine 09/20/22 Sports Commentator Relationship Specialty Start Date End Date Pastora Barron MD [address] [place] [address] PCP - General Family Medicine 09/20/22 Sports Commentator Relationship Specialty Start Date End Date Pastora Barron MD [address] [place] [address] PCP - General Family Medicine 09/20/22 Sports Commentator Relationship Specialty Start Date End Date Pastora Barron MD [address] [place] [address] PCP - General Family Medicine 09/20/22 Sports Commentator Relationship Specialty Start Date End Date Pastora Barron MD [address] [place] [address] PCP - General Family Medicine 09/20/22 Sports Commentator Relationship Specialty Start Date End Date Pastora Barron MD [address] [place] [address] PCP - General Family Medicine 09/20/22 Sports Commentator Relationship Specialty Start Date End Date Pastora Barron MD [address] [place] [address] PCP - General Family Medicine 09/20/22 Sports Commentator Relationship Specialty Start Date End Date Pastora Barron MD [address] [place] [address] PCP - General Family Medicine 09/20/22 Sports Commentator Relationship Specialty Start Date End Date Pastora Barron MD [address] [place] [address] PCP - General Family Medicine 09/20/22 Sports Commentator Relationship Specialty Start Date End Date Pastora Barron MD [address] [place] [address] PCP - General Family Medicine 09/20/22 Sports Commentator Relationship Specialty Start Date End Date Pastora Barron MD [address] [place] [address] PCP - General Family Medicine 09/20/22 Sports Commentator Relationship Specialty Start Date End Date Pastora Barron MD [address] [facility] [place] [address] PCP - General Family Medicine 09/20/22 Sports Commentator Relationship Specialty Start Date End Date Pastora Barron MD [address] [facility] [place] [place] [address] PCP - General Family Medicine 09/20/22 Sports Commentator Relationship Specialty Start Date End Date Pastora Barron MD [address] [facility] [place] [address] PCP - General Family Medicine 09/20/22 FOR [...] BE BASED ON THE PRIMARY CLINICAL RECORDS. [employer] provides no warranty or guarantee of the accuracy or completeness of information in this document.
[2024-07-23 08:30] LABS: Basophils Percent Auto 0.4 % (0.2-2.0); Eosinophils Absolute Auto 0.1 10^3/uL (0.0-0.7); Eosinophils Percent Auto 1.1 % (0.9-7.0); Hematocrit 41.3 % (36.0-48.0); Hemoglobin 13.3 g/dL (12.0-16.0); Immature Granulocytes Abs Auto 0.02 10^3/uL (0.00-0.03); Immature Granulocytes Pct Auto 0.2 % (0.0-0.5); Lymphocytes Percent Auto 35.5 % (20.5-60.0); Mean Corpuscular HGB Conc 32.2 g/dL (29.9-35.2); Mean Corpuscular Hemoglobin 27.9 pg (26.7-34.0); Mean Corpuscular Volume 86.6 fL (81.0-99.0); Mean Platelet Volume 11.6 fL (9.5-13.5); Monocytes Absolute Auto 0.5 10^3/uL (0.3-0.8); Monocytes Percent Auto 5.8 % (1.7-12.0); Neutrophils Absolute Auto 4.9 10^3/uL (1.4-6.5); Platelet Count 314 10^3/uL (150-450); Red Blood Count 4.77 10^6/uL (4.20-5.40); Red Cell Distribution Width 14.1 % (11.0-15.0); White Blood Count 8.5 10^3/uL (4.0-11.0)
--- NOTE | 2024-07-23 08:30 | ED_ITS ---
HPI HPI - General Adult General Chief complaint: Urogenital-Female Stated complaint: abdominal pain Time Seen by Provider: 07/23/24 08:14 Source: patient Mode of arrival: walk-in History of Present Illness HPI narrative: 29-year-old female presents to the emergency department for left flank pain. It started at 4:30 in the morning it woke her from sleep. She has been nauseous and she vomited and now the pain is moving towards the front. She has never had a kidney stone previously. There was no injury and the pain seems to wax and wane. Related Data Home Medications ?Medication ?Instructions ?Recorded ?Confirmed norgestimate 0.25 mg-ethinyl 1 tab PO DAILY 07/23/24 07/23/24 estradiol 35 mcg tablet (Sprintec (28)) Previous Rx's ?Medication ?Instructions ?Recorded acetaminophen 300 mg-codeine 30 mg 1 tab PO Q6H PRN pain 5 days #20 07/23/24 tablet tabs tamsulosin 0.4 mg capsule (Flomax) 0.4 mg PO DAILY #5 caps 07/23/24 Allergies Allergy/AdvReac Type Severity Reaction Status Date / Time No Known Drug Allergies Allergy Verified 07/23/24 07:59 Opioid HPI Opioid Management Most Recent Opioid Data: Last Pain Scale 3 05/25/24 08:50 05/25/24 Ur Phencyclidine Scrn Negative (NEGATIVE) 05/23/24 23:20 010 02/06 Review of Systems ROS Narrative A ten point review of systems is negative except as noted above. PFSH PFSH Medical History (Updated 07/23/24 @ 09:51 by Christiano Guo MD) Anxiety ?F41.9 - Anxiety disorder, unspecified (ICD-10) GERD (gastroesophageal reflux disease) ?K21.9 - Gastro-esophageal reflux disease without esophagitis (ICD-10) Surgical History (Updated 05/24/24 @ 06:37 by Braxton Bridges) Hx of cholecystectomy ?Z90.49 - Acquired absence of other specified parts of digestive tract (ICD- 10) Social History Little interest or pleasure in doing things: not at all Feeling down, depressed, or hopeless: not at all Exam Narrative Exam Narrative: Nurses note and vital signs reviewed and patient is not hypoxic. General: The patient appears well and in no apparent distress. Patient is resting comfortably on cart. Skin: Warm, dry, no pallor noted. There is no rash noted. Head: Normocephalic, atraumatic Eye: Normal conjunctiva, no drainage Ears, Nose, Mouth, and Throat: oral mucosa is moist. Nares patent. Cardiovascular: Regular Rate and Rhythm Respiratory: Patient is in no distress, no accessory muscle use, lungs are clear to auscultation, no wheezing, rales or rhonchi Back: non-tender, no CVA tenderness bilaterally to percussion. No bruise or rash in the flank area GI: Soft and nontender Musculoskeletal: The patient has no evidence of calf tenderness, no pitting edema, symmetrical pulses noted bilaterally Neurological: A&O, normal speech Psychiatric: Cooperative Constitutional Vital Signs, click to edit/add: Last Vital Signs Temp 98.3 F 07/23/24 07:59 Pulse 70 07/23/24 07:59 Resp 20 07/23/24 07:59 BP 136/86 07/23/24 07:59 Pulse Ox 100 07/23/24 07:59 O2 Del Method Room Air 07/23/24 07:59 Course Vital Signs Vital signs: Vital Signs Temperature 98.3 F 07/23/24 07:59 Pulse Rate 70 07/23/24 07:59 Respiratory Rate 20 07/23/24 07:59 Blood Pressure 136/86 07/23/24 07:59 Pulse Oximetry 100 07/23/24 07:59 Oxygen Delivery Method Room Air 07/23/24 07:59 Temperature 98.3 F 07/23/24 07:59 Pulse Rate 70 07/23/24 07:59 Respiratory Rate 20 07/23/24 07:59 Blood Pressure 136/86 07/23/24 07:59 Pulse Oximetry 100 07/23/24 07:59 Oxygen Delivery Method Room Air 07/23/24 07:59 Medical Decision Making MDM Narrative Medical decision making narrative: 2 mm stone is noted by the radiologist at the left UVJ. She is feeling much better now and is discharged home on Tylenol 3 and Flomax and was referred to Dr. Perry. She was given a urine strainer and a specimen cup as well. Treatment diagnosis and follow-up were discussed with the patient. Lab Data Lab results reviewed: Yes I reviewed the patient's lab results Labs: Lab Results 07/23/24 07/23/24 Range/Units 08:00 08:10 WBC 8.5 (4.0-11.0) 10^3/uL RBC 4.77 (4.20-5.40) 10^6/uL Hgb 13.3 (12.0-16.0) g/dL Hct 41.3 (36.0-48.0) % MCV 86.6 (81.0-99.0) fL MCH 27.9 (26.7-34.0) pg MCHC 32.2 (29.9-35.2) g/dL RDW 14.1 (11.0-15.0) % Plt Count 314 (150-450) 10^3/uL MPV 11.6 (9.5-13.5) fL Neut % (Auto) 57.0 (43.0-75.0) % Lymph % (Auto) 35.5 (20.5-60.0) % [place] % (Auto) 5.8 (1.7-12.0) % Eos % (Auto) 1.1 (0.9-7.0) % Baso % (Auto) 0.4 (0.2-2.0) % Neut # (Auto) 4.9 (1.4-6.5) 10^3/uL Lymph # (Auto) 3.0 (1.2-3.8) 10^3/uL [place] # (Auto) 0.5 (0.3-0.8) 10^3/uL Eos # (Auto) 0.1 (0.0-0.7) 10^3/uL Baso # (Auto) 0.0 (0.0-0.1) 10^3/uL Abs Immat Gran (auto) 0.02 (0.00-0.03) 10^3/uL Imm/Tot Granulo (auto) 0.2 (0.0-0.5) % Sodium 144 (136-145) mmol/L Potassium 3.5 (3.5-5.1) mmol/L Chloride 105 (98-107) mmol/L Carbon Dioxide 28.9 (21.0-32.0) mmol/L Anion Gap 13.6 BUN 15.0 (7.0-18.0) mg/dL Creatinine 0.92 (0.55-1.02) mg/dL Est GFR ( Amer) >60 (>=60 mL/min/1.73m^2) Est GFR (Non-Af Amer) >60 (>=60 mL/min/1.73m^2) BUN/Creatinine Ratio 16.3 Glucose 109 H (74-106) mg/dL Calcium 8.9 (8.5-10.1) mg/dL Serum HCG, Qual Negative (NEGATIVE) Urine Color Lt. yellow (YELLOW) Urine Clarity Clear (CLEAR) Urine pH 6.0 (5.0-9.0) Ur Specific [place] 1.025 (1.005-1.025) Urine Protein Trace (NEG/TRACE) mg/dL Urine Glucose (UA) Negative (NEGATIVE) mg/dL Urine Ketones Negative (NEGATIVE) mg/dL Urine Occult Blood Large A (NEGATIVE) Urine Nitrite Negative (NEGATIVE) Urine Bilirubin Negative (NEGATIVE) Urine Urobilinogen 0.2 (0.2-1.0) EU/dL Ur Leukocyte Esterase Negative (NEGATIVE) Urine RBC 10-20 A (0-2) #/HPF Urine WBC 0-2 A (NONE SEEN) #/HPF Ur Squamous Epith Cells Few A (NONE/RARE) #/LPF Urine Crystals None seen (None Seen) #/HPF Urine Bacteria Trace A (NONE SEEN) #/HPF Urine Casts None seen (NONE SEEN) #/LPF Urine Mucus Small A (NONE SEEN) Ur Culture Indicated? No Imaging Data CT scan - abdomen: Radiologist's impression: Distal left ureteral stone at the ureterovesical junction resulting in mild hydronephrosis and hydroureter. Discharge Plan Discharge Chief Complaint: Urogenital-Female Clinical Impression: Kidney stone Patient Disposition: Home, Self-Care Time of Disposition Decision: 09:51 Condition: Good Mode of Transportation: Private Vehicle Prescriptions / Home Meds: New acetaminophen-codeine 300-30 mg tablet 1 tab PO Q6H PRN (Reason: pain) 5 Days Qty: 20 0RF tamsulosin [Flomax] 0.4 mg capsule 0.4 mg PO DAILY Qty: 5 0RF No Action norgestimate-ethinyl estradiol [Sprintec (28)] 0.25-35 mg-mcg tablet 1 tab PO DAILY Print Language: Khmer Instructions: Kidney Stones (ED), How to Strain Your Urine (ED) Referrals: WONDERLY,KUN B [Primary Care Provider] - 1 week Enoc Perry MD [Physician] - 1 week
[2024-07-23 08:31] LABS: Bilirubin Urine NEGATIVE (NEGATIVE); Blood Urine LARGE (NEGATIVE); Clarity Urine CLEAR (CLEAR); Color Urine LT. YELLOW (YELLOW); Glucose Urine UA NEGATIVE (NEGATIVE); Ketones Urine NEGATIVE (NEGATIVE); Leukocyte Esterase Urine NEGATIVE (NEGATIVE); Nitrite Urine NEGATIVE (NEGATIVE); Protein Urine TRACE mg/dL (NEG/TRACE); Specific Gravity Urine 1.025 (1.005-1.025); Urobilinogen Urine 0.2 EU/dL (0.2-1.0)
[2024-07-23 08:34] LABS: HCG Qualitative NEGATIVE (NEGATIVE); Internal Control Within Normal Limits
[2024-07-23 08:38] LABS: WBC Urine 0-2 #/HPF (NONE SEEN)
[2024-07-23 08:39] LABS: Anion Gap 13.6; BUN Creatinine Ratio 16.3; Calcium 8.9 mg/dL (8.5-10.1); Carbon Dioxide 28.9 mmol/L (21.0-32.0); Chloride 105 mmol/L (98-107); Estimated GFR (African America >60 (>=60 mL/min/1.73m^2); Estimated GFR (Non-African Ame >60 (>=60 mL/min/1.73m^2); Glucose 109 mg/dL (74-106); Potassium 3.5 mmol/L (3.5-5.1); Sodium 144 mmol/L (136-145)
[2024-07-23 08:39] LABS: Bacteria Urine TRACE #/HPF (NONE SEEN)
[2024-07-23 08:40] LABS: Cast Seen? NONE SEEN #/LPF (NONE SEEN); Crystals Seen? None Seen #/HPF (None Seen); Mucus Urine SMALL (NONE SEEN); Squamous Epithelial Cell Urine FEW #/LPF (NONE/RARE); Urine Culture Indicated NO
[2024-07-23] MEDS: ONDANSETRON PF 4 MG/2 ML VIAL IV (08:40)
[2024-07-23] MEDS: KETOROLAC TROMETHAMINE 30 MG/ML VIAL IVP (08:40)
== END 2024-07-23 10:04 | disposition home or self-care (01) ==
PROVIDERS: Emergency Provider Emergency Medicine; PCP Family Medicine
DX: N13.2 Hydronephrosis with renal and ureteral calculous obstruction (principal); Z90.49 Acquired absence of other specified parts of digestive tract
CPT/HCPCS: 36415; 74176; 80048; 81001; 84703; 85025; 96374; 96375; 99284; J1885; J2405

== ENCOUNTER 2024-08-09 15:06 | Outpatient (OUT) | payer MEDICAID, SELFPAY ==
--- NOTE | 2024-08-09 15:10 | US_ITS ---
The [place] [id number] Patient Name: SERGIO JONES MRN: [id number] date: 1995 Sex: F Assigned Patient Location: US Current Patient Location: US Accession/Order Number: [id number] Exam Date: 08/09/2024 16:59 Report Date: 08/09/2024 17:00 At the request of: LARISA ULLOA MD Procedure: US renal BI BILATERAL RENAL AND BLADDER ULTRASOUND CLINICAL HISTORY: KIDNEY STONE COMPARISON: None FINDINGS: Estimation of renal size is approximately 10.8 cm on the right and 11.0 cm on the left. No contour deforming mass, shadowing stone or hydronephrosis. The urinary bladder is minimally distended without focal abnormality. US/US renal BI IMPRESSION: No acute findings. Impression dictated by: Ernie Zhong Jr., D.O.08/09/2024 5:00 PM Dictation Location: [place] [address] Electronically authenticated by: [id number] Y Date: 08/09/2024 17:00
--- NOTE | 2024-08-09 15:11 | XR_ITS ---
The [address] [address] Patient Name: SERGIO JONES MRN: [id number] date: 1995 Sex: F Assigned Patient Location: US Current Patient Location: US Accession/Order Number: [id number] Exam Date: 08/09/2024 16:09 Report Date: 08/09/2024 16:10 At the request of: LARISA ULLOA MD Procedure: XR abdomen 1V KUB: CLINICAL INFORMATION: Kidney stone follow-up COMPARISON: CT abdomen and pelvis 07/23/2024 FINDINGS: No suspicious urinary tract calculus is identified. No bowel obstruction or free air. Post cholecystectomy clips. XR/XR abdomen 1V IMPRESSION: NO SUSPICIOUS URINARY TRACT CALCULUS IS NOTED. Impression dictated by: Ernie Zhong Jr., D.O.08/09/2024 4:10 PM Dictation Location: [place] [address] Electronically authenticated by: [id number] Y Date: 08/09/2024 16:10
== END 2024-08-09 15:07 | disposition home or self-care (01) ==
LOC: US 15:06
PROVIDERS: PCP Family Medicine; Visit Provider Urology
DX: N20.0 Calculus of kidney (principal)
CPT/HCPCS: 74018; 76775

== ENCOUNTER 2024-09-02 12:35 | Outpatient (OUT) | payer MEDICAID, SELFPAY | END 2024-09-02 12:36 | disposition home or self-care (01) | LOC: PST 12:35 | PROVIDERS: PCP Family Medicine; Visit Provider Obstetrics & Gynecology | DX: Z01.818 Encounter for other preprocedural examination (principal) ==

== ENCOUNTER 2024-09-06 08:28 | Day surgery (SDC) | payer MEDICAID, SELFPAY ==
[2024-09-02 13:03] VITALS: BP 109/73; PULSE 66; TEMP 36.4; O2SAT 100; BMI 28.4
[2024-09-06] VITALS (9 sets, daily range): BP systolic 94–122; BP diastolic 51–75; PULSE 52–80; TEMP 36.3–36.5; O2SAT 100; BMI 28.5
[2024-09-06 08:36] LABS: Basophils Percent Auto 0.2 % (0.2-2.0); Eosinophils Absolute Auto 0.1 10^3/uL (0.0-0.7); Eosinophils Percent Auto 0.7 % (0.9-7.0); Hematocrit 38.9 % (36.0-48.0); Immature Granulocytes Abs Auto 0.02 10^3/uL (0.00-0.03); Immature Granulocytes Pct Auto 0.2 % (0.0-0.5); Lymphocytes Absolute Auto 2.6 10^3/uL (1.2-3.8); Mean Corpuscular HGB Conc 33.4 g/dL (29.9-35.2); Mean Corpuscular Hemoglobin 28.6 pg (26.7-34.0); Mean Corpuscular Volume 85.7 fL (81.0-99.0); Mean Platelet Volume 11.2 fL (9.5-13.5); Monocytes Absolute Auto 0.6 10^3/uL (0.3-0.8); Monocytes Percent Auto 6.2 % (1.7-12.0); Neutrophils Absolute Auto 5.6 10^3/uL (1.4-6.5); Neutrophils Percent Auto 63.7 % (43.0-75.0); Platelet Count 292 10^3/uL (150-450); Red Blood Count 4.54 10^6/uL (4.20-5.40); Red Cell Distribution Width 14.1 % (11.0-15.0); White Blood Count 8.9 10^3/uL (4.0-11.0)
[2024-09-06] MEDS: LACTATED RINGER'S SOLUTION 1,000 ML 50 ML IV ×2 (09:03→10:30)
[2024-09-06 09:05] LABS: HCG Quantitative <1 mIU/mL
--- NOTE | 2024-09-06 10:14 | P.ON_ITS ---
Brief Operative Note Date of procedure: 09/06/24 Pre-op diagnosis general: desires sterilization Post-op diagnosis: same as pre-op Procedure: NAME OF PROCEDURE: robotic assisted bilateral laparoscopic salpingectomy PROCEDURE: The patient was taken back to the Operating Room where she was given general anesthesia without difficulty. She was then prepped and draped in the normal sterile fashion after being placed in a dorsal lithotomy position. A wet sponge stick was placed into the patient's vagina. Attention was then turned to the patient's abdomen, where a scalpel was used to make a small infraumbilical incision. The S retractors were then used to dissect the underlying layers until the fascia could be seen. The fascia was then grasped with Gallito clamps and tented up. A knife was then used to make a small incision to the fascia. The muscle was identified, at that time two sutures of #0 Vicryl on a GI needle was then used and placed through the fascia. the peritoneum was then identified and entered bluntly. The 10-4 Hiram was then placed into the patient's abdomen. This was confirmed with direct visualization of the bowel, using the laparoscope. The patient's abdomen was then insufflated using approximately 4 liters of CO2 gas. Survey of the patient's abdomen demonstrated ovaries were normal in appearance as well as both tubes and uterus. A second and third rt and lt lateral robotic ports which were 8 mm in size, was then placed after the skin incision was made under direct visualization . the robotic arms were engaged. The patient's tube on the patient's right side was identified and t ented up using a grasper, the ligasure apparatus was then used to come across the mesosalpingx from the fimbriated end to the insertion site at the uterus, the tube was then amputated and removed in its entirety. This was done on the contralateral side. The tubes were the removed from the patients abdomen. Excellent hemostasis was noted. The lateral ports were then moved under direct visualization with excellent hemostasis. All instruments were removed from the patient's abdomen. The fascia was closed using the #0 Vicryl on GI needle. The skin was closed using 4-0 Vicryl subcuticularly. All instruments were removed from the patient's vagina as well. The patient was taken out of the dorsal lithotomy position and placed in the supine position and taken to recovery in stable condition. Sponge, lap and needle counts were correct x2. Anesthesia: MARIA Surgeon: Tato Garnett [employer] Executive Producer: Abeba Alvarez Estimated blood loss (mL): 5 Pathology: other (tubes) Condition: stable Disposition: PACU Urinary Catheter Management Urinary Catheter Management Urethral: Cath placed during this visit: no
--- NOTE | 2024-09-06 11:10 | PC.NURSE ---
c/o nausea; alcohol pad to nares; no emesis
--- NOTE | 2024-09-06 11:12 | PC.NURSE ---
No further c/o nausea
[2024-09-06] MEDS: HYDROCODONE/ACET 5-325 MG TABLET 1 TAB PO (11:44)
--- NOTE | 2024-09-06 11:51 | PC.NURSE ---
Medicated with oral pain medication as ordered; no urge to void
--- NOTE | 2024-09-06 12:24 | PC.NURSE ---
Up to bathroom and voids clear yellow without difficulty
== END 2024-09-06 12:26 | disposition home or self-care (01) ==
PROVIDERS: PCP Family Medicine; Visit Provider Obstetrics & Gynecology
PROC: (CPT 840; principal; 2024-09-06 09:35)
DX: Z30.2 Encounter for sterilization (principal); Z87.891 Personal history of nicotine dependence; Z90.49 Acquired absence of other specified parts of digestive tract; K21.9 Gastro-esophageal reflux disease without esophagitis
CPT/HCPCS: 58661; 36415; 84702; 85025; J1100; J1885; J2250; J2405; J2704; J3010

== ENCOUNTER 2024-09-10 09:55 | Emergency (ER) | payer MEDICAID, SELFPAY ==
[2024-09-10 10:00] VITALS: BP 126/84; PULSE 82; O2SAT 100; BMI 28.7
--- NOTE | 2024-09-10 10:05 | PC.NURSE ---
Patient reports having bright red vaginal bleeding that started yesterday. Tubal removal done 4 days ago and patient concerned as her monthly period is not due. Denies any pain.
[2024-09-10 10:47] LABS: Basophils Percent Auto 0.2 % (0.2-2.0); Eosinophils Absolute Auto 0.2 10^3/uL (0.0-0.7); Eosinophils Percent Auto 2.2 % (0.9-7.0); Hematocrit 38.2 % (36.0-48.0); Immature Granulocytes Abs Auto 0.02 10^3/uL (0.00-0.03); Immature Granulocytes Pct Auto 0.2 % (0.0-0.5); Lymphocytes Absolute Auto 2.5 10^3/uL (1.2-3.8); Lymphocytes Percent Auto 28.5 % (20.5-60.0); Mean Corpuscular Hemoglobin 28.8 pg (26.7-34.0); Mean Corpuscular Volume 84.5 fL (81.0-99.0); Mean Platelet Volume 11.4 fL (9.5-13.5); Monocytes Absolute Auto 0.5 10^3/uL (0.3-0.8); Monocytes Percent Auto 5.7 % (1.7-12.0); Neutrophils Absolute Auto 5.6 10^3/uL (1.4-6.5); Neutrophils Percent Auto 63.2 % (43.0-75.0); Platelet Count 285 10^3/uL (150-450); Red Blood Count 4.52 10^6/uL (4.20-5.40); Red Cell Distribution Width 13.8 % (11.0-15.0); White Blood Count 8.9 10^3/uL (4.0-11.0)
[2024-09-10 11:04] LABS: Alanine Aminotransferase 24 U/L (14-59); Albumin Globulin Ratio 0.9; Albumin Level 3.3 g/dL (3.4-5.0); Alkaline Phosphatase 76 U/L (46-116); Anion Gap 12.5; Aspartate Amino Transferase 13 U/L (15-37); BUN Creatinine Ratio 12.8; Bilirubin Total 0.3 mg/dL (0.2-1.0); Carbon Dioxide 27.5 mmol/L (21.0-32.0); Chloride 101 mmol/L (98-107); Estimated GFR (African America >60 (>=60 mL/min/1.73m^2); Estimated GFR (Non-African Ame >60 (>=60 mL/min/1.73m^2); Globulin 3.7 g/dL; Glucose 93 mg/dL (74-106); HCG Qualitative NEGATIVE (NEGATIVE); Internal Control Within Normal Limits; Sodium 137 mmol/L (136-145)
[2024-09-10] MEDS: ONDANSETRON PF 4 MG/2 ML VIAL IV (11:14)
--- NOTE | 2024-09-10 11:38 | ED.FEMALEGU1 ---
HPI - Female Genitourinary General Chief complaint: Vaginal Bleeding Stated complaint: VAGINAL BLEEDING POST OP Time Seen by Provider: 09/10/24 10:28 Source: patient Mode of arrival: walk-in History of Present Illness HPI Narrative: The patient have a history of recent almost 4 days ago bilateral laparoscopic salpingectomy, coming to the ER after she is having some vaginal bleeding. There was no abdominal pain at any time she mentioned that she is about to get her menstruation as well She changes 3 pads since the morning She denies any difficulty breathing or any other concerns Related Data Previous Rx's ?Medication ?Instructions ?Recorded hydrocodone 5 mg-acetaminophen 325 1 tab PO Q4H PRN pain 4 days #16 09/06/24 mg tablet tabs ibuprofen 800 mg tablet 800 mg PO Q8H PRN pain 14 days #40 09/06/24 tabs Allergies Allergy/AdvReac Type Severity Reaction Status Date / Time norelgestromin AdvReac Vomiting Verified 09/10/24 10:05 Review of Systems ROS Status of ROS 10 or more systems reviewed and unremarkable except as noted in history and below [facility] History (Updated 09/10/24 @ 11:39 by Lisa Boyd MD) Migraine ?G43.909 - Migraine, unspecified, not intractable, without status migrainosus (ICD-10) Request for sterilization ?Z30.2 - Encounter for sterilization (ICD-10) Heartburn ?R12 - Heartburn (ICD-10) Anxiety ?F41.9 - Anxiety disorder, unspecified (ICD-10) GERD (gastroesophageal reflux disease) ?K21.9 - Gastro-esophageal reflux disease without esophagitis (ICD-10) Surgical History (Updated 05/24/24 @ 06:37 by Braxton Bridges) Hx of cholecystectomy ?Z90.49 - Acquired absence of other specified parts of digestive tract (ICD-10) Family History (Updated 09/02/24 @ 12:53 by Amaris Lopez NP) Other Family history of cancer Social History (Updated 09/06/24 @ 08:48 by Corinne Bolden) Within the past year, how often did you have a drink containing alcohol: never Score interpretation: A score less than 3 is consistent with normal alcohol consumption. 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 General: Well-appearing and in no apparent distress. Skin: Warm, dry, no pallor noted. No rash. Head: Normocephalic, atraumatic. Neck: Supple, non-tender. Eye: Pupils are equal, round and EOMI. No scleral icterus. Ears, Nose, Mouth, and Throat: TM are clear, no nasal mucosal hypertrophy. Oral mucosa is moist, no posterior oropharynx erythema, uvula is mid-line Cardiovascular: Regular Rate and Rhythm without murmur, gallop or rub. Respiratory: No accessory muscle use or respiratory distress. Lungs are clear to auscultation, no wheezing, rales or rhonchi Chest Wall: no tenderness Back: No midline thoracic or lumbar vertebral tenderness. No CVA tenderness Musculoskeletal: normal ROM, no calf or popliteal tenderness, no lower extremity edema/swelling GI: Abdomen is soft, non-distended. Healing wound of laparoscopic surgery no significant tenderness Neurological: A&O x4. No cranial nerve dysfunction observed. No truncal ataxia. Moves all extremities. Sensation intact. Psychiatric: Cooperative and interactive. Normal mood and affect. Constitutional Vital Signs, click to edit/add: Last Vital Signs Pulse 82 09/10/24 10:00 Resp 20 09/10/24 10:00 BP 126/84 09/10/24 10:00 Pulse Ox 100 09/10/24 10:00 O2 Del Method Room Air 09/10/24 10:00 Course Vital Signs Vital signs: Vital Signs Pulse Rate 82 09/10/24 10:00 Respiratory Rate 20 09/10/24 10:00 Blood Pressure 126/84 09/10/24 10:00 Pulse Oximetry 100 09/10/24 10:00 Oxygen Delivery Method Room Air 09/10/24 10:00 Pulse Rate 82 09/10/24 10:00 Respiratory Rate 20 09/10/24 10:00 Blood Pressure 126/84 09/10/24 10:00 Pulse Oximetry 100 09/10/24 10:00 Oxygen Delivery Method Room Air 09/10/24 10:00 MDM - Female Genitourinary MDM Narrative Medical decision making narrative: The patient blood workup showed no acute significant pathology and no drop in hemoglobin The patient presentation could be secondary to having her menstrual cycle began especially that she is about to have that The patient case was discussed with Dr. Garnett and right now just supportive care and monitoring symptoms at home The patient is to follow up with primary care physician in next 2-3 days or to return to the emergency department should any of the signs or symptoms worsen or new symptoms develop. The patient agrees with the following Diagnosis and Treatment plan and the patient will be discharged home. Lab Data Labs: Lab Results 09/10/24 Range/Units 10:39 WBC 8.9 (4.0-11.0) 10^3/uL RBC 4.52 (4.20-5.40) 10^6/uL Hgb 13.0 (12.0-16.0) g/dL Hct 38.2 (36.0-48.0) % MCV 84.5 (81.0-99.0) fL MCH 28.8 (26.7-34.0) pg MCHC 34.0 (29.9-35.2) g/dL RDW 13.8 (11.0-15.0) % Plt Count 285 (150-450) 10^3/uL MPV 11.4 (9.5-13.5) fL Neut % (Auto) 63.2 (43.0-75.0) % Lymph % (Auto) 28.5 (20.5-60.0) % [place] % (Auto) 5.7 (1.7-12.0) % Eos % (Auto) 2.2 (0.9-7.0) % Baso % (Auto) 0.2 (0.2-2.0) % Neut # (Auto) 5.6 (1.4-6.5) 10^3/uL Lymph # (Auto) 2.5 (1.2-3.8) 10^3/uL [place] # (Auto) 0.5 (0.3-0.8) 10^3/uL Eos # (Auto) 0.2 (0.0-0.7) 10^3/uL Baso # (Auto) 0.0 (0.0-0.1) 10^3/uL Abs Immat Gran (auto) 0.02 (0.00-0.03) 10^3/uL Imm/Tot Granulo (auto) 0.2 (0.0-0.5) % Sodium 137 (136-145) mmol/L Potassium 4.0 (3.5-5.1) mmol/L Chloride 101 (98-107) mmol/L Carbon Dioxide 27.5 (21.0-32.0) mmol/L Anion Gap 12.5 BUN 10.0 (7.0-18.0) mg/dL Creatinine 0.78 (0.55-1.02) mg/dL Est GFR ( Amer) >60 (>=60 mL/min/1.73m^2) Est GFR (Non-Af Amer) >60 (>=60 mL/min/1.73m^2) BUN/Creatinine Ratio 12.8 Glucose 93 (74-106) mg/dL Calcium 9.0 (8.5-10.1) mg/dL Total Bilirubin 0.3 (0.2-1.0) mg/dL AST 13 L (15-37) U/L ALT 24 (14-59) U/L Alkaline Phosphatase 76 (46-116) U/L Total Protein 7.0 (6.4-8.2) g/dL Albumin 3.3 L (3.4-5.0) g/dL Globulin 3.7 g/dL Albumin/Globulin Ratio 0.9 Serum HCG, Qual Negative (NEGATIVE) Blood Type O Positive Antibody Screen Negative Discharge Plan Discharge Chief Complaint: Vaginal Bleeding Clinical Impression: Vaginal bleeding Patient Disposition: Home, Self-Care Time of Disposition Decision: 11:38 Condition: Good Mode of Transportation: Private Vehicle Prescriptions / Home Meds: No Action ibuprofen 800 mg tablet 800 mg PO Q8H PRN (Reason: pain) 14 Days Qty: 40 0RF hydrocodone-acetaminophen 5-325 mg tablet 1 tab PO Q4H PRN (Reason: pain) 4 Days Qty: 16 0RF Print Language: Slovenian Instructions: Abnormal (Dysfunctional) Uterine Bleeding (ED) Referrals: KUN BARRON [Primary Care Provider, Family Practice] - 1 week Discharge Date/Time: 09/10/24 11:47
== END 2024-09-10 11:47 | disposition home or self-care (01) ==
PROVIDERS: Emergency Provider Emergency Medicine; PCP Family Medicine
DX: N93.9 Abnormal uterine and vaginal bleeding, unspecified (principal); Z98.890 Other specified postprocedural states; Z90.49 Acquired absence of other specified parts of digestive tract; F17.290 Nicotine dependence, other tobacco product, uncomplicated
CPT/HCPCS: 36415; 80053; 84703; 85025; 86850; 86900; 86901; 96374; 99284; J2405